=== PATIENT | female | born 2000 | race Caucasian/White ===

== ENCOUNTER 2022-06-11 13:12 | Emergency (ER) | payer MEDICAID, SELFPAY ==
[2022-06-11 13:13] VITALS: BP 138/76; PULSE 102; RESP 18; TEMP 36.8; O2SAT 98; BMI 35.5
--- NOTE | 2022-06-11 16:17 | EX.ED.DYSGE1 ---
HPI History of Present Illness Chief Complaint: Ear Problem Informant: patient Narrative Narrative: Patient presents with left ear pain that is started likely on Friday. It is gotten slowly worse. She feels as though it swollen at the lower part of the ear. Initially she felt like the hearing was a little bit off but it is normal now. No headache. No trauma. No nausea vomiting. She has not had fevers or chills. No history of diabetes. No dental pain. Touching it makes it worse nothing really makes it better. PFSH PFSH Medical History no medical history Home Medications cephalexin 500 mg capsule 500 mg PO Q6 #40 CAPSULES 06/11/22 [Rx Last Taken Unknown] fluconazole 150 mg tablet (Diflucan) 150 mg PO DAILY #2 tabs 06/11/22 [Rx Last Taken Unknown] naproxen 500 mg tablet 500 mg PO BID #14 tabs 06/11/22 [Rx Last Taken Unknown] sulfamethoxazole 800 mg-trimethoprim 160 mg tablet 1 tab PO BID #20 TABLETS 06/11/22 [Rx Last Taken Unknown] Allergy/AdvReac Type Severity Reaction Status Date / Time No Known Allergies Allergy Verified 06/11/22 13:15 Social History Smoking Status: Current every day smoker tobacco type: cigarettes ROS ROS ED Constitutional Constitutional ED: Denies chills Eyes Eyes: Denies blurry vision, change in vision or diplopia ENT ENT ED: Reports ear pain; Denies rhinorrhea or sore throat Respiratory/Chest Respiratory/Chest: Denies cough Gastrointestinal Gastrointestinal: Denies nausea or vomiting Musculoskeletal Musculoskeletal: Denies back pain, myalgias or neck pain Integumentary Denies Abrasions or rash Neurologic Neurologic: Denies headache(s) Hematologic/Lymphatic Hematologic/Lymphatic: Reports lymphadenopathy; Denies easy bleeding or easy bruising Allergic/Immunologic Allergic/Immunologic ED: Denies urticaria EXAM Physical Exam Narrative Exam Narrative: Patient awake alert sitting comfortably in bed. She is nontoxic in appearance. HEENT does show a little bit of fullness toward the lower edge of the tragus on the ear. This does not appear to be parotid gland. Behind the tragus and the lower anterior external part of the canal is red. But there is no abscess or pustule that I could see or drain. The canal is still open but it certainly narrowed. But there is no exudate. I see nothing behind the ear. There is some lymphadenopathy below this area. There is nothing fluctuant. She can open or close her mouth well. There is no dental tenderness. HEENT shows no swelling up by the eyes or lids. No pain with range of motion. Neck shows upper lymphadenopathy mild no pain with motion Cardiorespiratory lungs are clear. Heart is regular. Saturations are normal. Const Vital Signs: 06/11/22 13:13 Temperature 98.2 F Temperature Source Temporal Pulse Rate 102 H Respiratory Rate 18 Blood Pressure 138/76 H Blood Pressure Mean 96 Pulse Ox 98 Oxygen Delivery Method Room Air MDM MDM MDM Narrative Medical decision making narrative: Patient has 2 to 3 days of irritation and some slight swelling of the left lower ear. I think this is a start of infection. This is not a typical otitis externa because there is no exudate or inflammation the majority of the canal. I think this is more an infection toward the base of the tragus and ear. But there is nothing that can be drained. There is nothing that I can feel that would be reachable with needle. I think warm compresses and antibiotics are the initial course. I explained that this may develop into a head that could be drained and then we do need to resee her because we would like to drain this if possible. But using a needle to poke randomly into the area around the ear is not appropriate. Patient also requested Diflucan with antibiotics which is appropriate. Discharge Plan Triage Chief Complaint: Ear Problem ED Provider: Pablito Sommers Dx/Rx/DC Orders Clinical Impression: Otitis externa Instructions: ED External Ear Infection (Adult) Prescriptions: New sulfamethoxazole-trimethoprim [sulfamethoxazole-trimethoprim] 800-160 mg tablet 1 tab PO BID Qty: 20 0RF cephalexin [cephalexin] 500 mg capsule 500 mg PO Q6 Qty: 40 0RF naproxen 500 mg tablet 500 mg PO BID Qty: 14 0RF fluconazole [Diflucan] 150 mg tablet 150 mg PO DAILY Qty: 2 0RF Rx Instructions: 1 7 days into antibiotic treatment and 1 the day after antibiotics done Primary Care Provider: Babs Hartman Referrals: Babs Hartman, [Primary Care Provider] - 3-5 Days Activity Restrictions/Additional Instructions: Warm compresses to ear. Return if there is a swollen white or soft area that develops. Disposition Disposition: Home, Self Care
== END 2022-06-11 16:29 | disposition home or self-care (01) ==
PROVIDERS: Emergency Provider Emergency Medicine; PCP Pediatrics; Visit Provider Emergency Medicine
DX: H60.92 Unspecified otitis externa, left ear (principal); F17.210 Nicotine dependence, cigarettes, uncomplicated
CPT/HCPCS: 99282

== ENCOUNTER 2023-11-24 22:44 | Emergency (ER) | payer MEDICAID, SELFPAY ==
[2023-11-24 22:45] VITALS: BP 144/86; PULSE 96; RESP 16; TEMP 36.6; O2SAT 100; BMI 36.3
[2023-11-25 00:40] LABS: Absolute Lymphocyte Count 4.04 X10^3/uL (0.83-4.51); Absolute Neutrophil Count 7.2 X10^3/uL (2.0-7.7); Basophil# 0.05 X10^3/uL; Basophil% 0.4 % (0-1); Eosinophil# 0.13 X10^3/uL; Eosinophils% 1.1 % (0-5); Hematocrit 39.6 % (37-47); Hemoglobin 12.9 g/dL (12.0-15.0); Lymphocyte # 4.04 X10^3/ul (0.83-4.51); Lymphocyte % 33.6 % (19-41); Mean Corp Hgb Conc 32.6 g/dL (32-36); Mean Corpuscular Hgb 27.2 pg (27.0-32.0); Mean Corpuscular Volume 83.5 fL (81-99); Mean Platelet Vol. 10.2 fl (6.2-12.0); NRBC Flagged by Analyzer 0 % (0-5); Neutrophil # 7.16 X10^3/uL (2.7-7.7); Neutrophil % 59.7 % (47-70); Platelet Count 295 K/mm3 (150-450); RBC Distribution Width CV 13.3 % (11.6-14.6); Red Blood Count 4.74 M/mm3 (4.2-5.4)
[2023-11-25 00:44] VITALS: RESP 16
[2023-11-25 00:49] LABS: Internal QC Validated? YES +Cl - CLEAR BKGD; Pregnancy, Serum, hCG Quali. NEGATIVE Negative
[2023-11-25 01:23] VITALS: RESP 16
--- NOTE | 2023-11-25 01:52 | EDS_ITS ---
HPI HPI - Female History of Present Illness Chief Complaint: Vag Bleeding Informant: patient Narrative Narrative: 23-year-old female presenting to the emergency room with heavy menses. Patient states that she has been bleeding for 16 days. She states her period started on time and seemed normal but has progressively worsened. She notes lower abdominal cramping at times and heavy flow. She has not had any syncope or lightheadedness. She has no history of abnormal menses. No history of ovarian cyst or other significant INSTRUCTIONAL COORDINATOR history. She does not have a computer science instructor. She is not on any control. She does vape. PFSH PFSH Medical History no medical history Home Medications ?Medication ?Instructions ?Recorded ?Last Taken ?Type norethindrone acetate 5 mg tablet See Rx Instructions .Route 11/25/23 Unknown Rx .COMPLEX #30 tabs Allergy/AdvReac Type Severity Reaction Status Date / Time No Known Allergies Allergy Verified 11/24/23 22:44 Family History no significant family his Surgical History no surgical history Social History Smoking Status: Current every day smoker tobacco type: cigarettes ROS ROS ED Constitutional Constitutional ED: Denies chills or weight loss Eyes Eyes: Denies change in vision or diplopia ENT ENT ED: Denies ear pain, rhinorrhea or sore throat Cardiovascular Cardiovascular: Denies chest pain, orthopnea, palpitations or racing heartbeat Respiratory/Chest Respiratory/Chest: Denies cough, dyspnea or orthopnea Gastrointestinal Gastrointestinal: Denies abdominal pain, diarrhea, nausea or vomiting Genitourinary Genitourinary ED: Reports other Details: See history of present illness ; Denies dysuria, hematuria or urinary frequency Musculoskeletal Musculoskeletal: Denies arthralgias or myalgias Integumentary Denies abscess or rash Neurologic Neurologic: Denies headache(s) or weakness Psychiatric Psychiatric: Denies anxiety, depression, suicidal ideation or suicidal thoughts Endocrine Endocrinology: Denies polydipsia, polyphagia or polyuria Allergic/Immunologic Allergic/Immunologic ED: Denies mouth swelling, tongue swelling or urticaria EXAM Physical Exam Narrative Exam Narrative: Well-appearing female sitting comfortably in the bed Const Vital Signs: 11/24/23 22:45 11/25/23 00:44 11/25/23 01:23 Temperature 97.9 F Temperature Source Oral Pulse Rate 96 Respiratory Rate 16 16 16 Blood Pressure 144/86 H Blood Pressure Mean 105 Pulse Ox 100 Oxygen Delivery Method Room Air Positive well nourished and well developed General Appearance ED: well developed and NAD HEENT Reports normocephalic, head/scalp atraumatic and moist mucous membranes Eyes PERRL and EOMs intact bilaterally Neck no lymphadenopathy, supple and no JVD Resp normal respiratory effort and clear to auscultation bilaterally Cardio regular rate, regular rhythm and no murmurs GI normal to inspection, nondistended, normoactive bowel sounds and non-tender Palpation: soft Back/Spine no CVA tenderness and normal ROM Extremity normal to inspection General Extremety ED: Negative for edema General Extremity: Negative for edema Neuro oriented x3 and CN's II-XII intact bilaterally Sensorium / Orientation: alert Motor Exam: strength 5/5 throughout Psych mental status grossly normal Mood & Affect: Negative for depressed or tearful Skin no rashes or lesions noted and no wounds MDM MDM MDM Narrative Medical decision making narrative: Differential diagnosis includes but not limited to menorrhagia dysfunctional uterine bleeding uterine fibroid ovarian cyst hormonal imbalance ectopic bleeding in Patient's white count is 12 hemoglobin 12.9 platelet count of 295 test is negative. I spoke with the patient regarding various treatment options. She does not currently have a computer science instructor but she needs to obtain 1. Talk about waiting versus Aygestin therapy. She would like to try the Aygestin which I think is reasonable. The patient will continue to monitor bleeding Tylenol and/or Motrin for pain. Follow-up with gynecology referral given. Patient will refrain from vaping. History & Record Review Discussion w/independent historian: Patient Lab Data Attestation: I reviewed the patient's lab results. Labs: Laboratory Results - last 24 hr 11/25/23 00:29 WBC 12.0 H RBC 4.74 Hgb 12.9 Hct 39.6 MCV 83.5 MCH 27.2 MCHC 32.6 RDW Std Deviation 41.0 RDW Coeff of Azar 13.3 Plt Count 295 MPV 10.2 Immature Gran % (Auto) 0.200 Neut % (Auto) 59.7 Lymph % (Auto) 33.6 [place] % (Auto) 5.0 Eos % (Auto) 1.1 Baso % (Auto) 0.4 Absolute Neuts (auto) 7.2 Absolute Lymphs (auto) 4.04 Nucleated RBC % 0 Serum , Qual NEGATIVE Discharge Plan Triage Chief Complaint: Vag Bleeding ED Provider: Marty Askew Dx/Rx/DC Orders Clinical Impression: Menorrhagia Instructions: ED Heavy Menstrual Bleeding Prescriptions: New norethindrone acetate 5 mg tablet See Rx Instructions .ROUTE .COMPLEX Qty: 30 0RF Rx Instructions: 5 mg p.o. 3 times daily until bleeding stops, then 1 tab p.o. twice daily x 3 days, then 1 tab p.o. daily x 3 days Primary Care Provider: Care Physician,No Primary Referrals: Aliyah Martino MD [Med Staff - Active Staff] - As soon as possible Care Physician,No Primary [Primary Care Provider] - Print Language: Japanese Disposition Disposition: Home, Self Care Discharge Date/Time: 11/25/23 01:28
== END 2023-11-25 01:28 | disposition home or self-care (01) ==
PROVIDERS: Emergency Provider Emergency Medicine; Visit Provider Emergency Medicine
DX: N92.0 Excessive and frequent menstruation with regular cycle (principal); F17.210 Nicotine dependence, cigarettes, uncomplicated
CPT/HCPCS: 84703; 85025; 99283

== ENCOUNTER 2024-10-16 22:34 | Emergency (ER) | payer MEDICAID, SELFPAY ==
[2024-10-16 22:35] VITALS: BP 137/94; RESP 18; TEMP 36.6; O2SAT 99; BMI 34.5
--- NOTE | 2024-10-16 22:54 | US_ITS ---
PROCEDURE: TRANSVAGINAL W/PREG US 10/17/2024 REASON FOR EXAM: ABD PAIN TECHNIQUE: TRANSVAGINAL W/PREG US COMPARISON: none FINDINGS Uterus measures 8.7 x 5.4 x 4.5 cm. No fibroids noted. Cervix is closed. No free fluid within the cul de sac. Intrauterine with gestational sac of 0.6 cm corresponding to sonographic gestational age of 5 weeks and 2 days. CARLOS of 06/16/25. Right ovary measures 2.6 x 1.7 x 1.6 cm and left ovary measures 3.8 x 2.7 x 2.4 cm. Corpus luteal cyst in the left measuring 2.1 x 1.5 x 1.7 cm. US/Transvaginal w/Preg US IMPRESSION: Intrauterine with gestational sac of 0.6 cm corresponding to sonograp hic gestational age of 5 weeks and 2 days. CARLOS of 06/16/25. Corpus luteal cyst in the left measuring 2.1 x 1.5 x 1.7 cm. Reading Location: [id number]
--- OUTSIDE RECORDS SUMMARY | 2024-10-16 23:12 | XMS RPT_ITS | CCD ---
Author Organization [facility] CliniSyil Care Team Providers Care Accounts Clerk Name Role Phone [facility] Unavailable [facility], [facility] Unavailable Unavailable NO REFERRING Unavailable Unavailable SHAMA PALM, BERNADETTE Bush Attending Unavailalejandro MOORE MD, KENNY Attending Unavailable SHAMA PALM, BERNADETTE Bush Attending Unavailalejandro MARIE, BABS Primary Care Unavailable GWEN GRULLON Attending Unavailable VALBARRON, BABS Primary Care Unavailable Brisa Mcdowell Primary Care Unavaila Anibal Whalen Attending Unavailable Anibal Lemus Referring Unavailable Brisa Mcdowell Unavailable [phone] Unavailable Unavailable Valentic, Babs Primary Care Provider [phone] PHYSICIAN, NONE Primary Care Physician Unavailab le PHYSICIAN, NONE Primary Care Unavailable JANELL AVALOS MD Attending Unavailable BRONWYN UMANZOR Primary Care Unavailable BRONWYN UMANZOR S Attending Unavailable REFERRED, SELF Referring Unavailable REFERRED, SELF Referring Unavailable BRONWYN UMANZOR S Attending Unavailable VALBABS MART N Primary Care Unavailable REFERRED, SELF Referring Unavailable VALNORA MARTFER N Primary Care Unavailable DARIA HUBBARD Attending Unavailable REFERRED, SELF Referring Unavailable VALENTIC BABS N Primary Care Unavailable VALENTICBABS N Attending Unavailable PARTH UMANZORALD S Primary Care Unavailable BRONWYN UMANZOR S Attending Unavailable REFERRED, SELF Referring Unavailable Unavailable Primary Care Provider UnavailMarty Lyle Attending Unavailable Care Physician, No Primary Primary Care Unava illizzy PHYSICIAN, NONE Primary Care Unavailable ALBINA KRUEGER DO Attending Unavailable Unavailable Primary Care Provider UnavailJACKY Fenton Referring Unavailable JACKY WALTON Attending Unavailable IRENE REINOSO Referring Unavailable JACKY WALTON Referring Unavailable ARTURO STEWART Attending Unavailable JUJU ORTA Attending Unavailable JUJU ORTA Attending Unavailable DESIRAE STEWART Attending Unavailable STEW DE LUNA Referring Unavailable IRENE REINOSO Attending Unavailable STEW DE LUNA Referring Unavailable Medications Current Medications Medication Drug Class(es) Dates Sig (Normalized) Sig (Original) acetaminophen 250 mg / aspirin 250 mg / caffeine 65 mg oral tablet (15 sources) Platelet Aggregation Inhibitor, Nonsteroidal Anti-inflammatory Drug, Central Nervous System Stimulant, Methylxanthine Start: 02-15-2022 End: 06-03-2024 take 2 tablets by mouth every six hours as needed Aspirin-Acetamino phen-Caffeine (EXCEDRIN MIGRAINE) 250-250-65 mg per tablet Take 2 tablets by mouth every 6 hours as needed (Headache). Do not exceed 8 tablets per 24 hours 16 tablet 02/15/2022 06/03/2024 Discontinued Comment on above: Take 2 tablets by mo uth every 6 hours as needed (Headache). Do not exceed 8 tablets per 24 hours amoxicillin 875 mg oral tablet (1 source) Penicillin-class Antibacterial Start: 05-24-2022 End: 05-31-2022 take 1 tablet by mouth twice daily amoxicillin (AMOXIL) 875 mg tablet Indications: Acute otitis media, left Take 1 tablet by mouth twice daily for 7 days. 14 tablet 0 05/24/2022 05/31/2022 Active Comment on above: Take 1 tablet by natasha th twice daily for 7 days. amoxicillin 875 mg / clavulanate 125 mg oral tablet (4 sources) Penicillin-class Antibacterial Start: 03-08-2024 End: 03-15-2024 take 1 tablet by mouth twice daily amoxicillin-clavu lanate potassium (AUGMENTIN) 875-125 mg per tablet Take 1 tablet by mouth two times a day for 7 days. 14 tablet 03/08/2024 03/15/2024 Active Start: 06-08-2023 End: 06-15-2023 take 1 tablet by mouth twice daily amoxicillin-clavulanate potassium (AUGMENTIN) 875-125 mg per tablet Take 1 tablet by mouth two times a day for 7 days. 14 tablet 0 06/08/2023 06/15/2023 Active Comment on above: Take 1 tablet by natasha th two times a day for 7 days. fluconazole 150 mg oral tablet (1 source) Azole Antifungal Start : 03-13 End: 03-13 take 1 tablet by mouth once fluconazole (DIFLUCAN) 150 mg tablet Indications: Vaginal evelyn Take 1 tablet by mouth one time only for 1 dose. 1 tablet 03/13/2024 03/13/2024 Active hydrocortisone 10 mg/ml / neomycin 3.5 mg/ml / polymyxin b 74380 unt/ml otic suspension (1 source) Aminoglycoside Antibacterial, Polymyxin-class Antibacterial, Corticosteroid Start : 06-13 End: 06-20 hydrocortisone/neomycin/ polymyxin B 1%-0.35%-10,000 units/mL otic suspension Dose = 2 drop(s), Ear, left, QID, X 7 day(s), # 10 mL, 0 Refill(s) Start Date: 06/13/22 Stop Date: 06/20/22 Status: Ordered medroxyPROGESTERone acetate 400 mg/ml injectable suspension (16 sources) Progestin End: 06-03 medroxyPROGESTERone (DEPO-PROVERA) 400 mg/mL susp Inject 400 mg intramuscularly every 12 weeks. 06/03/2024 Discontinued Depo-Provera HALEIGH P Quantity: 0 Refills: 0 Ordered: 25-Feb-2022 DO Active Comment on above: Inject 400 mg intram uscularly every 12 weeks. 24 hr metFORMIN hydrochloride 500 mg extended release oral tablet (5 sources) Biguanide Start: End: take 37-37.9 tablets by mouth twice daily at mealtime metFORMIN ER (GLUCOPHAGE XR) 500 mg 24 hr tablet Indications: PCOS (polycystic ovarian syndrome) , Class 2 severe obesity with serious comorbidity and body mass index (BMI) of 37.0 to 37.9 in adult, unspecified obesity type (HCC) Take 2 tablets by mouth two times a day with meals. 360 tablet 1 08/20/2024 02/16/2025 Active metroNIDAZOLE 500 mg oral tablet (1 source) Nitroimidazole Antimicrobial Start: End: take 1 tablet by mouth twice daily metroNIDAZOLE (FLAGYL) 500 mg tablet Take 1 tablet by mouth two times a day for 7 days. 14 tablet 05/04/2024 05/11/2024 Active miconazole nitrate 20 mg/ml vaginal cream (1 source) Azole Antifungal Start: End: miconazole (MONISTAT) 2 % vaginal cream Use 1 applicator vaginally once daily for 7 days. 45 g 09/15/2024 09/22/2024 Active Norethindrone (15 sources) Start: End: DEBLITANE 0.35 mg tablet 03/22/2021 06/03/2024 Discontinued Start: 03-22-2021 DEBLITANE 0.35 mg tablet 03/22/2021 Active Start: 03-22-2021 DEBLITANE 0.35 mg tablet omeprazole 40 mg delayed release oral capsule (4 sources) Proton Pump Inhibitor Start: 07-08-2024 End: 09-06-2024 take 1 capsule by mouth once daily in the morning omeprazole (PRILOSEC) 40 mg capsule Indications: Gastroesophageal reflux disease, unspecified whether esophagitis present Take 1 capsule by mouth every morning. 30 capsule 1 07/08/2024 Active Completed/Discontinued Medications Medication Drug Class(es) Dates Sig (Normalized) Sig (Original) benzonatate 200 mg oral capsule (1 source) Non-narcotic Antitussive Start: 02-25-2022 take 1 capsule by mouth three times daily as needed Benzonatate 200 MG Oral Capsule TAKE 1 CAPSULE 3 TIMES DAILY NEEDED. Quantity: 30 Refills: 0 Ordered: 25-Feb-2022 Anibal Lemus MD Start : 25-Feb-2022 Active Ethinyl Estradiol / norgestimate (3 sources) Progestin, Estrogen Start: 06-22-2024 End: 08-20-2024 take 1 tablet by mouth once daily, then take 0.25 tablet by mouth once norgestimate-ethin yl estradiol (SPRINTEC) 0.25-0.035 mg per tablet Indications: PCOS (polycystic ovarian syndrome) Take 1 tablet by mouth once daily. 28 tablet 14 06/22/2024 08/20/2024 Discontinued Start: 06-22-2024 take 1 tablet by natasha th once daily, then take 0.25 tablet by mouth once norgestimate-ethinyl estradiol (SPRINTEC) 0.25-0.035 mg per tablet Indications: PCOS (polycystic ovarian syndrome) Take 1 tablet by mouth once daily. 28 tablet 14 06/22/2024 Active Problems Active Problems Problem Classification Problem Date Documented Date Episodic/Chronic Disorders of lipid metabolism (8 sources) Dyslipidemia; Translations: [Hyperlipidemia, unspecified] Onset: 07-08-2024 07-08-2024 Chronic Esophageal disorders (8 sources) Gastroesophageal reflux disease; Translations: [Gastro-esophageal reflux disease without esophagitis] Onset: 07-08-2024 07-08-2024 Chronic Fracture of upper limb (2 sources) Closed fracture of distal end of right radius; Translations: [Unspecified fracture of the lower end of right radius, initial encounter for closed fracture] 03-01-2024 Episodic Genitourinary congenital anomalies (7 sources) Uterus arcuatus; 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] Onset: 06-18-2024 06-22-2024 Chronic Genitourinary symptoms and ill-defined conditions (2 sources) Increased frequency of urination; Translations: [Frequency of micturition] Onset: 09-14-2024 09-14-2024 Episodic Headache; including migraine (1 source) Headache disorder; Translations: [Headache disorder] Onset: 02-15-2022 Episodic Inflammatory diseases of female pelvic organs (1 source) Bacterial vaginosis; Translations: [Acute vaginitis] 05-04-2024 Episodic Menstrual disorders (20 sources) Irregular periods; Translations: [Irregular menstruation, unspecified] Onset: 06-03-2024 06-03-2024 Chronic Mycoses (1 source) Candidiasis of vagina; Translations: [Vaginal evelyn] 03-13-2024 Episodic Other ear and sense organ disorders (1 source) Acute otitis externa of left ear; Translations: [Unspecified acute noninfective otitis externa, left ear] 06-08-2023 Episodic Other endocrine disorders (3 sources) Polycystic ovary syndrome; Translations: [Polycystic ovarian syndrome] 06-22-2024 Chronic Other endocrine disorders (1 source) Polycystic ovarian syndrome; Translations: [PCOS (polycystic ovarian syndrome)] Onset: 06-22-2024 Chronic Other female genital disorders (1 source) Abnormal uterine and vaginal bleeding, unspecified; Translations: [Abnormal uterine and vaginal bleeding, unspecified] Onset: 12-17-2023 Chronic Other female genital disorders (2 sources) Vaginal discharge; Translations: [Other specified noninflammatory disorders of vagina] 06-03-2024 Episodic Other female genital disorders (6 sources) Cyst of uterine adnexa; Translations: [Other noninflammatory disorders of ovary, fallopian tube and broad ligament] Onset: 06-18-2024 06-18-2024 Episodic Other female genital disorders (1 source) Other specified noninflammatory disorders of vagina; Translations: [Vaginal discharge] Onset: 09-14-2024 Episodic Other lower respiratory disease (1 source) Cough; Translations: [Cough] Episodic Other nervous system disorders (7 sources) Organic sleep-wake cycle disorder; Translations: [Circadian rhythm sleep disorder, unspecified type] Onset: 07-08-2024 07-08-2024 Chronic Other nervous system disorders (2 sources) Circadian rhythm sleep disorder, unspecified type; Translations: [Disorder of sleep wake schedule] Onset: 07-08-2024 Chronic Other non-traumatic joint disorders (4 sources) Pain of right wrist; Translations: [Pain in right wrist] 02-16-2024 Episodic Other nutritional; endocrine; and metabolic disorders (1 source) Obesity; Translations: [Class 2 obesity without serious comorbidity with body mass index (BMI) of 37.0 to 37.9 in adult, unspecified obesity type] 06-22-2024 Chronic Other nutritional; endocrine; and metabolic disorders (7 sources) Severe obesity; Translations: [Class 2 severe obesity with serious comorbidity and body mass index (BMI) of 37.0 to 37.9 in adult, unspecified obesity type (HCC)] Onset: 07-08-2024 07-08-2024 Chronic Other nutritional; endocrine; and metabolic disorders (1 source) Morbid (severe) obesity due to excess calories; Translations: [Class 2 severe obesity with serious comorbidity and body mass index (BMI) of 37.0 to 37.9 in adult, unspecified obesity type (HCC)] Onset: 07-08-2024 Chronic Other nutritional; endocrine; and metabolic disorders (2 sources) Body mass index (BMI) 37.0-37.9, adult; Translations: [Class 2 severe obesity with serious comorbidity and body mass index (BMI) of 37.0 to 37.9 in adult, unspecified obesity type (HCC)] Onset: 07-08-2024 Chronic Other nutritional; endocrine; and metabolic disorders (2 sources) Picky eater; Translations: [Picky eater] 07-08-2024 Episodic Other upper respiratory disease (1 source) Epistaxis; Translations: [Epistaxis] Onset: 02-15-2022 Episodic Other upper respiratory infections (3 sources) Viral upper respiratory tract infection; Translations: [Acute upper respiratory infections of unspecified site] Episodic Otitis media and related conditions (2 sources) Acute left otitis media; Translations: [Otitis media, unspecified, left ear] Episodic Unclassified (1 source) Unknown / UNK(Unknown) Onset: 10-24-2016 Unclassified (1 source) Acute cough; Translations: [Acute cough] Onset: 10-18-2021 Unclassified (1 source) Picky eater; Translations: [Picky eater] Onset: 08-20-2024 Unclassified (1 source) Class 2 severe obesity with serious comorbidity and body mass index (BMI) of 37.0 to 37.9 in adult, unspecified obesity type (HCC); Translations: [Class 2 severe obesity with serious comorbidity and body mass index (BMI) of 37.0 to 37.9 in adult, unspecified obesity type (HCC)] Onset: 07-08-2024 Unclassified (1 source) Class 2 obesity without serious comorbidity with body mass index (BMI) of 37.0 to 37.9 in adult, unspecified obesity type; Translations: [Class 2 obesity without serious comorbidity with body mass index (BMI) of 37.0 to 37.9 in adult, unspecified obesity type] Onset: 07-08-2024 Past or Other Problems Problem Classification Problem Date Documented Date Episodic/Chronic Fever of unknown origin (2 sources) Fever; Translations: [Fever, unspecified] Onset: 10-24-2016 Episodic Malaise and fatigue (2 sources) Other malaise; Translations: [Other fatigue] Onset: 10-18-2021 Episodic Nonspecific chest pain (1 source) Chest pain, unspecified; Translations: [Chest pain of uncertain etiology] Onset: 10-18-2021 Episodic Other lower respiratory disease (1 source) Shortness of breath; Translations: [Shortness of breath] Onset: 10-18-2021 Episodic Other non-traumatic joint disorders (2 sources) Pain in right wrist; Translations: [Pain in right wrist] Onset: 02-16-2024 Episodic Other nutritional; endocrine; and metabolic disorders (9 sources) Unintentional weight gain; Translations: [Abnormal weight gain] Onset: 06-03-2024 06-03-2024 Episodic Other skin disorders (10 sources) Hirsutism; Translations: [Hirsutism] Onset: 06-03-2024 06-03-2024 Episodic Other skin disorders (10 sources) Acne vulgaris; Translations: [Acne vulgaris] Onset: 06-03-2024 06-03-2024 Episodic Other skin disorders (1 source) Hirsutism; Translations: [Hirsutism] Onset: 06-03-2024 Episodic Other skin disorders (1 source) Acne vulgaris; Translations: [Acne vulgaris] Onset: 06-03-2024 Episodic Unclassified (1 source) Fracture of distal end of right radius 04-27-2024 Viral infection (1 source) Viral infection, unspecified; Translations: [Viral syndrome] Onset: 10-18-2021 Episodic Results Test Name Value Interpretation Reference Range Facility BACTERIAL VAGINOSIS NAATon 0 09-14-2024 Lactobacillus crispatus+gasseri +jensenii + Gardnerella vaginalis + Atopobium vaginae rRNA MARV+probe Ql (Vag fld) Detected Abnormal Not detected [facility] Comment on above: Order Comment: Speci men Type: SWABOrdering Facility: [facility] Address: [address] [place] [address] Performed By: #### 3 6902-5, BVAMP ####[facility] LABCLIA [id number] [place] [address] [place] Bacteria Ur Culton 5 Bacteria identified Cx Nom (U) ORGANISM ID: 1 >=100,000 CFU/ml Normal urogenital ludin Normal [facility] Comment on above: Performed By: #### 6 30-4 ####[facility] LABCLIA [id number] [place] [address] [place] C. trachomatis+N. gonorrhoea e DNA MARV+probe Ql (Unsp spec)on 09-14-2024 C. trachomatis rRNA MARV+probe Ql (Unsp spec) Not detected Normal Not detected [facility] Comment on above: Order Comment: Speci men Type: SWABOrdering Facility: [facility] Address: [address] [place] [address] Performed By: #### 3 6902-5, BVAMP ####[facility] LABCLIA [id number] [place] [address] [place] N. gonorrhoeae rRNA MARV+probe Ql (Unsp spec) Not detected Normal Not detected [facility] Comment on above: Order Comment: Speci men Type: SWABOrdering Facility: [facility] Address: [address] [place] [address] Performed By: #### 3 6902-5, BVAMP ####[facility] LABCLIA [id number] [place] [address] [place] EVELYN/TRICHOMONAS NAATon 0 09-14-2024 C. glabrata RNA MARV+probe Ql (Vag fld) Not detected Normal Not detected [facility] Comment on above: Order Comment: Speci men Type: BLOOD SPECIMEN Ordering Facility: [facility] Address: [address] [place] [address] Performed By: #### 5 8410-2 #### [facility] CLIA [id number] [address] [place] [address] [place] Evelyn sp DNA MARV+probe Ql (Vag fld) Detected Abnormal Not detected [facility] Comment on above: Order Comment: Speci men Type: BLOOD SPECIMEN Ordering Facility: [facility] Address: [address] [place] [address] Result Comment: The Evelyn species group target includes C. albicans, C. tropicalis, C. parapsilosis, and C. dubliniensis. Performed By: #### 5 8410-2 #### [facility] CLIA [id number] [address] [place] [address] [place] T. vaginalis DNA MARV+probe Ql (Unsp spec) Not detected Normal Not detected [facility] Comment on above: Order Comment: Speci men Type: BLOOD SPECIMEN Ordering Facility: [facility] Address: [address] [place] [address] Performed By: #### 5 8410-2 #### [facility] MARC [id number] [address] [place] [address] [place] [facility] CN[facility]on 09-[facility] CNOV Office Visit (WOUCA) ELOGÓMEZ Segovia ([id number]) 02 F CHT Date Time Provider Department 09/14/24 5:45 PM DESIRAE STEWART During your visit today, we recorded the following information about you: Temperature Pulse Respiration Blood pressure 98.4 degrees 94/minute 18/minute 122/82 Weight 104.8 kg Desirae Stewart APRN.FURNACE COMBUSTION TESTER 09/14/2024 6:12 PM Signed [facility] Segovia Elo is a 24 year old female. Patient presents with: Urinary Frequency: Frequency, burning and discharge x 3 days HPI Dysuria and Urinary Retention: - Onset 3 days ago. - Describes a burning sensation during urination and a feeling of incomplete bladder emptying. - Initially accompanied by right lower quadrant pain. Vaginal Discharge: - Noticed yellowish discharge with a fishy odor the day after dysuria began. - Denies dyspareunia. - Engages in unprotected sexual intercourse with fiance of 4 years; denies any symptoms in partner. 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 - Has been using vaginal probiotics and boric acid without relief. Review of Systems Gastrointestinal: (+) abdominal tenderness Genitourinary: (+) dysuria, (+) urinary hesitancy, (+) malodorous yellow vaginal discharge, (-) dyspareunia Objective BP 122/82 Pulse 94 Temp 36.9 ?C (98.4 ?F) (Tympanic) Resp 18 Wt 104.8 kg (231 lb 0.7 oz) LMP 06/27/2024 SpO2 98% BMI 35.84 kg/m? Physical Exam General: No acute distress. CV: Heart sounds normal. Resp: Breath sounds normal. Abd: Mild tenderness to palpation. { 1. Urinary frequency (R35.0) - Onset 3 days ago, accompanied by dysuria and sensation of incomplete bladder emptying. - Abdominal exam reveals mild tenderness, no acute pain. - Urinalysis shows presence of WBCs; urine culture ordered to rule out UTI. 2. Vaginal discharge (N89.8) - Yellowish discharge with fishy odor noted; history of recurrent bacterial vaginosis. - No dyspareunia reported. - Educated on vaginal pH imbalance as a potential cause. - Advised to consult [facility] [employer] [facility] for further management options. - Self-administered vaginal swabs for chlamydia, gonorrhea, trichomonas, BV, and yeast infections. - Will initiate appropriate treatment based on test results. and Recording using San[employer] software for draft documentation of the visit was discussed with the patient/authorized senior patient account representative; all questions welcomed and answered. Patient/authorized senior patient account representative agreed to proceed MDM Procedures Allergies As of Date: 09/14/2024 (No Known Allergies) Date Reviewed: 09/14/2024 Reviewed by: Milagros Copeland LPN - Fully Assessed Reason for Visit: Urinary Frequency [1086] Cmt: Frequency, burning and discharge x 3 days Primary Visit Diagnosis:Urinary frequency [R35.0] Other Visit Diagnosis:Vaginal discharge [N89.8] Order(s):UA DIP, URINE (POC) [[id number]] Order #: [id number]. #:[id number] -LAB BACTERIAL CULTURE, URINE [SQURCUL] Order #: [id number]. #:[id number] BACTERIAL VAGINOSIS NAAT [SQBVAMP] Order #: [id number]. #:[id number] EVELYN/TRICHOMONAS NAAT [SQCVTV] Order #: [id number]. #:[id number] GONORRHEA/CHLAMYDIA NAAT [SQGCCT] Order #: [id number] FUTURE GONORRHEA/CHLAMYDIA NAAT [SQGCCT] Order #: [id number]. #:[id number] Prescriptions as of 09/14/2024 - metFORMIN ER (GLUCOPHAGE XR) 500 mg 24 hr tablet Take 2 tablets by mouth two times a day with meals. - omeprazole (PRILOSEC) 40 mg capsule Take 1 capsule by mouth every morning. 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] 07/08/2024 Class 2 severe obesity with serious comorbidity*07/08/2024 Encounter Status:Closed by DESIRAE STEWART on 09/14/24 Normal [facility] UA DIP, URINE (POC)on 2024 BILIRUBIN UA (POCT) Negative Negative [facility] CLARITY UA (POCT) Clear [facility] COLOR UA (POCT) Yellow [facility] GLUCOSE UA (POCT) Negative Negative mg/dL [facility] Hemoglobin Ql (U) Negative Negative [facility] Interpretation and review of laboratory results Abnormal [facility] KETONE UA (POCT) Negative Negative mg/dL [facility] LEUKOCYTES UA (POCT) Small Abnormal Negative [facility] NITRITE UA (POCT) Negative [facility] PH UA (POCT) 5.5 4.5 - 8.0 [facility] Protein Ql (U) Negative Negative mg/dL [facility] SPECIFIC GRAVITY UA (POCT) >=1.030 1.005 - 1.030 [facility] UROBILINOGEN UA (POCT) 0.2 Normal E.U./dL [facility] Location:[facility], [address] [place] [address], [place], [place], [id number] [place] [address] POINT OF CARE [facility] CNOVon 08-20-2024 CNOV Office Visit (OBGYWM ) ELOGÓMEZ Luca ([id number]) 02 F T Date Time Provider Department 08/20/24 2:30 PM JUJU ORTA OBKIRANWSean During your visit today, we recorded the following information about you: Pulse Blood pressure Weight 96/minute 130/84 106.1 kg Juju Orta APRN.FURNACE COMBUSTION TESTER 08/20/2024 3:11 PM Addendum - Increase metformin extended-release to 1,000 mg twice daily with meals; prescription sent to [facility] - For your first meal each day , have 30 g of protein and limit carbs - Aim for at least 30 g of protein and under 30 g of carbs at lunch and dinner; use the provided list of balanced meal and restaurant choices (Chipotle bowl, Subway, Fabi?s) for guidance. - Choose protein-rich snacks--such as cheese sticks, protein shakes, nuts or seeds--instead of high-carb options like grapes or granola bars. [employer] Protein 10 gm protein 9 net carbs. - Focus on whole foods: lean meats, eggs, high-protein yogurts (Oikos Pro or Chobani drinkable), and low-carb vegetables. Use a food scale to measure a 4-ounce portion (about 28 g protein). - Take a short walk after meals to help lower blood sugar and support PCOS management. - Review and follow the detailed nutrition guide and food lists provided, which include portion sizes, ltsvocf-ud-fott ratios, low-sugar fruit recommendations, and meal ideas. - Schedule a follow-up visit in 3 months to review your progress and adjust your care plan as needed. - Whole food balanced protein, controlled carbohydrate nutrition plan - 30 g of protein 3 times a day and up to 30 g of carbs at lunch and dinner only. 1st meal of the day- 30g protein with limit of 2 gm carbohydrates. Premier Protein or generic 30 gm protein 1 gm sugar 2. 2-3 eggs and some unbreaded meat and/or cheese. 3. 2-3 eggs and 1/2 of protein shake or one of the yogurts below: :ratio, KETO Friendly Dairy Snack 1 single svg - 15g protein AND 2g carb Two Good Lowfat Wallisian Yogurt, Lower Sugar - 12g protein AND 2g carb No fruit, vegetables, bread, grain, other brands of yogurt, Smoothies, etc. Lunch and dinner - 30 gm protein is the goal with less than 30 gm carbohydrates All snacks and meals - all protein or more protein than carbs Protein - no carbs Egg 1 large - 6g Egg white 1 large 3.6g 3 oz is approximately the size of a deck of cards and equals 21 g protein so 4 oz is 28 gm protein Beef, Chicken, [place], Pork, Romero 1 oz 7g Fish, Tuna Fish 1 oz 7g (Starkist tuna packet 2.6 oz 17 gm protein) Seafood (Crabmeat, Shrimp, Lobster) 1 oz 6g Protein shakes (read labels) Premier Protein or generic [employer] Equate, Meijer High Performance- 30g protein AND 1g carb - meal replacement Premier Protein powder or generic- 30 g protein, 1g carb Fairlife 30 gram protein - 30g protein AND 3g carb BOOST Glucose Control Max 30g Protein Nutritional Drink - 30g protein AND 1 carb - meal replacement Slimfast High Protein - 20g protein AND 1g carb Ensure Max Protein Nutrition Shake 30g protein AND 2 carb OWYN plant based 100 % vegan no dairy, soy, wheat/gluten 32g protein 0 net carb (not a meal replacement) Premier Protein plant protein powder - 25g protein, 0 sugar/2g carb Vanilla and chocolate (not a meal replacement) Protein AND carbs Beef/[place] Jerky 1 oz dried 10-15g protein - check carb count, can be high if sugar added Slim Ger - 6 gm protein and 4 net carb Great Value original turkey sausage sticks - 7 gm protein and 2 gm carb Tony AND Delgado (at [facility]) Original smoked sausage sticks - 8 gm protein and 0 carb Imitation Crab Meat 1 oz - 2g protein AND 4g carb Milk, skim 2% or 1% 8 oz - 8g protein AND 12g carb Fairlife 2% milk 8 oz -13g protein AND 6g carb Wallisian yogurt Full Fat Wallisian Yogurt 1 cup - 20.4g protein AND 9.1g carb 2% Wallisian Yogurt 1 cup - 22.7g protein AND 9.1g carb 0% (fat-free) Wallisian Yogurt - 1 cup 24g protein AND 9.3g carb Aldi Protein Wallisian yogurt single svg - 13/g15g protein AND 7g carb Chobani Zero Sugar single svg: - 12g protein AND 5g carb Dannon Wallisian Light + Fit 1 single svg - 12g protein AND 9g carb Oikos Pro single svg - 20g protein AND 8g carb Oikos Triple Zero Wallisian Nonfat Yogurt 1 single svg - 15g protein AND 7g carb :ratio, KETO Friendly Dairy Snack 1 single svg - 15g protein AND 2g carb :ratio Protein 1 single svg - 25g protein AND 8g carb Two Good Lowfat Wallisian Yogurt, [place], Lower Sugar - 12g protein AND 2g carb Yoplait Protein 1 single svg 15g protein AND 5g carb Dairy Free - [place] unsweetened Wallisian almond/soy 15g protein AND 3g carb Dairy Free - True Goodness by [facility] coconut-based yogurt alternative 1 g protein 1 g net carb 180 jeff Drinkable yogurts: Chobani drinkable 15g, 20g and 30g protein AND 18 carb (too many carbs for breakfast) Chobani Zero Sugar 10g protein 6g carbs 50 (more content not included)... Normal [facility] CNOVon 07-08-2024 CNOV Office Visit (OBGYWM ) GÓMEZ GASCA ([id number]) 4 F T Date Time Provider Department 07/08/24 8:00 AM JUJU ORTA During your visit today, we recorded the following information about you: Pulse Blood pressure Weight Height 93/minute 128/88 108.4 kg 1.71 m Last Period 06/27/24 Juju Orta APRN.[facility] 07/08/2024 5:25 PM Signed Patient Summary: Gómez Gasca is a 24 year old female with obesity who presents for an initial evaluation of overweight/obesity to treat and prevent co-morbidities and is interested in combination of behavioral and pharmacological. Motivation for seeking treatment for the disease of overweight/obesity : I want to lose weight, this is the heaviest I've ever been. Stuck at this weight, and want to feel better. Goal weight: 170 Lowest recall weight: 155 Highest non- recall weight: 239 Patient identified barriers to weight loss:does not eat most fruits or vegetables, does not cook so orders out or eats out Weight History: She reports a strong family history of obesity and early adulthood weight gain. She states her weight gain is related to the following factors, including exposure to a weight gain promoting medication, depo. 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 Difficulty losing weight? Y - Last Wt 07/08/24 : 108.4 kg (239 lb) 5% weight loss = 227 lbs, 10% weight loss = 215 lbs WEIGHT GRAPH: Diet/Nutrition overview: Awake - 05 or between 1-3 pm Work Day B - 08 sf Monster or coffee caramel Latte K-cup with nothing else added to it S - none L - SKIP S - 2-3 snacks between 12 and 5 pm granola bar or fruit snacks - 2029 sometimes eats dinner after work - Chipotle or leftovers of take-out S - usually 30-60 min before bed sweet - ice cream, chips, PB, candy crackers Off Day B: SKIP S - none L - SKIP S - sometimes granola bar or fruit snacks or PB crackers after waking up D - [id number] - Chipotle bowl extra b rice, extra beans, ckn, steak, ex cheese, s cream, queso, corn salsa, sometimes chips no salsa Taco Madrigal - jose carbone and 2 potato tacos or steak quesadilla Subway - tuna sub on [place]uran bread with cheese, lettuce, cucumbers, banana peppers, oil/vinegar Fabi's - wright cheeseburger, fries, 5 pc nugget/ss sauce lemonade Fluids: sf Monster or coffee caramel Latte K-cup with nothing else added to it, regular Body [place], Propel, water with SF iced tea mix , lemonade, Bedtime - 230 or 02-26 Quality of diet: 24hr recall suggests unhealthy diet. Characterization of diet:unhealthy snacking, excessive cravings, evening snacking, increased consumption of sugar sweetened beverages, and skip meals. 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 MELISSA NO ; CPAP NO Stress Stress:yes , Cause:Work Obesity Related Comorbidities: Prior Weight Loss Surgery:No PAST MEDICAL HISTORY Diagnosis Date Asthma (HCC) exercise induced, mild Coitus painful for female Not sure Pain comes and goes. Not always everytime Menorrhagia with irregular cycle 06/03/2024 PCOS (polycystic ovarian syndrome) PAST SURGICAL HISTORY Procedure Laterality Date TUMOR REMOVAL (SPECIFY LOCATION) HX 2015 back, benign FAMILY HISTORY Problem Relation Age of Onset Obesity Mother other (raynaud's disease) Mother Diabetes Father Obesity Father Asthma Sister Obesity Sister Asthma Brother Obesity Maternal Grandmother Obesity Maternal Grandfather Obesity Paternal Grandmother Obesity Paternal Grandfather Social History Tobacco Use Smoking status: Never Smokeless tobacco: Never Vaping Use Vaping status: current everyday user Substances: Nicotine Devices: Disposable Substance Use Topics Alcohol use: Yes Comment: rarely Drug use: Not Currently AOM Medications: none Weight Promoting Medications: none Diet/weight loss History: Past weight loss attempts? self-directed and exercise program. Caloric restriction, Exercise/increased activity, Keto, Low Carbohydrate diet, and MyFitnessPal Exercise: Regular exercise: no Strength/resistance exercise:no Barriers to regular exercise? no Work-related activity:Active. Gym Membership: yes [employer] Activity Tracker: yes average steps per day [phone] on work days 3-4 days/wk OCCUPATION [employer] 06-1800 Current Contraception: none Obesity ROS/ FHx GEN: Fatigue:yes CV: h/o palpitations/cardiac arrhythmia, Chest pain: no HTN: no PULM: As (more content not included)... Normal [facility] CNOVon 06-22-2024 CNOV Office Visit (OBGYWM ) GÓMEZ GASCA ([id number]) 4 F CHT Date Time Provider Department 06/22/24 1:40 PM ARTURO STEWART OBGYWM During your visit today, we recorded the following information about you: Blood pressure Weight 120/60 108.4 kg Arturo Stewart MD 06/22/2024 2:08 PM Signed Obstetrics and Gynecology [facility] [employer] PROFESSOR Visit Subjective Recording using Sanitors software for draft documentation of the visit was discussed with the patient/authorized senior patient account representative; all questions welcomed and answered. Patient/authorized senior patient account representative agreed to proceed CHIEF COMPLAINT: The patient is a 24-year-old female with a history of irregular menstrual cycles, weight gain, and symptoms suggestive of PCOS, presenting for follow-up on recent blood work and ultrasound results. HPI: Menstrual Irregularities - LMP: May 23 - Reports irregular menstrual cycles, with intervals of 2-4 months without a period, followed by prolonged bleeding lasting almost a month. - Previous use of combined oral contraceptive pills resulted in nausea even after switching to a lower dose of estrogen. - Transitioned to a progestin-only pill, which alleviated nausea but caused irregular periods. - Has not tried NuvaRing. - No history of migraines or blood clots. PCOS - Reports increased acne and hair growth. - Recent blood work evaluating for PCOS was normal. - Recent ultrasound did not show a polycystic appearance of the ovaries but did reveal a small para-ovarian/paratubal cyst, described as benign with no follow-up needed. - Ultrasound also noted an arcuate uterus. Weight Gain - Reports significant weight gain since the end of 2022, coinciding with the start of Depo-Provera use. - Initial weight before Depo-Provera was 155-160 lbs; current weight is 235-249 lbs. - Describes weight as stuck, with no significant changes despite efforts. - Interested in weight management and open to seeing a specialist in obesity medicine. 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 Not always everytime Hirsutism 06/03/2024 Irregular menstrual cycle 06/03/2024 Menorrhagia with irregular cycle 06/03/2024 NEGATIVE MEDICAL HISTORY Unintended weight gain 06/03/2024 PAST SURGICAL HISTORY Procedure Laterality Date NONE FAMILY HISTORY Problem Relation Age of Onset No Known Problems Mother Diabetes Father Social History Tobacco Use Smoking status: Never Smokeless tobacco: Never Vaping Use Vaping status: current everyday user Substances: Nicotine Substance Use Topics Alcohol use: Yes Comment: rarely Drug use: Not Currently Types: Marijuana Current Outpatient Medications Medication Sig norgestimate-ethinyl estradiol (SPRINTEC) 0.25-0.035 mg per tablet Take 1 tablet by mouth once daily. No current facility-administered medications for this visit. ALLERGIES No Known Allergies REVIEW OF SYSTEMS: Constitutional: (+) weight gain Head: (-) migraines Genitourinary: (+) irregular menses Skin: (+) acne, (+) hirsutism Objective SENSITIVE EXAM: Sensitive exam not performed. PHYSICAL EXAM: BP 120/60 Wt 239 lb (108.4kg) LMP 05/23/2024 General: No acute distress. Assessment AND Plan ASSESSMENT AND PLAN: 1. PCOS (polycystic ovarian syndrome) (E28.2) - Diagnosis confirmed based on oligomenorrhea and clinical signs of hyperandrogenism (acne and hirsutism). - Discussed risks of endometrial hyperplasia and endometrial cancer due to irregular menstrual cycles. - Initiated combined oral contraceptive pill to regulate menstrual cycles and manage hyperandrogenic symptoms. - Educated on potential side effects of oral contraceptives, including nausea; advised to take the pill at bedtime to mitigate nausea. - Discussed alternative option of NuvaRing if oral contraceptive pill is not tolerated. - Advised to start the oral contraceptive pill on the first Friday after the next menstrual cycle or this upcoming Friday if confident not . - Follow-up in 3-4 months to monitor blood pressure and assess treatment efficacy. 2. Arcuate uterus (Q51.810) - Ultrasound findings consistent with an arcuate uterus; no clinical significance or need for intervention. - Educated patient that this is a normal anatomical variant and does not pose any health risks. 3. Class 2 obesity without ser (more content not included)... Normal [facility] 25(OH)D3 SerP-ncon 2024 25-hydroxyvitamin D3 [Mass/Vol] 48.7 ng/mL Normal 31.0-80.0 [facility] Comment on above: Order Comment: Speci men Type: BLOOD SPECIMEN Ordering Facility: [facility] Address: [address] [place] [address] Result Comment: Clas sification of 25 [place] Vitamin D status: Deficiency/Insufficiency: < or = 30 ng/ml. Sufficiency/Optimal Levels: 31-80 ng/mL Toxicity: > 100 ng/mL. Test performed by chemiluminescent immunoassay. Performed By: #### 5 8410-2 #### [facility] CLIA [id number] [address] [place] [address] [place] [facility] HCG.beta subunit Qn m[IU]/mL Normal <5.0 [facility] Comment on above: Order Comment: Speci men Type: BLOOD SPECIMEN Ordering Facility: [facility] Address: [address] [place] [address] Result Comment: Felicita wheatley Performed By: #### 5 8410-2 #### [facility] CLIA [id number] [address] [place] [address] [place] CBC panel Auto (Bld)on 06-08 Erythrocyte distribution width (RBC) [Ratio] 13.5 % Normal 11.5-15.0 [facility] Comment on above: Order Comment: Speci men Type: BLOOD SPECIMEN Ordering Facility: [facility] Address: [address] [place] [address] Performed By: #### 5 8410-2 #### [facility] CLIA [id number] [address] [place] [address] [place] Hematocrit (Bld) [Volume fraction] 40.5 % Normal 36.0-46.0 [facility] Comment on above: Order Comment: Speci men Type: BLOOD SPECIMEN Ordering Facility: [facility] Address: [address] [place] [address] Performed By: #### 5 8410-2 #### [id number] [address] [place] [address] [place] Hemoglobin (Bld) [Mass/Vol] 13.6 g/dL Normal 11.5-15.5 [facility] Comment on above: Order Comment: Speci men Type: BLOOD SPECIMEN Ordering Facility: [facility] Address: [address] [place] [address] Performed By: #### 5 8410-2 #### [facility] [id number] [address] [place] [address] [place] MCH (RBC) [Entitic mass] 27.0 pg Normal 26.0-34.0 [facility] Comment on above: Order Comment: Speci men Type: BLOOD SPECIMEN Ordering Facility: [facility] Address: [address] [place] [address] Performed By: #### 5 8410-2 #### [facility] [id number] [address] [place] [address] [place] MCHC (RBC) [Mass/Vol] 33.6 g/dL Normal 30.5-36.0 [facility] Comment on above: Order Comment: Speci men Type: BLOOD SPECIMEN Ordering Facility: [facility] Address: [address] [place] [address] Performed By: #### 5 8410-2 #### [facility] CLIA [id number] [address] [place] [address] [place] MCV (RBC) [Entitic vol] 80.5 fL Normal 80.0-100.0 [facility] Comment on above: Order Comment: Speci men Type: BLOOD SPECIMEN Ordering Facility: [facility] Address: [address] [place] [address] Performed By: #### 5 8410-2 #### [facility] CLIA [id number] [address] [place] [address] [place] Nucleated RBC (Bld) [#/Vol] 10*3/uL Normal <0.01 [facility] Comment on above: Order Comment: Speci men Type: BLOOD SPECIMEN Ordering Facility: [facility] Address: [address] [place] [address] Performed By: #### 5 8410-2 #### [facility] CLIA [id number] [address] [place] [address] [place] Platelet mean volume (Bld) [Entitic vol] 9.9 fL Normal 9.0-12.7 [facility] Comment on above: Order Comment: Speci men Type: BLOOD SPECIMEN Ordering Facility: [facility] Address: [address] [place] [address] Performed By: #### 5 8410-2 #### [facility] CLIA [id number] [address] [place] [address] [place] Platelets (Bld) [#/Vol] 308 10*3/uL Normal 150-400 [facility] Comment on above: Order Comment: Speci men Type: BLOOD SPECIMEN Ordering Facility: [facility] Address: [address] [place] [address] Performed By: #### 5 8410-2 #### [facility] CLIA [id number] [address] [place] [address] [place] RBC (Bld) [#/Vol] 5.03 10*6/uL Normal 3.90-5.20 [facility] Comment on above: Order Comment: Speci men Type: BLOOD SPECIMEN Ordering Facility: [facility] Address: [address] [place] [address] Performed By: #### 5 8410-2 #### [facility] CLIA [id number] [address] [place] [address] [place] WBC (Bld) [#/Vol] 7.81 10*3/uL Normal 3.70-11.00 [facility] Comment on above: Order Comment: Speci men Type: BLOOD SPECIMEN Ordering Facility: [facility] Address: [address] [place] [address] Performed By: #### 5 8410-2 #### [facility] [id number] [address] [place] [address] [place] [facility] Comprehensive metabolic 2000 panelon 06-08-2024 Albumin [Mass/Vol] 4.8 g/dL Normal 3.9-4.9 [facility] Comment on above: Order Comment: Speci men Type: BLOOD SPECIMEN Ordering Facility: [facility] Address: [address] [place] [address] Performed By: #### 5 8410-2 #### [facility] [id number] [address] [place] [address] [place] ALP [Catalytic activity/Vol] 80 U/L Normal 34-123 [facility] Comment on above: Order Comment: Speci men Type: BLOOD SPECIMEN Ordering Facility: [facility] Address: [address] [place] [address] Performed By: #### 5 8410-2 #### [facility] CLIA [id number] [address] [place] [address] [place] ALT [Catalytic activity/Vol] 11 U/L Normal 7-38 [facility] Comment on above: Order Comment: Speci men Type: BLOOD SPECIMEN Ordering Facility: [facility] Address: [address] [place] [address] Performed By: #### 5 8410-2 #### [facility] CLIA [id number] [address] [place] [address] [place] Anion gap [Moles/Vol] 13 mmol/L Normal 8-15 [facility] Comment on above: Order Comment: Speci men Type: BLOOD SPECIMEN Ordering Facility: [facility] Address: [address] [place] [address] Performed By: #### 5 8410-2 #### [facility] CLIA [id number] [address] [place] [address] [place] AST [Catalytic activity/Vol] 12 U/L Low 13-35 [facility] Comment on above: Order Comment: Speci men Type: BLOOD SPECIMEN Ordering Facility: [facility] Address: [address] [place] [address] Performed By: #### 5 8410-2 #### [facility] CLIA [id number] [address] [place] [address] [place] Bilirubin [Mass/Vol] 0.4 mg/dL Normal 0.2-1.3 [facility] Comment on above: Order Comment: Speci men Type: BLOOD SPECIMEN Ordering Facility: [facility] Address: [address] [place] [address] Performed By: #### 5 8410-2 #### [facility] CLIA [id number] [address] [place] [address] [place] Calcium [Mass/Vol] 10.3 mg/dL High 8.5-10.2 [facility] Comment on above: Order Comment: Speci men Type: BLOOD SPECIMEN Ordering Facility: [facility] Address: [address] [place] [address] Performed By: #### 5 8410-2 #### [facility] CLIA [id number] [address] [place] [address] [place] Chloride [Moles/Vol] 102 mmol/L Normal 98-107 [facility] Comment on above: Order Comment: Speci men Type: BLOOD SPECIMEN Ordering Facility: [facility] Address: [address] [place] [address] Performed By: #### 5 8410-2 #### [facility] CLIA [id number] [address] [place] [address] [place] CO2 [Moles/Vol] 23 mmol/L Normal 22-30 [facility] Comment on above: Order Comment: Speci men Type: BLOOD SPECIMEN Ordering Facility: [facility] Address: [address] [place] [address] Performed By: #### 5 8410-2 #### [facility] [id number] [address] [place] [address] [place] Creatinine [Mass/Vol] 0.73 mg/dL Normal 0.58-0.96 [facility] Comment on above: Order Comment: Speci men Type: BLOOD SPECIMEN Ordering Facility: [facility] Address: [address] [place] [address] Performed By: #### 5 8410-2 #### [facility] CLIA [id number] [address] [place] [address] [place] Creatinine and Glomerular filtration rate.predicted panel (S/P/Bld) 119 mL/min/1.73m??? Normal >=60 [facility] Comment on above: Order Comment: Speci men Type: BLOOD SPECIMEN Ordering Facility: [facility] Address: [address] [place] [address] Result Comment: Oksana mated Glomerular Filtration Rate (eGFR) is calculated using the 2020 CKD-EPI creatinine equation. This equation utilizes serum creatinine, sex, and age as parameters. The creatinine assay has traceable calibration to isotope dilution-mass spectrometry. Refer to KDIGO guidelines for clinical interpretation. In patients with unstable renal function, e.g. those with acute kidney injury, the eGFR may not accurately reflect actual GFR. Performed By: #### 5 8410-2 #### [facility] CLIA [id number] [address] [place] [address] [place] Glucose [Mass/Vol] 98 mg/dL Normal 74-99 [facility] Comment on above: Order Comment: Ela bey Type: BLOOD SPECIMEN Ordering Facility: [facility] Address: [address] [place] [address] Result Comment: The [place] Diabetes Association (ADA) provides guidance for cutoff values for fasting glucose and random glucose. The ADA defines fasting as no caloric intake for at least 8 hours. Fasting plasma glucose results between 100 to 125 mg/dL indicate increased risk for diabetes (prediabetes). Fasting plasma glucose results greater than or equal to 126 mg/dL meet the criteria for diagnosis of diabetes. In the absence of unequivocal hyperglycemia, results should be confirmed by repeat testing. In a patient with classic symptoms of hyperglycemia or hyperglycemic crisis, random plasma glucose results greater than or equal to 200 mg/dL meet the criteria for diagnosis of diabetes. Reference: Standards of Medical Care in Diabetes 2016, [place] Diabetes Association. Diabetes Care. 2016.39(Suppl 1). Performed By: #### 5 8410-2 #### [facility] [id number] [address] [place] [address] [place] Potassium [Moles/Vol] 4.0 mmol/L Normal 3.7-5.1 [facility] Comment on above: Order Comment: Ela bey Type: BLOOD SPECIMEN Ordering Facility: [facility] Address: [address] [place] [address] Performed By: #### 5 8410-2 #### [facility] [id number] [address] [place] [address] [place] Protein [Mass/Vol] 7.9 g/dL Normal 6.3-8.0 [facility] Comment on above: Order Comment: Speci men Type: BLOOD SPECIMEN Ordering Facility: [facility] Address: [address] [place] [address] Performed By: #### 5 8410-2 #### [facility] CLIA [id number] [address] [place] [address] [place] Sodium [Moles/Vol] 138 mmol/L Normal 136-144 [facility] Comment on above: Order Comment: Speci men Type: BLOOD SPECIMEN Ordering Facility: [facility] Address: [address] [place] [address] Performed By: #### 5 8410-2 #### [facility] CLIA [id number] [address] [place] [address] [place] Urea nitrogen [Mass/Vol] 13 mg/dL Normal 7-21 [facility] Comment on above: Order Comment: Speci men Type: BLOOD SPECIMEN Ordering Facility: [facility] Address: [address] [place] [address] Performed By: #### 5 8410-2 #### [facility] CLIA [id number] [address] [place] [address] [place] DHEA-S BLDon 06-08-2024 DHEA-S [Mass/Vol] 283.8 ug/dL Normal 148.0-407.0 [facility] Comment on above: Order Comment: Speci men Type: BLOOD SPECIMEN Ordering Facility: [facility] Address: [address] [place] [address] Result Comment: Refe rence ranges are age and gender specific. For additional information, reference range tables can be found in the laboratory test directory. The normal values are based on the following source: Dehydroepiandrosterone sulfate (DHEA S) [package insert V 17.0 Greek]. [facility], [place], [place]: September 2012. Performed By: #### 5 8410-2 #### [facility] CLIA [id number] [address] [place] [address] [place] Estradiol SerPl-mCncon 06-08 E2 [Mass/Vol] 40 pg/mL Normal [facility] Comment on above: Order Comment: Speci men Type: BLOOD SPECIMEN Ordering Facility: [facility] Address: [address] [place] [address] Result Comment: This test is not suitable for patients receiving treatment with the drug Fulvestrant (Faslodex). The drug causes an interference leading to falsely elevated estradiol results. Menstrual cycle Estradiol reference ranges: Follicular : < 234 pg/mL Ovulation : 41 to 398 pg/mL Luteal : < 342 pg/mL Estradiol reference ranges vary by gestational period: First trimester : 154 to 3243 pg/mL Second trimester : 1561 to 45160 pg/mL Third trimester : 8285 to >25955 pg/mL Post-menopausal Estradiol reference range: < 41 pg/mL Reference: 1. Estradiol - E2 (Estradiol III) [package insert V 3.0 Greek]. [facility], [place], [place], July 2015. Performed By: #### 5 8410-2 #### [facility] CLIA [id number] [address] [place] [address] [place] FSH SerPl-aCncon 06-08-2024 Follitropin Qn 10.1 m[IU]/mL Normal See comment [facility] Comment on above: Order Comment: Speci men Type: BLOOD SPECIMEN Ordering Facility: [facility] Address: [address] [place] [address] Result Comment: Refe rence range: Follicular: 3.5-12.5 mIU/mL Ovulation: 4.7-21.5 mIU/mL Luteal: 1.7-7.7 mIU/mL Postmenopausal: 25.8-134.8 mIU/mL Performed By: #### 5 8410-2 #### [facility] CLIA [id number] [address] [place] [address] [place] Glucose p fast SerPl-mCncon 06-08-2024 Glucose post fast [Mass/Vol] 93 mg/dL Normal 74-99 [facility] Comment on above: Order Comment: Ela bey Type: BLOOD SPECIMEN Ordering Facility: [facility] Address: [address] [place] [address] Result Comment: Ank[place] ican Diabetes Association guidelines state that a diabetes mellitus diagnosis is preliminarily made when the fasting plasma glucose meets or exceeds 126 mg/dL. In the absence of unequivocal hyperglycemia, results should be confirmed with repeat testing. Patients are at increased risk for diabetes mellitus (prediabetes) when the fasting glucose is 100 to 125 mg/dL. Performed By: #### 1 558-6 #### [facility] CLIA [id number] [address] [place] [address] OF [facility] HYDROXYPROGESTERONE-17on 17-HYDROXYPROGEST ERONE QUANTITATIVE BY HPLC-MS/MS, SERUM OR PLASMA 31.83 ng/dL Normal <=206.00 [facility] Comment on above: Order Comment: Ela bey Type: BLOOD SPECIMENOrdering Facility: [facility] Address: [address] [place] [address] Result Comment: INTE RPRETIVE INFORMATION for 17-Hydroxyprogesterone in females: Follicular 15 to 70 ng/dL Luteal 35 to 290 ng/dL REFERENCE INTERVAL: 17-Hydroxyprogesterone Qnt, HPLC-MS/MS Access complete set of age- and/or gender-specific reference intervals for this test in the [facility] Test Directory ([employer]). This test was developed and its performance characteristics determined by [facility]. It has not been cleared or approved by the US Food and Drug Administration. This test was performed in a CLIA certified laboratory and is intended for clinical purposes. Performed By: [facility] [address] [place] [address] Agronomy Specialist: Remington Vasquez MD, PhD CLIA Number: [id number] Performed By: #### H PROG ####[facility] [id number] [place] [id number] HbA1c (Bld)on 06-08-2024 Average glucose Estimated from glycated hemoglobin (Bld) [Mass/Vol] 105 mg/dL Normal [facility] Comment on above: Order Comment: Speci men Type: BLOOD SPECIMENOrdering Facility: [facility] Address: [address] [place] [address] Result Comment: eAG: (Estimated average glucose) is a calculated value from HgbA1c and is senior patient account representative of the average blood glucose level in the last 2-3 month period. Performed By: #### 5 5454-3 ####[facility] [id number] [place] [address] [place] HbA1c (Bld) [Mass fraction] 5.3 % Normal 4.3-5.6 [facility] Comment on above: Order Comment: Rosemaryi men Type: BLOOD SPECIMENOrdering Facility: [facility] Address: [address] [place] [address] Result Comment: [place] Diabetes Association guidelines indicate that patients with HgbA1c in the range 5.7-6.4% are at increased risk for development of diabetes, and intervention by lifestyle modification may be beneficial. HgbA1c greater or equal to 6.5% is considered diagnostic of diabetes. Performed By: #### 5 5454-3 ####[facility] [id number] [place] [address] [place] Insulin SerPl-aCncon 025 Insulin Qn 15.9 uU/mL Normal 2.6-24.9 [facility] Comment on above: Order Comment: Speci men Type: BLOOD SPECIMENOrdering Facility: [facility] Address: [address] [place] [address] Performed By: #### 2 0448-7 ####[facility]IA [id number] [place] [address] [place] LH SerPl-aCncon 06-08-2024 Lutropin Qn 13.0 m[IU]/mL Normal See comment [facility] Comment on above: Order Comment: Speci men Type: BLOOD SPECIMENOrdering Facility: [facility] Address: [address] [place] [address] Result Comment: Refe rence range: Follicular: 2.4-12.6 mIU/mL Midcycle: 14.0-95.6 mIU/mL Luteal: 1.0-11.4 mIU/mL Post Reading: 7.7-58.5 mIU/mL Performed By: #### 1 0501-5, 2842-3, 2986-8, 3016-3 ####[facility] [id number] [place] [address] [place] Lipid 1996 panelon 5 Cholesterol [Mass/Vol] 189 mg/dL Normal <200 [facility] Comment on above: Order Comment: Speci men Type: BLOOD SPECIMEN Ordering Facility: [facility] Address: [address] [place] [address] Result Comment: <200 mg/dL, Desirable 200-239 mg/dL, Borderline high >239 mg/dL, High Performed By: #### 5 8410-2 #### [facility] [id number] [address] [place] [address] [place] Cholesterol in HDL [Mass/Vol] 36 mg/dL Low >39 [facility] Comment on above: Order Comment: Speci men Type: BLOOD SPECIMEN Ordering Facility: [facility] Address: [address] [place] [address] Result Comment: 40-5 9 mg/dL, Acceptable >59 mg/dL, High: Negative risk factor for coronary heart disease <40 mg/dL, Low: Positive risk factor for coronary heart disease Performed By: #### 5 8410-2 #### [facility] CLIA [id number] [address] [place] [address] [place] Cholesterol in LDL [Mass/Vol] 128 mg/dL High <100 [facility] Comment on above: Order Comment: Speci men Type: BLOOD SPECIMEN Ordering Facility: [facility] Address: [address] [place] [address] Result Comment: <100 mg/dL, Optimal 100-129 mg/dL, Near optimal/above optimal 130-159 mg/dL, Borderline high 160-189 mg/dL, High >189 mg/dL, Very high Secondary prevention optimal LDL Cholesterol levels are recommended to be < 70 mg/dL Performed By: #### 5 8410-2 #### [facility] CLIA [id number] [address] [place] [address] [place] Cholesterol in LDL/Cholesterol in HDL [Mass ratio] 3.56 {ratio} High <2.54 [facility] Comment on above: Order Comment: Speci men Type: BLOOD SPECIMEN Ordering Facility: [facility] Address: [address] [place] [address] Result Comment: Modesta fajardo: 1. National Cholesterol Education Program ATP III Guideline At-A-Glance Quick Desk Reference: National Heart, Lung, and Blood Morning View. National Institutes of Health. 2001: NIH Publication No. 01-3305. 2. An International Atherosclerosis Society position paper: global recommendations for the management of dyslipidemia: executive summary, Atherosclerosis. 2014: 232(2):410-413. Cut Points from the Lipid Research Clinic's Prevalence Study for ages 20 to 24 years can be located in the following reference: Expert Panel on Integrated Guidelines for Cardiovascular Health and Risk Reduction in Children and Adolescents: National Heart, Lung and Blood Morning View. Pediatrics. 2011:128(Suppl 5):L549-132. Performed By: #### 5 8410-2 #### [facility] [id number] [address] [place] [address] [place] Cholesterol in VLDL [Mass/Vol] 25 mg/dL Normal <30 [facility] Comment on above: Order Comment: Speci men Type: BLOOD SPECIMEN Ordering Facility: [facility] Address: [address] [place] [id number] Performed By: #### 5 8410-2 #### [facility] [id number] [address] [place] [address] [place] Cholesterol non HDL [Mass/Vol] 153 mg/dL High <130 [facility] Comment on above: Order Comment: Speci men Type: BLOOD SPECIMEN Ordering Facility: [facility] Address: [address] [place] [address] Result Comment: <130 mg/dL, Optimal 130-159 mg/dL, Near optimal/above optimal 160-189 mg/dL, Borderline high 190-219 mg/dL, High >219 mg/dL, Very high Secondary prevention optimal non HDL Cholesterol levels are recommended to be <100 mg/dL Performed By: #### 5 8410-2 #### [facility] CLIA [id number] [address] [place] [address] STATES [facility] Cholesterol.total /Cholesterol in HDL [Mass ratio] 5.25 {ratio} High <5.10 [facility] Comment on above: Order Comment: Speci men Type: BLOOD SPECIMEN Ordering Facility: [facility] Address: [address] [place] [address] Performed By: #### 5 8410-2 #### [facility] CLIA [id number] [address] [place] [address] FASTING TIME 12 hrs Normal [facility] Comment on above: Order Comment: Speci men Type: BLOOD SPECIMEN Ordering Facility: [facility] Address: [address] [place] [address] Performed By: #### 5 8410-2 #### [facility] CLIA [id number] [address] [place] [address] STATES OF [facility] Triglyceride [Mass/Vol] 125 mg/dL Normal <150 [facility] Comment on above: Order Comment: Speci men Type: BLOOD SPECIMEN Ordering Facility: [facility] Address: [address] [place] [address] Result Comment: <150 mg/dL, Normal 150-199 mg/dL, Borderline high 200-499 mg/dL, High >499 mg/dL, Very high Performed By: #### 5 8410-2 #### [facility] CLIA [id number] [address] [place] [address] [place] Prolactin SerPl-mCncon 06-08 Prolactin [Mass/Vol] 15.2 ng/mL Normal 4.4-33.8 [facility] Comment on above: Order Comment: Speci men Type: BLOOD SPECIMENOrdering Facility: [facility] Address: [address] [place] [address] Result Comment: Prol actin test is performed using the [facility] Electrochemiluminescence Immunoassay method. Results obtained with different methods or kits cannot be used interchangeably. Performed By: #### 1 0501-5, 2842-3, 2986-8, 3016-3 ####[facility]IA [id number] [place] [address] [place] TSH SerPl-aCncon 06-08-2024 TSH Qn 0.777 m[IU]/L Normal 0.270-4.200 [facility] Comment on above: Order Comment: Speci men Type: BLOOD SPECIMENOrdering Facility: [facility] Address: [address] [place] [address] Result Comment: If t he patient is , TSH reference range varies by gestational period: First Trimester (weeks 9-12): 0.180-2.990 mIU/L Second Trimester: 0.110-3.980 mIU/L Third Trimester: 0.480-4.710 mIU/L Dominik Cantor et al. A Practical Approach for the Verifications and Determination of Site- and Trimester-Specific Reference Intervals for Thyroid Function tests in . Thyroid, 2019:29:3:412-420. Leon Louis, et al. 2017 Guidelines of the [place] Thyroid Association for the Diagnosis and Management of Thyroid Disease during and the . Thyroid, 2017:27:3:315-389. Performed By: #### 1 0501-5, 2842-3, 2986-8, 3016-3 ####[facility]IA [id number] [place] [id number] [place] Testost SerPl-mCncon 06-08- 025 Testosterone [Mass/Vol] 36 ng/dL Normal <40 [facility] Comment on above: Order Comment: Speci men Type: BLOOD SPECIMENOrdering Facility: [facility] Address: [address] [place] [address] [place] [address] Performed By: #### 1 0501-5, 2842-3, 2986-8, 3016-3 ####[facility] [id number] [address] [place] Vit B12 SerPl-mCncon 15-2 025 Cobalamin (Vitamin B12) [Mass/Vol] 962 pg/mL Normal 232-1245 [facility] Comment on above: Order Comment: Speci men Type: BLOOD SPECIMENOrdering Facility: [facility] Address: [address] [place], [place] [address] [address] Performed By: #### 2 132-9 ####[facility]IA [id number] [address] [place] CNOVon 06-03-2024 CNOV Office Visit (OBGYWM ) GÓMEZ GASCA ([id number]) 4 F T Date Time Provider Department 06/03/24 7:45 AM JACKY WALTON During your visit today, we recorded the following information about you: Blood pressure Weight Height Last Period 130/72 106.6 kg 1.695 m 05/23/24 Jacky Walton APRN.FURNACE COMBUSTION TESTER 06/03/2024 8:03 AM Signed Gómez Segovia Elo is a 24 year old female who presents for problem visit of concerns of PCOS. HPI: Periods range from every 2-3 months, lasting 6 days up to 20 days. Periods are heavy - using a tampon every hour. She is sexually active - using withdrawal method for contraception. Reports acne and hirsutism. Reports oily skin. States she is always hot and sweats excessively. Reports sugar cravings. Reports a 90 lb weight gain. 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 Not always everytime NEGATIVE MEDICAL HISTORY PAST SURGICAL HISTORY Procedure Laterality Date NONE FAMILY HISTORY Problem Relation Age of Onset No Known Problems Mother Diabetes Father Social History Tobacco Use Smoking status: Never Smokeless tobacco: Never Vaping Use Vaping status: current everyday user Substances: Nicotine Substance Use Topics Alcohol use: Yes Comment: rarely Drug use: Not Currently Types: Marijuana No current outpatient medications on file. No current facility-administered medications for this visit. Allergies As of Date: 06/03/2024 (No Known Allergies) Fully Assessed 06/03/2024 REVIEW OF SYSTEMS. 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 EXAM: BP 130/72 Ht 5' 6.732 (1.70m) Wt 235 lb (106.6kg) LMP 05/23/2024 BMI 37.10 kg/(m2). GENERAL: pleasant, female in no apparent distress HEENT: Normocephalic, atraumatic, mucus membranes moist, and no lesions DERMATOLOGY: Normal, without lesions, and non-icteric + hirsutism CHEST: Normal inspiratory effort NEURO: alert and oriented x3,exam grossly non-focal EXTREMITIES: normal ASSESSMENT AND PLAN: 1. Irregular menstrual cycle - ICD9: 626.4, ICD10: N92.6 (primary diagnosis) 2. Hirsutism - ICD9: 704.1, ICD10: L68.0 3. Acne vulgaris - ICD9: 706.1, ICD10: L70.0 4. Menorrhagia with irregular cycle - ICD9: 626.2, ICD10: N92.1 5. Unintended weight gain - ICD9: 783.1, ICD10: R63.5 - Symptoms suggest possible PCOS - Obtain labs while fasting - Plan for ultrasound - To follow up to discuss results and management plan - Declines hormonal contraception at this time Jacky Walton APRN.PERCY Medical Decision Making: Problems: Moderate: 1+ chronic illnesses with change Data: Unique test(s) ordered: 3+ Risk: Low: Low risk from testing/treatment Medical Decision Making Level: 4 - Moderate Allergies As of Date: 06/03/2024 (No Known Allergies) Date Reviewed: 06/03/2024 Reviewed by: Jacky Walton APRN.FURNACE COMBUSTION TESTER - Fully Assessed Reason for Visit: Discussion [813] Primary Visit Diagnosis:Irregular menstrual cycle [N92.6] Other Visit Diagnoses:Hirsutism [L68.0] Acne vulgaris [L70.0] Menorrhagia with irregular cycle [N92.1] Unintended weight gain [R63.5] Order(s):THYROID STIMULATING HORMONE [SQTSH] Order #: [id number] FUTURE DHEA-S BLD [SQDHEAS] Order #: [id number] FUTURE TESTOSTERONE, TOTAL BY IMMUNOASSAY (ADULT MALES, OR INDIVIDUALS ON TESTOSTERONE THERAPY) [SQTESTO] Order #: [id number] FUTURE HYDROXYPROGESTERONE-17 [SQHPROG] Order #: [id number] FUTURE LIPID PANEL, FASTING [SQLIPB] Order #: [id number] FUTURE HEMOGLOBIN A1C [EHRHP1L] Order #: [id number] FUTURE INSULIN, TOTAL, SERUM [SQINSULN] Order #: [id number] FUTURE GLUCOSE, FASTING [SQGLF] Order #: [id number] FUTURE COMPREHENSIVE METABOLIC PANEL [SQCMP] Order #: [id number] FUTURE VITAMIN D 25 HYDROXY [SQVITD] Order #: [id number] FUTURE VITAMIN B12 [SQB12] Order #: [id number] FUTURE PELVIC US WHI [4699170] Order #: [id number]: 1 FUTURE COMPLETE BLOOD COUNT [SQCBC] Order #: [id number] FUTURE HCG QUANTITATIVE [SQHCGQT] Order #: [id number] FUTURE LUTEINIZING HORMONE [SQLH] Order #: [id number] FUTURE PROLACTIN [SQPROL] Order #: [id number] FUTURE FOLLICLE STIMULATING HORMONE [SQFSH] Order #: [id number] FUTURE ESTRADIOL-17B BLD [SQE2] Order #: [id number] FUTURE Problem List As Of Date 06/03/2024 Noted Resolved Irregular menstrual cycle [N92.6] 06/03/2024 Dax (more content not included)... Normal [facility] CNPNon 03-09-2024 CNPN Telephone (UCWSTR) GÓMEZ GASCA ([id number]) 02 [facility] Date Time Provider Department 03/09/24 REMINGTON MACKEY [facility] During your visit today, we recorded the following information about you: Remington Mackey APRN.CNP 03/09/2024 7:11 AM Signed Please notify that covid/flu/rsv testing negative. Continue with plan of care as discussed during visit. Rupinder Padgett MA 03/09/2024 8:09 AM Signed Patient given results and verbalized understanding of instructions given. Rupinder Padgett MA Allergies As of Date: 03/09/2024 (No Known Allergies) Date Reviewed: 03/08/2024 Reviewed by: Milagros Copeland LPN - Fully Assessed Reason for Visit: Results [95] Prescriptions as of 03/09/2024 - amoxicillin-clavulanate potassium (AUGMENTIN) 875-125 mg per tablet Take 1 tablet by mouth two times a day for 7 days. - medroxyPROGESTERone (DEPO-PROVERA) 400 mg/mL susp Inject 400 mg intramuscularly every 12 weeks. - Khvybyj-Idpiywvpdpjrg-Dbvir ine (EXCEDRIN MIGRAINE) 250-250-65 mg per tablet Take 2 tablets by mouth every 6 hours as needed (Headache). Do not exceed 8 tablets per 24 hours - DEBLITANE 0.35 mg tablet Problem List As Of Date: 03/09/2024 (None) Encounter Status:Closed by RUPINDER PADGETT on 03/09/24 Normal [facility] CNOVon 03-08-2024 CNOV Office Visit (UCWSTR ) GÓMEZ GASCA ([id number]) 02 F T Date Time Provider Department 03/08/24 7:30 PM LUDIVINA WEI [facility] During your visit today, we recorded the following information about you: Temperature Pulse Respiration Blood pressure 98.1 degrees 84/minute 18/minute 110/78 Weight 107.7 kg Ludivina Wei APRN.FURNACE COMBUSTION TESTER 03/08/2024 7:45 PM Signed This note was created using [employer]. Subjective Gómez Gasca is a 24 year old female. 24 year old female with PMH asthma presents for illness. 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 No speech language pathology assistant was used. Cough This is a new problem. The current episode started more than 2 days ago. The problem occurs constantly. The problem has not changed since onset.Cough characteristics: +productive sputum. There has been no fever. Pertinent negatives include no chest pain, no chills, no sweats, no weight loss, no ear congestion, no ear pain, no headaches, no rhinorrhea, no sore throat, no myalgias, no shortness of breath, no wheezing and no eye redness. She has tried nothing for the symptoms. The treatment provided no relief. Her past medical history does not include bronchitis, pneumonia, bronchiectasis, COPD, emphysema or asthma. PAST MEDICAL HISTORY Diagnosis Date NEGATIVE MEDICAL HISTORY No past surgical history on file. ALLERGIES Patient has no known allergies. MEDICATIONS amoxicillin-clavulanate potassium (AUGMENTIN) 875-125 mg per tablet Take 1 tablet by mouth two times a day for 7 days. medroxyPROGESTERone (DEPO-PROVERA) 400 mg/mL susp Inject 400 mg intramuscularly every 12 weeks. (Patient not taking: Reported on 06/08/2023) Ytnztie-Zyveatdvsdwkf-Rdsxq ine (EXCEDRIN MIGRAINE) 250-250-65 mg per tablet Take 2 tablets by mouth every 6 hours as needed (Headache). Do not exceed 8 tablets per 24 hours (Patient not taking: Reported on 05/24/2022) DEBLITANE 0.35 mg tablet (Patient not taking: Reported on 05/24/2022) FAMILY HISTORY Problem Relation Age of Onset No Known Problems Mother Diabetes Father Social History Tobacco Use Smoking status: Never Smokeless tobacco: Never Vaping Use Vaping status: current everyday user Substances: Nicotine Substance Use Topics Alcohol use: Yes Comment: rarely Drug use: Not Currently Types: Marijuana Review of Systems Constitutional: Positive for fatigue and fever. Negative for chills and weight loss. HENT: Positive for congestion. Negative for ear pain, rhinorrhea and sore throat. Eyes: Negative for pain, discharge, redness and itching. Respiratory: Positive for cough. Negative for apnea, chest tightness, shortness of breath and wheezing. Cardiovascular: Negative for chest pain. Gastrointestinal: Negative for abdominal pain, diarrhea, nausea and vomiting. Musculoskeletal: Negative for myalgias. Skin: Negative for color change, pallor, rash and wound. Allergic/Immunologic: Negative for environmental allergies, food allergies and immunocompromised state. Neurological: Negative for dizziness, facial asymmetry and headaches. Hematological: Negative for adenopathy. Does not bruise/bleed easily. Psychiatric/Behavioral: Negative for agitation and behavioral problems. Objective BP 110/78 Pulse 84 Temp 36.7 ?C (98.1 ?F) (Tympanic) Resp 18 Wt 107.7 kg (237 lb 7 oz) LMP (LMP Unknown) SpO2 97% BMI 37.19 kg/m? Physical Exam Vitals and nursing note reviewed. Constitutional: General: She is not in acute distress. Appearance: Normal appearance. She is normal weight. She is not ill-appearing, toxic-appearing or diaphoretic. HENT: Head: Normocephalic and atraumatic. Right Ear: Ear canal and external ear normal. Left Ear: Ear canal and external ear normal. Ears: Comments: Right TM erythematous and bulging Nose: Congestion present. No rhinorrhea. Mouth/Throat: Mouth: Mucous membranes are moist. Pharynx: Posterior oropharyngeal erythema present. No oropharyngeal exudate. Eyes: General: Right eye: No discharge. Left eye: No discharge. Extraocular Movements: Extraocular movements intact. Conjunctiva/sclera: Conjunctivae normal. Pupils: Pupils are equal, round, and reactive to light. Cardiovascular: Rate and Rhythm: Normal rate and regular rhythm. Pulses: Normal pulses. Heart sounds: Normal heart sounds. No murmur heard. No friction rub. Pulmonary: Effort: Pulmonary effort is normal. No respiratory distress. Breath sounds: Normal breath sounds. No stridor. No wheezing, rhonchi or rales. Chest: Chest wall: No tenderness. Abdominal: General: Abdomen is flat. There is no distension. Palpations: Abdomen is soft. There is no (more content not included)... Normal [facility] COVID AND INFLUENZA A/B AND RSV PCR, ROUTINEon 03-08-2024 SARS-CoV-2 (COVID-19) RNA MARV+probe Ql (Unsp spec) SARS-COV-2 (AGENT OF COVID-19) RNA: Not detected INFLUENZA A RNA: Not detected INFLUENZA B RNA: Not detected RESPIRATORY SYNCYTIAL VIRUS (RSV) RNA: Not detected Normal [facility] Comment on above: Performed By: #### C VFLRS ####[facility] LABCLIA [id number] [address] [place] CNOVon 03-01-2024 CNOV Office Visit (SAMMY ) GÓMEZ GASCA ([id number]) 02 F CHT Date Time Provider Department 03/01/24 8:00 AM IRENE REINOSO During your visit today, we recorded the following information about you: Missy Sun MA 03/03/2024 7:27 AM Signed Patient presents with: Right Wrist - New, Injury Referred by Deon eD Luna AMB ROOMING INTAKE FLOWSHEET DATA Pain Pain Level: 6 Pain Location: Wrist-Right Description: Aching, Sore, Throbbing Duration Units: Weeks Frequency: Continuous Intervention/Comfort measure: Cold, Heat, Pillow support, Splinting Patient states on 02/04/24 she was ice skating and fell. She is not sure if she tried to catch herself with that hand. Had x-ray done. She was to have a repeat x-ray done a week later and did not due to at the time no health insurance. She continued to have pain and went to Urgent care on 02/15 and new x-rays done. She was put in a splint but removed it this morning and has been wearing wrist brace given to her by the ER. Patient is left hand dominant, but does everything with her right. 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 Taking Tylenol and Ibuprofen for the pain and helps some. New x-ray done today. Irene Reinoso PA-C 03/03/2024 7:27 AM Signed Irene Reinoso PA-C Department of Orthopaedics Orthopaedics [address] [facility] [address] Dept: [phone] Dept March 01, 2024 CHIEF COMPLAINT: New and Injury of the Right Wrist and Referred by Deon De Luna MsRoberto Gasca is a 24 year old female who presents with an injury to her right wrist which occurred on February 03, she was ice-skating when she fell, she reached out with her right hand to brace herself. She was seen in the urgent care and had an x-ray, x-ray was negative at that time and she was placed into a removable brace. She continued to have discomfort in the wrist and so she returned to the urgent care on 02/15 and had repeat x-rays, at that time she was told that she had a buckle fracture. She was placed into a splint when she is wearing at today's visit. 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 She has been taking Tylenol and ibuprofen for the pain which is helping somewhat. Pain today is a 6 out of 10 aching. She is right-hand dominant and denies any previous right wrist injuries. ASSESSMENT: S52.501A Closed fracture of distal end of right radius, unspecified fracture morphology, initial encounter (primary encounter diagnosis) PLAN: She certainly has a distal radius fracture, there is some evidence of new healing. Since her injury is already close to a month old we will get her into a removable brace that she can wear for the next 2 weeks. Encouraged her to remove the brace to start working on some gentle range of motion exercises. We discussed continuing with the [id number]-[id number] Tylenol and ibuprofen to help with pain and discomfort. She can discontinue the brace and 2 weeks. I did offer some occupational therapy if she continues to have pain and stiffness for the long and her recovery. Ms. Gómez Gasca was advised as to contrast therapies and/or to take analgesics/anti-inflammator ies as needed and all contraindications were reviewed. OBJECTIVE: Ms. Gómez Gasca is a pleasant 24 year old in no apparent distress. Gen:There were no vitals taken for this visit. nl development, obese, no deformities ENT: Normocephalic, normal hearing, moist mucosa CV: Pulses:Radial= 2+ and symmetric, capillary refill < 2 secs, no peripheral edema/varicosities Skin: no rash, bruising or lesions. Good turgor. Psych: cooperative and appropriate, alert and oriented x 3, good mood and affect. Musculoskeletal: Right wrist is without edema or ecchymosis. Patient is tender to palpation over the distal radius. Patient is able to fully pronate the wrist and fully supinate the wrist with subjective discomfort on supination. Wrist extension to about 80 degrees with subjective discomfort. Sensation is intact to the radial 3 digits on the right. Imaging: * * *Final Report* * * DATE OF EXAM: Mar 01 2024 8:29AM [id number] - XR WRIST 3V PA/LAT/OBL RT / PROCEDURE REASON: Pain in right wrist * * * * Physician Interpretation * * * * TITLE: XR WRIST 3V PA/LAT/OBL RT CLINICAL INDICATION: Wrist pain TECHNIQUE: 3 view radiographic study of the right breast COMPARISON: Radiograph dated 02/16/2020 FINDINGS: Healing transverse nondisplaced fracture of the distal radial metaphysis with healing manifest by bandlike sclerosis. No additional osseous injury identified. Joint spaces preserved. IMPRESSION IMPRESSION: Healing subacute nondisplaced transverse fracture of the distal radial metaphysis. Account Engineer: PSCB Transcribe Date/Time: Mar 02 2024 4:17P Dictated by : NATTY CAPONE, (more content not included)... Normal [facility] XR WRIST 3V PA/LAT/OBL RTon 03-01-2024 XR WRIST 3V PA/LAT/OBL RT * * *Final Report* * * DATE OF EXAM: Mar 01 2024 8:29AM [id number] - XR WRIST 3V PA/LAT/OBL RT / PROCEDURE REASON: Pain in right wrist * * * * Physician Interpretation * * * * TITLE: XR WRIST 3V PA/LAT/OBL RT CLINICAL INDICATION: Wrist pain TECHNIQUE: 3 view radiographic study of the right breast COMPARISON: Radiograph dated 02/16/2020 FINDINGS: Healing transverse nondisplaced fracture of the distal radial metaphysis with healing manifest by bandlike sclerosis. No additional osseous injury identified. Joint spaces preserved. IMPRESSION: Healing subacute nondisplaced transverse fracture of the distal radial metaphysis. Account Engineer: PSCB Transcribe Date/Time: Mar 02 2024 4:17P Dictated by : NATTY CAPONE MD This examination was interpreted and the report reviewed and electronically signed by: NATTY CAPONE MD on Mar 02 2024 4:18PM EST [id number] [facility] PERCYN Telephone (ERROL) GÓMEZ GASCA ([id number]) 02 F CHT Date Time Provider Department 02/24/24 ROSENDO BARBOZA During your visit today, we recorded the following information about you: Tika Ordonez, RN 02/24/2024 8:08 AM Signed Called pt to clarify if she wants to follow up with Dr Barboza for her right wrist or if she chooses to stay with Dr Pickard, which she has an appt scheduled 03/11. Asked her to My chart message me her wishes. Allergies As of Date: 02/24/2024 (No Known Allergies) Date Reviewed: 02/16/2024 Reviewed by: Stew De Luna APRN.[facility] - Fully Assessed Reason for Visit: Appointment [186] Prescriptions as of 02/24/2024 - medroxyPROGESTERone (DEPO-PROVERA) 400 mg/mL susp Inject 400 mg intramuscularly every 12 weeks. - Igjfhor-Hxnmqthslksjq-Vksni ine (EXCEDRIN MIGRAINE) 250-250-65 mg per tablet Take 2 tablets by mouth every 6 hours as needed (Headache). Do not exceed 8 tablets per 24 hours - DEBLITANE 0.35 mg tablet Problem List As Of Date: 02/24/2024 (None) Encounter Status:Closed by TIKA ORDONEZ on 02/24/24 [facility] Wilmer 02-19-2024 JEREMY Telephone (ORQ) GÓMEZ GASCA ([id number]) 02 F T Date Time Provider Department 02/19/24 ROSENDO BARBOZA ORValarie During your visit today, we recorded the following information about you: Olive Ball 02/19/2024 3:41 PM Signed Please see Express care visit and fracture to rt wrist , sent to [facility] to schedule for a hard cast, please advise the patient. Rosendo Barboza MD 02/20/2024 10:06 AM Signed Splint or Velcro brace for now is fine. Office when available in a week or two. Magui Lawrence LPN 02/23/2024 3:21 PM Signed Patient calling to check on status of appt. Still scheduled for 03/11. She can be reached at [phone] JEFFRY Garrett Colleen, TERRANCE 02/24/2024 8:04 AM Signed Looks like pt is following up with Dr Pickard in [place]. Juju Acosta MA 02/24/2024 9:43 AM Signed I called and spoke with the patient. Unfortunately, Dr. Pickard will not be in [place] on 03/11/2024. Patient has scheduled a sooner appointment with Irene Reinoso PA-C on 03/01/2024. Allergies As of Date: 02/19/2024 (No Known Allergies) Date Reviewed: 02/16/2024 Reviewed by: Stew De Luna APRN.[employer] - Fully Assessed Reason for Visit: Appointment [186] Prescriptions as of 02/24/2024 - medroxyPROGESTERone (DEPO-PROVERA) 400 mg/mL susp Inject 400 mg intramuscularly every 12 weeks. - Pwvzdvn-Vimfdcfvkauub-Uzbvy ine (EXCEDRIN MIGRAINE) 250-250-65 mg per tablet Take 2 tablets by mouth every 6 hours as needed (Headache). Do not exceed 8 tablets per 24 hours - DEBLITANE 0.35 mg tablet Problem List As Of Date: 02/19/2024 (None) Encounter Status:Closed by JUJU ACOSTA on 02/24/24 [facility] CNOVon 02-16-2024 CNOV Office Visit (UCWSTR ) GÓMEZ GASCA ([id number]) 02 F T Date Time Provider Department 02/16/24 5:15 PM STEW DE [facility] During your visit today, we recorded the following information about you: Temperature Pulse Respiration Blood pressure 97.6 degrees 88/minute 16/minute 124/78 Weight 108.5 kg Stew De Luna APRN.[facility] 02/16/2024 7:33 PM Signed Subjective HPI Nontoxic-appearing female presents urgent care chief complaint right wrist pain. Duration of symptoms 2 weeks. Close ice-skating when she fell on ice. Landed on outstretched wrist. Vgel-eznk-bqjdfsmq. Presented to the ED in [facility]. X-ray was negative. Follows up today with persistent pain. Has been wearing a wrist splint. This is helped some. Pain is improving slightly but is still present. No weakness. No numbness or tingling. Denies any other concerns. Past medical history prescription medications allergies reviewed. .Patient presents with: Wrist Pain: right x 2 weeks after fall No past medical history on file. No past surgical history on file. ALLERGIES Patient has no known allergies. MEDICATIONS medroxyPROGESTERone (DEPO-PROVERA) 400 mg/mL susp Inject 400 mg intramuscularly every 12 weeks. (Patient not taking: Reported on 06/08/2023) Ahdfyvb-Ujovpqtylsfuo-Peiig ine (EXCEDRIN MIGRAINE) 250-250-65 mg per tablet Take 2 tablets by mouth every 6 hours as needed (Headache). Do not exceed 8 tablets per 24 hours (Patient not taking: Reported on 05/24/2022) DEBLITANE 0.35 mg tablet (Patient not taking: Reported on 05/24/2022) No family history on file. Social History Tobacco Use Smoking status: Never Smokeless tobacco: Never Vaping Use Vaping status: current everyday user Substances: Nicotine Substance Use Topics Alcohol use: Never Drug use: Yes Types: Marijuana BP 124/78 Pulse 88 Temp 36.4 ?C (97.6 ?F) Resp 16 Wt 108.5 kg (239 lb 3.2 oz) LMP (LMP Unknown) SpO2 98% BMI 37.46 kg/m? Review of Systems Constitutional: Negative for chills, fever and malaise/fatigue. Musculoskeletal: Positive for falls and joint pain. Negative for back pain, myalgias and neck pain. Neurological: Negative for dizziness, loss of consciousness, weakness and headaches. Objective Physical Exam Constitutional: General: She is not in acute distress. Appearance: She is not toxic-appearing. HENT: Head: Normocephalic. Nose: Nose normal. Eyes: Pupils: Pupils are equal, round, and reactive to light. Cardiovascular: Rate and Rhythm: Normal rate. Pulmonary: Effort: Pulmonary effort is normal. No respiratory distress. Musculoskeletal: Right forearm: Normal. Right wrist: Tenderness, bony tenderness and snuff box tenderness present. No swelling or deformity. Normal range of motion. Normal pulse. Right hand: No swelling, tenderness or bony tenderness. Normal range of motion. Normal strength. There is no disruption of two-point discrimination. Normal capillary refill. Normal pulse. Cervical back: Normal range of motion. Comments: Neurovascular tact. No abnormal findings noted on neuroexam. Full strength. No decreased range of motion of Skin: General: Skin is warm and dry. Neurological: General: No focal deficit present. Mental Status: She is alert. ASSESSMENT/PLAN: 1. Right wrist pain - ICD9: 719.43, ICD10: M25.531 - XR WRIST INJURY 4V PA/LAT/OBL/SCAPH RIGHT - CONSULT TO ORTHOPAEDICS IMPRESSION: Possible buckle fracture along the dorsal cortex of the RIGHT distal radius. Possible fracture noted on x-ray. Patient placed in volar splint. Splint comprised of 4 inch Ortho-Glass. Neurovascular status checked pre and post splint location abnormal findings. Patient was educated on supportive therapies. Patient will follow up with primary care provider as needed. Patient was instructed to immediately proceed to emergency room for any new, worsening, or symptoms lasting longer than anticipated. The patient's clinical presentation is otherwise unremarkable at this time. Based on exam and clinical finding, the patient is stable for discharge. Plan of care was discussed with patient. Patient verbalizes understanding and agrees to plan of care. This note was generated using [employer] software. It may contain errors in wording, punctuation, or spelling. Stew De Luna APRN.[employer] Allergies As of Date: 02/16/2024 (No Known Allergies) Date Reviewed: 02/16/2024 Reviewed by: Stew De Luna APRN.[employer] - Fully Assessed Reason for Visit: Wrist Pain [1580] Cmt: right x 2 weeks after fall Primary Visit Diagnosis:Right wrist pain [M25.531] Order(s):XR WRIST INJURY 4V PA/LAT/OBL/SCAPH RIGHT [5195529] Order #: [id number] FUTURE CONSULT TO ORTHOPAEDICS [9026] Order #: [id number]: 1 FUTURE Prescriptions as of 02/16/2024 - medroxyPROGESTERone (DEPO-PROVERA) 400 mg/mL susp Injec (more content not included)... Normal [facility] XR WRIST 4V PA/LAT/OBL/SCAPH RTon 12-23-2024 XR WRIST 4V PA/LAT/OBL/SCAPH RT * * *Final Report* * * DATE OF EXAM: Feb 16 2024 6:17PM WOX [id number] - XR WRIST 4V PA/LAT/OBL/SCAPH RT / PROCEDURE REASON: Right wrist pain * * * * Physician Interpretation * * * * EXAMINATION: XR WRIST 4V PA/LAT/OBL/SCAPH RT PATIENT/TECHNOLOGIST PROVIDED HISTORY: fell 2 weeks ago, was seen at [place] and is not any better pain mostly radial side and some on ulnar side CLINICAL INFORMATION: 24 years old Female with Right wrist pain TECHNIQUE: XR WRIST 4V PA/LAT/OBL/SCAPH RT Laterality: RIGHT Number of different views (projections): 4 COMPARISON: None RESULT: Possible buckle fracture along the dorsal cortex of the distal radius. Joint spaces are maintained. IMPRESSION: Possible buckle fracture along the dorsal cortex of the RIGHT distal radius. Account Engineer: KATHRINE Transcribe Date/Time: Feb 16 2024 6:19P Dictated by : ROBERT LEON DO This examination was interpreted and the report reviewed and electronically signed by: ROBERT LEON DO on Feb 16 2024 6:25PM EST [id number] Normal [facility] XR Wrist - right 4 Viewson 1 04-18-2023 IMPRESSION: Possible buckle fracture along the dorsal cortex of the RIGHT distal radius. Account Engineer: KATHRINE Transcribe Date/Time: Feb 16 2024 6:19P Dictated by : ROBERT LEON DO This examination was interpreted and the report reviewed and electronically signed by: ROBERT LEON DO on Feb 16 2024 6:25PM EST DIVISION OF RADIOLOGY * * *Final Report* * * DATE OF EXAM: Feb 16 2024 6:17PM WOX [id number] - XR WRIST 4V PA/LAT/OBL/SCAPH RT / PROCEDURE REASON: Right wrist pain * * * * Physician Interpretation * * * * EXAMINATION: XR WRIST 4V PA/LAT/OBL/SCAPH RT PATIENT/TECHNOLOGIST PROVIDED HISTORY: fell 2 weeks ago, was seen at [place] and is not any better pain mostly radial side and some on ulnar side CLINICAL INFORMATION: 24 years old Female with Right wrist pain TECHNIQUE: XR WRIST 4V PA/LAT/OBL/SCAPH RT Laterality: RIGHT Number of different views (projections): 4 COMPARISON: None RESULT: Possible buckle fracture along the dorsal cortex of the distal radius. Joint spaces are maintained. DIVISION OF RADIOLOGY Provider, Trinh Colmenares [facility] - 02/16/2024 * * *Final Report* * * DATE OF EXAM: Feb 16 2024 6:17PM WOX 5273 - XR WRIST 4V PA/LAT/OBL/SCAPH RT / PROCEDURE REASON: Right wrist pain * * * * Physician Interpretation * * * * EXAMINATION: XR WRIST 4V PA/LAT/OBL/SCAPH RT PATIENT/TECHNOLOGIST PROVIDED HISTORY: fell 2 weeks ago, was seen at [place] and is not any better pain mostly radial side and some on ulnar side CLINICAL INFORMATION: 24 years old Female with Right wrist pain TECHNIQUE: XR WRIST 4V PA/LAT/OBL/SCAPH RT Laterality: RIGHT Number of different views (projections): 4 COMPARISON: None RESULT: Possible buckle fracture along the dorsal cortex of the distal radius. Joint spaces are maintained. IMPRESSION IMPRESSION: Possible buckle fracture along the dorsal cortex of the RIGHT distal radius. Account Engineer: PSCB Transcribe Date/Time: Feb 16 2024 6:19P Dictated by : ROBERT LEON DO This examination was interpreted and the report reviewed and electronically signed by: ROBERT LEON DO on Feb 16 2024 6:25PM EST [facility] Radiology Study observation (narrative) [facility] XR Wrist - right 4 ViewsOrde red By: [facility] Provider on 02-16-2024 [facility] XR HAND AND WRIST 6 VIEWS [facility] 02-04-2024 XR HAND AND WRIST 6 VIEWS RIGHT ORIGINAL EXAMINATION: 3XRAY VIEWS OF THE RIGHT hand and wrist each. 02/04/2024 7:47 pm COMPARISON: None. 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 No radiopaque foreign body. IMPRESSION: No fracture or dislocation. Interpreted by: Eran Reinoso Preliminary Report By: Eran Reinoso Electronically signed By Eran Reinoso Dictated Date: 02/04/2024 8:05:01 PM Prelim Date: 02/04/2024 8:07:31 PM Sign Date: 02/04/2024 8:07:31 PM Ordering Provider: ALBINA Perez [facility] CBC W/Diff, Automatedon 10-0 Absolute Lymph 4.04 X10 3/uL Normal 0.83-4.51 [facility] Comment on above: Performed By: #### L 100.0100, L700.6800 #### [facility] [address] [place], [address] Absolute Neut 7.2 X10 3/uL Normal 2.0-7.7 [facility] Comment on above: Performed By: #### L 100.0100, L700.6800 #### [facility] [address] [place], [address] Basophils/100 WBC (Bld) 0.4 % Normal 0-1 [facility] Comment on above: Performed By: #### L 100.0100, L700.6800 #### [facility] [address] [place], [address] Eosinophils/100 WBC (Bld) 1.1 % Normal 0-5 [facility] Comment on above: Performed By: #### L 100.0100, L700.6800 #### [facility] [address] [place], [address] Erythrocyte distribution width (RBC) [Ratio] 13.3 % Normal 11.6-14.6 [facility] Comment on above: Performed By: #### L 100.0100, L700.6800 #### [facility] [address] [place], [address] Hematocrit (Bld) [Volume fraction] 39.6 % Normal 37-47 [facility] Comment on above: Performed By: #### L 100.0100, L700.6800 #### [facility] [address] [place], [address] Hemoglobin (Bld) [Mass/Vol] 12.9 g/dL Normal 12.0-15.0 [facility] Comment on above: Performed By: #### L 100.0100, L700.6800 #### [facility] [address] [place], [address] IG% 0.200 Normal 0.0-0.9 [facility] Comment on above: Result Comment: IG% - Immature Granulocytes (promyelocytes, myelocytes and metamyelocytes) > 1% indicates that a LEFT SHIFT is Present. Performed By: #### L 100.0100, L700.6800 #### [facility] [address] [place], [address] Lymphocytes/100 WBC (Bld) 33.6 % Normal 19-41 [facility] Comment on above: Performed By: #### L 100.0100, L700.6800 #### [facility] [address] [place], [address] MCH (RBC) [Entitic mass] 27.2 pg Normal 27.0-32.0 [facility] Comment on above: Performed By: #### L 100.0100, L700.6800 #### [facility] [address] [place], [address] MCHC (RBC) [Mass/Vol] 32.6 g/dL Normal 32-36 [facility] Comment on above: Performed By: #### L 100.0100, L700.6800 #### [facility] [address] [place], [address] MCV (RBC) [Entitic vol] 83.5 fL Normal 81-99 [facility] Comment on above: Performed By: #### L 100.0100, L700.6800 #### [facility] [address] [place], [address] Monocytes/100 WBC (Bld) 5.0 % Normal 0-10 [facility] Comment on above: Performed By: #### L 100.0100, L700.6800 #### [facility] [address] [place], [address] Neutrophils/100 WBC (Bld) 59.7 % Normal 47-70 [facility] Comment on above: Performed By: #### L 100.0100, L700.6800 #### [facility] [address] [place], [address] Nucleated RBC (Bld) [#/Vol] 0 10*3/uL Normal 0-5 [facility] Comment on above: Performed By: #### L 100.0100, L700.6800 #### [facility] [address] [place], [address] Platelet mean volume (Bld) [Entitic vol] 10.2 fL Normal 6.2-12.0 [facility] Comment on above: Performed By: #### L 100.0100, L700.6800 #### [facility] [address] [place], [address] Platelets (Bld) [#/Vol] 295 10*3/uL Normal 150-450 [facility] Comment on above: Performed By: #### L 100.0100, L700.6800 #### [facility] [address] [place], [address] RBC (Bld) [#/Vol] 4.74 10*6/uL Normal 4.2-5.4 [facility] Comment on above: Performed By: #### L 100.0100, L700.6800 #### [facility] [address] [place], [address] RDW SD 41.0 fl Normal 35.1-43.9 [place] [facility] Comment on above: Performed By: #### L 100.0100, L700.6800 #### [facility] [address] [place], [address] WBC (Bld) [#/Vol] 12.0 10*3/uL High 4.4-11.0 [facility] Comment on above: Performed By: #### L 100.0100, L700.6800 #### [facility] [address] [place], [address] Emergency Department Summary on 11-25-2023 Emergency Department Summary [facility] Medical Records Department [address] [place] [address] Emergency Department Summary 11/25/23 MR#: [id number] Acct: [id number] Name: GÓMEZ GASCA Rep #: [id number] : 2000 23 From: Marty Askew DO PCP: Care Physician,No Primary Status:DEP ER Location: ED HPI HPI - Female History of Present Illness Chief Complaint: Vag Bleeding Informant: patient Narrative Narrative: 23-year-old female presenting to the emergency room with heavy menses. Patient states that she has been bleeding for 16 days. She states her period started on time and seemed normal but has progressively worsened. She notes lower abdominal cramping at times and heavy flow. She has not had any syncope or lightheadedness. She has no history of abnormal menses. No history of ovarian cyst or other significant [employer] history. She does not have a courier driver. She is not on any control. She does vape. PFSH PFSH Medical History no medical history Home Medications ???Medication ???Instructions ???Recorded ???Last Taken ???Type norethindrone acetate 5 mg tablet See Rx Instructions .Route 11/25/23 Unknown Rx .COMPLEX #30 tabs Allergy/AdvReac Type Severity Reaction Status Date / Time No Known Allergies Allergy Verified 11/24/23 22:44 Family History no significant family his Surgical History no surgical history Social History Smoking Status: Current every day smoker tobacco type: cigarettes ROS ROS ED Constitutional Constitutional ED: Denies chills or weight loss Eyes Eyes: Denies change in vision or diplopia ENT ENT ED: Denies ear pain, rhinorrhea or sore throat Cardiovascular Cardiovascular: Denies chest pain, orthopnea, palpitations or racing heartbeat Respiratory/Chest Respiratory/Chest: Denies cough, dyspnea or orthopnea Gastrointestinal Gastrointestinal: Denies abdominal pain, diarrhea, nausea or vomiting Genitourinary Genitourinary ED: Reports other Details: See history of present illness ; Denies dysuria, hematuria or urinary frequency Musculoskeletal Musculoskeletal: Denies arthralgias or myalgias Integumentary Denies abscess or rash Neurologic Neurologic: Denies headache(s) or weakness Psychiatric Psychiatric: Denies anxiety, depression, suicidal ideation or suicidal thoughts Endocrine Endocrinology: Denies polydipsia, polyphagia or polyuria Allergic/Immunologic Allergic/Immunologic ED: Denies mouth swelling, tongue swelling or urticaria EXAM Physical Exam Narrative Exam Narrative: Well-appearing female sitting comfortably in the bed Const Vital Signs: 11/24/23 22:45 11/25/23 00:44 11/25/23 01:23 Temperature 97.9 F Temperature Source Oral Pulse Rate 96 Respiratory Rate 16 16 16 Blood Pressure 144/86 H Blood Pressure Mean 105 Pulse Ox 100 Oxygen Delivery Method Room Air Positive well nourished and well developed General Appearance ED: well developed and NAD HEENT Reports normocephalic, head/scalp atraumatic and moist mucous membranes Eyes PERRL and EOMs intact bilaterally Neck no lymphadenopathy, supple and no JVD Resp normal respiratory effort and clear to auscultation bilaterally Cardio regular rate, regular rhythm and no murmurs GI normal to inspection, nondistended, normoactive bowel sounds and non-tender Palpation: soft Back/Spine no CVA tenderness and normal ROM Extremity normal to inspection General Extremety ED: Negative for edema General Extremity: Negative for edema Neuro oriented x3 and CN's II-XII intact bilaterally Sensorium / Orientation: alert Motor Exam: strength 5/5 throughout Psych mental status grossly normal Mood Affect: Negative for depressed or tearful Skin no rashes or lesions noted and no wounds MDM MDM MDM Narrative Medical decision making narrative: Differential diagnosis includes but not limited to menorrhagia dysfunctional uterine bleeding uterine fibroid ovarian cyst hormonal imbalance ectopic bleeding in Patient's white count is 12 hemoglobin 12.9 platelet count of 295 test is negative. I spoke with the patient regarding various treatment options. She does not currently have a courier driver but she needs to obtain 1. Talk about waiting versus Aygestin therapy. She would like to try the Aygestin which I think is reasonable. The patient will continue to monitor bleeding Tylenol and/or Motrin for pain. Follow-up with gynecology referral given. Patient will refrain from vaping. History Record Review Discussion w/independent historian: Patient Lab Data Attestation: I reviewed the patient's lab results. Labs: Laboratory Results - last 24 hr 11/25/23 00:29 WBC 12.0 H RBC 4.74 Hgb 12.9 (more content not included)... Normal [facility] ,Serum,hCG Quali.on 11-25-2023 HCG, SERUM QUAL Negative Normal [facility] Comment on above: Performed By: #### L 100.0100, L700.6800 #### [facility] [address] [place], [address] Progress Noteon 10-02-2022 [employer] Authentication Interface Message Text Patient ID: Gómez Gasca is a 22 y.o. female. Her chief complaint(s) include: 22 YEAR WELL CHILD Assessment 1. Routine general medical examination at a health care facility 2. Need for vaccination 3. Folliculitis Plan Gómez was seen today for 22 year well child. Diagnoses and associated orders for this visit: Routine general medical examination at a health care facility - PHQ9 Assessment With Score - Health Risk Assessment - CRAFFT Need for vaccination - Cancel: HPV (Gardasil 9) Folliculitis - clindamycin (CLEOCIN) 300 MG capsule; Take 1 Capsule (300 mg) by mouth 3 times daily for 7 days Return in about 1 year (around 10/03/2023) for well check. Subjective She is unaccompanied. 22 YEAR WELL CHILD Home: Gómez eats meals with family, has an adult to turn to for help and is permitted and able to make independent decisions. Gómez has no home risk identified. 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 Eating: Gómez eats regular meals including fruits and vegetables, eats breakfast, limits fast food, drinks non-sweetened liquids and has a calcium source. Gómez does not have concerns about body appearance. Activities & Sports: Gómez has friends, has a job, participates in community activities and has drivers license. Drugs: Gómez uses tobacco and does vape. Gómez does not use drugs and does not use alcohol. Safety: Gómez has a violence free home. Sex: The patient has a sexual partner. Suicidality: Gómez has ways to cope with stress. Menstruation Menstruation: irregular periods (sees OBGYN) Sleep Sleeping Difficulty: difficulty falling asleep and problems with frequent waking Teen Anticipatory Guidance The following anticipatory guidance was reviewed during the visit: Nutrition: limit junk food/fast food and soft drinks. Safety: home safety, use safety helmet/gear with activities and don't carry or use weapons. Social: avoid or limit screen time, explore heritage and cultural diversity, parental limits and consequences for unacceptable behavior and bullying. Health: age appropriate dental care, age appropriate sleep habits, elevated noise and hearing, talk with trusted adult if feeling sad or nervous, learn to manage time and activities, be responsible for attendance/ homework/ course selection, learn about self and strengths, recognize and deal with stress, driving risks, limit sun exposure/use sunscreen and self breast exam. Screenings Previous Vaccine Reactions: No. Life events information was reviewed-no referral needed Tuberculosis Concerns: Negative Tuberculosis Screen Concerns: no TB Risk Factors Hearing Vision Concerns: The caregiver has no concerns about the patient's hearing. The caregiver has no concerns about the patient's vision. Hyperlipidemia Concerns: Negative Hyperlipidemia Screen Concerns: no Hyperlipidemia Risk Factors Primary Care Review of Systems Objective Vital Signs 10/02/22 1601 10/02/22 1616 BP: 135/79 122/68 Pulse: 100 Temp: 36.8 C (98.2 F) TempSrc: Temporal Weight: (!) 104.8 kg Height: 169.7 cm Body mass index is 36.39 kg/m . Physical Exam Nursing note reviewed. Constitutional: She appears well. She is active. No distress. HENT: Head: Atraumatic. Ears: Right Ear: Tympanic membrane and external ear normal. Left Ear: Tympanic membrane and external ear normal. Nose: Nose normal. Mouth/Throat: Mucous membranes are moist. Dentition is normal. Oropharynx is clear. Eyes: EOM are normal. Pupils are equal, round, and reactive to light. Neck: Neck supple. Thyroid normal. Cardiovascular: Normal rate, regular rhythm, S1 normal and S2 normal. Pulses are palpable. Heart murmur not heard. Pulmonary/Chest: Breath sounds normal. No respiratory distress. Exhibits no deformity. Abdominal: Soft. Bowel sounds are normal. She exhibits no distension and no mass. There is no hepatosplenomegaly. There is no abdominal tenderness. Musculoskeletal: Cervical back: Normal range of motion and neck supple. Lumbar back: No scoliosis. General: Normal range of motion. Neurological: She is alert. She has normal strength. She exhibits normal muscle tone. Gait normal. Skin: Skin is warm. Skin is not pale. Findings: Rash (folliculitis) present. Vitals reviewed: Blood pressure 122/68, pulse 100, temperature 36.8 C (98.2 F), temperature source Temporal, height 169.7 cm, weight (!) 104.8 kg. Normal [facility] STREP A MOLECULAR (POC)on Procedural Control Valid [facility] Strep A (POCT) Negative Negative [facility] IO BD Veritor Triplex Ag Dianne ton 02-25-2022 IO BD Veritor Triplex Ag Test Presumptive negative for Triplex FLU B (no antigen detected) -Urgent [facility] Work Phone: IO BD Veritor Triplex Ag Test Presumptive negative for Triplex FLU A (no antigen detected) [facility] Work Phone: IO BD Veritor Triplex Ag Test Presumptive negative for Triplex SARS-CoV-2 (no antigen detected) [facility] Work Phone: Office Visit (Urgent Care)on 02-25-2022 Follow-up visit Diagnoses/Problems Assessed Viral URI with cough (465.9) (J06.9) Orders Cough IO BD Veritor Triplex Ag Test; Status:Resulted - Requires Verification,Retrospective Authorization; Done: 25Feb2022 07:57PM Performed:In Office; Due:26May2022; Last Updated By:Kitty Ugalde; 02/25/2022 7:57:56 PM;Ordered; For:Cough; Ordered By:Anibal Lemus; SocHx: Current every day smoker Tobacco Use Screening; Status:Complete; Done: 25Feb2022 Perform:Not Applicable;Ordered; For:SocHx: Current every day smoker; Ordered By:Kitty Ugalde; Viral URI with cough Start: Benzonatate 200 MG Oral Capsule; TAKE 1 CAPSULE 3 TIMES DAILY NEEDED Rx By: Anibal eLmus; Dispense: 10 Days ; #:30 Capsule; Refill: 0;For: Viral URI with cough; BRANDEE = N; Sent To: [facility], Patient Discussion/Summary Increase fluids and rest as instructed Motrin or Tylenol as needed for fever and pain Gargle with lightly salted water several times a day OTC cold medications as needed Follow-up if symptoms worsen Chief Complaint Chief Complaints Cold Symptoms History of Present Illness 22 year old female presents with days of ear pain. Mild nasal congestion with postnasal drip. No fevers or chills. No eye redness, discharge or itching. No blood or discharge noted from ear. No ear tenderness. No nausea vomiting or diarrhea. No chest pain, shortness of breath or wheezing noted. No rashes or skin lesions noted. No known exposures to [place], strep, pneumonia or influenza. Dqhb-gdp-wcbiqdf medications taken for symptoms. Nonsmoker. Active Problems Problems Cough (786.2) (R05.9) Social History Problems Current every day smoker (305.1) (F17.200) Allergies Medication No Known Drug Allergies Recorded By: Kitty Ugalde; 02/25/2022 7:43:05 PM Current Meds Medication NameInstruction Depo-Provera SUSP (medroxyPROGESTERone Acetate) Vitals Vital Signs Recorded: 25Feb2022 07:42PM Qdhhfjosqac40.4 F Heart Rate92 Zdzexbyxxyo95 Vhyqrgkb407 Smuunohwo38 Height5 ft 7 in Wcpzzq738 lb BMI Nndyolmevv38.54 kg/m2 BSA Calculated2 Tobacco Usea) Yes PHQ-2 #1. Over the last 2 weeks have you felt down, depressed or hopeless? (If yes, answer PHQ-9 below)No PHQ-2 #2. Over the last 2 weeks have you felt little interest or pleasure in doing things? (If yes, answer PHQ-9 below)No Falls Screening (Age 18+)a) No falls within the last year O2 Rxvlodofyz92 Pain Scale7 Physical Exam Gen- AANDO. NAD at rest. Ears- canals and TM's appear OP-no erythema or exudates. Some mucous in posterior OP Neck- mild anterior lymphadenopathy Lungs- clear to auscultation without wheezes or rhonchi Skin-no rashes, hives or lesions Results/Data IO BD Veritor Triplex Ag [id number] 07:57PMMariahAnibal Test NameResultFlagReference Triplex SARSCoV-2 Ag Presumptive negative for Triplex SARS-CoV-2 (no antigen detected) Triplex Flu A-Ag Presumptive negative for Triplex FLU A (no antigen detected) Triplex Flu B-Ag Presumptive negative for Triplex FLU B (no antigen detected) Triplex SARSCoV-2 Ag Presumptive negative for Triplex SARS-CoV-2 (no antigen detected) Triplex Flu A-Ag Presumptive negative for Triplex FLU A (no antigen detected) Triplex Flu B-Ag Presumptive negative for Triplex FLU B (no antigen detected) Rapid COVID-negative Rapid influenza A negative Rapid influenza B negative Return to School/Work Patient Name: GÓMEZ GASCA : 2000 Today's date: 02/25/2022 Urgent Care Visit Location: [facility] [phone] Description of circumstances for missed work. Nature of Illness or Injury: Upper respiratory infection Off Work beginnin02/25/2022, may return on 02/27/2022 Patient was seen at the office today The plan was discussed with the patient. Signatures Electronically signed by : Anibal Lemus MD; Feb 25 2022 8:06PM EST (Author) Normal [employer] Tobacco Screening.on 023 Adult depression screening assessment No -[facility] Work Phone: Fall risk assessment a) No falls within the last year -[facility] Work Phone: Tobacco use status CPHS a) Yes -Urgent [facility] Work Phone: BETA HCG, QUANTITATIVE FOR E Don 02-15-2022 HCG.beta subunit Qn m[IU]/mL Normal <5.0 [facility] Comment on above: Order Comment: Speci men Type: BLOOD SPECIMEN Ordering Facility: [facility] Address: [address] [place] [id number] Result Comment: Nega tive Performed By: #### 2 4323-8 #### [facility] CLIA [id number] [address] [place] [address] [place] CBC W Auto Differential pane l (Bld)on 02-15-2022 Basophils (Bld) [#/Vol] 0.05 10*3/uL Normal <0.11 [facility] Comment on above: Order Comment: Speci men Type: BLOOD SPECIMEN Ordering Facility: [facility] Address: [address] [place] [address] Performed By: #### 2 4323-8 #### [facility] CLIA [id number] [address] [place] Basophils/100 WBC (Bld) 0.6 % Normal [facility] Comment on above: Order Comment: Speci men Type: BLOOD SPECIMEN Ordering Facility: [facility] Address: [address] [place] [address] Performed By: #### 2 4323-8 #### [facility] CLIA [id number] [address] [place] Differential cell count method Nom (Bld) Auto Normal [facility] Comment on above: Order Comment: Speci men Type: BLOOD SPECIMEN Ordering Facility: [facility] Address: [address] [place] [address] Performed By: #### 2 4323-8 #### [facility] CLIA [id number] [address] [place] Eosinophils (Bld) [#/Vol] 0.08 10*3/uL Normal <0.46 [facility] Comment on above: Order Comment: Speci men Type: BLOOD SPECIMEN Ordering Facility: [facility] Address: [address] [place] [place] [address] Performed By: #### 2 4323-8 #### [facility] CLIA [id number] [address] Eosinophils/100 WBC (Bld) 0.9 % Normal [facility] Comment on above: Order Comment: Speci men Type: BLOOD SPECIMEN Ordering Facility: [facility] Address: [address] [place], [place] [id number] Performed By: #### 2 4323-8 #### [facility] CLIA [id number] [address] [place] Erythrocyte distribution width (RBC) [Ratio] 12.9 % Normal 11.5-15.0 [facility] Comment on above: Order Comment: Speci men Type: BLOOD SPECIMEN Ordering Facility: [facility] Address: [address] [place] [address] Performed By: #### 2 4323-8 #### [facility] CLIA [id number] [address] [place] Hematocrit (Bld) [Volume fraction] 39.6 % Normal 36.0-46.0 [facility] Comment on above: Order Comment: Speci men Type: BLOOD SPECIMEN Ordering Facility: [facility] Address: [address] [place] [address] Performed By: #### 2 4323-8 #### [facility] CLIA [id number] [address] [place] Hemoglobin (Bld) [Mass/Vol] 13.2 g/dL Normal 11.5-15.5 [facility] Comment on above: Order Comment: Speci men Type: BLOOD SPECIMEN Ordering Facility: [facility] Address: [address] [place] [address] Performed By: #### 2 4323-8 #### [facility] CLIA [id number] [address] [place] Immature granulocytes (Bld) [#/Vol] 0.03 10*3/uL Normal <0.10 [facility] Comment on above: Order Comment: Speci men Type: BLOOD SPECIMEN Ordering Facility: [facility] Address: [address] [place] [address] Performed By: #### 2 4323-8 #### [facility] CLIA [id number] [address] [place] Immature granulocytes/100 WBC (Bld) 0.3 % Normal [facility] Comment on above: Order Comment: Speci men Type: BLOOD SPECIMEN Ordering Facility: [facility] Address: [address] [place] [address] Performed By: #### 2 4323-8 #### [facility] CLIA [id number] [address] Lymphocytes (Bld) [#/Vol] 3.22 10*3/uL Normal 1.00-4.00 [facility] Comment on above: Order Comment: Speci men Type: BLOOD SPECIMEN Ordering Facility: [facility] Address: [address] [place] [address] Performed By: #### 2 4323-8 #### [facility] CLIA [id number] [address] Lymphocytes/100 WBC (Bld) 35.4 % Normal [facility] Comment on above: Order Comment: Speci men Type: BLOOD SPECIMEN Ordering Facility: [facility] Address: [address] [place] [address] Performed By: #### 2 4323-8 #### [facility] CLIA [id number] [address] MCH (RBC) [Entitic mass] 28.6 pg Normal 26.0-34.0 [facility] Comment on above: Order Comment: Speci men Type: BLOOD SPECIMEN Ordering Facility: [facility] Address: [address] [place] [address] Performed By: #### 2 4323-8 #### [facility] CLIA [id number] [address] MCHC (RBC) [Mass/Vol] 33.3 g/dL Normal 30.5-36.0 [facility] Comment on above: Order Comment: Speci men Type: BLOOD SPECIMEN Ordering Facility: [facility] Address: [address] [place] [address] Performed By: #### 2 4323-8 #### [facility] CLIA [id number] [address] MCV (RBC) [Entitic vol] 85.7 fL Normal 80.0-100.0 [facility] Comment on above: Order Comment: Speci men Type: BLOOD SPECIMEN Ordering Facility: [facility] Address: [address] [place] [address] Performed By: #### 2 4323-8 #### [facility] CLIA [id number] [address] [place] [address] [place] Monocytes (Bld) [#/Vol] 0.64 10*3/uL Normal <0.87 [facility] Comment on above: Order Comment: Speci men Type: BLOOD SPECIMEN Ordering Facility: [facility] Address: [address] [place] [address] Performed By: #### 2 4323-8 #### [facility] CLIA [id number] [address] [place] Monocytes/100 WBC (Bld) 7.0 % Normal [facility] Comment on above: Order Comment: Speci men Type: BLOOD SPECIMEN Ordering Facility: [facility] Address: [address] [place] [address] Performed By: #### 2 4323-8 #### [facility] CLIA [id number] [address] [place] [address] [place] Neutrophils (Bld) [#/Vol] 5.07 10*3/uL Normal 1.45-7.50 [facility] Comment on above: Order Comment: Speci men Type: BLOOD SPECIMEN Ordering Facility: [facility] Address: [address] [place] [address] Performed By: #### 2 4323-8 #### [facility] CLIA [id number] [address] [place] Neutrophils/100 WBC (Bld) 55.8 % Normal [facility] Comment on above: Order Comment: Speci men Type: BLOOD SPECIMEN Ordering Facility: [facility] Address: [address] [place] [address] Performed By: #### 2 4323-8 #### [facility] CLIA [id number] [address] [place] [address] [place] Nucleated RBC (Bld) [#/Vol] 10*3/uL Normal <0.01 [facility] Comment on above: Order Comment: Speci men Type: BLOOD SPECIMEN Ordering Facility: [facility] Address: [address] [place] [address] Performed By: #### 2 4323-8 #### [facility] CLIA [id number] [address] [place] Nucleated RBC/100 WBC (Bld) [Ratio] 0.0 /100 WBC Normal [facility] Comment on above: Order Comment: Speci men Type: BLOOD SPECIMEN Ordering Facility: [facility] Address: [address] [place] [address] Performed By: #### 2 4323-8 #### [facility] CLIA [id number] [address] [place] [address] [place] Platelet mean volume (Bld) [Entitic vol] 10.0 fL Normal 9.0-12.7 [facility] Comment on above: Order Comment: Speci men Type: BLOOD SPECIMEN Ordering Facility: [facility] Address: [address] [address] Performed By: #### 2 4323-8 #### [facility] CLIA [id number] [address] [place] Platelets (Bld) [#/Vol] 278 10*3/uL Normal 150-400 [facility] Comment on above: Order Comment: Speci men Type: BLOOD SPECIMEN Ordering Facility: [facility] Address: [address] [address] Performed By: #### 2 4323-8 #### [facility] CLIA [id number] [address] [place] [address] [place] RBC (Bld) [#/Vol] 4.62 10*6/uL Normal 3.90-5.20 [facility] Comment on above: Order Comment: Speci men Type: BLOOD SPECIMEN Ordering Facility: [facility] Address: [address] [address] Performed By: #### 2 4323-8 #### [facility] CLIA [id number] [address] [place] [address] [place] WBC (Bld) [#/Vol] 9.09 10*3/uL Normal 3.70-11.00 [facility] Comment on above: Order Comment: Speci men Type: BLOOD SPECIMEN Ordering Facility: [facility] Address: [address] [place] [address] Performed By: #### 2 4323-8 #### [facility] CLIA [id number] [address] [place] [address] [facility] [place] CT BRAIN WO IVCONon 02-16-[address] BRAIN WO IVCON * * *Final Report* * * DATE OF EXAM: Feb 15 2022 4:08PM [facility] [place]RAIN [place] / PROCEDURE REASON: Subarachnoid hemorrhage (SAH) suspected * * * * Physician Interpretation * * * * EXAMINATION: CT BRAIN WO IVCON CLINICAL HISTORY: Headache TECHNIQUE: Serial axial images without IV contrast were obtained from the vertex to the foramen magnum. MQ: CTBWO_3 CT Radiation dose: Integrated Dose-Length Product (DLP) for this visit = 778 mGy*cm CT Dose Reduction Employed: Iterative recon and mAs-kVp adjusted using patient size-age COMPARISON: None. RESULT: Post-operative change: None. Acute change: No evidence of an acute infarct or other acute parenchymal process. Hemorrhage: No evidence of acute intracranial hemorrhage. ECASS hemorrhagic transformation score: Not Applicable Mass Lesion / Mass Effect: There is no evidence of an intracranial mass or extraaxial fluid collection. No significant mass effect. Chronic change: None apparent. Parenchyma: There is no significant volume loss. The brain parenchyma is otherwise within normal limits for age. Ventricles: The ventricles are within normal limits of size and configuration for age. Paranasal sinuses and skull base: The visualized paranasal sinuses are grossly clear. The skull base and imaged soft tissues are unremarkable. Traffic Engineering Director (topogram) images: IMPRESSION: No acute intracranial abnormality is identified. Account Engineer: PSCB Transcribe Date/Time: Feb 15 2022 4:30P Dictated by : SAI RUIZ MD This examination was interpreted and the report reviewed and electronically signed by: SAI RUIZ MD on Feb 15 2022 4:31PM EST [id number] Normal [facility] Comprehensive metabolic 2000 panelon 02-15-2022 Albumin [Mass/Vol] 4.6 g/dL Normal 3.9-4.9 [facility] Comment on above: Order Comment: Speci men Type: BLOOD SPECIMEN Ordering Facility: [facility] Address: [address] [place] [address] Performed By: #### 2 4323-8 #### [facility] CLIA [id number] [address] STATES OF [facility] ALP [Catalytic activity/Vol] 85 U/L Normal 34-123 [facility] Comment on above: Order Comment: Speci men Type: BLOOD SPECIMEN Ordering Facility: [facility] Address: [address] [place] [address] Performed By: #### 2 4323-8 #### [facility] CLIA [id number] [address] ALT [Catalytic activity/Vol] 13 U/L Normal 7-38 [facility] Comment on above: Order Comment: Speci men Type: BLOOD SPECIMEN Ordering Facility: [facility] Address: [address] [place] [address] Performed By: #### 2 4323-8 #### [facility] CLIA [id number] [address] Anion gap [Moles/Vol] 10 mmol/L Normal 9-18 [facility] Comment on above: Order Comment: Speci men Type: BLOOD SPECIMEN Ordering Facility: [facility] Address: [address] [place] [address] Performed By: #### 2 4323-8 #### [facility] CLIA [id number] [address] AST [Catalytic activity/Vol] 16 U/L Normal 13-35 [facility] Comment on above: Order Comment: Speci men Type: BLOOD SPECIMEN Ordering Facility: [facility] Address: [address] [place] [address] Performed By: #### 2 4323-8 #### [facility] CLIA [id number] [address] [place] Bilirubin [Mass/Vol] 0.5 mg/dL Normal 0.2-1.3 [facility] Comment on above: Order Comment: Speci men Type: BLOOD SPECIMEN Ordering Facility: [facility] Address: [address] [place] [address] Performed By: #### 2 4323-8 #### [facility] CLIA [id number] [address] [place] [address] [place] Calcium [Mass/Vol] 9.9 mg/dL Normal 8.5-10.2 [facility] Comment on above: Order Comment: Speci men Type: BLOOD SPECIMEN Ordering Facility: [facility] Address: [address] [place] [address] Performed By: #### 2 4323-8 #### [facility] CLIA [id number] [address] [place] [address] [place] Chloride [Moles/Vol] 102 mmol/L Normal 97-105 [facility] Comment on above: Order Comment: Speci men Type: BLOOD SPECIMEN Ordering Facility: [facility] Address: [address] [place] [address] Performed By: #### 2 4323-8 #### [facility] CLIA [id number] [address] [place] [address] [place] CO2 [Moles/Vol] 26 mmol/L Normal 22-30 [facility] Comment on above: Order Comment: Speci men Type: BLOOD SPECIMEN Ordering Facility: [facility] Address: [address] [place] [address] Performed By: #### 2 4323-8 #### [facility] CLIA [id number] [address] [place] [address] [place] Creatinine [Mass/Vol] 0.83 mg/dL Normal 0.58-0.96 [facility] Comment on above: Order Comment: Speci men Type: BLOOD SPECIMEN Ordering Facility: [facility] Address: [address] [place] [address] Performed By: #### 2 4323-8 #### [facility] CLIA [id number] [address] [place] [address] [place] ESTIMATED GLOMERULAR FILTRATION RATE 104 mL/min/1.73m??? Normal >=60 [facility] Comment on above: Order Comment: Ela bey Type: BLOOD SPECIMEN Ordering Facility: [facility] Address: [address] [place] [address] Result Comment: Oksana mated Glomerular Filtration Rate (eGFR) is calculated using the 2020 CKD-EPI creatinine equation. This equation utilizes serum creatinine, sex, and age as parameters. The creatinine assay has traceable calibration to isotope dilution-mass spectrometry. Refer to KDIGO guidelines for clinical interpretation. In patients with unstable renal function, e.g. those with acute kidney injury, the eGFR may not accurately reflect actual GFR. Performed By: #### 2 4323-8 #### [facility] CLIA [id number] [address] [place] [address] [place] Glucose [Mass/Vol] 86 mg/dL Normal 74-99 [facility] Comment on above: Order Comment: Ela bey Type: BLOOD SPECIMEN Ordering Facility: [facility] Address: [address] [place] [address] Result Comment: The [place] [employer] (ADA) provides guidance for cutoff values for fasting glucose and random glucose. The ADA defines fasting as no caloric intake for at least 8 hours. Fasting plasma glucose results between 100 to 125 mg/dL indicate increased risk for diabetes (prediabetes). Fasting plasma glucose results greater than or equal to 126 mg/dL meet the criteria for diagnosis of diabetes. In the absence of unequivocal hyperglycemia, results should be confirmed by repeat testing. In a patient with classic symptoms of hyperglycemia or hyperglycemic crisis, random plasma glucose results greater than or equal to 200 mg/dL meet the criteria for diagnosis of diabetes. Reference: Standards of Medical Care in Diabetes 2016, [place] [employer]. Diabetes Care. 2016.39(Suppl 1). Performed By: #### 2 4323-8 #### [facility] CLIA [id number] [address] [place] [address] [place] Potassium [Moles/Vol] 4.2 mmol/L Normal 3.7-5.1 [facility] Comment on above: Order Comment: Ela bey Type: BLOOD SPECIMEN Ordering Facility: [facility] Address: [address] Performed By: #### 2 4323-8 #### [facility] CLIA [id number] [address] Protein [Mass/Vol] 7.6 g/dL Normal 6.3-8.0 [facility] Comment on above: Order Comment: Speci men Type: BLOOD SPECIMEN Ordering Facility: [facility] Address: [address] [place] [address] Performed By: #### 2 4323-8 #### [facility] CLIA [id number] [address] Sodium [Moles/Vol] 138 mmol/L Normal 136-144 [facility] Comment on above: Order Comment: Speci men Type: BLOOD SPECIMEN Ordering Facility: [facility] Address: [address] [place] [address] Performed By: #### 2 4323-8 #### [facility] CLIA [id number] [address] Urea nitrogen [Mass/Vol] 13 mg/dL Normal 7-21 [facility] Comment on above: Order Comment: Speci men Type: BLOOD SPECIMEN Ordering Facility: [facility] Address: [address] [place] [address] Performed By: #### 2 4323-8 #### [facility] CLIA [id number] [address] ED NOTEon 02-15-2022 ED NOTE HNO ID: [id number] Author: Fe Saenz RN Service: Nursing Author Type: Registered Nurse Type: ED Notes Filed: 02/15/2022 5:24 PM Note Text: Pt discharged from the facility at this time in satisfactory condition. Pt peripheral IV removed prior to discharge. Pt educated on how to schedule follow up appt with PCP. This nurse reviewed entire discharge packet with Pt including: medications, side effects, s/s to report to MD. Pt verbalized understanding. Pt has a ride home. Pt left with all personal belongings exiting the facility. [facility] ED NOTE HNO ID: [id number] Author: Rubi Whitman RN Service: ? Author Type: Registered Nurse Type: ED Notes Filed: 02/15/2022 3:18 PM Note Text: Pt to ED with c/o headache x 1 week and recurrent nose bleeds. Pt reports large clots with nose bleeds. Pt denies blurred/double vision with headache. Does report some lightheadedness with headache. [facility] ED PROV NOTEon 02-15-2022 ED PROV NOTE HNO ID: [id number] Author: Jose Meyer PA-C Service: ? Author Type: Physician Chief Operator Reformer Type: ED Provider Notes Filed: 02/15/2022 5:18 PM Note Text: ED Provider Note Patient Name: Gómez Gasca : 2000 SERVICE DATE: 02/15/22 History Patient presents with: Headache Epistaxis 22-year-old female presents to the ED today for headaches on and off for about a week along with nosebleeds on and off for about a week. Patient states that she has been having nosebleeds every day however today this was the worst that lasted for about 10 minutes. Patient denies any chest pain or abdominal pain. Denies any fevers. she patient does complain of slight headache. She denies any known history of bleeding disorders. Denies any other complaints History reviewed. No pertinent past medical history. History reviewed. No pertinent surgical history. No family history on file. Social History Tobacco Use Smoking status: Never Smokeless tobacco: Never Vaping Use Vaping Use: current everyday user Substances: Nicotine Substance and Sexual Activity Alcohol use: Never Drug use: Yes Types: Marijuana Sexual activity: Never ALLERGIES No Known Allergies Review of Systems Constitutional: Negative for chills and fever. HENT: Positive for nosebleeds. Negative for drooling, ear discharge, hearing loss, mouth sores, postnasal drip, sneezing and voice change. Eyes: Negative for photophobia and visual disturbance. Respiratory: Negative for chest tightness, shortness of breath and wheezing. Cardiovascular: Negative for chest pain and palpitations. Gastrointestinal: Negative for abdominal distention, abdominal pain, anal bleeding, blood in stool, constipation, diarrhea, nausea, rectal pain and vomiting. Genitourinary: Negative for dysuria, flank pain, hematuria, pelvic pain, vaginal bleeding and vaginal discharge. Musculoskeletal: Negative for arthralgias, neck pain and neck stiffness. Skin: Negative for color change. Neurological: Positive for headaches. Negative for dizziness and numbness. Psychiatric/Behavioral: Negative for agitation and confusion. The patient is not hyperactive. Physical Exam Vitals [02/15/22 1516] BP Pulse Temp Temp src Resp SpO2 Weight Height 133/74 87 36.7 ?C (98 ?F) Oral 18 100 % 68 kg (150 lb) -- Physical Exam Constitutional: Appearance: She is well-developed. HENT: Head: Normocephalic and atraumatic. Nose: Nose normal. Eyes: Conjunctiva/sclera: Conjunctivae normal. Cardiovascular: Rate and Rhythm: Normal rate and regular rhythm. Pulmonary: Effort: Pulmonary effort is normal. No respiratory distress. Breath sounds: Normal breath sounds. No wheezing. Abdominal: General: Bowel sounds are normal. Palpations: Abdomen is soft. Musculoskeletal: General: Normal range of motion. Cervical back: Normal range of motion and neck supple. Skin: General: Skin is warm and dry. Neurological: General: No focal deficit present. Mental Status: She is alert and oriented to person, place, and time. GCS: GCS eye subscore is 4. GCS verbal subscore is 5. GCS motor subscore is 6. Cranial Nerves: Cranial nerves 2-12 are intact. Sensory: Sensation is intact. Motor: Motor function is intact. Coordination: Coordination is intact. Comments: Patient is alert and oriented x 3. There is no focal neuro deficit noted on exam, affect is normal, speech is normal to rate and articulation, short-term and long-term memory are intact, PERRLA intact, no nystagmus, no ataxia or aphasia, sensation intact with upper and lower extremities, there is no weakness with upper and lower extremities bilaterally, 5/5 strength in both upper and lower extremities, ekfkud-mr-tyuw intact, ealh-yz-ckew intact, rapid alternative movements intact. Psychiatric: Behavior: Behavior normal. Diagnostic Testing ED Labs Ordered and Reviewed - No data to display CT BRAIN WO IVCON Final Result IMPRESSION: No acute intracranial abnormality is identified. Account Engineer: KATHRINE Transcribe Date/Time: Feb 15 2022 4:30P Dictated by : SAI RUIZ MD This examination was interpreted and the report reviewed and electronically signed by: SAI RUIZ MD on Feb 15 2022 4:31PM EST Results for orders placed or performed during the hospital encounter of 02/15/22 COMP METABOLIC PANEL Result Value Ref Range Protein, Total 7.6 6.3 - 8.0 g/dL Albumin 4.6 3.9 - 4.9 g/dL Calcium, Total 9.9 8.5 - 10.2 mg/dL Bilirubin, Total 0.5 0.2 - 1.3 mg/dL Alkaline Phosphatase 85 34 - 123 U/L AST 16 13 - 35 U/L ALT 13 7 - 38 U/L Glucose 86 74 - 99 mg/dL BUN 13 7 - 21 mg/dL Creatinine 0.83 0.58 - 0.96 mg/dL Sodium 138 136 - 144 mmol/L Potassium 4.2 3.7 - 5.1 mmol/L Chloride 102 97 - 105 mmol/L CO2 26 22 - 30 mmol/L Anion Gap 10 9 - 18 mmol/L Estimated Glomerular Filtration Rate 104 >=60 mL/min/1.73m? CBC + DIFF Result Value Ref Range (more content not included)... 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 female. Her chief complaint(s) include: Cold Symptoms (Body aches on and off, headaches on and off, feeling hot and cold, ear pain on and off, sore throat on and off x 4 weeks -- Took 4 at home Covid tests all negative. Took tylenol last night. ) Assessment 1. Sore throat 2. Otalgia of both ears 3. Cough, unspecified type 4. Acute bacterial sinusitis Plan Gómez was seen today for cold symptoms. Diagnoses and associated orders for this visit: Sore throat Otalgia of both ears Cough, unspecified type Acute bacterial sinusitis - Amoxicillin-Pot Clavulanate; Take 1 Tablet (875 mg) by mouth 2 times daily for 10 days Suspect back to back viral illnesses. Will watch/wait since symptoms seem to be improving today. Will fill abx if sinus inf sx's develop- reviewed indications to fill Supportive care discussed, return precautions reviewed, including reasons to contact our office and/or seek ER care. Parent(s)/Patient's questions answered, concerns addressed. Declines flu, covid, and hpv immunizations today Return if symptoms worsen or fail to improve. Subjective HPI Comments: 4 weeks ago, chills + body aches. Headaches then and persisted for a few weeks. Developed sore throat, ear pain, coughing. Feeling warm + chills but no temps/fever measured. [place] well for 3 days but then felt worse again- 2 weeks ago. Yesterday- ear pain + sore throat. Today- these symptoms are improved. Denies face pressure, fullness, or tooth pain Meds: tylenol Got new kitten 4-5 weeks ago. Had fleas and worms. Some scratches. No lymphadenopathy Cold Symptoms Primary Care Review of Systems Objective Vital Signs 12/12/21 1347 Temp: 36.3 C (97.4 F) TempSrc: Temporal Weight: 84.9 kg There is no height or weight on file to calculate BMI. Physical Exam Constitutional: She appears well. She is active. No distress. HENT: Head: Atraumatic. Ears: Right Ear: Tympanic membrane normal. Tympanic membrane is not erythematous and not bulging. No purulent effusion is present. Left Ear: Tympanic membrane normal. Tympanic membrane is not erythematous and not bulging. No purulent effusion. Mouth/Throat: Mucous membranes are moist. No tonsillar exudate. Eyes: Conjunctivae are normal. Right eyelid exhibits no discharge. Left eyelid exhibits no discharge. Neck: Neck supple. Cardiovascular: Normal rate and regular rhythm. Heart murmur not heard. Pulmonary/Chest: Effort normal and breath sounds normal. There is normal air entry. Musculoskeletal: Cervical back: Normal range of motion and neck supple. Neurological: She is alert. Skin: Skin is warm and dry. Findings: No rash. Normal [facility] ALLIED HEALTHon 10-18-2021 ALLIED HEALTH HNO ID: [id number] Author: RT Katherine(R) Service: Radiology Author Type: Technologist Type: Allied Health Filed: 10/18/2021 8:30 PM Note Text: Radiology Service Progress Note PATIENT NAME: Gómez Gasca DATE OF SERVICE: October 18, 2021 TIME: 8:30 PM PATIENT IDENTITY VERIFICATION COMPLETED USING TWO (2) IDENTIFIERS: Name and Date of confirmed by patient verbally. FALL SCREENING: Has the patient had 2 falls in the last year or 1 fall with injury or currently using an Ambulatory Assistive Device (Walker, Cane, Wheelchair, Crutches, etc.)? Emergency Room Patient: Screened in ED PATIENT GENDER DATA: Female. status: : No status: NO. PATIENT RELEVANT IMPLANT DATA REVIEWED: Not Applicable RADIOLOGY DEPARTMENT: General X-ray: Exam(s) Completed: Chest X-Ray PERIPHERAL IV DATA: Not applicable SIGNED BY: Payton Gonsalez RT(R) October 18, 2021 8:30 PM [facility] CBC W Auto Differential pane l (Bld)on 10-18-2021 Basophils (Bld) [#/Vol] 0.03 10*3/uL Normal <0.11 [facility] Comment on above: Order Comment: Speci men Type: BLOOD SPECIMEN Ordering Facility: [facility] Address: [address] [place] [address] Performed By: #### 2 4323-8 #### [facility] CLIA [id number] [address] Basophils/100 WBC (Bld) 0.3 % Normal [facility] Comment on above: Order Comment: Speci men Type: BLOOD SPECIMEN Ordering Facility: [facility] Address: [address] [place] [address] Performed By: #### 2 4323-8 #### [facility] CLIA [id number] [address] Differential cell count method Nom (Bld) Auto Normal [facility] Comment on above: Order Comment: Speci men Type: BLOOD SPECIMEN Ordering Facility: [facility] Address: [address] [address] Performed By: #### 2 4323-8 #### [facility] CLIA [id number] [address] [place] [address] [facility] [place] Eosinophils (Bld) [#/Vol] 0.12 10*3/uL Normal <0.46 [facility] Comment on above: Order Comment: Speci men Type: BLOOD SPECIMEN Ordering Facility: [facility] Address: [address] [address] Performed By: #### 2 4323-8 #### [facility] CLIA [id number] [address] [place] Eosinophils/100 WBC (Bld) 1.4 % Normal [facility] Comment on above: Order Comment: Speci men Type: BLOOD SPECIMEN Ordering Facility: [facility] Address: [address] [place] [address] Performed By: #### 2 4323-8 #### [facility] CLIA [id number] [address] [place] Erythrocyte distribution width (RBC) [Ratio] 13.1 % Normal 11.5-15.0 [facility] Comment on above: Order Comment: Speci men Type: BLOOD SPECIMEN Ordering Facility: [facility] Address: [address] [place] [address] Performed By: #### 2 4323-8 #### [facility] CLIA [id number] [address] Hematocrit (Bld) [Volume fraction] 41.3 % Normal 36.0-46.0 [facility] Comment on above: Order Comment: Speci men Type: BLOOD SPECIMEN Ordering Facility: [facility] Address: [address] [place] [address] Performed By: #### 2 4323-8 #### [facility] CLIA [id number] [address] Hemoglobin (Bld) [Mass/Vol] 13.6 g/dL Normal 11.5-15.5 [facility] Comment on above: Order Comment: Speci men Type: BLOOD SPECIMEN Ordering Facility: [facility] Address: [address] [place] [address] Performed By: #### 2 4323-8 #### [facility] CLIA [id number] [address] IMMATURE GRAN % 0.2 % Normal [facility] Comment on above: Order Comment: Speci men Type: BLOOD SPECIMEN Ordering Facility: [facility] Address: [address] [place] [address] Performed By: #### 2 4323-8 #### [facility] CLIA [id number] [address] [place] [address] [place] IMMATURE GRAN ABS <0.03 Normal <0.10 [facility] Comment on above: Order Comment: Speci men Type: BLOOD SPECIMEN Ordering Facility: [facility] Address: [address] [place] [address] Performed By: #### 2 4323-8 #### [facility] CLIA [id number] [address] [place] Lymphocytes (Bld) [#/Vol] 3.21 10*3/uL Normal 1.00-4.00 [facility] Comment on above: Order Comment: Speci men Type: BLOOD SPECIMEN Ordering Facility: [facility] Address: [address] [place] [address] Performed By: #### 2 4323-8 #### [facility] CLIA [id number] [address] Lymphocytes/100 WBC (Bld) 36.7 % Normal [facility] Comment on above: Order Comment: Speci men Type: BLOOD SPECIMEN Ordering Facility: [facility] Address: [address] [place] [address] Performed By: #### 2 4323-8 #### [facility] CLIA [id number] [address] MCH (RBC) [Entitic mass] 27.9 pg Normal 26.0-34.0 [facility] Comment on above: Order Comment: Speci men Type: BLOOD SPECIMEN Ordering Facility: [facility] Address: [address] [place] [address] Performed By: #### 2 4323-8 #### [facility] CLIA [id number] [address] [facility] (RBC) [Mass/Vol] 32.9 g/dL Normal 30.5-36.0 [facility] Comment on above: Order Comment: Speci men Type: BLOOD SPECIMEN Ordering Facility: [facility] Address: [address] [place] [address] Performed By: #### 2 4323-8 #### [facility] CLIA [id number] [address] MCV (RBC) [Entitic vol] 84.6 fL Normal 80.0-100.0 [facility] Comment on above: Order Comment: Speci men Type: BLOOD SPECIMEN Ordering Facility: [facility] Address: [address] [address] Performed By: #### 2 4323-8 #### [facility] CLIA [id number] [address] [place] Monocytes (Bld) [#/Vol] 0.49 10*3/uL Normal <0.87 [facility] Comment on above: Order Comment: Speci men Type: BLOOD SPECIMEN Ordering Facility: [facility] Address: [address] [place] [address] Performed By: #### 2 432-8 #### [facility] CLIA [id number] [address] Monocytes/100 WBC (Bld) 5.6 % Normal [facility] Comment on above: Order Comment: Speci men Type: BLOOD SPECIMEN Ordering Facility: [facility] Address: [address] [place] [address] Performed By: #### 2 4323-8 #### [facility] CLIA [id number] [address] [place] Neutrophils (Bld) [#/Vol] 4.87 10*3/uL Normal 1.45-7.50 [facility] Comment on above: Order Comment: Speci men Type: BLOOD SPECIMEN Ordering Facility: [facility] Address: [address] [address] Performed By: #### 2 4323-8 #### [facility] CLIA [id number] [address] [place] Neutrophils/100 WBC (Bld) 55.8 % Normal [facility] Comment on above: Order Comment: Speci men Type: BLOOD SPECIMEN Ordering Facility: [facility] Address: [address] [address] Performed By: #### 2 4323-8 #### [facility] CLIA [id number] [address] [place] Nucleated RBC (Bld) [#/Vol] 10*3/uL Normal <0.01 [facility] Comment on above: Order Comment: Speci men Type: BLOOD SPECIMEN Ordering Facility: [facility] Address: [address] [place] [address] Performed By: #### 2 4323-8 #### [facility] CLIA [id number] [address] [place] Nucleated RBC/100 WBC (Bld) [Ratio] 0.0 /100 WBC Normal [facility] Comment on above: Order Comment: Speci men Type: BLOOD SPECIMEN Ordering Facility: [facility] Address: [address] [place] [address] Performed By: #### 2 4323-8 #### [facility] CLIA [id number] [address] [place] Platelet mean volume (Bld) [Entitic vol] 10.2 fL Normal 9.0-12.7 [facility] Comment on above: Order Comment: Speci men Type: BLOOD SPECIMEN Ordering Facility: [facility] Address: [address] [place] [address] Performed By: #### 2 4323-8 #### [facility] CLIA [id number] [address] [place] Platelets (Bld) [#/Vol] 245 10*3/uL Normal 150-400 [facility] Comment on above: Order Comment: Speci men Type: BLOOD SPECIMEN Ordering Facility: [facility] Address: [address] [address] Performed By: #### 2 4323-8 #### [facility] CLIA [id number] [address] [place] RBC (Bld) [#/Vol] 4.88 10*6/uL Normal 3.90-5.20 [facility] Comment on above: Order Comment: Speci men Type: BLOOD SPECIMEN Ordering Facility: [facility] Address: [address] [place] [address] Performed By: #### 2 4323-8 #### [facility] CLIA [id number] [address] [place] WBC (Bld) [#/Vol] 8.74 10*3/uL Normal 3.70-11.00 [facility] Comment on above: Order Comment: Speci men Type: BLOOD SPECIMEN Ordering Facility: [facility] Address: [address] [place] [address] Performed By: #### 2 4323-8 #### [facility] CLIA [id number] [address] Comprehensive metabolic 2000 panelon 10-18-2021 Albumin [Mass/Vol] 4.5 g/dL Normal 3.9-4.9 [facility] Comment on above: Order Comment: Speci men Type: BLOOD SPECIMEN Ordering Facility: [facility] Address: [address] [place] [address] Performed By: #### 2 4323-8 #### [facility] CLIA [id number] [address] ALP [Catalytic activity/Vol] 70 U/L Normal 34-123 [facility] Comment on above: Order Comment: Speci men Type: BLOOD SPECIMEN Ordering Facility: [facility] Address: [address] [place] [address] Performed By: #### 2 4323-8 #### [facility] CLIA [id number] [address] ALT [Catalytic activity/Vol] 9 U/L Normal 7-38 [facility] Comment on above: Order Comment: Speci men Type: BLOOD SPECIMEN Ordering Facility: [facility] Address: [address] [place] [address] Performed By: #### 2 4323-8 #### [facility] CLIA [id number] [address] Anion gap [Moles/Vol] 9 mmol/L Normal 9-18 [facility] Comment on above: Order Comment: Speci men Type: BLOOD SPECIMEN Ordering Facility: [facility] Address: [address] [place], [place] [address] Performed By: #### 2 4323-8 #### [facility] CLIA [id number] [address] AST [Catalytic activity/Vol] 14 U/L Normal 13-35 [facility] Comment on above: Order Comment: Speci men Type: BLOOD SPECIMEN Ordering Facility: [facility] Address: [address] [address] Performed By: #### 2 4323-8 #### [facility] CLIA [id number] [address] [place] [address] [place] Bilirubin [Mass/Vol] 0.4 mg/dL Normal 0.2-1.3 [facility] Comment on above: Order Comment: Speci men Type: BLOOD SPECIMEN Ordering Facility: [facility] Address: [address] [address] Performed By: #### 2 4323-8 #### [facility] CLIA [id number] [address] STATES OF [facility] Calcium [Mass/Vol] 9.6 mg/dL Normal 8.5-10.2 [facility] Comment on above: Order Comment: Speci men Type: BLOOD SPECIMEN Ordering Facility: [facility] Address: [address] [place] [address] Performed By: #### 2 4323-8 #### [facility] CLIA [id number] [address] [place] Chloride [Moles/Vol] 105 mmol/L Normal 97-105 [facility] Comment on above: Order Comment: Speci men Type: BLOOD SPECIMEN Ordering Facility: [facility] Address: [address] [address] Performed By: #### 2 4323-8 #### [facility] CLIA [id number] [address] [place] CO2 [Moles/Vol] 25 mmol/L Normal 22-30 [facility] Comment on above: Order Comment: Speci men Type: BLOOD SPECIMEN Ordering Facility: [facility] Address: [address] [address] Performed By: #### 2 4323-8 #### [facility] CLIA [id number] [address] Creatinine [Mass/Vol] 0.84 mg/dL Normal 0.58-0.96 [facility] Comment on above: Order Comment: Ela bey Type: BLOOD SPECIMEN Ordering Facility: [facility] Address: [address] [place] [address] Performed By: #### 2 4323-8 #### [facility] CLIA [id number] [address] OF [facility] ESTIMATED GLOMERULAR FILTRATION RATE 103 mL/min/1.73m??? Normal >=60 [facility] Comment on above: Order Comment: Ela bey Type: BLOOD SPECIMEN Ordering Facility: [facility] Address: [address] [place] [address] Result Comment: Oksana mated Glomerular Filtration Rate (eGFR) is calculated using the 2020 CKD-EPI creatinine equation. This equation utilizes serum creatinine, sex, and age as parameters. The creatinine assay has traceable calibration to isotope dilution-mass spectrometry. Refer to KDIGO guidelines for clinical interpretation. In patients with unstable renal function, e.g. those with acute kidney injury, the eGFR may not accurately reflect actual GFR. Performed By: #### 2 4323-8 #### [facility] CLIA [id number] [address] Glucose [Mass/Vol] 94 mg/dL Normal 74-99 [facility] Comment on above: Order Comment: Ela bey Type: BLOOD SPECIMEN Ordering Facility: [facility] Address: [address] [address] Result Comment: The [place] [employer] (ADA) provides guidance for cutoff values for fasting glucose and random glucose. The ADA defines fasting as no caloric intake for at least 8 hours. Fasting plasma glucose results between 100 to 125 mg/dL indicate increased risk for diabetes (prediabetes). Fasting plasma glucose results greater than or equal to 126 mg/dL meet the criteria for diagnosis of diabetes. In the absence of unequivocal hyperglycemia, results should be confirmed by repeat testing. In a patient with classic symptoms of hyperglycemia or hyperglycemic crisis, random plasma glucose results greater than or equal to 200 mg/dL meet the criteria for diagnosis of diabetes. Reference: Standards of Medical Care in Diabetes 2016, [place] [employer]. Diabetes Care. 2016.39(Suppl 1). Performed By: #### 2 4323-8 #### [facility] CLIA [id number] [address] [place] [address] [place] Potassium [Moles/Vol] 4.0 mmol/L Normal 3.7-5.1 [facility] Comment on above: Order Comment: Ela bey Type: BLOOD SPECIMEN Ordering Facility: [facility] Address: [address] [place] [address] Performed By: #### 2 4323-8 #### [facility] CLIA [id number] [address] [place] [address] [place] Protein [Mass/Vol] 7.5 g/dL Normal 6.3-8.0 [facility] Comment on above: Order Comment: Ela bey Type: BLOOD SPECIMEN Ordering Facility: [facility] Address: [address] [place] [address] Performed By: #### 2 4323-8 #### [facility] CLIA [id number] [address] [place] [address] [place] Sodium [Moles/Vol] 139 mmol/L Normal 136-144 [facility] Comment on above: Order Comment: Ela bey Type: BLOOD SPECIMEN Ordering Facility: [facility] Address: [address] [place] [address] Performed By: #### 2 4323-8 #### [facility] CLIA [id number] [address] [place] Urea nitrogen [Mass/Vol] 12 mg/dL Normal 7-21 [facility] Comment on above: Order Comment: Ela bey Type: BLOOD SPECIMEN Ordering Facility: [facility] Address: [address] [place] [address] Performed By: #### 2 4323-8 #### [facility] CLIA [id number] [address] [place] [address] [place] D dimer FEU PPP-mCncon 10-18 Fibrin D-dimer FEU (PPP) [Mass/Vol] 430 ng/mL FEU Normal <500 [facility] Comment on above: Order Comment: Speci men Type: BLOOD SPECIMEN Ordering Facility: [facility] Address: [facility] [place] [address] Performed By: #### 4 8065-7 #### [facility] CLIA [id number] [address] [place] [address] [facility] COMPLETEon 10-18-2021 ECG COMPLETE Ventricular Rate : 6 7 BPM Atrial Rate : 67 BPM P-R Interval : 152 ms QRS Duration : 84 ms Q-T Interval : 402 ms QTC Calculation(Bazett) : 424 ms Calculated P Brisbin : 16 degrees Calculated R Brisbin : 48 degrees Calculated T Brisbin : 34 degrees NORMAL SINUS RHYTHM NORMAL ECG 1938 no STEMI Confirmed by GWEN GRULLON MD ([id number]), editor department SOFÍA CADET ([id number]) on 10/19/2021 6:48:59 AM NAME : GÓMEZ GASCA PID : [id number] : 2000 Gender : Female Race : ORD : [id number] Procedure Date : Oct 18 2021 19:35:46 Edit Date : Oct 19 2021 06:49:00 Diagnosis: NORMAL SINUS RHYTHM NORMAL ECG 1938 no STEMI Confirmed by GWEN GRULLON MD ([id number]), editor department SOFÍA CADET ([id number]) on 10/19/2021 6:48:59 AM Test Reason : Chest Pain Location : 1 : ER RW Overread By : GWEN GRULLON MD Edited By : SOFÍA CADET Referred By : , Acquired by : ANTONINO [facility] ED NOTEon 10-18-2021 ED NOTE HNO ID: [id number] Author: Kiko Kumar RN Service: ? Author Type: Registered Nurse Type: ED Notes Filed: 10/18/2021 9:24 PM Note Text: Pt was medicated and discharged home po fluids were encouraged and follow up with medical dr as per needed po fluids have been taken and she was ambulatory with her discharge Male was bedside with her she stated she feels better [facility] ED NOTE HNO ID: [id number] Author: Nasir Ambrocio RN Service: ? Author Type: Registered Nurse Type: ED Notes Filed: 10/18/2021 5:54 PM Note Text: Pt presents to ed with cc of chest pain starting a week ago with fatigue and sob, pain is worse with deep breath. Pt also wants a preg test. [facility] ED PROV NOTEon 10-18-2021 ED PROV NOTE HNO ID: [id number] Author: Gwen Grullon MD Service: ? Author Type: Physician Type: ED Provider Notes Filed: 10/18/2021 9:32 PM Note Text: ED Provider Note Patient Name: Gómez Gasca : 2000 SERVICE DATE: 10/18/21 History Patient presents with: Chest Pain: Worse with deep breath no pain at this time. Start a week ago. Shortness of Breath Covid19 Concern Patient presents for 1 week of COVID-like symptoms, now with chest pain and shortness of breath. Patient states 1 week ago she began having a cough, fever and fatigue, and took a COVID test 2 days in a row with both negative. She started having chest pain, worse with deep breath and feeling short of breath 4 days ago. She continues to have malaise and fatigue, myalgias, cough, and episodic sharp chest pain. Patient went off of oral contraception 2 and half weeks ago and started the Depo-Provera injection. She has not had any spotting and is concerned she may also be . No past medical history on file. No past surgical history on file. No family history on file. Social History Tobacco Use Smoking status: Never Smokeless tobacco: Never Substance and Sexual Activity Alcohol use: Never Drug use: Never Sexual activity: Never ALLERGIES No Known Allergies Review of Systems Constitutional: Positive for activity change, appetite change, fatigue and fever. All other systems negative except as documented in the HPI. HENT: Negative for congestion, rhinorrhea and sore throat. Eyes: Negative for pain and discharge. Respiratory: Positive for cough and shortness of breath. Cardiovascular: Positive for chest pain. Negative for palpitations. Gastrointestinal: Negative for abdominal pain, constipation, diarrhea, nausea and vomiting. Genitourinary: Negative for dysuria, frequency and urgency. Musculoskeletal: Positive for myalgias. Skin: Negative for pallor and rash. Neurological: Positive for headaches. Negative for dizziness and weakness. All other systems reviewed and are negative. Physical Exam Vitals [10/18/21 1752] BP Pulse Temp Temp src Resp SpO2 Weight Height 150/96 88 36.8 ?C (98.3 ?F) Tympanic 18 99 % 68 kg (150 lb) -- Physical Exam Vitals and nursing note reviewed. Constitutional: General: She is in acute distress (Looks like she does not feel well). Appearance: She is well-developed. She is not ill-appearing. HENT: Head: Normocephalic and atraumatic. Mouth/Throat: Mouth: Mucous membranes are moist. Eyes: Extraocular Movements: Extraocular movements intact. Conjunctiva/sclera: Conjunctivae normal. Pupils: Pupils are equal, round, and reactive to light. Cardiovascular: Rate and Rhythm: Normal rate and regular rhythm. Pulses: Normal pulses. Posterior tibial pulses are 2+ on the right side and 2+ on the left side. Heart sounds: Normal heart sounds. No murmur heard. Pulmonary: Effort: Pulmonary effort is normal. No respiratory distress. Breath sounds: No decreased breath sounds, wheezing, rhonchi or rales. Abdominal: General: Bowel sounds are normal. Palpations: Abdomen is soft. Tenderness: There is no abdominal tenderness. Musculoskeletal: General: No tenderness. Normal range of motion. Cervical back: Normal range of motion and neck supple. No muscular tenderness. Right lower leg: No tenderness. No edema. Left lower leg: No tenderness. No edema. Skin: General: Skin is warm and dry. Findings: No rash. Neurological: General: No focal deficit present. Mental Status: She is alert and oriented to person, place, and time. Psychiatric: Mood and Affect: Mood normal. Behavior: Behavior normal. DECISION SUPPORT - ED (all recorded) Pulmonary Embolism Row Name 10/18/21 1809 PERC Is pretest probability for PE > than 15% -- Age > 50 0 HR >= 100 0 spO2 on room air < 95% 0 History of prior PE or DVT 0 Recent Trauma or Surgery 0 Hemoptysis? 0 Exogenous Estrogen? 1 Unilateral leg swelling 0 PERC Score = -- If PERC Score > 0 - The PERC rule is not satisfied and cannot be used to rule out Pulmonary Embolism for this patient Proceed to [facility]' Clinical signs and symptoms of DVT 0 PE is #1 Diagnosis, or equally likely 0 Heart Rate is > 100 0 Immobilization at least 3 days or surgery in the previous 4 weeks 0 Previous objectively diagnosed PE or DVT 0 Hemoptysis 0 Malignancy with treatment within 6 months or palliative 0 Wells' Score = 0 Diagnostic Testing ED Labs Ordered and Reviewed COMP METABOLIC PANEL - Normal HCG QUAL BLD - Normal D-DIMER - Normal Narrative: 500 ng/mL FEU is the D Dimer cutoff to exclude DVT (deep vein thrombosis) and PE (pulmonary embolism) in patients with a low pre test probability. Supplemental Comment: In patients over 50 years with a low pre test probability for DVT and/or PE, an age adjusted D dimer cutoff can be calculated as [age x 10] ng/mL FEU. For example, a (more content not included)... Normal [facility] FLUABV+SARS-CoV-2+RSV Pnl Re sp MARV+probeon 10-18-2021 FLUAV RNA MARV+probe Ql (Unsp spec) Negative Normal Negative for Influenza A by RT-PCR [facility] Comment on above: Order Comment: Ela bey Type: BLOOD SPECIMEN Ordering Facility: [facility] Address: [address] [place] [address] Performed By: #### 2 4323-8 #### [facility] CLIA [id number] [address] FLUBV RNA MARV+probe Ql (Unsp spec) Negative Normal Negative for Influenza B by RT-PCR [facility] Comment on above: Order Comment: Ela bey Type: BLOOD SPECIMEN Ordering Facility: [facility] Address: [address] [place] [address] Performed By: #### 2 4323-8 #### [facility] CLIA [id number] [address] RSV A RNA MARV+probe Ql (Unsp spec) Negative Normal Negative for Respiratory Syncytial Virus (RSV) by PCR [facility] Comment on above: Order Comment: Ela bey Type: BLOOD SPECIMEN Ordering Facility: [facility] Address: [address] [place] [address] Performed By: #### 2 4323-8 #### [facility] CLIA [id number] [address] SARS-CoV-2 (COVID-19) RNA MARV+probe Ql (Resp) SARS-CoV-2 (Agent of COVID-19) Not Detected by RT-PCR or equivalent method. Normal Not Detected [facility] Comment on above: Order Comment: Speci maida Type: BLOOD SPECIMEN Ordering Facility: [facility] Address: [address] [place] [address] Result Comment: This test has been authorized by FDA under an Emergency Use Authorization (EUA). Performed By: #### 2 4323-8 #### [facility] CLIA [id number] [address] HCG QUAL BLDon 10-18-2021 HCG, QUALITATIVE Negative Normal Negative [facility] Comment on above: Order Comment: Speci men Type: BLOOD SPECIMEN Ordering Facility: [facility] Address: [address] [place] [address] Performed By: #### 2 4323-8 #### [facility] CLIA [id number] [address] XR CHEST 2V FRONTAL/LATon XR CHEST 2V FRONTAL/LAT * * *Final Report* * * DATE OF EXAM: Oct 18 2021 8:28PM MDX 5291 - XR CHEST 2V FRONTAL/LAT / PROCEDURE REASON: Chest pain, nonspecific * * * * Physician Interpretation * * * * EXAMINATION: CHEST RADIOGRAPH (2 VIEW FRONTAL and LATERAL) CLINICAL HISTORY: Chest pain, nonspecific MQ: XC2_6 EXAM DATE/TIME: 10/18/2021 8:28 PM COMPARISON: No relevant prior studies available. RESULT: Lines, tubes, and devices: None. Lungs and pleura: No consolidation. No lung mass. No pleural effusion. No pneumothorax. Cardiomediastinal silhouette: Normal cardiomediastinal silhouette. Bones and soft tissues: Unremarkable. IMPRESSION: No acute radiographic abnormality. Account Engineer: PSCB Transcribe Date/Time: Oct 18 2021 8:29P Dictated by : PETR CHENEY MD This examination was interpreted and the report reviewed and electronically signed by: PETR CHENEY MD on Oct 18 2021 8:31PM EST [id number] Normal [facility] Amb Office-Progress Notes-Pr ovideron 08-16-2021 Amb Office-Progress Notes-Provider Assessment/Plan This Visit Diagnosis Irregular menses N92.6 Options described of retry Chief Complaint New pt here to discuss control. pt states current POP OCP x1yr. 2 periods a month. Prev on 2-3 estrogen pills had vomitting, weight loss. increase in facial hair, oily skin, acne, skin tags. LOPM 08/03/2021 History of Present Illness New pt here for BCM consult No pap due to age per guidelines Prev combination OCP w adverse effects, placed on POP Uses condoms occ Concerned w PCO so discussed due to facial hair, acne, irreg menses OCP and POP for suppression of ovulation useful for prevention of ovarian cysts and contraception and suppression of endometrial growth for cycle control. May also help w hormonal abnl such as PMS, acne, menstrual migraines. Risk of noncompliance, BTB, failed contraception, adverse effects of nausea, breasttenderness, CV dx, HTN Nondaily BCM that are hormonal have same effects but improved compliance. Examples are Nexplanon, OEvra, depoProvera, Nuvaring IUDs w hormonal vs non hormonal keep sperm from the ovulated egg. Risk of insertion, infection, expulsion, perforation, uterine pain/cramps, AUB Recent STD check Review of Systems Review of Systems Gynecologic: irreg menses Physical Exam Vitals & Measurements BP: 128/88 HT: 169 cm WT: 75 kg BMI: 26.26 LMP: 08/03/2021 00:00 EDT Depression Screening Scores Initial Depression Screen Score: 0 (08/16/21 14:50:00) Fall Risk Assessment Is the patient ambulatory (mobile): Yes (08/16/21 14:50:00) Have you had a fall within the past: No (08/16/21 14:50:00) Have you had 2 or more falls in the past: No (08/16/21 14:50:00) [employer] Additional Details-Patient Stated Menstrual History Last Menstrual [id number]/03/2021 OB History History (0,0,0,0) No previous pregnancies history have been recorded Problem List/Past Medical History Ongoing No qualifying data Historical No qualifying data Medications Deblitane 0.35 mg oral tablet Allergies No Known Medication Allergies Social History Tobacco Electronic Cigarette Family History Family history is negative Normal [facility] Ambulatory Clinical Summaryo n 08-16-2021 Ambulatory Clinical Summary GÓMEZ GASCA :2000 Visit Date:08/16/2021 Ambulatory Visit Instructions Your Diagnosis Irregular menses Your Care Team Attending Physician - BERNADETTE SESAY MD Discharge Vitals Blood Pressure 128/88 Height 169 cm Weight 75 kg BMI 26.26 Systolic Blood Pressure: 128 mmHg (08/16/21 14:50:00) Diastolic Blood Pressure: 88 mmHg (08/16/21 14:50:00) Mean Arterial Pressure: 101 mmHg (08/16/21 14:50:00) Height/Length Measured: 169 cm (08/16/21 14:50:00) Weight Measured: 75 kg (08/16/21 14:50:00) Body Mass Index Measured: 26.26 kg/m2 (08/16/21 14:50:00) Weight Measured - lbs2: 166 lb (08/16/21 14:50:00) Height/Length Measured - in2: 66.5 in (08/16/21 14:50:00) Body Mass Index Measured English2: 26.39 kg/m2 (08/16/21 14:50:00) BSA: 1.88 m2 (08/16/21 14:50:00) Ht/Wt Measurement Refused by Patient?2: No (08/16/21 14:50:00) Last Menstrual Period: 08/03/21 (08/16/21 14:50:00) What to do next Scheduled Follow-Up Appointments Appointment Type Reason for visit Day With Date Time Where [facility] Established Patient BLOOD PRESSURE CHECK Friday Bernadette Sesay MD November 19, 2021 01:30 pm EDT [facility] [address] [facility] [address] Medications What How Much When Instructions New ethinyl estradiol-norethindrone (Lo Loestrin Fe oral tablet) 1 Tabs Oral DAILY Refills: 2 Pickup at [facility] Unchanged norethindrone (Deblitane 0.35 mg oral tablet) Contact prescribing physician if questions or concerns Pharmacy Information [facility]: [address] [place], [place] [id number] [phone] Allergies No Known Medication Allergies Education Materials Abnormal Uterine Bleeding: Care Instructions Your Care Instructions Abnormal uterine bleeding is irregular bleeding from the uterus that is longer or heavier than usual or does not occur at your regular time. Sometimes it is caused by changes in hormone levels. It can also be caused by growths in the uterus, such as fibroids or polyps. Sometimes a cause cannot be found. You may have heavy bleeding when you are not expecting your period. Your doctor may suggest a test, if you think you are . Follow-up care is a sharp part of your treatment and safety. Be sure to make and go to all appointments, and call your doctor if you are having problems. It's also a good idea to know your test results and keep a list of the medicines you take. How can you care for yourself at home? ? Be safe with medicines. Take pain medicines exactly as directed. ? If the doctor gave you a prescription medicine for pain, take it as prescribed. ? If you are not taking a prescription pain medicine, ask your doctor if you can take an rwjf-sgd-lmqepbl medicine. ? You may be low in iron because of blood loss. Eat a balanced diet that is high in iron and vitamin C. Foods rich in iron include red meat, shellfish, eggs, beans, and leafy green vegetables. Talk to your doctor about whether you need to take iron pills or a multivitamin. When should you call for help? Call 911 anytime you think you may need emergency care. For example, call if: ? You passed out (lost consciousness). Call your doctor now or seek immediate medical care if: ? You have new or worse belly or pelvic pain. ? You have severe vaginal bleeding. ? You feel dizzy or lightheaded, or you feel like you may faint. Watch closely for changes in your health, and be sure to contact your doctor if: ? You think you may be . ? Your bleeding gets worse. ? You do not get better as expected. Where can you learn more? Go to [email or web address]/ patientEd Enter I327 in the search box to learn more about Abnormal Uterine Bleeding: Care Instructions. Current as of: September 10, 2019 Content Version: 12.7 ? [id number] [employer]. Care instructions adapted under license by your healthcare professional. If you have questions about a medical condition or this instruction, always ask your healthcare professional. [employer] disclaims any warranty or liability for your use of this information. Common Emergency Awareness Tips IS IT A STROKE? Act FAST and Check for these signs: FACE Does the face look uneven? ARM Does one arm drift down? SPEECH Does their speech sound strange? TIME Call at any sign of stroke Heart Attack Signs Chest discomfort: Most heart attacks involve discomfort in the center of the chest and lasts more than a few minutes, or goes away and comes back. It can feel like uncomfortable pressure, squeezing, fullness or pain. Discomfort in upper body: Symptoms can include pain or discomfort in one or both arms, back, neck, jaw or stomach. Shortness of breath: With or without discomfort. Other signs: Breaking out in a cold sweat, nausea, or lightheaded. Remember, (more content not included)... Normal [facility] Discharge Educationon [address] Abnormal Uterine Bleeding: Care Instructions Your Care Instructions Abnormal uterine bleeding is irregular bleeding from the uterus that is longer or heavier than usual or does not occur at your regular time. Sometimes it is caused by changes in hormone levels. It can also be caused by growths in the uterus, such as fibroids or polyps. Sometimes a cause cannot be found. You may have heavy bleeding when you are not expecting your period. Your doctor may suggest a test, if you think you are . Follow-up care is a sharp part of your treatment and safety. Be sure to make and go to all appointments, and call your doctor if you are having problems. It's also a good idea to know your test results and keep a list of the medicines you take. How can you care for yourself at home? ? Be safe with medicines. Take pain medicines exactly as directed. ? If the doctor gave you a prescription medicine for pain, take it as prescribed. ? If you are not taking a prescription pain medicine, ask your doctor if you can take an ipsy-bgk-ndjmuad medicine. ? You may be low in iron because of blood loss. Eat a balanced diet that is high in iron and vitamin C. Foods rich in iron include red meat, shellfish, eggs, beans, and leafy green vegetables. Talk to your doctor about whether you need to take iron pills or a multivitamin. When should you call for help? Call 911 anytime you think you may need emergency care. For example, call if: ? You passed out (lost consciousness). Call your doctor now or seek immediate medical care if: ? You have new or worse belly or pelvic pain. ? You have severe vaginal bleeding. ? You feel dizzy or lightheaded, or you feel like you may faint. Watch closely for changes in your health, and be sure to contact your doctor if: ? You think you may be . ? Your bleeding gets worse. ? You do not get better as expected. Where can you learn more? Go to [email or web address]/ patientEd Enter I327 in the search box to learn more about Abnormal Uterine Bleeding: Care Instructions. Current as of: September 10, 2019 Content Version: 12.7 ? [employer]. Care instructions adapted under license by your healthcare professional. If you have questions about a medical condition or this instruction, always ask your healthcare professional. [employer] disclaims any warranty or liability for your use of this information. Normal [facility] Basic metabolic 2000 panelon 04-05-2021 Anion gap [Moles/Vol] 8 mmol/L Normal 8-16 [facility] Comment on above: Order Comment: Speci men Type: BLOOD SPECIMEN Ordering Facility: [facility] Address: [address] [place], [place] [id number] Performed By: #### 2 4321-2 #### [facility] CLIA [id number] [address] [place] [address] [place] Calcium [Mass/Vol] 9.7 mg/dL Normal 8.5-10.1 [facility] Comment on above: Order Comment: Speci men Type: BLOOD SPECIMEN Ordering Facility: [facility] Address: [address] [place], [place] [id number] Performed By: #### 2 4321-2 #### [facility] CLIA [id number] [address] [id number] [place] Chloride [Moles/Vol] 102 mmol/L Normal 98-107 [facility] Comment on above: Order Comment: Speci men Type: BLOOD SPECIMEN Ordering Facility: [facility] Address: [address] [place] [address] Performed By: #### 2 4321-2 #### [facility] CLIA [id number] [address] [place] [address] [place] CO2 [Moles/Vol] 28 mmol/L Normal 21-32 [facility] Comment on above: Order Comment: Speci men Type: BLOOD SPECIMEN Ordering Facility: [facility] Address: [address] [place] [address] Performed By: #### 2 4321-2 #### [facility] CLIA [id number] [address] [place] [address] [place] Creatinine [Mass/Vol] 0.73 mg/dL Normal 0.51-0.95 [facility] Comment on above: Order Comment: Speci men Type: BLOOD SPECIMEN Ordering Facility: [facility] Address: [address] [place] [address] Performed By: #### 2 4321-2 #### [facility] CLIA [id number] [address] [place] [address] [place] GFR/1.73 sq M.predicted among blacks MDRD (S/P/Bld) [Vol rate/Area] mL/min/{1.73_m2} Normal [facility] Comment on above: Order Comment: Speci men Type: BLOOD SPECIMEN Ordering Facility: [facility] Address: [address] [place] [address] Performed By: #### 2 4321-2 #### [facility] CLIA [id number] [address] [place] [address] [place] GFR/1.73 sq M.predicted among non-blacks MDRD (S/P/Bld) [Vol rate/Area] mL/min/{1.73_m2} Normal [facility] Comment on above: Order Comment: Speci men Type: BLOOD SPECIMEN Ordering Facility: [facility] Address: [address] [place] [address] [place] [address] Result Comment: eGFR (Estimated GFR) Units of measure: mL/min/1.73 meters squared eGFR is derived from the reexpressed MDRD Study equation using the following parameters: serum creatinine, age, gender and race. The creatinine assay has been calibrated to be traceable to IDMS. An eGFR <60 mL/min/1.73m2 for >3 months is consistent with chronic kidney disease. Refer to KDOQI guidelines for clinical interpretation. In patients with unstable renal function, e.g. those with acute kidney injury, the eGFR may not accurately reflect actual GFR. Performed By: #### 2 4321-2 #### [facility] CLIA [id number] [address] [place] [address] [place] Glucose [Mass/Vol] 85 mg/dL Normal 70-99 [facility] Comment on above: Order Comment: Ela bey Type: BLOOD SPECIMEN Ordering Facility: [facility] Address: [address] Result Comment: The [place] Diabetes [employer] (ADA) provides guidance for cutoff values for fasting glucose and random glucose. The ADA defines fasting as no caloric intake for at least 8 hours. Fasting plasma glucose results between 100 to 125 mg/dL indicate increased risk for diabetes (prediabetes). Fasting plasma glucose results greater than or equal to 126 mg/dL meet the criteria for diagnosis of diabetes. In the absence of unequivocal hyperglycemia, results should be confirmed by repeat testing. In a patient with classic symptoms of hyperglycemia or hyperglycemic crisis, random plasma glucose results greater than or equal to 200 mg/dL meet the criteria for diagnosis of diabetes. Reference: Standards of Medical Care in Diabetes 2016, [place] [employer]. Diabetes Care. 2016.39(Suppl 1). Performed By: #### 2 4321-2 #### [facility] CLIA [id number] [address] [place] [address] [place] Potassium [Moles/Vol] 3.8 mmol/L Normal 3.5-5.1 [facility] Comment on above: Order Comment: Ela bey Type: BLOOD SPECIMEN Ordering Facility: [facility] Address: [address] [id number] Performed By: #### 2 4321-2 #### [facility] CLIA [id number] [address] [place] [address] [place] Sodium [Moles/Vol] 138 mmol/L Normal 136-145 [facility] Comment on above: Order Comment: Speci men Type: BLOOD SPECIMEN Ordering Facility: [facility] Address: [address] [place] [address] Performed By: #### 2 4321-2 #### [facility] CLIA [id number] [address] [place] [address] [place] Urea nitrogen [Mass/Vol] 13 mg/dL Normal 7-18 [facility] Comment on above: Order Comment: Speci men Type: BLOOD SPECIMEN Ordering Facility: [facility] Address: [address] [place] [address] Performed By: #### 2 4321-2 #### [facility] CLIA [id number] [address] [place] [address] [place] CBC W Auto Differential pane l (Bld)on 04-05-2021 Basophils (Bld) [#/Vol] 0.04 10*3/uL Normal <0.11 [facility] Comment on above: Order Comment: Speci men Type: BLOOD SPECIMEN Ordering Facility: [facility] Address: [address] [place] [address] Performed By: #### 5 7021-8 #### [facility] CLIA [id number] [address] [place] [address] [place] Basophils/100 WBC (Bld) 0.5 % Normal [facility] Comment on above: Order Comment: Speci men Type: BLOOD SPECIMEN Ordering Facility: [facility] Address: [address] [place] [address] Performed By: #### 5 7021-8 #### [facility] CLIA [id number] [address] [place] Differential cell count method Nom (Bld) Auto Normal [facility] Comment on above: Order Comment: Speci men Type: BLOOD SPECIMEN Ordering Facility: [facility] Address: [address] [place] [address] Performed By: #### 5 7021-8 #### [facility] CLIA [id number] [address] [place] [address] [place] Eosinophils (Bld) [#/Vol] 0.21 10*3/uL Normal <0.46 [facility] Comment on above: Order Comment: Speci men Type: BLOOD SPECIMEN Ordering Facility: [facility] Address: [address] [place] [address] Performed By: #### 5 7021-8 #### [facility] CLIA [id number] [address] [place] Eosinophils/100 WBC (Bld) 2.7 % Normal [facility] Comment on above: Order Comment: Speci men Type: BLOOD SPECIMEN Ordering Facility: [facility] Address: [address] [place] [address] Performed By: #### 5 7021-8 #### [facility] CLIA [id number] [address] [place] [address] [place] Erythrocyte distribution width (RBC) [Ratio] 13.4 % Normal 11.5-15.0 [facility] Comment on above: Order Comment: Speci men Type: BLOOD SPECIMEN Ordering Facility: [facility] Address: [address] [place] [address] Performed By: #### 5 7021-8 #### [facility] CLIA [id number] [address] [place] [address] [place] Hematocrit (Bld) [Volume fraction] 39.8 % Normal 36.0-46.0 [facility] Comment on above: Order Comment: Speci men Type: BLOOD SPECIMEN Ordering Facility: [facility] Address: [address] [place] [address] Performed By: #### 5 7021-8 #### [facility] CLIA [id number] [address] [place] [address] [place] Hemoglobin (Bld) [Mass/Vol] 13.3 g/dL Normal 11.5-15.5 [facility] Comment on above: Order Comment: Speci men Type: BLOOD SPECIMEN Ordering Facility: [facility] Address: [address] [place] [address] Performed By: #### 5 7021-8 #### [facility] CLIA [id number] [address] [place] [address] [place] Lymphocytes (Bld) [#/Vol] 3.62 10*3/uL Normal 1.00-4.00 [facility] Comment on above: Order Comment: Speci men Type: BLOOD SPECIMEN Ordering Facility: [facility] Address: [address] [place] [address] Performed By: #### 5 7021-8 #### [facility] CLIA [id number] [address] [place] Lymphocytes/100 WBC (Bld) 45.8 % Normal [facility] Comment on above: Order Comment: Speci men Type: BLOOD SPECIMEN Ordering Facility: [facility] Address: [address] [place] [address] Performed By: #### 5 7021-8 #### [facility] CLIA [id number] [address] [place] [address] [place] MCH (RBC) [Entitic mass] 27.9 pg Normal 26.0-34.0 [facility] Comment on above: Order Comment: Speci men Type: BLOOD SPECIMEN Ordering Facility: [facility] Address: [address] [place] [address] Performed By: #### 5 7021-8 #### [facility] CLIA [id number] [address] [place] MCHC (RBC) [Mass/Vol] 33.4 g/dL Normal 30.5-36.0 [facility] Comment on above: Order Comment: Speci men Type: BLOOD SPECIMEN Ordering Facility: [facility] Address: [address] [place], [place] [id number] Performed By: #### 5 7021-8 #### [facility] CLIA [id number] [address] [place] [address] [place] MCV (RBC) [Entitic vol] 83.6 fL Normal 80.0-100.0 [facility] Comment on above: Order Comment: Speci men Type: BLOOD SPECIMEN Ordering Facility: [facility] Address: [address] [place] [address] Performed By: #### 5 7021-8 #### [facility] CLIA [id number] [address] [place] [address] [place] Monocytes (Bld) [#/Vol] 0.62 10*3/uL Normal <0.87 [facility] Comment on above: Order Comment: Speci men Type: BLOOD SPECIMEN Ordering Facility: [facility] Address: [address] [place] [address] Performed By: #### 5 7021-8 #### [facility] CLIA [id number] [address] [place] Monocytes/100 WBC (Bld) 7.8 % Normal [facility] Comment on above: Order Comment: Speci men Type: BLOOD SPECIMEN Ordering Facility: [facility] Address: [address] [place] [address] Performed By: #### 5 7021-8 #### [facility] CLIA [id number] [address] [place] [address] [place] Neutrophils (Bld) [#/Vol] 3.41 10*3/uL Normal 1.45-7.50 [facility] Comment on above: Order Comment: Speci men Type: BLOOD SPECIMEN Ordering Facility: [facility] Address: [address] [place] [address] Performed By: #### 5 7021-8 #### [facility] CLIA [id number] [address] [place] [address] [place] Neutrophils/100 WBC (Bld) 43.2 % Normal [facility] Comment on above: Order Comment: Speci men Type: BLOOD SPECIMEN Ordering Facility: [facility] Address: [address] [place], [place] [id number] Performed By: #### 5 7021-8 #### [facility] CLIA [id number] [address] [place] [address] [place] Platelet mean volume (Bld) [Entitic vol] 10.8 fL Normal 9.0-12.7 [facility] Comment on above: Order Comment: Speci men Type: BLOOD SPECIMEN Ordering Facility: [facility] Address: [address] [place] [address] Performed By: #### 5 7021-8 #### [facility] CLIA [id number] [address] [place] [address] [place] Platelets (Bld) [#/Vol] 248 10*3/uL Normal 150-400 [facility] Comment on above: Order Comment: Speci men Type: BLOOD SPECIMEN Ordering Facility: [facility] Address: [address] [place] [address] Performed By: #### 5 7021-8 #### [facility] CLIA [id number] [address] [place] [address] [place] RBC (Bld) [#/Vol] 4.76 10*6/uL Normal 3.90-5.20 [facility] Comment on above: Order Comment: Speci men Type: BLOOD SPECIMEN Ordering Facility: [facility] Address: [address] [place], [place] [id number] Performed By: #### 5 7021-8 #### [facility] CLIA [id number] [address] [place] [address] [place] WBC (Bld) [#/Vol] 7.90 10*3/uL Normal 3.70-11.00 [facility] Comment on above: Order Comment: Speci men Type: BLOOD SPECIMEN Ordering Facility: [facility] Address: [address] [place], [place] [id number] Performed By: #### 5 7021-8 #### [facility] CLIA [id number] [address] [place] [address] [facility] [place] ED NOTEon 04-05-2021 ED NOTE HNO ID: [id number] Author: Dorinda Mcgregor RN Service: Emergency Medicine Author Type: Registered Nurse Type: ED Notes Filed: 04/05/2021 6:11 PM Note Text: Pt has had a painful bruise to left upper thigh for the last 3-4 days. Pt saw PCP who prescribed prednisone for contact dermatitis, however pt did not tolerate the medication and only took two pills. Denies injury and fevers/chills. Normal [facility] ED PROV NOTEon 04-05-2021 ED PROV NOTE HNO ID: [id number] Author: Isabel Tai PA-C Service: Emergency Medicine Author Type: Physician Chief Operator Reformer Type: ED Provider Notes Filed: 04/05/2021 7:40 PM Note Text: ED Provider Note Patient Name: Gómez Gasca SERVICE DATE: 04/05/21 History Patient presents with: Leg Pain Gómez Gasca is a 21 year old FEMALE presenting to the ED c/o bruise to the leg x 3 days. Patient states she noticed a painful bruise to the left upper leg 3-4 days ago and is unsure how it occurred. She states she does not recall any injury/trauma to the area. She states it has been stable without worsening or improvement the last few days. She denies any other sources of bleeding, such as hematuria, blood in her stools, bleeding gums. States she does have heavy periods twice monthly, this is typical for her. She does take OCPs, although they are progesterone only. Denies leg swelling, calf pain, recent travel, immobilization, recent surgery or trauma, hemoptysis, malignancy, personal history of DVT or PE, or family history of bleeding/clotting disorders. History provided by: Patient, medical records and parent History reviewed. No pertinent past medical history. History reviewed. No pertinent surgical history. No family history on file. Social History Tobacco Use - Smoking status: Never Smoker - Smokeless tobacco: Never Used Substance and Sexual Activity - Alcohol use: Never - Drug use: Never - Sexual activity: Never ALLERGIES No Known Allergies Review of Systems Constitutional: Negative for chills and fever. HENT: Negative for nosebleeds. Respiratory: Negative. Cardiovascular: Negative. Gastrointestinal: Negative for blood in stool. Genitourinary: Negative for hematuria. Musculoskeletal: Negative. Skin: Positive for bruise. Allergic/Immunologic: Negative for immunocompromised state. Neurological: Negative for dizziness, weakness, light-headedness and headaches. Hematological: Does not bruise/bleed easily. Psychiatric/Behavioral: Negative for agitation, behavioral problems and confusion. Physical Exam Vitals [04/05/21 1806] BP Pulse Temp Temp src Resp SpO2 Weight Height 133/79 (!) 107 36.6 ?C (97.9 ?F) -- 16 100 % 68 kg (150 lb) 1.702 m (5' 7) Physical Exam Vitals and nursing note reviewed. Constitutional: General: She is awake. She is not in acute distress. Appearance: Normal appearance. She is well-developed and well-groomed. She is not ill-appearing, toxic-appearing or diaphoretic. HENT: Head: Normocephalic and atraumatic. Eyes: General: Right eye: No discharge. Left eye: No discharge. Conjunctiva/sclera: Conjunctivae normal. Cardiovascular: Rate and Rhythm: Normal rate and regular rhythm. Pulses: Dorsalis pedis pulses are 2+ on the left side. Posterior tibial pulses are 2+ on the left side. Pulmonary: Effort: Pulmonary effort is normal. No respiratory distress. Musculoskeletal: Cervical back: Neck supple. Right lower leg: No edema. Left lower leg: No edema. Comments: No posterior calf TTP, erythema, edema, or palpable cords. JOSEPH equally x 4. Patient ambulating in emegency department without difficulty. Skin: General: Skin is warm and dry. Findings: Ecchymosis present. No abscess, erythema, lesion, petechiae or rash. Comments: Area of primary concern is on her anterior left thigh, which has a moderate area of ecchymosis and is tender to palpation. No obvious wound. No deformity. Multiple other small ecchymosis on the patient's legs and arms bilaterally, although none at significant or tender. Neurological: Mental Status: She is alert and oriented to person, place, and time. Psychiatric: Behavior: Behavior normal. Behavior is cooperative. Thought Content: Thought content normal. Judgment: Judgment normal. Diagnostic Testing ED Labs Ordered and Reviewed HCG QUAL UR - Normal BASIC METABOLIC PNL CBC + DIFF Procedures ED Course / Clinical Impression Clinical Impressions as of 04/05/211939 Bruise MDM / Disposition / Plan Vital signs were reviewed. Triage records were reviewed. Medical records were reviewed. Nursing notes were reviewed and incorporated. 21 year old y/o FEMALE c/o bruise x 3-4 days. Pt is afebrile and hemodynamically stable. Labs/Imaging results at this time: - CBC unremarkable, normal H/H and platelets - BMP unremarkable - Urine hCG negative Patient has several bruises, but she is unaware of their cause. The largest is on her anterior left thigh, which is what prompted her evaluation today. No other known sources of abnormal bleeding. Given multiple bruises in emergency room. Reviewed check lab work which did not show any anemia or thrombocytopenia. Encourage patient to follow-up closely with primary care provider, and return with any new or worsening symptoms. At this time, the most likely Dx is hematoma. Other Dxs considered but unlikely (more content not included)... Normal [facility] HCG Preg Ur Qlon 04-05-2021 HCG ( test) Ql (U) Negative Normal Negative [facility] Comment on above: Order Comment: Speci men Type: URINE SPECIMEN Ordering Facility: [facility] Address: [address] [place] [id number] Result Comment: This test is intended to aid in the early detection of . Very dilute urine samples, as indicated by a low specific gravity, may not contain senior patient account representative levels of hCG. This test detects intact hCG only. This test does not reliably detect hCG degradation products, including free-beta subunit and beta-core fragment. Therefore, this test may show reduced reactivity in urine after 8 weeks gestation. A number of conditions other than , including trophoblastic disease and certain non-trophoblastic neoplasms cause elevated levels of hCG. As with any assay employing mouse antibodies, the possibility exists for interference by human anti-mouse antibodies (HAMA) in the specimen. The test provides a presumptive diagnosis for . Performed By: #### 2 106-3 #### [facility] CLIA [id number] [address] [place], [place] [id number] [place] Vital Signs Date Time Vital Sign Value Performing Clinician Facility 09-14-2024 17:47-0400 Body mass index (BMI) [Ratio] 35.84 kg/m2 Desirae Stewart APRN.FURNACE COMBUSTION TESTER Work Phone: [facility] 09-14-2024 17:47-0400 Body temperature 98.4 [degF] Desirae Stewart APRN.FURNACE COMBUSTION TESTER Work Phone: [facility] 09-14-2024 17:47-0400 Body weight 104.8 kg Desirae Stewart APRN.FURNACE COMBUSTION TESTER Work Phone: [facility] 09-14-2024 17:47-0400 Diastolic blood pressure 82 mm[Hg] Desirae Stewart APRN.FURNACE COMBUSTION TESTER Work Phone: [facility] 09-14-2024 17:47-0400 Heart rate 94 /min Desirae Stewart APRN.FURNACE COMBUSTION TESTER Work Phone: [facility] 09-14-2024 17:47-0400 Respiratory rate 18 /min Desirae Stewart APRN.FURNACE COMBUSTION TESTER Work Phone: [facility] 09-14-2024 17:47-0400 SaO2% (BldA) [Mass fraction] 98 % Desirae Stewart APRN.FURNACE COMBUSTION TESTER Work Phone: [facility] 09-14-2024 17:47-0400 Systolic blood pressure 122 mm[Hg] Desirae Stewart APRN.FURNACE COMBUSTION TESTER Work Phone: [facility] 08-20-2024 14:37-0400 Body mass index (BMI) [Ratio] 36.3 kg/m2 Juju Orta APRN.FURNACE COMBUSTION TESTER Work Phone: [facility] 08-20-2024 14:37-0400 Body weight 106.14 kg Juju Orta APRN.FURNACE COMBUSTION TESTER Work Phone: [facility] 08-20-2024 14:37-0400 Diastolic blood pressure 84 mm[Hg] Juju Orta APRN.FURNACE COMBUSTION TESTER Work Phone: [facility] 08-20-2024 14:37-0400 Heart rate 96 /min Juju Orta APRN.FURNACE COMBUSTION TESTER Work Phone: [facility] 08-20-2024 14:37-0400 SaO2% (BldA) [Mass fraction] 100 % Juju Orta APRN.FURNACE COMBUSTION TESTER Work Phone: [facility] 08-20-2024 14:37-0400 Systolic blood pressure 130 mm[Hg] Juju Orta APRN.FURNACE COMBUSTION TESTER Work Phone: [facility] 07-08-2024 07:51-0400 Body height 171 cm Juju Orta APRN.FURNACE COMBUSTION TESTER Work Phone: [facility] 07-08-2024 07:51-0400 Body mass index (BMI) [Ratio] 37.07 kg/m2 Juju Orta APRN.FURNACE COMBUSTION TESTER Work Phone: [facility] 07-08-2024 07:51-0400 Body weight 108.41 kg Juju Orta APRN.FURNACE COMBUSTION TESTER Work Phone: [facility] 07-08-2024 07:51-0400 Diastolic blood pressure 88 mm[Hg] Juju Orta APRN.FURNACE COMBUSTION TESTER Work Phone: [facility] 07-08-2024 07:51-0400 Heart rate 93 /min Juju Orta APRN.FURNACE COMBUSTION TESTER Work Phone: [facility] 07-08-2024 07:51-0400 SaO2% (BldA) [Mass fraction] 96 % Juju Orta APRN.FURNACE COMBUSTION TESTER Work Phone: [facility] 07-08-2024 07:51-0400 Systolic blood pressure 128 mm[Hg] Juju Orta APRN.FURNACE COMBUSTION TESTER Work Phone: [facility] 06-22-2024 13:31-0400 Body mass index (BMI) [Ratio] 37.73 kg/m2 Arturo Stewart MD Work Phone: [facility] 06-22-2024 13:31-0400 Body weight 108.41 kg Arturo Stewart MD Work Phone: [facility] 06-22-2024 13:31-0400 Diastolic blood pressure 60 mm[Hg] Arturo Stewart MD Work Phone: [facility] 06-22-2024 13:31-0400 Systolic blood pressure 120 mm[Hg] Arturo Stewart MD Work Phone: [facility] 06-03-2024 07:37-0400 Body height 169.5 cm Jacky Haury PROCESS EXPERT.FURNACE COMBUSTION TESTER Work Phone: [facility] 06-03-2024 07:37-0400 Body mass index (BMI) [Ratio] 37.1 kg/m2 Jacky Haury PROCESS EXPERT.FURNACE COMBUSTION TESTER Work Phone: [facility] 06-03-2024 07:37-0400 Body weight 106.59 kg Jacky Haury PROCESS EXPERT.FURNACE COMBUSTION TESTER Work Phone: [facility] 06-03-2024 07:37-0400 Diastolic blood pressure 72 mm[Hg] Jacky Haury PROCESS EXPERT.FURNACE COMBUSTION TESTER Work Phone: [facility] 06-03-2024 07:37-0400 Systolic blood pressure 130 mm[Hg] Jacky Haury PROCESS EXPERT.FURNACE COMBUSTION TESTER Work Phone: [facility] 03-08-2024 19:27-0500 Body mass index (BMI) [Ratio] 37.19 kg/m2 Ludivina Wei PROCESS EXPERT.FURNACE COMBUSTION TESTER Work Phone: [facility] 03-08-2024 19:27-0500 Body temperature 98.1 [degF] Ludivina Wei PROCESS EXPERT.FURNACE COMBUSTION TESTER Work Phone: [facility] 03-08-2024 19:27-0500 Body weight 107.7 kg Ludivina Wei PROCESS EXPERT.FURNACE COMBUSTION TESTER Work Phone: [facility] 03-08-2024 19:27-0500 Diastolic blood pressure 78 mm[Hg] Ludivina Wei PROCESS EXPERT.FURNACE COMBUSTION TESTER Work Phone: [facility] 03-08-2024 19:27-0500 Heart rate 84 /min Ludivina Wei PROCESS EXPERT.FURNACE COMBUSTION TESTER Work Phone: [facility] 03-08-2024 19:27-0500 Respiratory rate 18 /min Ludivina Wei PROCESS EXPERT.FURNACE COMBUSTION TESTER Work Phone: [facility] 03-08-2024 19:27-0500 SaO2% (BldA) [Mass fraction] 97 % Ludivina Wei PROCESS EXPERT.FURNACE COMBUSTION TESTER Work Phone: [facility] 03-08-2024 19:27-0500 Systolic blood pressure 110 mm[Hg] Ludivina Wei PROCESS EXPERT.FURNACE COMBUSTION TESTER Work Phone: [facility] 02-16-2024 17:24-0500 Body mass index (BMI) [Ratio] 37.46 kg/m2 Stew Pendmiguel PROCESS EXPERT.FURNACE COMBUSTION TESTER Work Phone: [facility] 02-16-2024 17:24-0500 Body temperature 97.59 [degF] Stew Pendbury PROCESS EXPERT.FURNACE COMBUSTION TESTER Work Phone: [facility] 02-16-2024 17:24-0500 Body weight 108.5 kg Stew uHgogatito PROCESS EXPERT.FURNACE COMBUSTION TESTER Work Phone: [facility] 02-16-2024 17:24-0500 Diastolic blood pressure 78 mm[Hg] Stew Pendlebury PROCESS EXPERT.FURNACE COMBUSTION TESTER Work Phone: [facility] 02-16-2024 17:24-0500 Heart rate 88 /min Stew Pendlebury PROCESS EXPERT.FURNACE COMBUSTION TESTER Work Phone: [facility] 02-16-2024 17:24-0500 Respiratory rate 16 /min [facility] PROCESS EXPERT.FURNACE COMBUSTION TESTER Work Phone: [facility] 02-16-2024 17:24-0500 SaO2% (BldA) [Mass fraction] 98 % Stew Pendlebury PROCESS EXPERT.FURNACE COMBUSTION TESTER Work Phone: [facility] 02-16-2024 17:24-0500 Systolic blood pressure 124 mm[Hg] Stew Pendlebury PROCESS EXPERT.FURNACE COMBUSTION TESTER Work Phone: [facility] 06-08-2023 14:41-0400 Body temperature 98.2 [degF] Jag Nash PA Work Phone: [facility] 06-08-2023 14:41-0400 Body weight 107.9 kg aJg Nash PA Work Phone: [facility] 06-08-2023 14:41-0400 Diastolic blood pressure 68 mm[Hg] Krislyn Aberegg PA Work Phone: [facility] 06-08-2023 14:41-0400 Heart rate 85 /min Krislyn Aberegg PA Work Phone: [facility] 06-08-2023 14:41-0400 Respiratory rate 20 /min Krislyn Aberegg PA Work Phone: [facility] 06-08-2023 14:41-0400 SaO2% (BldA) [Mass fraction] 99 % Krislyn Aberegg PA Work Phone: [facility] 06-08-2023 14:41-0400 Systolic blood pressure 124 mm[Hg] Krislyn Aberegg PA Work Phone: [facility] 06-13-2022 18:44-0400 Body temperature 97.52 [degF] JANELL AVALOS MD [facility] 06-13-2022 18:44-0400 Body weight 102.3 kg JANELL AVALOS MD [facility] 06-13-2022 18:44-0400 Diastolic Blood Pressure Non-Invasive 83 1 JANELL AVALOS MD [facility] 06-13-2022 18:44-0400 Heart rate 94 /min JANELL AVALOS MD [facility] 06-13-2022 18:44-0400 Respiratory rate 18 /min JANELL AVALOS MD [facility] 06-13-2022 18:44-0400 Systolic Blood Pressure Non-Invasive 130 1 JANELL AVALOS MD [facility] 05-24-2022 18:43-0400 Body temperature 98.6 [degF] Desirae Stewart APRN.FURNACE COMBUSTION TESTER Work Phone: [facility] 05-24-2022 18:43-0400 Body weight 101.15 kg Desirae Stewart APRN.FURNACE COMBUSTION TESTER Work Phone: [facility] 05-24-2022 18:43-0400 Diastolic blood pressure 86 mm[Hg] Desirae Stewart APRN.FURNACE COMBUSTION TESTER Work Phone: [facility] 05-24-2022 18:43-0400 Heart rate 88 /min Desirae Stewart APRN.FURNACE COMBUSTION TESTER Work Phone: [facility] 05-24-2022 18:43-0400 Respiratory rate 20 /min Desirae Stewart APRN.FURNACE COMBUSTION TESTER Work Phone: [facility] 05-24-2022 18:43-0400 SaO2% (BldA) [Mass fraction] 98 % Desirae Stewart APRN.FURNACE COMBUSTION TESTER Work Phone: [facility] 05-24-2022 18:43-0400 Systolic blood pressure 122 mm[Hg] Desirae Stewart APRN.FURNACE COMBUSTION TESTER Work Phone: [facility] 02-25-2022 19:42-0500 Body height 170.18 cm Brisa Jonesh Work Phone: [facility] Work Phone: 02-25-2022 19:42-0500 Body mass index (BMI) [Ratio] 30.54 kg/m2 Brisa Mejia Jeremias Work Phone: [facility] Work Phone: 02-25-2022 19:42-0500 Body surface area Derived from formula 2 m2 Brisa Mejia [employer] Work Phone: [facility] Work Phone: 02-25-2022 19:42-0500 Body temperature 98.4 [degF] Brisa Mejia [employer] Work Phone: [facility] Work Phone: 02-25-2022 19:42-0500 Body weight 88.45 kg Brisa O Jeremias Work Phone: [facility] Work Phone: 02-25-2022 19:42-0500 Diastolic blood pressure 81 mm[Hg] Brisa O Jeremias Work Phone: [facility] Work Phone: 02-25-2022 19:42-0500 Heart rate 92 /min Brisa O Jeremias Work Phone: [facility] Work Phone: 02-25-2022 19:42-0500 Respiratory rate 16 /min Brisa O Jeremias Work Phone: [facility] Work Phone: 02-25-2022 19:42-0500 SaO2% (BldA) [Mass fraction] 98 % Brisa O Jermeias Work Phone: [facility] Work Phone: 02-25-2022 19:42-0500 Systolic blood pressure 118 mm[Hg] Brisa O Jeremias Work Phone: [facility] Work Phone: 02-25-2022 19:42-0500 7 1 Brisa O Jeremias Work Phone: [facility] Work Phone: Comment on above: [employer] Encounters Encounter Date Encounter Type Care Provider Facility Start: 09-15-2024 End: 09-15-2024 Follow-up encounter Kyle Reyes MD Work Phone: [facility] Start: 09-14-2024 End: 09-14-2024 Patient encounter procedure Desirae Stewart APRN.CNP Work Phone: [facility] Comment on above: Urinary frequency (P rimary Dx); Vaginal discharge Start: 09-14-2024 End: 09-14-2024 ambulatory DESIRAE STEWART Facility:[facility] Start: 08-20-2024 End: 08-20-2024 Patient encounter procedure Juju Orta APRN.CNP Work Phone: OB/Gynecology Comment on above: Dyslipidemia (Primar y Dx); Gastroesophageal reflux disease, unspecified whether esophagitis present; PCOS (polycystic ovarian syndrome); Disorder of sleep wake schedule; Picky eater; Class 2 severe obesity with serious comorbidity and body mass index (BMI) of 37.0 to 37.9 in adult, unspecified obesity type (HCC) Start: 08-20-2024 End: 08-20-2024 ambulatory JUJU ORTA Facility:[facility] Start: 07-08-2024 End: 07-08-2024 Patient encounter procedure Juju Orta APRN.FURNACE COMBUSTION TESTER Work Phone: OB/Gynecology Comment on above: Dyslipidemia (Primar y Dx); Gastroesophageal reflux disease, unspecified whether esophagitis present; PCOS (polycystic ovarian syndrome); Disorder of sleep wake schedule; Picky eater; Class 2 severe obesity with serious comorbidity and body mass index (BMI) of 37.0 to 37.9 in adult, unspecified obesity type (HCC) Start: 07-08-2024 End: 07-08-2024 ambulatory JUJU ORTA Facility:[facility] Start: 06-22-2024 End: 06-22-2024 Patient encounter procedure Arturo Stewart MD Work Phone: OB/Gynecology Comment on above: PCOS (polycystic ova nima syndrome) (Primary Dx); Arcuate uterus; Class 2 obesity without serious comorbidity with body mass index (BMI) of 37.0 to 37.9 in adult, unspecified obesity type Start: 06-22-2024 End: 06-22-2024 ambulatory ARTURO STEWART Facility:[facility] Start: 06-17-2024 End: 06-17-2024 ambulatory JACKY WALTON Facility:[facility] Start: 06-14-2024 End: 08-14-2024 Follow-up encounter Jacky Walton APRN.FURNACE COMBUSTION TESTER Work Phone: OB/Gynecology Start: 06-08-2024 End: 06-08-2024 [facility] Start: 06-03-2024 End: 06-03-2024 Telemedicine consultation with patient Tika Salazar PROCESS EXPERT.FURNACE COMBUSTION TESTER Work Phone: Telemedicine Comment on above: Vaginal discharge (P rimary Dx) Start: 06-03-2024 End: 06-03-2024 [facility] Start: 06-03-2024 End: 06-03-2024 Patient encounter procedure Jacky Walton PROCESS EXPERT.FURNACE COMBUSTION TESTER Work Phone: OB/Gynecology Comment on above: Irregular menstrual cycle (Primary Dx); Hirsutism; Acne vulgaris; Menorrhagia with irregular cycle; Unintended weight gain Start: 05-04-2024 End: 05-04-2024 [facility] Start: 05-04-2024 End: 05-04-2024 Telemedicine consultation with patient Blaine Sinclair PROCESS EXPERT.FURNACE COMBUSTION TESTER Work Phone: Telemedicine Comment on above: Bacterial vaginal in fection (Primary Dx) Start: 04-27-2024 End: 04-27-2024 Orders Only Irene Reinoso PA-C Work Phone: Pulmonary Medicine Comment on above: Closed fracture of d istal end of right radius with routine healing, unspecified fracture morphology, subsequent encounter (Primary Dx) Start: 03-13-2024 End: 03-13-2024 [facility] Facility:[facility] Start: 03-13-2024 End: 03-13-2024 Telemedicine consultation with patient Roderick Rodriguez JATINDER.FURNACE COMBUSTION TESTER Work Phone: Telemedicine Comment on above: Vaginal evelyn (Ro kiko Dx) Start: 03-09-2024 End: 03-09-2024 Telephone encounter Remington Mackey PROCESS EXPERT.FURNACE COMBUSTION TESTER Work Phone: [facility] Comment on above: Results Start: 03-08-2024 End: 03-08-2024 [facility] Start: 03-08-2024 End: 03-08-2024 Patient encounter procedure Ludivina Wei PROCESS EXPERT.FURNACE COMBUSTION TESTER Work Phone: [facility] Comment on above: Acute otitis media, right (Primary Dx); URI, acute Start: 03-01-2024 End: 03-01-2024 Subsequent hospital visit by physician Leonie [facility] Gael Bolton Work Phone: Radiology Comment on above: Pain in right wrist [M25.531] Start: 03-01-2024 End: 03-01-2024 ambulatory IRENE VETOVITZ Facility:[facility] Start: 03-01-2024 End: 03-01-2024 Patient encounter procedure Irene Vetovitz PA-C Work Phone: Orthopaedics Comment on above: Closed fracture of d istal end of right radius, unspecified fracture morphology, initial encounter (Primary Dx) Start: 02-27-2024 End: 02-27-2024 Orders Only Irene Vetovitz PA-C Work Phone: Orthopaedics Comment on above: Pain in right wrist (Primary Dx) Start: 02-24-2024 End: 02-24-2024 Telephone encounter Rosendo Barboza MD Work Phone: Orthopaedics Comment on above: Appointment Start: 02-19-2024 End: 02-24-2024 Telephone encounter Rosendo Barboza MD Work Phone: [facility] Comment on above: Appointment Start: 02-16-2024 End: 02-16-2024 Subsequent hospital visit by physician Leonie [facility] Gael Work Phone: Radiology Comment on above: Right wrist pain [M2 5.531] Start: 02-16-2024 End: 02-16-2024 ambulatory STEW DE LUNA Facility:[facility] Start: 02-16-2024 End: 02-16-2024 Office outpatient visit 15 minutes Stew De Luna PROCESS EXPERT.FURNACE COMBUSTION TESTER Work Phone: [facility] Comment on above: Right wrist pain (Pr imary Dx) Start: 02-04-2024 End: 02-04-2024 Emergency department patient visit NONE PHYSICIAN Facility:[facility] Start: 11-24-2023 End: 11-25-2023 Emergency department patient visit Marty Askew Facility:[facility] Start: 06-08-2023 End: 06-08-2023 Patient encounter procedure Jag FOREMAN Work Phone: [facility] Comment on above: Acute otitis externa of left ear, unspecified type (Primary Dx) Start: 10-18-2022 End: 10-18-2022 ambulatory [facility] Start: 10-16-2022 End: 10-16-2022 ambulatory [facility] Start: 10-04-2022 End: 10-04-2022 ambulatory SELF REFERRED [facility] Start: 10-02-2022 End: 10-02-2022 ambulatory SELF REFERRED [facility] Start: 06-13-2022 End: 06-13-2022 Emergency department patient visit GUSTAVO BONDS Facility: Start: 06-13-2022 End: 06-13-2022 Emergency department patient visit JANELL AVALOS MD [facility] Start: 05-24-2022 End: 05-24-2022 Patient encounter procedure Desirae Stewart APRN.[facility] Work Phone: [facility] Comment on above: Sore throat (Primary Dx); Acute otitis media, left Start: 02-25-2022 ambulatory Brisa Mcdowell Facility:[id number] Start: 02-25-2022 Office outpatient ne w 30 minutes Brisa Mcdowell Work Phone: [facility] Work Phone: Start: 02-15-2022 End: 02-15-2022 Emergency department patient visit BABS MARIE Facility:[facility] Start: 12-20-2021 End: 12-20-2021 ambulatory BERNADETTE SESAY MD Facility:[facility] Start: 12-12-2021 End: 12-12-2021 ambulatory SELF REFERRED [facility] Start: 10-21-2021 End: 10-21-2021 ambulatory KENNY MOORE MD Facility:[facility] Start: 10-18-2021 End: 10-18-2021 Emergency department patient visit GWEN GRULLON Facility:[facility] Start: 08-16-2021 End: 08-17-2021 ambulatory BERNADETTE SESAY MD Facility:[facility] Start: 10-24-2016 End: 10-25-2016 Ambulatory [facility] Start: 10-24-2016 End: 10-25-2016 Emergency department patient visit [facility] Facility:[facility] Procedures Date Procedure Procedure Detail Performing Clinician Start: 09-14-2024 Urnls dip stick/tabl et rgnt auto w/o microscopy Desirae Stewart PROCESS EXPERT.FURNACE COMBUSTION TESTER Work Phone: Start: 02-16-2024 Radex wrist complete minimum 3 views Stew De Luna PROCESS EXPERT.FURNACE COMBUSTION TESTER Work Phone: Start: 05-24-2022 STREP A MOLECULAR (POC) Desirae Stewart PROCESS EXPERT.FURNACE COMBUSTION TESTER Work Phone: Plan of Treatment Date Care Activity Detail Author Start: 10-02-2029 Urine microalbumin profile [facility] Start: 09-14-2025 GC (Gonorrhea) Screening (18-24) GC (Gonorrhea) Screening (18-24) [facility] Start: 09-14-2025 Screening for Chlamy kathrine trachomatis Chlamydia Screening () [facility] Start: 11-23-2024 End: 11-23-2024 Patient encounter procedure 11/23/2024 1:30 PM EDT Office Visit OB/Gynecology [address] [place] [id number] Juju Orta PROCESS EXPERT.FURNACE COMBUSTION TESTER [address] [place] [address] [facility] OB/Gynecology Comment on above: WT MGT Start: 10-25-2024 Influenza vaccination [facility] Start: 10-05-2024 End: 10-05-2024 Patient encounter procedure 10/05/2024 3:20 PM EDT Office Visit OB/Gynecology [address] [place] [id number] Arturo Stewart MD [address] [place] [address] 3m f/up OB/Gynecology Comment on above: 3m f/up Start: 09-14-2024 End: 12-14-2024 Chlamydia trachomatis+Neisseria gonorrhoeae DNA [Presence] in Unspecified specimen by MARV with probe detection GONORRHEA/CHLAMYDIA NAAT Lab Routine Vaginal discharge Expected: 09/14/2024, Expires: 12/14/2024 [facility] Comment on above: Expected: 09/14/2024 , Expires: 12/14/2024 Start: 08-20-2024 End: 08-20-2024 Patient encounter procedure 08/20/2024 2:30 PM EDT Office Visit OB/Gynecology [address] [place] [address] Juju Orta APRN.FURNACE COMBUSTION TESTER [address] [place] [address] weight mgmt okay per Juju OB/Gynecology Comment on above: weight mgmt okay per Juju Start: 06-15-2024 End: 06-15-2024 ambulatory 06/15/2024 10:00 AM EDT Procedure OB/Gynecology [address] [place] [address] [facility] [employer] [facility] [address] [place] [address] Hirsutism [L68.0]; Irregular menstrual cycle [N92.6]; Acne vulgaris [L70.0] OB/Gynecology Comment on above: Hirsutism [L68.0]; I rregular menstrual cycle [N92.6]; Acne vulgaris [L70.0] Start: 06-03-2024 End: 09-02-2024 17-Hydroxyprogesterone [Mass/volume] in Serum or Plasma HYDROXYPROGESTERONE-17 Lab Routine Hirsutism Irregular menstrual cycle Acne vulgaris Expected: 06/03/2024, Expires: 09/02/2024 [facility] Comment on above: Expected: 06/03/2024 , Expires: 09/02/2024 Start: 06-03-2024 End: 09-02-2024 25-hydroxyvitamin D3 [Mass/volume] in Serum or Plasma VITAMIN D 25 HYDROXY Lab Routine Hirsutism Irregular menstrual cycle Acne vulgaris Expected: 06/03/2024, Expires: 09/02/2024 [facility] Comment on above: Expected: 06/03/2024 , Expires: 09/02/2024 Start: 06-03-2024 End: 09-02-2024 CBC panel - Blood by Automated count COMPLETE BLOOD COUNT Lab Routine Irregular menstrual cycle Expected: 06/03/2024, Expires: 09/02/2024 [facility] Comment on above: Expected: 06/03/2024 , Expires: 09/02/2024 Start: 06-03-2024 End: 09-02-2024 Choriogonadotropin.beta subunit [Units/volume] in Serum or Plasma HCG QUANTITATIVE Lab Routine Irregular menstrual cycle Expected: 06/03/2024, Expires: 09/02/2024 [facility] Comment on above: Expected: 06/03/2024 , Expires: 09/02/2024 Start: 06-03-2024 End: 09-02-2024 Cobalamin (Vitamin B12) [Mass/volume] in Serum or Plasma VITAMIN B12 Lab Routine Hirsutism Irregular menstrual cycle Acne vulgaris Expected: 06/03/2024, Expires: 09/02/2024 [facility] Comment on above: Expected: 06/03/2024 , Expires: 09/02/2024 Start: 06-03-2024 End: 09-02-2024 Comprehensive metabolic 2000 panel - Serum or Plasma COMPREHENSIVE METABOLIC PANEL Lab Routine Hirsutism Irregular menstrual cycle Acne vulgaris Expected: 06/03/2024, Expires: 09/02/2024 [facility] Comment on above: Expected: 06/03/2024 , Expires: 09/02/2024 Start: 06-03-2024 End: 09-02-2024 DHEA-S BLD DHEA-S BLD Lab Routine Hirsutism Irregular menstrual cycle Acne vulgaris Expected: 06/03/2024, Expires: 09/02/2024 [facility] Comment on above: Expected: 06/03/2024 , Expires: 09/02/2024 Start: 06-03-2024 End: 09-02-2024 Estradiol (E2) [Mass/volume] in Serum or Plasma ESTRADIOL-17B BLD Lab Routine Hirsutism Irregular menstrual cycle Acne vulgaris Expected: 06/03/2024, Expires: 09/02/2024 [facility] Comment on above: Expected: 06/03/2024 , Expires: 09/02/2024 Start: 06-03-2024 End: 09-02-2024 Fasting glucose [Mass/volume] in Serum or Plasma GLUCOSE, FASTING Lab Routine Hirsutism Irregular menstrual cycle Acne vulgaris Expected: 06/03/2024, Expires: 09/02/2024 [facility] Comment on above: Expected: 06/03/2024 , Expires: 09/02/2024 Start: 06-03-2024 End: 09-02-2024 Follitropin [Units/volume] in Serum or Plasma FOLLICLE STIMULATING HORMONE Lab Routine Hirsutism Irregular menstrual cycle Acne vulgaris Expected: 06/03/2024, Expires: 09/02/2024 [facility] Comment on above: Expected: 06/03/2024 , Expires: 09/02/2024 Start: 06-03-2024 End: 09-02-2024 Hemoglobin A1c in Blood HEMOGLOBIN A1C Lab Routine Hirsutism Irregular menstrual cycle Acne vulgaris Expected: 06/03/2024, Expires: 09/02/2024 [facility] Comment on above: Expected: 06/03/2024 , Expires: 09/02/2024 Start: 06-03-2024 End: 09-02-2024 Insulin [Units/volume] in Serum or Plasma INSULIN, TOTAL, SERUM Lab Routine Hirsutism Irregular menstrual cycle Acne vulgaris Expected: 06/03/2024, Expires: 09/02/2024 [facility] Comment on above: Expected: 06/03/2024 , Expires: 09/02/2024 Start: 06-03-2024 End: 09-02-2024 Lipid 1996 panel - Serum or Plasma LIPID PANEL, FASTING Lab Routine Hirsutism Irregular menstrual cycle Acne vulgaris Expected: 06/03/2024, Expires: 09/02/2024 [facility] Comment on above: Expected: 06/03/2024 , Expires: 09/02/2024 Start: 06-03-2024 End: 09-02-2024 Lutropin [Units/volume] in Serum or Plasma LUTEINIZING HORMONE Lab Routine Irregular menstrual cycle Expected: 06/03/2024, Expires: 09/02/2024 [facility] Comment on above: Expected: 06/03/2024 , Expires: 09/02/2024 Start: 06-03-2024 End: 09-02-2024 Prolactin [Mass/volume] in Serum or Plasma PROLACTIN Lab Routine Hirsutism Irregular menstrual cycle Acne vulgaris Expected: 06/03/2024, Expires: 09/02/2024 [facility] Comment on above: Expected: 06/03/2024 , Expires: 09/02/2024 Start: 06-03-2024 End: 09-02-2024 Testosterone [Mass/volume] in Serum or Plasma TESTOSTERONE, TOTAL BY IMMUNOASSAY (ADULT MALES, OR INDIVIDUALS ON TESTOSTERONE THERAPY) Lab Routine Hirsutism Irregular menstrual cycle Acne vulgaris Expected: 06/03/2024, Expires: 09/02/2024 [facility] Comment on above: Expected: 06/03/2024 , Expires: 09/02/2024 Start: 06-03-2024 End: 09-02-2024 Thyrotropin [Units/volume] in Serum or Plasma THYROID STIMULATING HORMONE Lab Routine Hirsutism Irregular menstrual cycle Acne vulgaris Expected: 06/03/2024, Expires: 09/02/2024 [facility] Work Phone: Comment on above: Expected: 06/03/2024 , Expires: 09/02/2024 Start: 06-03-2024 End: 06-03-2025 US Pelvis PELVIC US [facility] Anc Imaging Routine Hirsutism Irregular menstrual cycle Acne vulgaris Expected: 06/03/2024, Expires: 06/03/2025 [facility] Comment on above: Expected: 06/03/2024 , Expires: 06/03/2025 Start: 06-03-2024 End: 06-03-2024 Patient encounter procedure 06/03/2024 7:45 AM EDT Office Visit OB/Gynecology [address] [place] [address] Jacky Walton APRN.[employer] [address] [place] [address] Looking to get checked out for PCOS due to my symptoms. OB/Gynecology Comment on above: Looking to get check ed out for PCOS due to my symptoms. Start: 04-30-2024 End: 04-30-2024 Patient encounter procedure 04/30/2024 3:00 PM EST Office Visit Orthopaedics [address] [place] [address] Irene Reinoso PA-C [address], [place] [id number] wrist pain Orthopaedics Comment on above: wrist pain Start: 03-11-2024 End: 03-11-2024 Patient encounter procedure 03/11/2024 10:15 AM EST Office Visit Orthopaedics [address] [place] [address] Natalie Pickard DO [address] [place] [address] Right Wrist injury Orthopaedics Comment on above: Right Wrist injury Start: 03-01-2024 End: 03-01-2024 Patient encounter procedure 03/01/2024 8:00 AM EST Office Visit Orthopaedics [address] [place] [address] Irene Reinoso PA-C [address] [place] [address] Right Wrist injury Orthopaedics Comment on above: Right Wrist injury Start: 10-26-2023 Covid-19 Vaccine () Covid-19 Vaccine () [facility] Start: 10-26-2023 Influenza vaccination [facility] Start: 02-24-2023 Behavioral Health Screening Behavioral Health Screening [facility] Start: 2023 Screening for malign ant neoplasm of cervix [facility] Start: 10-25-2022 Covid-19 Vaccine ( season) Covid-19 Vaccine ( season) [facility] Start: 02-24-2022 DEPRESSION ASSESSMENT DEPRESSION ASS ESSMENT [facility] Start: 10-25-2021 Influenza vaccination INFLUENZA (#1) [facility] Start: 09-10-2021 HPV Vaccine (2 - 3-d ose series) HPV Vaccine (2 - 3-dose series) [facility] Start: 08-25-2020 COVID-19 VACCINE (3 - Booster for Pfizer series) COVID-19 VACCINE (3 - Booster for Pfizer series) [facility] Start: 01-13-2020 Anxiety Screening Anxiety Screening [facility] Start: 01-13-2020 CHLAMYDIA SCREENING () CHLAMYDIA SCREENING () [facility] Start: 01-13-2020 Depression Screening Depression Scre ening [facility] Start: 01-13-2020 GC (GONORRHEA) SCREENING () GC (GONORRHEA) SCREENING () [facility] Start: 01-13-2020 HEPATITIS C SCREENING HEPATITIS C [facility] Start: 01-13-2020 Hepatitis C screening Hepatitis C [facility] Start: 01-13-2020 HIV SCREENING HIV SCREENING [facility] Start: 01-13-2020 HIV screening HIV Screening [facility] Start: 01-13-2020 Screening for Chlamy kathrine trachomatis Chlamydia Screening () [facility] Start: 01-13-2016 PEDS TO ADULT TRANSITION ANNUAL ASSESSMENT PEDS TO ADULT TRANSITION ANNUAL ASSESSMENT [facility] Start: 2014 PEDS TO ADULT TRANSITION INITIAL DISCUSSION PEDS TO ADULT TRANSITION INITIAL DISCUSSION [facility] Start: 2013 HPV VACCINE (1 - 2-d ose series) HPV VACCINE (1 - 2-dose series) [facility] Start: 01-13-2012 MENINGOCOCCAL B: Consider based on risk (1 of 2 - Risk Bexsero 2-dose series) MENINGOCOCCAL B: Consider based on risk (1 of 2 - Risk Bexsero 2-dose series) [facility] Start: 2002 HEPATITIS B (1 of 3 - 3-dose series) HEPATITIS B (1 of 3 - 3-dose series) [facility] Bacteria identified in Urine by Culture BACTERIAL CULTURE, URINE Microbiology Routine Urinary frequency Ordered: 09/14/2024 [facility] Work Phone: Comment on above: Ordered: 09/14/2024 BACTERIAL VAGINOSIS NAAT BACTERIAL VAGINOSIS NAAT Lab Routine Vaginal discharge Ordered: 09/14/2024 [facility] Comment on above: Ordered: 09/14/2024 EVELYN/TRICHOMONAS NAAT EVELYN/TRICHOMONAS NAAT Lab Routine Vaginal discharge Ordered: 09/14/2024 [facility] Comment on above: Ordered: 09/14/2024 COVID & INFLUENZA A/ B & RSV PCR, ROUTINE COVID & INFLUENZA A/B & RSV PCR, ROUTINE Microbiology Routine URI, acute 03/08/2024 7:50 PM [facility] Work Phone: End: 03-28-2025 XR Wrist - right PA and Lateral and Oblique XR WRIST GENERAL 3V PA/LAT/OBL RIGHT Radiology Routine Pain in right wrist 1 Occurrences starting 02/27/2024 until 03/28/2025 [facility] Work Phone: Comment on above: 1 Occurrences starti ng 02/27/2024 until 03/28/2025 XR Wrist - right PA and Lateral and Oblique XR WRIST GENERAL 3V PA/LAT/OBL RIGHT Radiology Routine Pain in right wrist 03/01/2024 8:29 AM [facility] Work Phone: End: 05-27-2025 XR Wrist - right PA and Lateral and Oblique XR WRIST GENERAL 3V PA/LAT/OBL RIGHT Radiology Routine Closed fracture of distal end of right radius with routine healing, unspecified fracture morphology, subsequent encounter 1 Occurrences starting 04/27/2024 until 05/27/2025 [facility] Work Phone: Comment on above: 1 Occurrences starti ng 04/27/2024 until 05/27/2025 Immunizations Immunization Date Immunization Notes Care Provider Shelby mcfarlane 10-03-2019 tetanus toxoid, redu tereso diphtheria toxoid, and acellular pertussis vaccine, adsorbed Desirae Stewart APRN.CNP Work Phone: [facility] 01-24-2005 influenza virus vacc ine, unspecified formulation Jag Nash PA Work Phone: [facility] Payers Date Payer Category Payer Self-pay 2022 Private Health Insurance [id number] 2022 Medicaid [id number] 2022 Private Health Insurance [id number] 2021 Medicaid [id number] 2008 Private Health Insurance 2002 Unknown [id number] 159 2002 Unknown [id number] 159 2002 Unknown [id number] 159 2002 Unknown [id number] 356 2002 Unknown [id number] 627 2002 Unknown [id number] 479 2002 Unknown [id number] 479 2002 Unknown [id number] 479 2002 Unknown [id number] [id number] 479 2002 Unknown [id number] 479 2002 Unknown [id number] 627 Unknown [id number] Unknown [facility] Unknown [id number] 462 Social History Date Type Detail Facility Start: 10-03-2019 End: 04-30-2024 Current every day smoker Current every day smoker [facility] Start: 02-15-2022 Tobacco smoking status NHIS Never smoked tobacco [facility] Start: 02-15-2022 Tobacco use and exposure Smokeless tobacco non-user [facility] Start: 05-24-2022 End: 02-16-2024 Alcohol intake Lifetime non-drinker (finding) [facility] Start: 10-04-2019 History SDOH Alcohol Frequency 1 [facility] Start: 2002 Sex Assigned At Not on file [facility] Tobacco smoking status No Smokin g Status Entered [facility] Start: 2002 Sex Assigned At Female [facility] Start: 10-03-2019 End: 04-30-2024 Alcohol Use Disorder Identification Test - Consumption [AUDIT-C] [facility] How often to you hav e a drink containing alcohol? Never [facility] Average Number of Drinks Not on file [facility] Start: 03-01-2024 End: 09-14-2024 Alcoholic beverage intake Current drinker of alcohol (finding) [facility] Start: 03-01-2024 Alcohol Comment rarely [facility] Start: 05-04-2024 Gender identity Identifies as female gender (finding) [facility] Functional Status Date Assessment Result Facility 06-13-2022 Functional Status Ambulating in oliveira, Ambulating in room, Awake [facility] Mental Status Date Assessment Result Facility 06-13-2022 Mental Status Oriented x 4 [facility] Clinical Notes 05-24-2022 to 09-15-2024 Telephone Encounter - Milagros Copeland LPN - 09/15/2024 8:59 AM EDTTelephone Encounter - Milagros Copeland LPN - 09/15/2024 8:59 AM Desirae Abbasi APRN.[facility] - 09/14/2024 5:51 PM EDT Note Date & Type Note Facility 09-15-2024 Telephone encounter Note Patient notified.Milagros Copeland LPN [facility] 09-15-2024 Telephone encounter Note ----- Message from Kyle Reyes MD sent at 09/15/2024 8:11 AM EDT ----- Positive for yeast. Rx for monistat sent (in case there is a possibility of ). [facility] 09-15-2024 Miscellaneous Notes Patient notified.Milagros Copeland LPN ----- Message from Kyle Reyes MD sent at 09/15/2024 8:11 AM EDT ----- Positive for yeast. Rx for monistat sent (in case there is a possibility of ). documented in this encounter [facility] 09-14-2024 Note HNO ID: [id number] Author: DESIRAE STEWART APRN.[facility] Service: ? Author Type: Nurse Practitioner Type: Progress Notes Filed: 09/14/2024 18:12 Note Text: [facility]ARE GAEL Gasca is a 24 year old female. Patient presents with: Urinary Frequency: Frequency, burning and discharge x 3 days HPI Dysuria and Urinary Retention: - Onset 3 days ago. - Describes a burning sensation during urination and a feeling of incomplete bladder emptying. - Initially accompanied by right lower quadrant pain. Vaginal Discharge: - Noticed yellowish discharge with a fishy odor the day after dysuria began. - Denies dyspareunia. - Engages in unprotected sexual intercourse with fiance of 4 years; denies any symptoms in partner. 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 - Has been using vaginal probiotics and boric acid without relief. Review of Systems Gastrointestinal: (+) abdominal tenderness Genitourinary: (+) dysuria, (+) urinary hesitancy, (+) malodorous yellow vaginal discharge, (-) dyspareunia Objective BP 122/82 Pulse 94 Temp 36.9 ?C (98.4 ?F) (Tympanic) Resp 18 Wt 104.8 kg (231 lb 0.7 oz) LMP 06/27/2024 SpO2 98% BMI 35.84 kg/m? Physical Exam General: No acute distress. CV: Heart sounds normal. Resp: Breath sounds normal. Abd: Mild tenderness to palpation. { 1. Urinary frequency (R35.0) - Onset 3 days ago, accompanied by dysuria and sensation of incomplete bladder emptying. - Abdominal exam reveals mild tenderness, no acute pain. - Urinalysis shows presence of WBCs; urine culture ordered to rule out UTI. 2. Vaginal discharge (N89.8) - Yellowish discharge with fishy odor noted; history of recurrent bacterial vaginosis. - No dyspareunia reported. - Educated on vaginal pH imbalance as a potential cause. - Advised to consult [employer]ISTRIES PROFESSOR for further management options. - Self-administered vaginal swabs for chlamydia, gonorrhea, trichomonas, BV, and yeast infections. - Will initiate appropriate treatment based on test results. and Recording using Sanitors software for draft documentation of the visit was discussed with the patient/authorized senior patient account representative; all questions welcomed and answered. Patient/authorized senior patient account representative agreed to proceed MDM Procedures [facility] 09-14-2024 History of Presen t illness Narrative [facility] Ndiaye Gómez Gasca is a 24 year old female. Patient presents with: Urinary Frequency: Frequency, burning and discharge x 3 days HPI Dysuria and Urinary Retention: - Onset 3 days ago. - Describes a burning sensation during urination and a feeling of incomplete bladder emptying. - Initially accompanied by right lower quadrant pain. Vaginal Discharge: - Noticed yellowish discharge with a fishy odor the day after dysuria began. - Denies dyspareunia. - Engages in unprotected sexual intercourse with fianc of 4 years; denies any symptoms in partner. 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 - Has been using vaginal probiotics and boric acid without relief. Review of Systems Gastrointestinal: (+) abdominal tenderness Genitourinary: (+) dysuria, (+) urinary hesitancy, (+) malodorous yellow vaginal discharge, (-) dyspareunia Objective BP 122/82 Pulse 94 Temp 36.9 C (98.4 F) (Tympanic) Resp 18 Wt 104.8 kg (231 lb 0.7 oz) LMP 06/27/2024 SpO2 98% BMI 35.84 kg/m Physical Exam General: No acute distress. CV: Heart sounds normal. Resp: Breath sounds normal. Abd: Mild tenderness to palpation. { 1. Urinary frequency (R35.0) - Onset 3 days ago, accompanied by dysuria and sensation of incomplete bladder emptying. - Abdominal exam reveals mild tenderness, no acute pain. - Urinalysis shows presence of WBCs; urine culture ordered to rule out UTI. 2. Vaginal discharge (N89.8) - Yellowish discharge with fishy odor noted; history of recurrent bacterial vaginosis. - No dyspareunia reported. - Educated on vaginal pH imbalance as a potential cause. - Advised to consult [employer] MINISTRIES PROFESSOR for further management options. - Self-administered vaginal swabs for chlamydia, gonorrhea, trichomonas, BV, and yeast infections. - Will initiate appropriate treatment based on test results. and Recording using Sanitors software for draft documentation of the visit was discussed with the patient/authorized senior patient account representative; all questions welcomed and answered. Patient/authorized senior patient account representative agreed to proceed MDM Procedures documented in this encounter [facility] 08-20-2024 History of Presen t illness Narrative Images from the original note were not included. Some documentation from previous visit of 07/08/2024 was copied and pasted, documentation has been reviewed and edited as necessary for today's visit. Patient Summary: Gómez is a 24 year old Female who presents for follow-up evaluation of obesity/weight management to treat and prevent related co-morbidities. In our previous visits we have discussed lifestyle intervention including a nutrition recommendations and physical activity optimization. Her last office visit was 6 weeks ago. Assessment/plan from last visit: Metformin ER 500 mg 0530 and evening initially experienced nausea, but symptoms have subsided. Interval History PT specifies the following items as new or significant updates since the last appointment: - Reports feeling better over the last 6 weeks and adhering to dietary recommendations, though occasionally indulging in cheat meals. Weight loss since last vist: 5 lbs Date Weight BMI AOM 08/20/2024 234 lb 36.30 07/08/2024 239 lb 37.07 Metformin ER 5% weight loss = 227 lbs, 10% weight loss = 215 lbs WC: 43.25 NC: 15.5 Anti-obesity medications: Metformin ER. Benefit:increased fullness Adverse effects: none Weight promoting medications: none Previous Diet (initial appointment): Diet/Nutrition overview: Awake - 05 or between 1-3 pm Work Day B - sf Monster or coffee caramel Latte K-cup with nothing else added to it S - none L - SKIP S - 2-3 snacks between 12 and 5 pm granola bar or fruit snacks 2029 sometimes eats dinner after work - Chipotle or leftovers of take-out S - usually 30-60 min before bed sweet - ice cream, chips, PB, candy crackers Off Day B: SKIP S - none L - SKIP S - sometimes granola bar or fruit snacks or PB crackers after waking up D [id number] - Chipotle bowl extra b rice, extra beans, ckn, steak, ex cheese, s cream, queso, corn salsa, sometimes chips no salsa Taco Madrigal - jose carbone and 2 potato tacos or steak quesadilla Subway - tuna sub on Honduran bread with cheese, lettuce, cucumbers, banana peppers, oil/vinegar Fabi's - wright cheeseburger, fries, 5 pc nugget/ss sauce lemonade Fluids: sf Monster or coffee caramel Latte K-cup with nothing else added to it, regular Body [place], Propel, water with SF iced tea mix , lemonade, Bedtime - 2300 or 02-26 Quality of diet: 24hr recall suggests unhealthy diet. Characterization of diet:unhealthy snacking, excessive cravings, evening snacking, increased consumption of sugar sweetened beverages, and skip meals. 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:excessive hunger, lack of satiety, mindlessness , boredom, emotion, and stress Eating Disorder no restricted eating for 3 months due to nausea from OCP age 18-19 Cravings: sweets Eats: Fruit - pineapple, watermelon, sometimes cotton candy grapes Veg - cucumbers, carrots, iceburg and aurelia lettuce, steamed green beans Dietary changes: Initial Diet: - Breakfast: - Sugar-free Monster or K-Cup with sugar-free creamer - Nonfat Wallisian yogurt (Oikos Triple Zero) - Protein granola bar ([employer] brand) - Premier protein shake - Morning Snack: - Carrots and ranch - Cotton candy grapes - White cheese stick - Lunch: - Sometimes skips lunch - Caesar salad without meat or croutons - Chipotle bowl with brown rice, hubbard beans, chicken or steak, cheese, sour cream, and occasionally queso and corn salsa; no chips. - Afternoon Snack: None - Dinner: Often skips dinner due to feeling full after lunch. - Evening Snack: - Frozen yogurt - Peanut butter crackers - Drinks: - Zero sugar Gatorade - Water with sugar-free peach iced tea flavor packet - Denies drinking soda. Current Barriers: stress eating occasionally, particularly after work, but denies it being a consistent habit. and inadequate sleep duration Exercise: stable No intentional exercise but reports getting 10,000-15,000 steps per day at work. Stress: stable Work Sleep: - Sleep varies between 6-9 hours per night; sometimes has difficulty falling asleep despite feeling tired after a 12-hour shift. MELISSA NO ; CPAP NO Estimated Creatinine Clearance: 154 mL/min (based on SCr of 0.73 mg/dL). PAST MEDICAL HISTORY Diagnosis Date Asthma (HCC) exercise induced, mild Coitus painful for female Not sure Pain comes and goes. Not always everytime Menorrhagia with irregular cycle 06/03/2024 PCOS (polycystic ovarian syndrome) Current Outpatient Medications Medication Sig Dispense Refill omeprazole (PRILOSEC) 40 mg capsule Take 1 capsule by mouth every morning. 30 capsule 1 metFORMIN ER (GLUCOPHAGE XR) 500 mg 24 hr tablet Take 1 tablet by mouth two times a day with meals. 180 tablet 0 norgestimate-ethinyl estradiol (SPRINTEC) 0.25-0.035 mg per tablet Take 1 tablet by mouth once daily. 28 tablet 14 No current facility-administered medications for this visit. ROS/Fam Hx pertaining to AOMs: PULM: Asthma:yes exercise induced GI: GERD:Yes, daily PCOS: yes ROS Constitutional: (+) insomnia Gastrointestinal: (+) early satiety, (-) nausea Psychiatric: (+) stress eating Occupation:[employer] 06-[employer] Contraception:none BP 130/84 Pulse 96 Wt 106.1 kg (234 lb) LMP 06/27/2024 SpO2 100% BMI 36.30 kg/m PE GENERAL: Pleasant; in no apparent distress PULMONARY: normal inspiratory effort NEURO: alert and oriented x3 Results: recent labs reviewed with the patient. Latest Ref Rng & Units 06/08/2024 CMP Sodium 136 - 144 mmol/L 138 Potassium 3.7 - 5.1 mmol/L 4.0 Chloride 98 - 107 mmol/L 102 CO2 22 - 30 mmol/L 23 Glucose 74 - 99 mg/dL 98 BUN 7 - 21 mg/dL 13 Creatinine 0.58 - 0.96 mg/dL 0.73 EGFR >=60 mL/min/1.73m 119 Protein, Total 6.3 - 8.0 g/dL 7.9 Albumin 3.9 - 4.9 g/dL 4.8 Calcium 8.5 - 10.2 mg/dL 10.3 Bilirubin, Total 0.2 - 1.3 mg/dL 0.4 AST 13 - 35 U/L 12 ALT 7 - 38 U/L 11 Alkaline Phosphatase 34 - 123 U/L 80 Cholesterol, Total (mg/dL) Date Value 06/08/2024 189 HDL Cholesterol (mg/dL) Date Value 06/08/2024 36 LDL Cholesterol, Calculated (mg/dL) Date Value 06/08/2024 128 Triglyceride (mg/dL) Date Value 06/08/2024 125 Latest Ref Rng & Units 06/08/2024 CBC WBC 3.70 - 11.00 k/uL 7.81 RBC 3.90 - 5.20 m/uL 5.03 Hemoglobin 11.5 - 15.5 g/dL 13.6 Hematocrit 36.0 - 46.0 % 40.5 MCV 80.0 - 100.0 fL 80.5 MCH 26.0 - 34.0 pg 27.0 MCHC 30.5 - 36.0 g/dL 33.6 RDW-CV 11.5 - 15.0 % 13.5 Platelet Count 150 - 400 k/uL 308 MPV 9.0 - 12.7 fL 9.9 Vitamin D 25 Hydroxy Date Value Ref Range Status 06/08/2024 48.7 31.0 - 80.0 ng/mL Final Comment: Classification of 25 [place] Vitamin D status: Deficiency/Insufficiency: < or = 30 ng/ml. Sufficiency/Optimal Levels: 31-80 ng/mL Toxicity: > 100 ng/mL. Test performed by chemiluminescent immunoassay. TSH (mIU/L) Date Value 06/08/2024 0.777 Hemoglobin A1C (%) Date Value 06/08/2024 5.3 Assessment/Plan: Gómez Gasca is a 24 year old yo with Class II obesity who presented today for follow up for supervised weight loss to treat and prevent related co-morbidities. 1. Dyslipidemia (E78.5) - Continue current management. - Whole food balanced protein low-carb nutrition 2. Gastroesophageal reflux disease, unspecified whether esophagitis present (K21.9) - Continue omeprazole as prescribed. 3. PCOS (polycystic ovarian syndrome) (E28.2) - See #6 4. 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 - Advised on sleep hygiene practices to improve sleep quality. 5. Picky eater (R63.39) - Provided nutritional guidance to ensure adequate protein intake and balanced meals. - Discussed strategies to incorporate a variety of nutrient-dense foods into the diet. Does eat the following: Fruit - pineapple, watermelon, sometimes cotton candy grapes Veg - cucumbers, carrots, iceburg and aurelia lettuce, steamed green beans - Discussed highlighting foods that she likes on the food list so that she does not become overwhelmed 6. Class 2 severe obesity with serious comorbidity and body mass index (BMI) of 37.0 to 37.9 in adult, unspecified obesity type (HCC) (E66.812) - Weight decreased by 5 lbs over the past 6 weeks. - Intolerant to oral contraceptives due to severe nausea; patient prefers to avoid hormonal control. - Current metformin regimen: 500 mg PO BID, taken at 0530 and [id number]. - Increased metformin to 1000 mg PO BID with meals; prescription sent to [facility]. - METFORMIN ER 500 MG TABLET,EXTENDED RELEASE 24 HR - Discussed potential addition of bupropion to decrease food cravings; will reassess at next visit. - Provided detailed dietary education focusing on increasing protein intake to at least 30 grams per meal and controlling carbohydrate intake to less than 30 grams per meal. - Emphasized importance of whole foods and balanced nutrition to manage PCOS symptoms and support weight loss. -- Encouraged the patient to improve her physical activity. Although cardiovascular exercise is most beneficial for weight loss initially, we discussed healthy muscle from a combination of resistance training and cardiovascular exercise is the best nursing home plan. An overall goal of 150-200 minutes per week of exercise has been effective in weight loss and maintenance. Prescription instructions reviewed with patient as applicable. Potential red flag symptoms discussed with the patient. Reviewed appropriate action plan to take if red flag symptoms occur. Patient agreeable to treatment plan. Patient to follow-up in 3 months to evaluate progress and consider further pharmacological interventions if necessary. Juju Orta CNP Advanced Education from the [employer]esity [employer] Medical Decision Making: Problems: Moderate: 1+ chronic illnesses with change and 2+ stable chronic illnesses Risk: Moderate: Drug management and Moderate risk from testing/treatment Medical Decision Making Level: 4 - Moderate documented in this encounter [facility] 08-20-2024 Note HNO ID: [id number] Author: JUJU ORTA APRN.CNP Service: ? Author Type: Nurse Practitioner Type: Progress Notes Filed: 08/20/2024 18:50 Note Text: Some documentation from previous visit of 07/08/2024 was copied and pasted, documentation has been reviewed and edited as necessary for today's visit. Patient Summary: Gómez is a 24 year old Female who presents for follow-up evaluation of obesity/weight management to treat and prevent related co-morbidities. In our previous visits we have discussed lifestyle intervention including a nutrition recommendations and physical activity optimization. Her last office visit was 6 weeks ago. Assessment/plan from last visit: Metformin ER 500 mg 0530 and evening initially experienced nausea, but symptoms have subsided. Interval History PT specifies the following items as new or significant updates since the last appointment: - Reports feeling better over the last 6 weeks and adhering to dietary recommendations, though occasionally indulging in cheat meals. Weight loss since last vist: 5 lbs Date Weight BMI AOM 08/20/2024 234 lb 36.30 07/08/2024 239 lb 37.07 Metformin ER 5% weight loss = 227 lbs, 10% weight loss = 215 lbs WC: 43.25 NC: 15.5 Anti-obesity medications: Metformin ER. Benefit:increased fullness Adverse effects: none Weight promoting medications: none Previous Diet (initial appointment): Diet/Nutrition overview: Awake - 05 or between 1-3 pm Work Day B - 08 sf Monster or coffee caramel Latte K-cup with nothing else added to it S - none L - SKIP S - 2-3 snacks between 12 and 5 pm granola bar or fruit snacks 2029 sometimes eats dinner after work - Chipotle or leftovers of take-out S - usually 30-60 min before bed sweet - ice cream, chips, PB, candy crackers Off Day B: SKIP S - none L - SKIP S - sometimes granola bar or fruit snacks or PB crackers after waking up D [id number] - Chipotle bowl extra b rice, extra beans, ckn, steak, ex cheese, s cream, queso, corn salsa, sometimes chips no salsa Taco Madrigal - jose carbone and 2 potato tacos or steak quesadilla Subway - tuna sub on [place] bread with cheese, lettuce, cucumbers, banana peppers, oil/vinegar Fabi's - wright cheeseburger, fries, 5 pc nugget/ss sauce lemonade Fluids: sf Monster or coffee caramel Latte K-cup with nothing else added to it, regular Body [place], Propel, water with SF iced tea mix , lemonade, Bedtime - 2300 or 02-26 Quality of diet: 24hr recall suggests unhealthy diet. Characterization of diet:unhealthy snacking, excessive cravings, evening snacking, increased consumption of sugar sweetened beverages, and skip meals. 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:excessive hunger, lack of satiety, mindlessness , boredom, emotion, and stress Eating Disorder no restricted eating for 3 months due to nausea from OCP age 18-19 Cravings: sweets Eats: Fruit - pineapple, watermelon, sometimes cotton candy grapes Veg - cucumbers, carrots, iceburg and aurelia lettuce, steamed green beans Dietary changes: Initial Diet: - Breakfast: - Sugar-free Monster or K-Cup with sugar-free creamer - Nonfat Wallisian yogurt (Oikos Triple Zero) - Protein granola bar ([employer] brand) - Premier protein shake - Morning Snack: - Carrots and ranch - Cotton candy grapes - White cheese stick - Lunch: - Sometimes skips lunch - Caesar salad without meat or croutons - Chipotle bowl with brown rice, hubbard beans, chicken or steak, cheese, sour cream, and occasionally queso and corn salsa; no chips. - Afternoon Snack: None - Dinner: Often skips dinner due to feeling full after lunch. - Evening Snack: - Frozen yogurt - Peanut butter crackers - Drinks: - Zero sugar Gatorade - Water with sugar-free peach iced tea flavor packet - Denies drinking soda. Current Barriers: stress eating occasionally, particularly after work, but denies it being a consistent habit. and inadequate sleep duration Exercise: stable No intentional exercise but reports getting 10,000-15,000 steps per day at work. Stress: stable Work Sleep: - Sleep varies between 6-9 hours per night; sometimes has difficulty falling asleep despite feeling tired after a 12-hour shift. MELISSA NO ; CPAP NO Estimated Creatinine Clearance: 154 mL/min (based on SCr of 0.73 mg/dL). PAST MEDICAL HISTORY Diagnosis Date Asthma (HCC) exercise induced, mild Coitus painful for female Not sure Pain comes and goes. Not always everytime Menorrhagia with irregular cycle 06/03/2024 PCOS (polycystic ovarian syndrome) Current Outpatient Medications Medication Sig Dispense Refill omeprazole (PRILOSEC) 40 mg capsule Take 1 capsule by mouth every morning. 30 capsule 1 metFORMIN ER (GLUCOPHAGE XR) 500 mg 24 hr tablet Take 1 tablet by mouth two times a day with meals. 180 tablet 0 norgestimate-ethinyl estradiol (SPRINTEC) 0.25-0.035 mg per tablet Take 1 tablet by mouth once daily. 28 tablet 14 (more content not included)... [facility] 08-19-2024 Instructions Juju Orta APRN.FURNACE COMBUSTION TESTER - 08/19/2024 9:06 PM EDT - Increase metformin extended-release to 1,000 mg twice daily with meals; prescription sent to [facility] - For your first meal each day , have 30 g of protein and limit carbs - Aim for at least 30 g of protein and under 30 g of carbs at lunch and dinner; use the provided list of balanced meal and restaurant choices (Chipotle bowl, Subway, Fabi s) for guidance. - Choose protein-rich snacks--such as cheese sticks, protein shakes, nuts or seeds--instead of high-carb options like grapes or granola bars. [place] Protein 10 gm protein 9 net carbs. - Focus on whole foods: lean meats, eggs, high-protein yogurts (Oikos Pro or Chobani drinkable), and low-carb vegetables. Use a food scale to measure a 4-ounce portion (about 28 g protein). - Take a short walk after meals to help lower blood sugar and support PCOS management. - Review and follow the detailed nutrition guide and food lists provided, which include portion sizes, oxrmvsn-cz-pcya ratios, low-sugar fruit recommendations, and meal ideas. - Schedule a follow-up visit in 3 months to review your progress and adjust your care plan as needed. - Whole food balanced protein, controlled carbohydrate nutrition plan - 30 g of protein 3 times a day and up to 30 g of carbs at lunch and dinner only. 1st meal of the day- 30g protein with limit of 2 gm carbohydrates. Premier Protein or generic 30 gm protein 1 gm sugar 2. 2-3 eggs and some unbreaded meat and/or cheese. 3. 2-3 eggs and 1/2 of protein shake or one of the yogurts below: :ratio, KETO Friendly Dairy Snack 1 single svg - 15g protein & 2g carb Two Good Lowfat Wallisian Yogurt, Lower Sugar - 12g protein & 2g carb No fruit, vegetables, bread, grain, other brands of yogurt, Smoothies, etc. Lunch and dinner - 30 gm protein is the goal with less than 30 gm carbohydrates All snacks and meals - all protein or more protein than carbs Protein - no carbs Egg 1 large - 6g Egg white 1 large 3.6g 3 oz is approximately the size of a deck of cards and equals 21 g protein so 4 oz is 28 gm protein Beef, Chicken, [place], Pork, Romero 1 oz 7g Fish, Tuna Fish 1 oz 7g (Starkist tuna packet 2.6 oz 17 gm protein) Seafood (Crabmeat, Shrimp, Lobster) 1 oz 6g Protein shakes (read labels) Premier Protein or generic [employer] Equate, [employer] High Performance- 30g protein & 1g carb - meal replacement Premier Protein powder or generic- 30 g protein, 1g carb Fairlife 30 gram protein - 30g protein & 3g carb BOOST Glucose Control Max 30g Protein Nutritional Drink - 30g protein & 1 carb - meal replacement Slimfast High Protein - 20g protein & 1g carb Ensure Max Protein Nutrition Shake 30g protein & 2 carb OWYN plant based 100 % vegan no dairy, soy, wheat/gluten 32g protein 0 net carb (not a meal replacement) Premier Protein plant protein powder - 25g protein, 0 sugar/2g carb Vanilla and chocolate (not a meal replacement) Protein AND carbs Beef/[place] Jerky 1 oz dried 10-15g protein - check carb count, can be high if sugar added Slim Ger - 6 gm protein and 4 net carb Great Value original turkey sausage sticks - 7 gm protein and 2 gm carb Tony & Danny (at [employer]) Original smoked sausage sticks - 8 gm protein and 0 carb Imitation Crab Meat 1 oz - 2g protein & 4g carb Milk, skim 2% or 1% 8 oz - 8g protein & 12g carb Fairlife 2% milk 8 oz -13g protein & 6g carb Wallisian yogurt Full Fat Wallisian Yogurt 1 cup - 20.4g protein & 9.1g carb 2% Wallisian Yogurt 1 cup - 22.7g protein & 9.1g carb 0% (fat-free) Wallisian Yogurt - 1 cup 24g protein & 9.3g carb Aldi Protein Wallisian yogurt single svg - 13/g15g protein & 7g carb Chobani Zero Sugar single svg: - 12g protein & 5g carb Dannon Wallisian Light + Fit 1 single svg - 12g protein & 9g carb Oikos Pro single svg - 20g protein & 8g carb Oikos Triple Zero Wallisian Nonfat Yogurt 1 single svg - 15g protein & 7g carb :ratio, KETO Friendly Dairy Snack 1 single svg - 15g protein & 2g carb :ratio Protein 1 single svg - 25g protein & 8g carb Two Good Lowfat Wallisian Yogurt, [place], Lower Sugar - 12g protein & 2g carb Yoplait Protein 1 single svg 15g protein & 5g carb Dairy Free - [place] unsweetened Wallisian almond/soy 15g protein & 3g carb Dairy Free - True Goodness by Meisánchezr coconut-based yogurt alternative 1 g protein 1 g net carb 180 jeff Drinkable yogurts: Chobani drinkable 15g, 20g and 30g protein & 18 carb (too many carbs for breakfast) Chobani Zero Sugar 10g protein 6g carbs 50 calories Oikos Pro drinkable yogurt 1 single svg - 23g protein & 8g carb :ratio Protein 26g protein 9g carb Cheese each oz Brie 5.9g protein & 0.1g carb Cheddar 7g protein & 0.4g carb Logan 6.7g protein & 0.7g carb Cream Cheese 1.7g protein & 1.2g carb PurpleTeal whipped Wallisian cream cheese (WM) 2 T 3g protein 2g carb Feta 4g protein & 1.2g carb Mozzarella 6.3g protein & 0.6g carb Parmesan 10g protein & 0.9g carb [place] 7.6g protein & 1.5g carb Cottage Cheese 1/2 c Breakstone 2% 13g protein 7g carb Yeimy 2% 13g protein 5 g carb Good Culture 2% 14g protein 3g carb Lactaid 13g protein 5g carb Alvarado s Low Fat 12g protein & 4g carb Legumes Lentils cup 9g protein & 20g carb [place] beans cup 7g protein & 20g carb Kidney, Black, [place], Cannellini beans cup 8g protein & 20g carb Chickpeas 1/2 c 6g protein & 15g carb Soybeans 1/2 c 14g complete protein & 8.5g carb [place] milk, unsweetened 8 oz 1g protein & 2g carb Soy milk 8 oz 3.5g protein & 1.6g carb Tofu 1/2 cup 10g protein & 2.3g carb Peanut butter, natural 2 Tbsp 7-8g protein & 4g net carbs, 190 calories PB2 powder 2 Tbsp 6g protein & 5g carb Nuts and Seeds per oz Almonds - 5.9g protein & 6.1g carb [place] Nuts - 4.0g protein & 3.4g carb Cashews - 5.1g protein & 9.2g carb Hazelnuts - 4.2g protein & 4.7g carb Hemp seeds/hearts 3 T/30 gms - 9.5 gm complete protein and 2.5 gm carb Peanuts - 7g protein & 4.6g carb Pecans - 2.6g protein & 3.9g carb Pistachios - 5.8g protein & 7.8g carb Pumpkin Seeds - 6.9g protein & 5g carb [place] Seeds - 5.8g protein & 5.6g carb Walnuts - 4.3g protein & 3.8g carb Edamame Beans (soybean) snack 1 pack 11 gm complete protein 2 carb 5 (FIVE) gram carb vegetable options 1 cup raw OR cup cooked: Asparagus Neves sprouts Beets Broccoli Brussel sprouts Cabbage Carrots Cauliflower Celery [place] Eggplant Green beans Lettuce Peppers Snap peas Spaghetti squash Spinach Tomato Turnips Zucchini 15 gram carb vegetable options cup cooked corn or hominy corn on the cob, large (5 oz) cup cooked green peas 4.3 gm complete protein cup cooked huntley beans 1 small potato or sweet potato cup cooked potato, plain cup cooked sweet potato, plain 1 cup winter squash (pumpkin, acorn, butternut) 1 cup marinara or pasta sauce - check label cup tomato juice cup tomato puree Beans, Seeds, Nuts cup cooked beans (kidney, hubbard, red, green, etc.) cup cooked lentils cup baked beans 4 tablespoons nut butter <15 gram carb fruit options Berries have the lowest sugar content 1/2 medium apple - 12.5 carbs 1/2 medium avocado - 6.5 gm carbs 1/2 medium banana - 15 carbs 1/2 cup blueberries - 11 carbs - may actually help you lose weight 1/2 cup fresh cherries -11 carbs 1 medium Shaln[place] -9 carbs 1/2 cup fresh cranberries - 6.5 carbs 1/2 c grapes - 15 carbs 1/2 medium grapefruit - 10.5 carbs 1/2 cup diced honeydew melon - 8 carbs 1 medium kiwi without skin - 11 carbs 1/2 cup sliced mk -14 carbs 1 medium nectarine - 15 carbs 1 medium orange -15.5 carbs 1 medium peach -14.5 carbs 1/2 cup fresh pineapple -11 carbs 1 medium plum -7.5 carbs 1 prune - 6 carbs 1/4 c raisins - 31.25 carbs 1/2 cup raspberries -7.5 carbs 1/2 c strawberries - 12.7 carbs 1 medium tangerine -12 carbs 1/2 cup diced watermelon - 6 carbs Grains Brown rice 1/2 c 5.5g protein 24 carb White long-grain rice 1/2 c 2g protein 22.5 carb Quinoa 1/2 c 4 gm complete protein 25 carb Oatmeal, old fashioned 1/2 c 5g protein 27g carb High Protein Snack Ideas 1. Jerky 2. [place]hen[place] mix without dried fruit 3. [place] roll-ups 4. Wallisian yogurt 5. Veggies and yogurt dip 6. Tuna 7. Hard-boiled eggs 8. Peanut butter with celery 9. Cheese slices/ Cheese Stick 10. Handful of almonds, peanuts or walnuts 11. Cottage Cheese 12. Beef sticks 13. Protein bars 14. Canned Sheldon 15. Pumpkin seeds 16. Nut butter 17. Protein shake or protein bar 18. Avocado and chicken salad 19. Egg muffins 20. Leftover protein or lunch meat 21. 1/2 c blended cottage cheese or Wallisian yogurt with dry ranch/Mrs. Dash/herb seasoning mix to make protein dip- add raw veg 22. 1/2 c blended cottage cheese with 1 Tbsp sugar-free dry cheesecake pudding mix 12g protein 10 carb 23. Pudding - 1 30 gm protein shake with 1/2 pkg sugar-free pudding 4 svgs - 7.8 gm protein, 5 carb each svg 24. SF Sunkist or Root Beer with 1-2 Tablespoons heavy whipping cream 25. Mini frozen dessert bites - layer protein yogurt, skinny syrup and crushed nuts and freeze 26. Edamame Beans (soybean) snack 1 pack (O Beans) 11 gm complete protein 2 carb Chipotle bowl reg b rice, reg beans, ckn, steak, ex cheese, s cream, queso, corn salsa, no chips Subway - tuna sub on [place] bread with cheese, lettuce, cucumbers, banana peppers, oil/vinegar - Have them scoop out the bread on both side. Fabi's - wright cheeseburger - put meat in LC wrap or lettuce Why Is Protein So Important for Weight loss? consuming more protein not only reduces body weight but enhances body composition by decreasing fat mass while preserving fat-free mass During weight loss phase protein consumption (with normal kidney function) should be 1-1.6g protein per Kilogram of body weight (1kg=2.2lbs) On average Women need to Aim for a minimum 90g protein per day Consuming higher protein can also prevent weight regain after weight loss Protein consumption increases hormones responsible for satiety (feeling full)- these include Gut hormones like Glucagon-like peptide-1 (GLP-1), Cholecystokinin (CCK), Peptide Tyrosine-Tyrosine (PYY) and decreasing the Gut hormone responsible for causing hunger Ghrelin Protein has an increased thermogenesis effect of food- which means it take more calories to break down protein when consumed compared to carbohydrates or fats Protein also prevents a losing lean mass during weight loss (lose more fat and preserve fat free mass) which helps to increase resting energy expenditure (resting metabolic rate) Every pound of muscle erazo ~ 6 kcal per pound/day vs fat erazo ~ 2kcal per pound/day Carbohydrates - Why do You Crave Them? Eating too many refined carbohyrdates (sugar beverages, pastries, bread, pizza) which raises your blood glucose levels and therefore releasing insulin which in turn causes increase in hunger Carbohydrates suppress Ghrelin quickly but does not maintain the suppression for very long therefore hunger returns more quickly Consuming carbohydrates leads to a release of Dopamine feel good hormone in our brain So how do you Curb these cravings? Eating Whole Foods with more fiber - High fiber carbs are absorbed and digested slowly so it does not impact blood sugar levels as much and will help in making you feel michel for longer; fiber also is healthy for your gut bacteria and can help with constipation. Remember- carbohydrates are not the enemy but know what a proper serving size is, choose nutritious carbohydrates and space them out between meals. Always- eat your protein first followed by your non starchy vegetables followed by your carbohydrates- it will help your body with your glucose and insulin regulation Processed Foods vs Whole Foods- Impact on Weight: People who eat Ultra Processed food tend to consume about 500 calories more per day Ultra Processed foods are considered Calorie Dense so when a person feels full they have typically already over eaten and consumed more calories Whole Foods (unprocessed foods) tend to be more more filling and more Nutrient Dense Unprocessed foods can be more expensive and not realistic for everyone however when you have the choice to consume unprocessed vs Ultra processed foods always pick unprocessed. Why can't people stop eating Ultra Processed foods? They are economical and optimized for taste by [employer] - they are designed to make you want to keep eating them- they feed common cravings and bypass the mechanisms that tell your brain you are full Benefits of eating Whole Foods and cutting out Ultra Processed Foods Increased concentration and focus (decreased brain fog), improved mood, better sleep, Decrease in fatigue, improvement in gut health, decreased inflammation, Likely WEIGHT LOSS A Short Walk After Meals Is All It Takes to Lower Blood Sugar Researchers studying older adults with pre-diabetes found that 15 minutes of [id number] exercise after every meal curbed risky blood sugar spikes all day. Seniors are more prone to developing diabetes, but a little exercise could make a big difference. A study published today in Diabetes Care found that three short walks each day after meals were as effective at reducing blood sugar over 24 hours as a single 45-minute walk at the same moderate pace. Even better, taking an evening constitutional was found to be much more effective at lowering blood sugar following supper. The evening meal, often the largest of the day, can significantly raise 24-hour glucose levels. The innovative exercise science study was conducted at the Clinical Exercise Physiology Laboratory at the [facility] ([facility]) using whole room calorimeters. Amanda Ashley, Ph.D., chair of the [facility] Department of Exercise Science, led the study. These findings are good news for people in their 70s and 80s who may feel more capable of engaging in intermittent physical activity on a daily basis, Gabi said in a press release. Putting Humans in a Box to Measure Their Energy Use The whole room calorimeter (WRM), which looks like a very small hotel room, is a controlled-air environment for human study that allows scientists to calculate a person s energy expenditure by testing samples of air. The balance of oxygen consumed and carbon dioxide produced varies according to the activity level of the person in the room. The WRM also measures the body s use of different food fuels, such as carbohydrates, proteins, and fats. The 10 study participants spent three 48-hour periods in the small calorimeter rooms. Each room was equipped with a bed, toilet, sink, treadmill, television, and computer, leaving little room to move around. Participants ate standardized meals, and their blood sugar levels were monitored continuously using blood tests. The first day in the WRM served as a control period, with no exercise. On the second day, participants either walked at a moderate pace on the treadmill for 15 minutes after each meal, or for 45 minutes in either the late morning or before supper. The researchers observed that the evening post-meal walk was the most effective in lowering blood sugar levels for a full 24 hours. The typical exaggerated rise in blood sugar after supper--which often lasts well into the night and spike machine heater--was curbed significantly as soon as the participants started to walk on the treadmill, the study authors said. How Age Affects Insulin Resistance An estimated 79 million Americans have pre-diabetes, according to the National Diabetes Education Program run by the National Institutes of Health. But many people have no idea they are at risk. According to Gabi, older people may be particularly susceptible to poor blood sugar control after meals because inactive muscles contribute to insulin resistance. The problem is compounded by slow or low insulin secretion by the pancreas, which often occurs as the body ages. Post-meal high blood sugar is a sharp risk factor in the progression from impaired glucose tolerance (pre-diabetes) to type 2 diabetes and cardiovascular disease, Gabi explained. Other studies have suggested that weight loss and exercise can prevent type 2 diabetes. The authors say theirs is the first study to examine short bouts of physical activity timed around the risky period following meals--a time when blood sugar can rise rapidly and potentially cause damage to internal organs and blood vessels. The muscle contractions connected with short walks were immediately effective in blunting the potentially damaging elevations in post-meal blood sugar commonly observed in older people, Gabi said. If the findings of this small study hold up to further testing, it could lead to an inexpensive prevention strategy for pre-diabetes, which can develop over time into type 2 diabetes. Back in the day, it was de rigueur to take a morning, noon, and evening walk. The time has come to get up from the table, tie on those walking shoes, and take a little stroll around the block. [email or web address] documented in this encounter [facility] 07-06-2024 Note HNO ID: [id number] Author: JUJU ORTA APRN.PERCY Service: ? Author Type: Nurse Practitioner Type: Progress Notes Filed: 07/08/2024 17:25 Note Text: Patient Summary: Gómez Gasca is a 24 year old female with obesity who presents for an initial evaluation of overweight/obesity to treat and prevent co-morbidities and is interested in combination of behavioral and pharmacological. Motivation for seeking treatment for the disease of overweight/obesity : I want to lose weight, this is the heaviest I've ever been. Stuck at this weight, and want to feel better. Goal weight: 170 Lowest recall weight: 155 Highest non- recall weight: 239 Patient identified barriers to weight loss:does not eat most fruits or vegetables, does not cook so orders out or eats out Weight History: She reports a strong family history of obesity and early adulthood weight gain. She states her weight gain is related to the following factors, including exposure to a weight gain promoting medication, depo. 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 Difficulty losing weight? Y - Last Wt 07/08/24 : 108.4 kg (239 lb) 5% weight loss = 227 lbs, 10% weight loss = 215 lbs WEIGHT GRAPH: Diet/Nutrition overview: Awake - 05 or between 1-3 pm Work Day B - 08 sf Monster or coffee caramel Latte K-cup with nothing else added to it S - none L - SKIP S - 2-3 snacks between 12 and 5 pm granola bar or fruit snacks 2029 sometimes eats dinner after work - Chipotle or leftovers of take-out S - usually 30-60 min before bed sweet - ice cream, chips, PB, candy crackers Off Day B: SKIP S - none L - SKIP S - sometimes granola bar or fruit snacks or PB crackers after waking up D [id number] - Chipotle bowl extra b rice, extra beans, ckn, steak, ex cheese, s cream, queso, corn salsa, sometimes chips no salsa Taco Madrigal - jose carbone and 2 potato tacos or steak quesadilla Subway - tuna sub on [place] bread with cheese, lettuce, cucumbers, banana peppers, oil/vinegar Fabi's - wright cheeseburger, fries, 5 pc nugget/ss sauce lemonade Fluids: sf Monster or coffee caramel Latte K-cup with nothing else added to it, regular Body [place], Propel, water with SF iced tea mix , lemonade, Bedtime - 2300 or 02-26 Quality of diet: 24hr recall suggests unhealthy diet. Characterization of diet:unhealthy snacking, excessive cravings, evening snacking, increased consumption of sugar sweetened beverages, and skip meals. 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 MELISSA NO ; CPAP NO Stress Stress:yes , Cause:Work Obesity Related Comorbidities: Prior Weight Loss Surgery:No PAST MEDICAL HISTORY Diagnosis Date Asthma (HCC) exercise induced, mild Coitus painful for female Not sure Pain comes and goes. Not always everytime Menorrhagia with irregular cycle 06/03/2024 PCOS (polycystic ovarian syndrome) PAST SURGICAL HISTORY Procedure Laterality Date TUMOR REMOVAL (SPECIFY LOCATION) HX 2015 back, benign FAMILY HISTORY Problem Relation Age of Onset Obesity Mother other (raynaud's disease) Mother Diabetes Father Obesity Father Asthma Sister Obesity Sister Asthma Brother Obesity Maternal Grandmother Obesity Maternal Grandfather Obesity Paternal Grandmother Obesity Paternal Grandfather Social History Tobacco Use Smoking status: Never Smokeless tobacco: Never Vaping Use Vaping status: current everyday user Substances: Nicotine Devices: Disposable Substance Use Topics Alcohol use: Yes Comment: rarely Drug use: Not Currently AOM Medications: none Weight Promoting Medications: none Diet/weight loss History: Past weight loss attempts? self-directed and exercise program. Caloric restriction, Exercise/increased activity, Keto, Low Carbohydrate diet, and MyFitnessPal Exercise: Regular exercise: no Strength/resistance exercise:no Barriers to regular exercise? no Work-related activity:Active. Gym Membership: yes [employer] Activity Tracker: yes average steps per day [phone] on work days 3-4 days/wk OCCUPATION [employer] 06-[employer] Current Contraception: none Obesity ROS/ FHx GEN: Fatigue:yes CV: h/o palpitations/cardiac arrhythmia, Chest pain: no HTN: no PULM: Asthma:yes exercise induced GI: GERD:Yes, daily- OTC medications; Gallstones:no ; Fatty liver disease:no Pancreatitis: no MSK: Joint Pain:no : Nephrolithiasis: no PCOS: yes NEURO: Migraines/RYAN: no; H/o seizures: no Glaucoma:no; Cataracts no Symptoms of or History o (more content not included)... [facility] 07-06-2024 History of Presen t illness Narrative Images from the original note were not included. Patient Summary: Gómez Gasca is a 24 year old female with obesity who presents for an initial evaluation of overweight/obesity to treat and prevent co-morbidities and is interested in combination of behavioral and pharmacological. Motivation for seeking treatment for the disease of overweight/obesity : I want to lose weight, this is the heaviest I've ever been. Stuck at this weight, and want to feel better. Goal weight: 170 Lowest recall weight: 155 Highest non- recall weight: 239 Patient identified barriers to weight loss:does not eat most fruits or vegetables, does not cook so orders out or eats out Weight History: She reports a strong family history of obesity and early adulthood weight gain. She states her weight gain is related to the following factors, including exposure to a weight gain promoting medication, depo. 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 Difficulty losing weight? Y - Last Wt 07/08/24 : 108.4 kg (239 lb) 5% weight loss = 227 lbs, 10% weight loss = 215 lbs WEIGHT GRAPH: Diet/Nutrition overview: Awake - 05 or between 1-3 pm Work Day B - 08 sf Monster or coffee caramel Latte K-cup with nothing else added to it S - none L - SKIP S - 2-3 snacks between 12 and 5 pm granola bar or fruit snacks D - 2029 sometimes eats dinner after work - Chipotle or leftovers of take-out S - usually 30-60 min before bed sweet - ice cream, chips, PB, candy crackers Off Day B: SKIP S - none L - SKIP S - sometimes granola bar or fruit snacks or PB crackers after waking up D - [phone] - Chipotle bowl extra b rice, extra beans, ckn, steak, ex cheese, s cream, queso, corn salsa, sometimes chips no salsa Taco [employer]rigal - jose carbone and 2 potato tacos or steak quesadilla Subway - tuna sub on [place] bread with cheese, lettuce, cucumbers, banana peppers, oil/vinegar Fabi's - wright cheeseburger, fries, 5 pc nugget/ss sauce lemonade Fluids: sf Monster or coffee caramel Latte K-cup with nothing else added to it, regular Body [place], Propel, water with SF iced tea mix , lemonade, Bedtime - 2300 or 02-26 Quality of diet: 24hr recall suggests unhealthy diet. Characterization of diet:unhealthy snacking, excessive cravings, evening snacking, increased consumption of sugar sweetened beverages, and skip meals. 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 MELISSA NO ; CPAP NO Stress Stress:yes , Cause:Work Obesity Related Comorbidities: Prior Weight Loss Surgery:No PAST MEDICAL HISTORY Diagnosis Date Asthma (HCC) exercise induced, mild Coitus painful for female Not sure Pain comes and goes. Not always everytime Menorrhagia with irregular cycle 06/03/2024 PCOS (polycystic ovarian syndrome) PAST SURGICAL HISTORY Procedure Laterality Date TUMOR REMOVAL (SPECIFY LOCATION) HX 2015 back, benign FAMILY HISTORY Problem Relation Age of Onset Obesity Mother other (raynaud's disease) Mother Diabetes Father Obesity Father Asthma Sister Obesity Sister Asthma Brother Obesity Maternal Grandmother Obesity Maternal Grandfather Obesity Paternal Grandmother Obesity Paternal Grandfather Social History Tobacco Use Smoking status: Never Smokeless tobacco: Never Vaping Use Vaping status: current everyday user Substances: Nicotine Devices: Disposable Substance Use Topics Alcohol use: Yes Comment: rarely Drug use: Not Currently AOM Medications: none Weight Promoting Medications: none Diet/weight loss History: Past weight loss attempts? self-directed and exercise program. Caloric restriction, Exercise/increased activity, Keto, Low Carbohydrate diet, and MyFitnessPal Exercise: Regular exercise: no Strength/resistance exercise:no Barriers to regular exercise? no Work-related activity:Active. Gym Membership: yes [employer] Activity Tracker: yes average steps per day [phone] on work days 3-4 days/wk OCCUPATION [employer]ori [employer] 06-1800 Current Contraception: none Obesity ROS/ FHx GEN: Fatigue:yes CV: h/o palpitations/cardiac arrhythmia, Chest pain: no HTN: no PULM: Asthma:yes exercise induced GI: GERD:Yes, daily- OTC medications; Gallstones:no ; Fatty liver disease:no Pancreatitis: no MSK: Joint Pain:no : Nephrolithiasis: no PCOS: yes NEURO: Migraines/RYAN: no; H/o seizures: no Glaucoma:no; Cataracts no Symptoms of or History of pseudotumor cerebri:no Family or personal History of MEN2 or Medullary thyroid cancer: no PE BP 128/88 Pulse 93 Ht 171 cm (5' 7.32) Wt 108.4 kg (239 lb) LMP 06/27/2024 SpO2 96% BMI 37.07 kg/m Waist Circumference: 43.25 Neck Circumference: 15.5 GENERAL: Female in NAD. Central adiposity. SKIN: acanthosis nigricans yes , Skin tags: yes Hirsutism: yes HEENT: PERRL, No supraclavicular adiposity. No dorsal adiposity. RESPIRATORY: CBTA CARDIAC: RRR ABDOMEN: Protuberant ; EXTREMITIES: peripheral edema: no Results: reviewed with the patient Appointment on 06/08/2024 Component Date Value Ref Range Status TSH 06/08/2024 0.777 0.270 - 4.200 mIU/L Final DHEA-S 06/08/2024 283.8 148.0 - 407.0 ug/dL Final Testosterone 06/08/2024 36 <40 ng/dL Final HYDROXYPROGESTERONE 06/08/2024 31.83 <=206.00 ng/dL Final Cholesterol, Total 06/08/2024 189 <200 mg/dL Final Triglyceride 06/08/2024 125 <150 mg/dL Final HDL Cholesterol 06/08/2024 36 (L) >39 mg/dL Final Non HDL Cholesterol 06/08/2024 153 (H) <130 mg/dL Final Fasting Time 06/08/2024 12 hrs Final VLDL Cholesterol 06/08/2024 25 <30 mg/dL Final TC:HDL Ratio 06/08/2024 5.25 (H) <5.10 Final LDL Cholesterol, Calculated 06/08/2024 128 (H) <100 mg/dL Final LDL:HDL Ratio 06/08/2024 3.56 (H) <2.54 Final Hemoglobin A1C 06/08/2024 5.3 4.3 - 5.6 % Final Estimated Average Glucose 06/08/2024 105 mg/dL Final Insulin, Total 06/08/2024 15.9 2.6 - 24.9 uU/mL Final Glucose, Fasting 06/08/2024 93 74 - 99 mg/dL Final Protein, Total 06/08/2024 7.9 6.3 - 8.0 g/dL Final Albumin 06/08/2024 4.8 3.9 - 4.9 g/dL Final Calcium, Total 06/08/2024 10.3 (H) 8.5 - 10.2 mg/dL Final Bilirubin, Total 06/08/2024 0.4 0.2 - 1.3 mg/dL Final Alkaline Phosphatase 06/08/2024 80 34 - 123 U/L Final AST 06/08/2024 12 (L) 13 - 35 U/L Final ALT 06/08/2024 11 7 - 38 U/L Final Glucose 06/08/2024 98 74 - 99 mg/dL Final BUN 06/08/2024 13 7 - 21 mg/dL Final Creatinine 06/08/2024 0.73 0.58 - 0.96 mg/dL Final Sodium 06/08/2024 138 136 - 144 mmol/L Final Potassium 06/08/2024 4.0 3.7 - 5.1 mmol/L Final Chloride 06/08/2024 102 98 - 107 mmol/L Final CO2 06/08/2024 23 22 - 30 mmol/L Final Anion Gap 06/08/2024 13 8 - 15 mmol/L Final Estimated Glomerular Filtration Ra* 06/08/2024 119 >=60 mL/min/1.73m Final Vitamin D 25 Hydroxy 06/08/2024 48.7 31.0 - 80.0 ng/mL Final Vitamin B12 06/08/2024 962 232 - 1,245 pg/mL Final WBC 06/08/2024 7.81 3.70 - 11.00 k/uL Final RBC 06/08/2024 5.03 3.90 - 5.20 m/uL Final Hemoglobin 06/08/2024 13.6 11.5 - 15.5 g/dL Final Hematocrit 06/08/2024 40.5 36.0 - 46.0 % Final MCV 06/08/2024 80.5 80.0 - 100.0 fL Final MCH 06/08/2024 27.0 26.0 - 34.0 pg Final MCHC 06/08/2024 33.6 30.5 - 36.0 g/dL Final RDW-CV 06/08/2024 13.5 11.5 - 15.0 % Final Platelet Count 06/08/2024 308 150 - 400 k/uL Final MPV 06/08/2024 9.9 9.0 - 12.7 fL Final Absolute nRBC 06/08/2024 <0.01 <0.01 k/uL Final hCG Quantitative, Blood 06/08/2024 <0.6 <5.0 mIU/mL Final LH 06/08/2024 13.0 See comment mIU/mL Final Prolactin 06/08/2024 15.2 4.4 - 33.8 ng/mL Final FSH 06/08/2024 10.1 See comment mIU/mL Final Estradiol 17B 06/08/2024 40 pg/mL Final Impression: Gómez Gasca is a 24 year old Female with Class II obesity (Body mass index is 37.07 kg/m .) who has early adulthood obesity with gradual weight gain despite several weight loss attempts. The causes of her obesity are multifactorial, biological, psychological and social and environmental. Specific factors include a genetic component related to a strong family of obesity, exposure to weight gain promoting medication(s) , increased consumption of high calorie/process foods, irregular eating patterns , suboptimal physical activity, inadequate sleep duration, and circadian disruption. She has no significant weight-related medical comorbidities which increase her cardiovascular mortality risk. There are additional metabolic obesity complications including dyslipidemia and PCOS. Other medical conditions as above. Regarding her lifestyle, as above, she has several behavioral contributors; her physical activity is suboptimal. Overall, it is clear that her quality of life is mildly compromised by her weight. It is likely a combination of weight loss therapies will be needed. She appears motivated today. ASSESSMENT/PLAN: 1. Dyslipidemia - ICD9: 272.4, ICD10: E78.5 (primary diagnosis) - benefits of weight loss discussed - Whole food balanced protein low-carb nutrition 2. Gastroesophageal reflux disease, unspecified whether esophagitis present - ICD9: 530.81, ICD10: K21.9 - Discussed lifestyle modifications including losing weight, no meals three hours before sleep, and head of bed elevation - benefits of weight loss discussed - Whole food balanced protein low-carb nutrition - OMEPRAZOLE 40 MG CAPSULE,DELAYED RELEASE 3. PCOS (polycystic ovarian syndrome) - ICD9: 256.4, ICD10: E28.2 - METFORMIN ER 500 MG TABLET,EXTENDED RELEASE 24 HR 4. 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 5. Picky eater - ICD9: 783.3, ICD10: R63.39 Describes herself as a picky eater and needs very limited fruits and vegetables. Does eat the following: Fruit - pineapple, watermelon, sometimes cotton candy grapes Veg - cucumbers, carrots, iceburg and aurelia lettuce, steamed green beans 6. Class 2 obesity without serious comorbidity with body mass index (BMI) of 37.0 to 37.9 in adult, unspecified obesity type - ICD9: 278.00, V85.37, ICD10: E66.812, Z68.37 Plan: -- Based on the severity and resistance of the obesity/overweight with co-morbidities, I believe a combination of behavioral and pharmacological intervention is the best and most appropriate nursing home therapeutic option. We did discuss the benefits of metabolic surgery especially due to her strong family history of obesity and drivers for eating. - METFORMIN ER 500 MG TABLET,EXTENDED RELEASE 24 HR Agreeable to begin Metformin 500 mg with dinner daily x 1 week. If tolerating will increase to 2 tablets with dinner daily. We discussed common side effects of this medication including nausea, changes in bowel habits, abdominal discomfort, and flatulence. Discussed taking it with food and complication of lactic acidosis and signs/symptoms and medication handout given. Further instructed that if she experiences malaise, muscle aches, difficulty breathing, or severe abdominal pain to seek immediate medical attention. -- We discussed several strategies to track food intake and increase mindfulness around eating while will decrease calorie intake. She was counseled on the following: Eating primarily whole foods. Limit carbs, especially processed carbs. Do not drink your calories 30 grams of protein for breakfast decreases your hunger during the day by up to 40 % Premier Protein or generic 30 gm protein 1 gm sugar Walk for 15 minutes immediately a meal. Given information on the health benefits. Specific suggestions for take-out meals modifying what she already eats: Chipotle bowl reg b rice, reg beans, ckn, steak, ex cheese, s cream, queso, corn salsa, no chips Subway - tuna sub on [place] bread with cheese, lettuce, cucumbers, banana peppers, oil/vinegar - Have them scoop out the bread on both side. Fabi's - wright cheeseburger - put meat in LC wrap or lettuce Even though she admits to being a picky eater when it comes to fruits and vegetables, encouraged her to eat the fruits and vegetables that she does like on a daily basis. -- Encouraged the patient to improve her physical activity. Although cardiovascular exercise is most beneficial for weight loss initially, we discussed healthy muscle from a combination of resistance training and cardiovascular exercise is the best nursing home plan. An overall goal of 150-200 minutes per week of exercise has been effective in weight loss and maintenance. -- Reviewed that monitoring weight daily and food intake can have a positive impact on overall weight loss and maintenance of weight loss. Activity tracking can be used to stay on target for exercise however should not be used to reward oneself She understands that there can be limitations of pharmacotherapy due to contraindications, side effects and cost. Patient was told to contact her insurance company to see what AOMs and supervised behavioral medical appointments are currently covered. Patient understands she will have more success when following a healthy lifestyle. We reviewed continued use of online tracking of daily weights, food journal and if desired physical activity. We reviewed that during management she is to report any concerning side effects of any pharmacotherapy she is placed on. She understands that she will need routine follow up in the office. Prior to any virtual visits in the future she will need to check her Blood pressure, weight, and pulse. Prescription instructions reviewed with patient as applicable. Potential red flag symptoms discussed with the patient. Reviewed appropriate action plan to take if red flag symptoms occur. Patient agreeable to treatment plan. -- follow-up visit in 6 weeks for management of above interventions Juju Orta CNP Advanced Education from the [employer] I spent a total of 88 minutes on the date of the service which included preparing to see the patient, [id number] patient care, completing clinical documentation, obtaining and/or reviewing separately obtained history, performing a medically appropriate examination, counseling and educating the patient/family/caregiver, and ordering medications, tests, or procedures. documented in this encounter [facility] 07-06-2024 Instructions Juju Orta APRN.CNP - 07/06/2024 2:25 PM EDT Weight Management: You have taken the initiative to become a healthier version of yourself and to decrease the risks that come with the diagnosis of obesity or being overweight. We are happy to help you along this journey but know this is a lifetime commitment to yourself. Losing just 3-10 % of your body weight can decrease your risks of many other serious diseases like diabetes, heart disease, osteoarthritis, hypertension, cancer and so many others. During this time you will have triumphs, setbacks and plateaus- your body will fight against you but we are here to give you the tools and the resources to continue to reach your goals. We recommend during this time that you track your weight daily or at least five times per week as well as tracking your nutrition. You may track your activity but do not use hitting your fitness goals as a reward system as this can derail your success. We recommend weekly physical activity of 150-200 min/week-although physical exercise, this will be especially important for weight maintenance. Exercise can have many other benefits including improving insulin resistance, improving balance, bone health, improving mental health and cardiovascular health. Do not feel overwhelmed - we will discuss this more at your visits. Our time will be limited with each visit but we will try to touch on factors that are important to you and to your overall goals. We will try to set a goal at the end of each visit and then decide on what we want to accomplish with your upcoming visits. On your After Visit Summary (AVS), we will provide you with information that may be useful during this journey so please remember to read the information given. Check your AVS a few days after your appointment because we may have added more information specifically for you. Remember that if you are placed on medications, they are tools that can help you succeed but you must put in the work. Your nutrition will be the main factor. There are medications that work well for some and not for others- so it may take time to find the right combination for your body's needs. Please remember that factors such as other health co-morbidities one might have, as well as insurance coverage, will play a factor in determining which medications you can take. Most of the newer medications that are all the craze ,injectables, may not be covered or will only be covered if you fail months of oral medications or have Type 2 diabetes so please be patient with the process. It would be beneficial for you to determine what your insurance covers as far as Anti-Obesity Medications (AOMs), Nutritional Counseling, behavioral intervention and weight loss surgery. Please call your health insurance prior to your first appointment and write down coverage for each of those therapies. Most importantly, remember that ultimately our goal is to help you get to a healthier weight which will decrease your overall health risks. We will work together as a team and try to reach your personalized goals as well. Follow-up appointments Please arrive to follow-up visits a minimum of 15 minutes prior to your appointment. Follow-up weight management visits can be virtual. You will need to report a current blood pressure, heart rate (pulse) and weight at the beginning of each virtual appointment so you will need to have a reliable BP cuff, either wrist or upper arm. If you need to reschedule your appointment time or switch from an in-office visit to a virtual visit or vice versa, you need to call our office as we have designated appointment slots. This should not be done [facility] as you will not be scheduled appropriately and will need to be rescheduled. We appreciate that you have entrusted us with your health and know that we are committed to this process with you. Sincerely, Stephanie Josue MD, EVA JEFFREY & Juju Orta CNP Advanced Education from the Obesity [employer] Association Obesity Obesity is a disease that affects nearly one-third of the adult [place] population (approximately 60 million). The number of overweight and obese Americans has continued to increase since 1960, a trend that is not slowing down. Today, 64.5 percent of adult Americans (about 127 million) are categorized as being overweight or obese. Each year, obesity causes at least 300,000 excess deaths in the [place] and healthcare costs of [place] adults with obesity amount to approximately $100 billion. (AOA) Obesity is a complex, multi-factorial chronic disease involving: Environmental (social and cultural) The tendency toward obesity is a result of our environment: lack of physical activity along with high-calorie, low-cost foods. Home, work, school, and even the community can inhibit a healthy lifestyle. Genetic (Hereditary plays a large role in determining how susceptible people are to overweight and obesity). Genes also influence how the body erazo calories for energy and stores fat. Physiologic, metabolic, behavioral (eating too many calories while not getting enough exercise) and psychological components. It is the second leading cause of preventable in the [place] Behavioral changes brought on by economic development, modernization and urbanization have been linked to the rise in global obesity. Calculating BMI Body Mass Index (BMI) is a measurement tool used to determine excess body weight. Overweight is defined as a BMI of 25 or more, obesity is 30 or more, and severe obesity is 40 or more. You can visit www.nhlbi.nih.gov to estimate your BMI. Obesity Related Health Conditions The morbidity and mortality risk from being overweight is proportional to its degree. Individuals with morbid obesity, therefore, have the highest risk for developing numerous illnesses that often reduce mobility and quality of life due to their excess weight. In particular, type 2 diabetes, gallbladder disease and osteoarthritis have been found to increase concurrently with higher BMI. Premature , a 20-year shorter life span, has also been found in individuals with morbid obesity. All of the systems that make the body function are affected by morbid obesity. Type 2 diabetes Gallbladder disease and gallstones Liver disease Osteoarthritis, a disease in which the joints deteriorate. This is possibly the result of excess weight on the joints. Gout, another disease affecting the joints Pulmonary (breathing) problems, including sleep apnea in which a person can stop breathing for a short time during sleep Reproductive problems in women, including menstrual irregularities and infertility Gastroesophageal reflux/heartburn Hypertension Heart Disease Depression Psychological disorders/social impairments Urinary Stress Incontinence Obesity is also linked to higher rates of certain types of cancer. Obese men are more likely than non-obese men to from cancer of the colon, rectum, or prostate. Obese women are more likely than non-obese women to from cancer of the gallbladder, breast, uterus, cervix, or ovaries https://my.[facility].org/ [facility]/diseases/41344-vqtfkr-ffvb qyooty-rddfryf-ukncerjcj - Eat primarily whole foods. Limit carbs, especially processed carbs. Eat - Meat, vegetables and fruits with skin on if possible, eggs, cheese. - Do not drink your calories - 30 grams of protein for your first meal of the day decreases your hunger during the day by up to 40 %. Options include: Premier Protein or generic 30 gm protein 1 gm sugar or 5 eggs or 2-3 eggs and some unbreaded meat and/or cheese. No fruit, vegetables, bread, grain, yogurt, Smoothies, etc. - Walk for 15 minutes immediately after meal. [employer] Chipotle bowl reg b rice, reg beans, ckn, steak, ex cheese, s cream, queso, corn salsa, no chips Subway - tuna sub on [place]uran bread with cheese, lettuce, cucumbers, banana peppers, oil/vinegar - Have them scoop out the bread on both side. [employer] - wright cheeseburger - put meat in LC wrap or lettuce A Short Walk After Meals Is All It Takes to Lower Blood Sugar Researchers studying older adults with pre-diabetes found that 15 minutes of ubhm-xc-ltbygoih exercise after every meal curbed risky blood sugar spikes all day. Seniors are more prone to developing diabetes, but a little exercise could make a big difference. A study published today in Diabetes Care found that three short walks each day after meals were as effective at reducing blood sugar over 24 hours as a single 45-minute walk at the same moderate pace. Even better, taking an evening constitutional was found to be much more effective at lowering blood sugar following supper. The evening meal, often the largest of the day, can significantly raise 24-hour glucose levels. The innovative exercise science study was conducted at the Clinical Exercise Physiology Laboratory at the [facility] ([facility]) using whole room calorimeters. Amanda Ashley, Ph.D., chair of the [facility] Department of Exercise Science, led the study. These findings are good news for people in their 70s and 80s who may feel more capable of engaging in intermittent physical activity on a daily basis, Gabi said in a press release. Putting Humans in a Box to Measure Their Energy Use The whole room calorimeter (WRM), which looks like a very small hotel room, is a controlled-air environment for human study that allows scientists to calculate a person s energy expenditure by testing samples of air. The balance of oxygen consumed and carbon dioxide produced varies according to the activity level of the person in the room. The [facility] also measures the body s use of different food fuels, such as carbohydrates, proteins, and fats. The 10 study participants spent three 48-hour periods in the small calorimeter rooms. Each room was equipped with a bed, toilet, sink, treadmill, television, and computer, leaving little room to move around. Participants ate standardized meals, and their blood sugar levels were monitored continuously using blood tests. The first day in the [facility] served as a control period, with no exercise. On the second day, participants either walked at a moderate pace on the treadmill for 15 minutes after each meal, or for 45 minutes in either the late morning or before supper. The researchers observed that the evening post-meal walk was the most effective in lowering blood sugar levels for a full 24 hours. The typical exaggerated rise in blood sugar after supper--which often lasts well into the night and spike machine heater--was curbed significantly as soon as the participants started to walk on the treadmill, the study authors said. How Age Affects Insulin Resistance An estimated 79 million Americans have pre-diabetes, according to the National Diabetes Education Program run by the National Institutes of Health. But many people have no idea they are at risk. According to Gabi, older people may be particularly susceptible to poor blood sugar control after meals because inactive muscles contribute to insulin resistance. The problem is compounded by slow or low insulin secretion by the pancreas, which often occurs as the body ages. Post-meal high blood sugar is a sharp risk factor in the progression from impaired glucose tolerance (pre-diabetes) to type 2 diabetes and cardiovascular disease, Gabi explained. Other studies have suggested that weight loss and exercise can prevent type 2 diabetes. The authors say theirs is the first study to examine short bouts of physical activity timed around the risky period following meals--a time when blood sugar can rise rapidly and potentially cause damage to internal organs and blood vessels. The muscle contractions connected with short walks were immediately effective in blunting the potentially damaging elevations in post-meal blood sugar commonly observed in older people, Gabi said. If the findings of this small study hold up to further testing, it could lead to an inexpensive prevention strategy for pre-diabetes, which can develop over time into type 2 diabetes. Back in the day, it was de rigueur to take a morning, noon, and evening walk. The time has come to get up from the table, tie on those walking shoes, and take a little stroll around the block. https://www.[employer]t h-news/isrvc-gzpghpc-vierx-meals -qo-pocrqro-czkwi-aaphg-cahwbm-0 45710 METFORMIN ER Dosing -- Begin Metformin 500 ER mg with dinner daily x 1 week.then increase to 1 twice a day or 2 with dinner. Taking the medication with food will help. -- if you experience any GI upset (Nausea, diarrhea, bloating, gas) you can go back to 1 tablet or hold the medication until it resolves. Once you are tolerating the medication you can try increasing it again. -- we can discuss increasing the dose further at your follow up visit. -- Metformin can interfere with the absorption of B12 in your food, please add a B12 1,000-2,400 mcg supplement and I suggest having it checked every 1-2 years Using Metformin for weight loss: Metformin helps to lower blood glucose levels by reducing the amount of glucose produced and released by the liver, and by increasing insulin sensitivity. It has now been proven to prevent or delay diabetes. Metformin and Type 2 Diabetes Prevention Diabetes Spectrum (diabetesjournals.org) Large cohort studies have shown weight loss benefits associated with metformin therapy. Emerging evidence suggests that metformin-associated weight loss is due to modulation of hypothalamic appetite-regulatory centers, alteration in the gut microbiome, and reversal of consequences of aging. Metformin is also being explored in the management of obesity s sequelae such as hepatic steatosis, obstructive sleep apnea and osteoarthritis. Effectiveness of metformin on weight loss in non-diabetic individuals with obesity - PubMed (nih.gov) Is metformin a wonder drug? - [facility] Common side effects of this medication include nausea, changes in bowel habits, abdominal discomfort, and flatulence. Taking the medication with food will help. Side effects also typically get better with time. Rarely, a severe side effect called lactic acidosis can occur. If you experience malaise, muscle aches, difficulty breathing, or severe abdominal pain, please seek immediate medical attention. When to Take Extended-Release Metformin Metformin HCL is metabolized slowly, over 24 hours, which helps reduce GI side effects. Metformin extended-release is often a good option for people who experience adverse GI symptoms with standard metformin. Metformin HCL should be taken at night, with food. Lurdes Finney MD, clinical director of adult diabetes at [facility], explains why timing metformin HCL with the evening meal is so important. In normal physiology, a person's liver often makes glucose overnight, she says. So, it's not uncommon for a person to go to bed with a good blood glucose level and wake up with a higher one because their liver has been releasing sugar [all night]. Metformin turns off or slows down this process, so it can be more effective at night in treating fasting high blood sugar. https://www.[employer]/artic le/588319-yaee-rn-e-prks-ovpeann pf-boz-wf-gjsz-poxuqcy-sr-night/ Metformin: Patient drug information Warning Rarely, metformin may cause too much lactic acid in the blood (lactic acidosis). The risk is higher in people who have kidney problems, liver problems, heart failure, use alcohol, or take other drugs like topiramate. The risk is also higher in people who are 65 or older and in people who are having surgery, an exam or test with contrast, or other procedures. If lactic acidosis happens, it can lead to other health problems and can be deadly. Kidney tests may be done while taking this drug. Do not take this drug if you have a very bad infection, low oxygen, or a lot of fluid loss (dehydration). Call your doctor right away if you have signs of too much lactic acid in the blood (lactic acidosis) like fast breathing, fast or slow heartbeat, a heartbeat that does not feel normal, very bad upset stomach or throwing up, feeling very sleepy, shortness of breath, feeling very tired or weak, very bad dizziness, feeling cold, or muscle pain or cramps. What is this drug used for? It is used to lower blood sugar in patients with high blood sugar (diabetes), treatment for PCOS, What do I need to tell my doctor BEFORE I take this drug? If you are allergic to this drug; any part of this drug; or any other drugs, foods, or substances. Tell your doctor about the allergy and what signs you had. If you have any of these health problems: Acidic blood problem, kidney disease, or liver disease. If you have had a recent heart attack or stroke. If you are not able to eat or drink like normal, including before certain procedures or surgery. If you are having an exam or test with contrast or have had one within the past 48 hours, talk with your doctor. This is not a list of all drugs or health problems that interact with this drug. Tell your doctor and pharmacist about all of your drugs (prescription or OTC, natural products, vitamins) and health problems. You must check to make sure that it is safe for you to take this drug with all of your drugs and health problems. Do not start, stop, or change the dose of any drug without checking with your doctor. What are some things I need to know or do while I take this drug? All products: Tell all of your health care providers that you take this drug. This includes your doctors, nurses, pharmacists, and dentists. Talk with your doctor before you drink alcohol. Do not drive if your blood sugar has been low. There is a greater chance of you having a crash. Check your blood sugar as you have been told by your doctor. Have blood work checked as you have been told by the doctor. Talk with the doctor. It may be harder to control blood sugar during times of stress such as fever, infection, injury, or surgery. A change in physical activity, exercise, or diet may also affect blood sugar. Follow the diet and workout plan that your doctor told you about. If diarrhea happens or you are throwing up, call your doctor. You will need to drink more fluids to keep from losing too much fluid. Be careful in hot weather or while being active. Drink lots of fluids to stop fluid loss. Long-term treatment with metformin may lead to low vitamin B-12 levels. If you have ever had low vitamin B-12 levels, talk with your doctor. If you are 65 or older, use this drug with care. You could have more side effects. There is a chance of in people of childbearing age who have not been ovulating. If you want to avoid , use control while taking this drug. Tell your doctor if you are , plan on getting , or are breast-feeding. You will need to talk about the benefits and risks to you and the baby. Extended-release tablets: You may see something that looks like the tablet in your stool. This is normal and not a cause for concern. If you have questions, talk with your doctor. What are some side effects that I need to call my doctor about right away? WARNING/CAUTION: Even though it may be rare, some people may have very bad and sometimes deadly side effects when taking a drug. Tell your doctor or get medical help right away if you have any of the following signs or symptoms that may be related to a very bad side effect: Signs of an allergic reaction, like rash; hives; itching; red, swollen, blistered, or peeling skin with or without fever; wheezing; tightness in the chest or throat; trouble breathing, swallowing, or talking; unusual hoarseness; or swelling of the mouth, face, lips, tongue, or throat. It is common to have stomach problems like upset stomach, throwing up, or diarrhea when you start taking this drug. If you have stomach problems later during treatment, call your doctor right away. This may be a sign of an acid health problem in the blood (lactic acidosis). Low blood sugar can happen. The chance may be raised when this drug is used with other drugs for diabetes. Signs may be dizziness, headache, feeling sleepy or weak, shaking, fast heartbeat, confusion, hunger, or sweating. Call your doctor right away if you have any of these signs. Follow what you have been told to do for low blood sugar. This may include taking glucose tablets, liquid glucose, or some fruit juices. What are some other side effects of this drug? All drugs may cause side effects. However, many people have no side effects or only have minor side effects. Call your doctor or get medical help if any of these side effects or any other side effects bother you or do not go away: Stomach pain or heartburn. Gas. Diarrhea, upset stomach, or throwing up. Feeling tired or weak. Headache. These are not all of the side effects that may occur. If you have questions about side effects, call your doctor. Call your doctor for medical advice about side effects. You may report side effects to your national health agency. How is this drug best taken? Use this drug as ordered by your doctor. Read all information given to you. Follow all instructions closely. All products: Take with meals. Keep taking this drug as you have been told by your doctor or other health care provider, even if you feel well. Extended-release tablets: Take with the evening meal if taking once daily. Swallow whole. Do not chew, break, or crush. If you have trouble swallowing, talk with your doctor. documented in this encounter [facility] 06-22-2024 Instructions Arturo Stewart MD - 06/22/2024 2:08 PM EDT Begin taking your new combined oral contraceptive pill as directed to help regulate your menstrual cycles and manage PCOS symptoms. If you are confident you are not , you may start the pill this upcoming Friday; otherwise, wait until the first Friday after your next period. If you experience nausea, try taking your pill at bedtime. Follow a low-carbohydrate diet that emphasizes fresh fruits, vegetables, lean proteins, and complex carbohydrates while avoiding white flour, simple sugars, and processed foods. Aim for at least 150 minutes of cardiovascular exercise per week to support weight management. You have been placed on the wait list to see an obesity medicine provider (Dr. Josue or Juju Orta) to further assist with weight management. Also, please consider establishing care with a primary care doctor since your lab work showed slightly low HDL and high non-HDL cholesterol. No follow-up is needed for the benign para-ovarian cyst or the arcuate uterus. Schedule a follow-up appointment in 3-4 months to check your blood pressure and overall progress. documented in this encounter [facility] 06-22-2024 Note HNO ID: [id number] Author: ARTURO STEWART MD Service: ? Author Type: Physician Type: Progress Notes Filed: 06/22/2024 14:08 Note Text: Obstetrics and Gynecology [facility] [employer] Visit Subjective Recording using Sanitors software for draft documentation of the visit was discussed with the patient/authorized senior patient account representative; all questions welcomed and answered. Patient/authorized senior patient account representative agreed to proceed CHIEF COMPLAINT: The patient is a 24-year-old female with a history of irregular menstrual cycles, weight gain, and symptoms suggestive of PCOS, presenting for follow-up on recent blood work and ultrasound results. HPI: Menstrual Irregularities - LMP: May 23 - Reports irregular menstrual cycles, with intervals of 2-4 months without a period, followed by prolonged bleeding lasting almost a month. - Previous use of combined oral contraceptive pills resulted in nausea even after switching to a lower dose of estrogen. - Transitioned to a progestin-only pill, which alleviated nausea but caused irregular periods. - Has not tried NuvaRing. - No history of migraines or blood clots. PCOS - Reports increased acne and hair growth. - Recent blood work evaluating for PCOS was normal. - Recent ultrasound did not show a polycystic appearance of the ovaries but did reveal a small para-ovarian/paratubal cyst, described as benign with no follow-up needed. - Ultrasound also noted an arcuate uterus. Weight Gain - Reports significant weight gain since the end of 2022, coinciding with the start of Depo-Provera use. - Initial weight before Depo-Provera was 155-160 lbs; current weight is 235-249 lbs. - Describes weight as stuck, with no significant changes despite efforts. - Interested in weight management and open to seeing a specialist in obesity medicine. 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 Not always everytime Hirsutism 06/03/2024 Irregular menstrual cycle 06/03/2024 Menorrhagia with irregular cycle 06/03/2024 NEGATIVE MEDICAL HISTORY Unintended weight gain 06/03/2024 PAST SURGICAL HISTORY Procedure Laterality Date NONE FAMILY HISTORY Problem Relation Age of Onset No Known Problems Mother Diabetes Father Social History Tobacco Use Smoking status: Never Smokeless tobacco: Never Vaping Use Vaping status: current everyday user Substances: Nicotine Substance Use Topics Alcohol use: Yes Comment: rarely Drug use: Not Currently Types: Marijuana Current Outpatient Medications Medication Sig norgestimate-ethinyl estradiol (SPRINTEC) 0.25-0.035 mg per tablet Take 1 tablet by mouth once daily. No current facility-administered medications for this visit. ALLERGIES No Known Allergies REVIEW OF SYSTEMS: Constitutional: (+) weight gain Head: (-) migraines Genitourinary: (+) irregular menses Skin: (+) acne, (+) hirsutism Objective SENSITIVE EXAM: Sensitive exam not performed. PHYSICAL EXAM: BP 120/60 Wt 239 lb (108.4kg) LMP 05/23/2024 General: No acute distress. Assessment AND Plan ASSESSMENT AND PLAN: 1. PCOS (polycystic ovarian syndrome) (E28.2) - Diagnosis confirmed based on oligomenorrhea and clinical signs of hyperandrogenism (acne and hirsutism). - Discussed risks of endometrial hyperplasia and endometrial cancer due to irregular menstrual cycles. - Initiated combined oral contraceptive pill to regulate menstrual cycles and manage hyperandrogenic symptoms. - Educated on potential side effects of oral contraceptives, including nausea; advised to take the pill at bedtime to mitigate nausea. - Discussed alternative option of NuvaRing if oral contraceptive pill is not tolerated. - Advised to start the oral contraceptive pill on the first Friday after the next menstrual cycle or this upcoming Friday if confident not . - Follow-up in 3-4 months to monitor blood pressure and assess treatment efficacy. 2. Arcuate uterus (Q51.810) - Ultrasound findings consistent with an arcuate uterus; no clinical significance or need for intervention. - Educated patient that this is a normal anatomical variant and does not pose any health risks. 3. Class 2 obesity without serious comorbidity with body mass index (BMI) of 37.0 to 37.9 in adult, unspecified obesity type (E66.812) - Current weight reported between 235-249 lbs; BMI consistent with Class 2 obesity. - Discussed correlation between PCOS an (more content not included)... [facility] 06-22-2024 History of Presen t illness Narrative Images from the original note were not included. Obstetrics and Gynecology [facility] [employer] Visit Subjective Recording using [employer] software for draft documentation of the visit was discussed with the patient/authorized senior patient account representative; all questions welcomed and answered. Patient/authorized senior patient account representative agreed to proceed CHIEF COMPLAINT: The patient is a 24-year-old female with a history of irregular menstrual cycles, weight gain, and symptoms suggestive of PCOS, presenting for follow-up on recent blood work and ultrasound results. HPI: Menstrual Irregularities - LMP: May 23 - Reports irregular menstrual cycles, with intervals of 2-4 months without a period, followed by prolonged bleeding lasting almost a month. - Previous use of combined oral contraceptive pills resulted in nausea even after switching to a lower dose of estrogen. - Transitioned to a progestin-only pill, which alleviated nausea but caused irregular periods. - Has not tried NuvaRing. - No history of migraines or blood clots. PCOS - Reports increased acne and hair growth. - Recent blood work evaluating for PCOS was normal. - Recent ultrasound did not show a polycystic appearance of the ovaries but did reveal a small para-ovarian/paratubal cyst, described as benign with no follow-up needed. - Ultrasound also noted an arcuate uterus. Weight Gain - Reports significant weight gain since the end of 2022, coinciding with the start of Depo-Provera use. - Initial weight before Depo-Provera was 155-160 lbs; current weight is 235-249 lbs. - Describes weight as stuck, with no significant changes despite efforts. - Interested in weight management and open to seeing a specialist in obesity medicine. 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 Not always everytime Hirsutism 06/03/2024 Irregular menstrual cycle 06/03/2024 Menorrhagia with irregular cycle 06/03/2024 NEGATIVE MEDICAL HISTORY Unintended weight gain 06/03/2024 PAST SURGICAL HISTORY Procedure Laterality Date NONE FAMILY HISTORY Problem Relation Age of Onset No Known Problems Mother Diabetes Father Social History Tobacco Use Smoking status: Never Smokeless tobacco: Never Vaping Use Vaping status: current everyday user Substances: Nicotine Substance Use Topics Alcohol use: Yes Comment: rarely Drug use: Not Currently Types: Marijuana Current Outpatient Medications Medication Sig norgestimate-ethinyl estradiol (SPRINTEC) 0.25-0.035 mg per tablet Take 1 tablet by mouth once daily. No current facility-administered medications for this visit. ALLERGIES No Known Allergies REVIEW OF SYSTEMS: Constitutional: (+) weight gain Head: (-) migraines Genitourinary: (+) irregular menses Skin: (+) acne, (+) hirsutism Objective SENSITIVE EXAM: Sensitive exam not performed. PHYSICAL EXAM: BP 120/60 Wt 239 lb (108.4kg) LMP 05/23/2024 General: No acute distress. Assessment & Plan ASSESSMENT AND PLAN: 1. PCOS (polycystic ovarian syndrome) (E28.2) - Diagnosis confirmed based on oligomenorrhea and clinical signs of hyperandrogenism (acne and hirsutism). - Discussed risks of endometrial hyperplasia and endometrial cancer due to irregular menstrual cycles. - Initiated combined oral contraceptive pill to regulate menstrual cycles and manage hyperandrogenic symptoms. - Educated on potential side effects of oral contraceptives, including nausea; advised to take the pill at bedtime to mitigate nausea. - Discussed alternative option of NuvaRing if oral contraceptive pill is not tolerated. - Advised to start the oral contraceptive pill on the first Friday after the next menstrual cycle or this upcoming Friday if confident not . - Follow-up in 3-4 months to monitor blood pressure and assess treatment efficacy. 2. Arcuate uterus (Q51.810) - Ultrasound findings consistent with an arcuate uterus; no clinical significance or need for intervention. - Educated patient that this is a normal anatomical variant and does not pose any health risks. 3. Class 2 obesity without serious comorbidity with body mass index (BMI) of 37.0 to 37.9 in adult, unspecified obesity type (E66.812) - Current weight reported between 235-249 lbs; BMI consistent with Class 2 obesity. - Discussed correlation between PCOS and weight gain; emphasized importance of weight management. - Referred to Dr. Josue or Juju Orta for specialized obesity management; patient placed on waitlist. - Advised on dietary modifications, including a low-carbohydrate diet, increased protein intake, and avoidance of simple sugars and processed foods. - Recommended at least 150 minutes of cardiovascular exercise per week. - Scheduled follow-up in 3-4 months to monitor progress and adjust treatment as necessary. Medical Decision Making: Problems: Moderate: 2+ stable chronic illnesses Data: Unique test result(s) reviewed: 3+ Risk: Moderate: Drug management Medical Decision Making Level: 4 - Moderate Arturo Stewart MD documented in this encounter [facility] 06-18-2024 Note HNO ID: [id number] Author: RUDY MONTANA MD Service: ? Author Type: Physician Type: Progress Notes Filed: 06/18/2024 23:51 Note Text: The patient presents for requested ultrasound. Full report available in the Imaging tab in Epic. Rudy Montana MD [facility] 06-03-2024 Instructions Tika Salazar APRN.CNP - 06/03/2024 9:05 AM EDT - Visit an [facility] or Urgent Care today for vaginal swab testing and a possible UTI evaluation. - Inform the clinic that you were seen online and that an in-person visit was recommended. - If you are seen in person today, the cost of this visit will be waived. documented in this encounter [facility] 06-03-2024 Note HNO ID: [id number] Author: TIKA SALAZAR APRN.CNP Service: ? Author Type: Nurse Practitioner Type: Progress Notes Filed: 06/04/2024 08:02 Note Text: Patient seen on [employer] Video Visit platform. Location of patient: [place] I have communicated my name and active licensure. The patient's identity and physical location were verified at the time of this visit. Either the patient or their legal senior patient account representative has been informed of the risks and benefits of -- and alternatives to -- treatment through a remote evaluation and consents to proceed with the evaluation remotely. Telemedicine Visit - Distance Health Virtual Visit Note The patient consented to the use of ambient [employer] software for draft documentation of the visit consistent with [facility]?s Notice of Privacy Practices. TELEMEDICINE Subjective Gómez Gasca is a 24 year old female. Patient presents with: Vaginal Discharge HPI Vaginal Discharge: - Onset: Approximately one week ago. - Initially thought to be a yeast infection; progressed to a fishy odor. - Similar episode in April, treated with Flagyl for suspected BV, which resolved symptoms. - Increased frequency of baths and use of feminine wipes noted; concerns about pH imbalance. - No new sexual partners; consistent partner for four years. - LMP ended about 1.5 weeks ago; denies concerns. Dysuria: - Mild burning sensation during urination. - Denies hematuria. - Mild abdominal pain, primarily above the umbilicus; denies significant lower abdominal pain. Review of Systems Gastrointestinal: (+) abdominal pain above the umbilicus Genitourinary: (+) fishy vaginal discharge, (+) dysuria, (-) hematuria PAST MEDICAL HISTORY Diagnosis Date Acne vulgaris 06/03/2024 Coitus painful for female Not sure Pain comes and goes. Not always everytime Hirsutism 06/03/2024 Irregular menstrual cycle 06/03/2024 Menorrhagia with irregular cycle 06/03/2024 NEGATIVE MEDICAL HISTORY Unintended weight gain 06/03/2024 PAST SURGICAL HISTORY Procedure Laterality Date NONE No current outpatient medications on file prior to visit. No current facility-administered medications on file prior to visit. Objective LMP 05/23/2024 Patient's last menstrual period was 05/23/2024. Physical Exam General: No acute distress. Abdomen: mild tenderness with self palpation above the umbilicus Respiratory: respirations are easy and unlabored Neuro: AANDO x 3 {1. Vaginal discharge (N89.8) - Recurrent malodorous discharge with mild dysuria; similar episode in April treated successfully with Metronidazole. - No new sexual partners; low suspicion for STIs. - Advised against use of baths and feminine wipes to prevent pH disruption. - Recommended urgent care or express care visit for vaginal swab testing to accurately identify etiology and guide appropriate antibiotic therapy. - Advised to inform the clinic that an in-person visit was recommended to waive the cost of this virtual visit. History and Record Review External record(s) reviewed: prior outpatient record. Differential Diagnoses - Bacterial vaginosis is more likely for the following reason(s): suggested by HANDP - Vaginal yeast infection is less likely for the following reason(s): HANDP not suggestive Disposition The patient was discharged. Tika Salazar APRN.FURNACE COMBUSTION TESTER [facility] 06-03-2024 History of Presen t illness Narrative Patient seen on [employer] Video Visit platform. Location of patient: [place] I have communicated my name and active licensure. The patient's identity and physical location were verified at the time of this visit. Either the patient or their legal senior patient account representative has been informed of the risks and benefits of -- and alternatives to -- treatment through a remote evaluation and consents to proceed with the evaluation remotely. Telemedicine Visit - Distance Health Virtual Visit Note The patient consented to the use of ambient [employer] software for draft documentation of the visit consistent with [facility] s Notice of Privacy Practices. TELEMEDICINE Subjective Gómez Gasca is a 24 year old female. Patient presents with: Vaginal Discharge HPI Vaginal Discharge: - Onset: Approximately one week ago. - Initially thought to be a yeast infection; progressed to a fishy odor. - Similar episode in April, treated with Flagyl for suspected BV, which resolved symptoms. - Increased frequency of baths and use of feminine wipes noted; concerns about pH imbalance. - No new sexual partners; consistent partner for four years. - LMP ended about 1.5 weeks ago; denies concerns. Dysuria: - Mild burning sensation during urination. - Denies hematuria. - Mild abdominal pain, primarily above the umbilicus; denies significant lower abdominal pain. Review of Systems Gastrointestinal: (+) abdominal pain above the umbilicus Genitourinary: (+) fishy vaginal discharge, (+) dysuria, (-) hematuria PAST MEDICAL HISTORY Diagnosis Date Acne vulgaris 06/03/2024 Coitus painful for female Not sure Pain comes and goes. Not always everytime Hirsutism 06/03/2024 Irregular menstrual cycle 06/03/2024 Menorrhagia with irregular cycle 06/03/2024 NEGATIVE MEDICAL HISTORY Unintended weight gain 06/03/2024 PAST SURGICAL HISTORY Procedure Laterality Date NONE No current outpatient medications on file prior to visit. No current facility-administered medications on file prior to visit. Objective LMP 05/23/2024 Patient's last menstrual period was 05/23/2024. Physical Exam General: No acute distress. Abdomen: mild tenderness with self palpation above the umbilicus Respiratory: respirations are easy and unlabored Neuro: A&O x 3 {1. Vaginal discharge (N89.8) - Recurrent malodorous discharge with mild dysuria; similar episode in April treated successfully with Metronidazole. - No new sexual partners; low suspicion for STIs. - Advised against use of baths and feminine wipes to prevent pH disruption. - Recommended urgent care or express care visit for vaginal swab testing to accurately identify etiology and guide appropriate antibiotic therapy. - Advised to inform the clinic that an in-person visit was recommended to waive the cost of this virtual visit. History and Record Review External record(s) reviewed: prior outpatient record. Differential Diagnoses - Bacterial vaginosis is more likely for the following reason(s): suggested by H&P - Vaginal yeast infection is less likely for the following reason(s): H&P not suggestive Disposition The patient was discharged. Tika Salazar APRN.FURNACE COMBUSTION TESTER documented in this encounter [facility] 06-03-2024 Note HNO ID: [id number] Author: JACKY WALTON APRN.PERCY Service: ? Author Type: Nurse Practitioner Type: Progress Notes Filed: 06/03/2024 08:03 Note Text: Gómez Gasca is a 24 year old female who presents for problem visit of concerns of PCOS. HPI: Periods range from every 2-3 months, lasting 6 days up to 20 days. Periods are heavy - using a tampon every hour. She is sexually active - using withdrawal method for contraception. Reports acne and hirsutism. Reports oily skin. States she is always hot and sweats excessively. Reports sugar cravings. Reports a 90 lb weight gain. 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 Not always everytime NEGATIVE MEDICAL HISTORY PAST SURGICAL HISTORY Procedure Laterality Date NONE FAMILY HISTORY Problem Relation Age of Onset No Known Problems Mother Diabetes Father Social History Tobacco Use Smoking status: Never Smokeless tobacco: Never Vaping Use Vaping status: current everyday user Substances: Nicotine Substance Use Topics Alcohol use: Yes Comment: rarely Drug use: Not Currently Types: Marijuana No current outpatient medications on file. No current facility-administered medications for this visit. Allergies As of Date: 06/03/2024 (No Known Allergies) Fully Assessed 06/03/2024 REVIEW OF SYSTEMS. 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 EXAM: BP 130/72 Ht 5' 6.732 (1.70m) Wt 235 lb (106.6kg) LMP 05/23/2024 BMI 37.10 kg/(m2). GENERAL: pleasant, female in no apparent distress HEENT: Normocephalic, atraumatic, mucus membranes moist, and no lesions DERMATOLOGY: Normal, without lesions, and non-icteric + hirsutism CHEST: Normal inspiratory effort NEURO: alert and oriented x3,exam grossly non-focal EXTREMITIES: normal ASSESSMENT AND PLAN: 1. Irregular menstrual cycle - ICD9: 626.4, ICD10: N92.6 (primary diagnosis) 2. Hirsutism - ICD9: 704.1, ICD10: L68.0 3. Acne vulgaris - ICD9: 706.1, ICD10: L70.0 4. Menorrhagia with irregular cycle - ICD9: 626.2, ICD10: N92.1 5. Unintended weight gain - ICD9: 783.1, ICD10: R63.5 - Symptoms suggest possible PCOS - Obtain labs while fasting - Plan for ultrasound - To follow up to discuss results and management plan - Declines hormonal contraception at this time Jacky Walton APRN.FURNACE COMBUSTION TESTER Medical Decision Making: Problems: Moderate: 1+ chronic illnesses with change Data: Unique test(s) ordered: 3+ Risk: Low: Low risk from testing/treatment Medical Decision Making Level: 4 - Moderate [facility] 06-03-2024 History of Presen t illness Narrative Gómez Gasca is a 24 year old female who presents for problem visit of concerns of PCOS. HPI: Periods range from every 2-3 months, lasting 6 days up to 20 days. Periods are heavy - using a tampon every hour. She is sexually active - using withdrawal method for contraception. Reports acne and hirsutism. Reports oily skin. States she is always hot and sweats excessively. Reports sugar cravings. Reports a 90 lb weight gain. 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 Not always everytime NEGATIVE MEDICAL HISTORY PAST SURGICAL HISTORY Procedure Laterality Date NONE FAMILY HISTORY Problem Relation Age of Onset No Known Problems Mother Diabetes Father Social History Tobacco Use Smoking status: Never Smokeless tobacco: Never Vaping Use Vaping status: current everyday user Substances: Nicotine Substance Use Topics Alcohol use: Yes Comment: rarely Drug use: Not Currently Types: Marijuana No current outpatient medications on file. No current facility-administered medications for this visit. Allergies As of Date: 06/03/2024 (No Known Allergies) Fully Assessed 06/03/2024 REVIEW OF SYSTEMS. 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 EXAM: BP 130/72 Ht 5' 6.732 (1.70m) Wt 235 lb (106.6kg) LMP 05/23/2024 BMI 37.10 kg/(m^2). GENERAL: pleasant, female in no apparent distress HEENT: Normocephalic, atraumatic, mucus membranes moist, and no lesions DERMATOLOGY: Normal, without lesions, and non-icteric + hirsutism CHEST: Normal inspiratory effort NEURO: alert and oriented x3,exam grossly non-focal EXTREMITIES: normal ASSESSMENT AND PLAN: 1. Irregular menstrual cycle - ICD9: 626.4, ICD10: N92.6 (primary diagnosis) 2. Hirsutism - ICD9: 704.1, ICD10: L68.0 3. Acne vulgaris - ICD9: 706.1, ICD10: L70.0 4. Menorrhagia with irregular cycle - ICD9: 626.2, ICD10: N92.1 5. Unintended weight gain - ICD9: 783.1, ICD10: R63.5 - Symptoms suggest possible PCOS - Obtain labs while fasting - Plan for ultrasound - To follow up to discuss results and management plan - Declines hormonal contraception at this time Jacky Walton APRN.CNP Medical Decision Making: Problems: Moderate: 1+ chronic illnesses with change Data: Unique test(s) ordered: 3+ Risk: Low: Low risk from testing/treatment Medical Decision Making Level: 4 - Moderate documented in this encounter [facility] 05-04-2024 Note HNO ID: [id number] Author: BLAINE SINCLAIR APRN.CNP Service: ? Author Type: Nurse Practitioner Type: Progress Notes Filed: 05/04/2024 18:01 Note Text: Telemedicine Visit - Distance Health Virtual Visit Note Patient seen on [employer] Video Visit platform. Location of patient: [place] I have communicated my name and active licensure. The patient's identity and physical location were verified at the time of this visit. Either the patient or their legal senior patient account representative has been informed of the risks and benefits of -- and alternatives to -- treatment through a remote evaluation and consents to proceed with the evaluation remotely. History of Present Illness Gómez Gasca is a 24 year old female who presents for complaint of vaginal discharge that is increasing, with fishy order, and mild itching. Symptoms have been present for 2 day(s) with symptoms that are gradually worsening. Reports was present prior to the onset of her menstrual cycle and appeared resolve while on her menstrual cycle that ended a week ago only to return. Vaginitis ROS: Symptoms include: Positive for: discharge described as malodorous, fishy odor, local irritation, and odor and Negative for: none, pain, lesions, bumps, warts, blisters, and tears Predisposing factors: None Hx of previous vaginitis: rare Sexually active: Yes: STI concerns: No /Lactating: : No: Lactating: No PAST MEDICAL HISTORY Diagnosis Date NEGATIVE MEDICAL HISTORY No past surgical history on file. FAMILY HISTORY Problem Relation Age of Onset No Known Problems Mother Diabetes Father Social History Tobacco Use Smoking status: Never Smokeless tobacco: Never Vaping Use Vaping status: current everyday user Substances: Nicotine Substance Use Topics Alcohol use: Yes Comment: rarely Drug use: Not Currently Types: Marijuana Current Outpatient Medications Medication Sig metroNIDAZOLE (FLAGYL) 500 mg tablet Take 1 tablet by mouth two times a day for 7 days. medroxyPROGESTERone (DEPO-PROVERA) 400 mg/mL susp Inject 400 mg intramuscularly every 12 weeks. (Patient not taking: Reported on 06/08/2023) Mrszuhz-Uamyncodqmfcw-Mdqoudok (EXCEDRIN MIGRAINE) 250-250-65 mg per tablet Take 2 tablets by mouth every 6 hours as needed (Headache). Do not exceed 8 tablets per 24 hours (Patient not taking: Reported on 05/24/2022) DEBLITANE 0.35 mg tablet (Patient not taking: Reported on 05/24/2022) No current facility-administered medications for this visit. ALLERGIES No Known Allergies Video Exam (Examination performed via Video enabled technology) General appearance: Alert, oriented, pleasant, in NAD :Yes Ill appearing :No Lethargic appearing :No Respiratory distress :No Abdomen: non-tender by self palpation CVA Tenderness: non-tender bilaterally by self palpation ASSESSMENT/PLAN: Bacterial vaginal infection (primary encounter diagnosis) - Reviewed Rx for metronidazole and precautions Plan of care/General advice: o Keep vaginal area clean and dry o Shower daily and avoid taking baths o Avoid scented lotions and douching o Encouraged daily probiotics or eating yogurt with live cultures o Avoid sexual activity until your symptoms have completely resolved o Avoid wearing tight or restrictive clothing; cotton underwear is recommended o If you have recurrent vaginal yeast infections, it is important [facility]/or your [employer]. Vaginal yeast infections can be caused by antibiotic use, uncontrolled diabetes mellitus, and other conditions. o If symptoms do not improve recommend having an in-person evaluation. Blaine Sinclair APRN.FURNACE COMBUSTION TESTER History and Record Review External record(s) reviewed: prior outpatient record and prior labs/imaging. Differential Diagnoses - BV is more likely for the following reason(s): suggested by HANDP - Vaginal yeast infection is less likely for the following reason(s): HANDP not suggestive Disposition The patient was discharged. [facility] 05-04-2024 History of Presen t illness Narrative Telemedicine Visit - Distance Health Virtual Visit Note Patient seen on [employer] Video Visit platform. Location of patient: [place] I have communicated my name and active licensure. The patient's identity and physical location were verified at the time of this visit. Either the patient or their legal senior patient account representative has been informed of the risks and benefits of -- and alternatives to -- treatment through a remote evaluation and consents to proceed with the evaluation remotely. History of Present Illness Gómez Gasca is a 24 year old female who presents for complaint of vaginal discharge that is increasing, with fishy order, and mild itching. Symptoms have been present for 2 day(s) with symptoms that are gradually worsening. Reports was present prior to the onset of her menstrual cycle and appeared resolve while on her menstrual cycle that ended a week ago only to return. Vaginitis ROS: Symptoms include: Positive for: discharge described as malodorous, fishy odor, local irritation, and odor and Negative for: none, pain, lesions, bumps, warts, blisters, and tears Predisposing factors: None Hx of previous vaginitis: rare Sexually active: Yes: STI concerns: No /Lactating: : No: Lactating: No PAST MEDICAL HISTORY Diagnosis Date NEGATIVE MEDICAL HISTORY No past surgical history on file. FAMILY HISTORY Problem Relation Age of Onset No Known Problems Mother Diabetes Father Social History Tobacco Use Smoking status: Never Smokeless tobacco: Never Vaping Use Vaping status: current everyday user Substances: Nicotine Substance Use Topics Alcohol use: Yes Comment: rarely Drug use: Not Currently Types: Marijuana Current Outpatient Medications Medication Sig metroNIDAZOLE (FLAGYL) 500 mg tablet Take 1 tablet by mouth two times a day for 7 days. medroxyPROGESTERone (DEPO-PROVERA) 400 mg/mL susp Inject 400 mg intramuscularly every 12 weeks. (Patient not taking: Reported on 06/08/2023) Ujwkeyn-Yrxrjguqnrpvh-Ktiqxnhw (EXCEDRIN MIGRAINE) 250-250-65 mg per tablet Take 2 tablets by mouth every 6 hours as needed (Headache). Do not exceed 8 tablets per 24 hours (Patient not taking: Reported on 05/24/2022) DEBLITANE 0.35 mg tablet (Patient not taking: Reported on 05/24/2022) No current facility-administered medications for this visit. ALLERGIES No Known Allergies Video Exam (Examination performed via Video enabled technology) General appearance: Alert, oriented, pleasant, in NAD :Yes Ill appearing :No Lethargic appearing :No Respiratory distress :No Abdomen: non-tender by self palpation CVA Tenderness: non-tender bilaterally by self palpation ASSESSMENT/PLAN: Bacterial vaginal infection (primary encounter diagnosis) - Reviewed Rx for metronidazole and precautions Plan of care/General advice: o Keep vaginal area clean and dry o Shower daily and avoid taking baths o Avoid scented lotions and douching o Encouraged daily probiotics or eating yogurt with live cultures o Avoid sexual activity until your symptoms have completely resolved o Avoid wearing tight or restrictive clothing; cotton underwear is recommended o If you have recurrent vaginal yeast infections, it is important [facility]/or your [facility]. Vaginal yeast infections can be caused by antibiotic use, uncontrolled diabetes mellitus, and other conditions. o If symptoms do not improve recommend having an in-person evaluation. Blaine Sinclair APRN.CNP History and Record Review External record(s) reviewed: prior outpatient record and prior labs/imaging. Differential Diagnoses - BV is more likely for the following reason(s): suggested by H&P - Vaginal yeast infection is less likely for the following reason(s): H&P not suggestive Disposition The patient was discharged. documented in this encounter [facility] 03-13-2024 Instructions Roderick Rodriguez APRN.CNP - 03/13/2024 2:45 PM EST VAGINAL YEAST INFECTION INTRODUCTION Vaginal yeast infections are a common problem in women. Vaginal yeast infections are also called yeast vaginitis or vaginal candidiasis. The most common symptoms of a yeast infection are itching and irritation of the vulva and around the opening of the vagina. Yeast infections occur mainly in women who are menstruating (having monthly periods). They are less common in postmenopausal women who do not take estrogen and in girls who have not yet started menstruating. VAGINAL YEAST INFECTION SYMPTOMS The most common symptoms of a yeast infection include: Itching or irritation of the vulva and around the vaginal opening. Pain with urination, vulvar soreness or irritation, Pain with intercourse Reddened and swollen vulvar and vaginal tissues. Some women have no abnormal vaginal discharge. Others have white clumpy (curd-like) or watery vaginal discharge. Symptoms of a yeast infection are similar to a number of other conditions, including bacterial vaginosis (a bacterial infection of the vagina), trichomoniasis (a sexually transmitted infection), and dermatitis (irritated skin). It is often not possible to know if itching is caused by yeast or other causes. VAGINAL YEAST INFECTION CAUSE The fungus that causes yeast infections (named Evelyn) normally lives in the gastrointestinal tract and sometimes the vagina. Normally, Evelyn causes no symptoms. However, when there are changes in the normal ludin of the gastrointestinal tract and vagina (caused by medicines, injury, or stress to the immune system), Evelyn can overgrow and cause the symptoms described above. VAGINAL YEAST INFECTION RISK FACTORS In most women, there is no underlying health problem that leads to a yeast infection. There are several risk factors that may increase the chances of developing an infection, including: Antibiotics -- Most antibiotics kill a wide variety of bacteria, including those that normally live in the vagina. These bacteria protect the vagina from the overgrowth of yeast. Some women are prone to yeast infections while taking antibiotics. Hormonal contraceptives (eg, control pills, patch, and vaginal ring) -- The risk of yeast infections may be higher in women who use control methods containing estrogen. Contraceptive devices -- Vaginal sponges, diaphragms, and intrauterine devices (IUDs) may increase the risk of yeast infections. Spermicides do not usually cause yeast infections, although they can cause you to have vaginal or vulvar irritation. Weakened immune system -- Yeast infections are more common in people who have a weakened immune system due to HIV or use of certain medications (steroids, chemotherapy, post-organ transplant medications). -- Vaginal discharge becomes more noticeable during , although yeast infection is not always the cause. Diabetes -- Women with diabetes are at higher risk for yeast infections, especially if blood sugar levels are often higher than normal. Sexual activity -- Vaginal yeast infections are not a sexually transmitted infection. They can occur in women who have never been sexually active, but are more common in women who are sexually active. VAGINAL YEAST INFECTION DIAGNOSIS Yeast infections can be diagnosed with an exam. During the exam, your doctor or nurse will examine your vulva and vagina and swab the vagina to get a sample of discharge. Do not begin treatment at home before being examined. Self-diagnosis?--?Women with vulvar itching or vaginal discharge often assume that their symptoms are caused by a yeast infection and then use a non-prescription treatment. However, in one study, only 11 percent of women accurately diagnosed their infection; women with a previous yeast infection were only slightly more accurate (35 percent correct). Diagnosing and treating yourself: Wastes money (on non-prescription treatment) Wastes time; you will not feel better until you use the right treatment Can make you more itchy and irritated VAGINAL YEAST INFECTION TREATMENT Treatment of a vaginal yeast infection may include a pill that you take by mouth or a vaginal treatment. Vaginal treatment?--?Treatment for a vaginal yeast infection often includes a vaginal cream or tablet. You apply the cream or tablet inside the vagina at bedtime with an applicator. There are prescription and non-prescription treatments, so ask your doctor or nurse which to use. One, three, and seven-day treatments are equally effective. Oral treatment?--?A prescription pill called fluconazole?(Diflucan ) is another option for treating yeast infections. Most women only need one dose, although women with more complicated infections (such as those with underlying medical problems, recurrent yeast infections, or severe signs and symptoms) may require a second dose 72 hours (3 days) after the first dose. Side effects of fluconazole?are mild and infrequent, but may include stomach upset, headache, and rash. Fluconazole interacts with a number of medications; ask your doctor, nurse, or pharmacist if you have concerns. Fluconazole is not usually recommended during the first trimester of due to the potential risk of harm to the fetus. When will I feel better??--?Most yeast infections go away within a few days after starting treatment. However, you may continue to feel itchy and irritated, even after the infection is gone. If you do not get better within a few days after finishing treatment, call your doctor or nurse for advice. RECURRENT VAGINAL YEAST INFECTIONS Between 5 and 8 percent of women have recurrent yeast infections, defined as more than four infections per year. There is no evidence that eating yogurt or other products containing live Lactobacillus acidophilus, or applying these products to the vagina is of any benefit in women with recurrent vaginal yeast infections. Diagnosis?--?As with initial yeast infections, it is important to correctly diagnose recurrent yeast infections. A woman who has frequent signs and symptoms of vulvar or vaginal irritation or itching should be seen by a healthcare provider to ensure that her symptoms are caused by yeast rather than other common problems (eg, other vaginal infections, allergic reaction or sensitivity, eczema). As with initial infections, self-diagnosis is not accurate enough to recommend treatment. Treatment?--?Women with recurrent infections are usually given a longer course of treatment for infections, between 7 and 14 days for a topical (cream or suppository) medication or fluconazole?150 mg by mouth with a second and third dose 3 and 6 days later. Preventive treatment may be recommended after the infection has resolved; this may include fluconazole?(150 mg orally once per week) or clotrimazole?(500 mg vaginal suppositories administered once per week). Treatment of a sexual partner?--?Vaginal yeast infections are not a sexually transmitted infection, although the infection may rarely be passed from one partner to another. Most experts do not recommend treatment of a sexual partner. SUMMARY Vaginal yeast infections are a common problem in women. Itching is the most common symptom of a vaginal yeast infection. Women may also note pain with urination, soreness or irritation, pain with intercourse, or reddened and swollen vulvar and vaginal tissues. There is often little or no vaginal discharge; if present, discharge is typically white and clumpy (curd-like) or thin and watery. Symptoms of a yeast infection are similar to a number of other conditions. A physical examination is needed to determine the cause of symptoms. There are several risk factors that may increase the chances of developing a yeast infection, including use of antibiotics, control, diabetes, , and a weakened immune system (due to chemotherapy, HIV, or certain medications). To diagnose a vaginal yeast infection, a healthcare provider will do an examination. It is important to be seen when symptoms are bothersome and before any treatment is used. Do not begin treatment for a yeast infection before being examined. Treatment of vaginal yeast infection may include a vaginal cream or tablet or a pill taken by mouth. documented in this encounter [facility] 03-13-2024 Note HNO ID: [id number] Author: RODERICK RODRIGUEZ APRN.CNP Service: ? Author Type: Nurse Practitioner Type: Progress Notes Filed: 03/13/2024 14:46 Note Text: Telemedicine Visit - Distance Health Virtual Visit Note Patient seen on [employer] Video Visit platform. Location of patient: [place] I have communicated my name and active licensure. The patient's identity and physical location were verified at the time of this visit. Either the patient or their legal senior patient account representative has been informed of the risks and benefits of -- and alternatives to -- treatment through a remote evaluation and consents to proceed with the evaluation remotely. History of Present Illness Gómez Gasca is a 24 year old female who presents for complaint of vaginal problem. Symptoms have been present for 3 hour(s) with symptoms that are waxing and waning. Vaginitis ROS: Symptoms include: Positive for: discharge described as white, clumpy, local irritation, vulvar itching, and burning and Negative for: odor, pain, lesions, bumps, warts, blisters, and tears Predisposing factors: Antibiotics for ear infection (Augmentin) Hx of previous vaginitis: rare Sexually active: Yes: STI concerns: No /Lactating: : No: Lactating: No LMP: irregular PAST MEDICAL HISTORY Diagnosis Date NEGATIVE MEDICAL HISTORY History reviewed. No pertinent surgical history. FAMILY HISTORY Problem Relation Age of Onset No Known Problems Mother Diabetes Father Social History Tobacco Use Smoking status: Never Smokeless tobacco: Never Vaping Use Vaping status: current everyday user Substances: Nicotine Substance Use Topics Alcohol use: Yes Comment: rarely Drug use: Not Currently Types: Marijuana Current Outpatient Medications Medication Sig amoxicillin-clavulanate potassium (AUGMENTIN) 875-125 mg per tablet Take 1 tablet by mouth two times a day for 7 days. medroxyPROGESTERone (DEPO-PROVERA) 400 mg/mL susp Inject 400 mg intramuscularly every 12 weeks. (Patient not taking: Reported on 06/08/2023) Nnwxzoa-Ikbkepgyrwlye-Qxfwbdhu (EXCEDRIN MIGRAINE) 250-250-65 mg per tablet Take 2 tablets by mouth every 6 hours as needed (Headache). Do not exceed 8 tablets per 24 hours (Patient not taking: Reported on 05/24/2022) DEBLITANE 0.35 mg tablet (Patient not taking: Reported on 05/24/2022) No current facility-administered medications for this visit. ALLERGIES No Known Allergies Video Exam (Examination performed via Video enabled technology) General appearance: Well in appearance Alert, oriented, pleasant, in NAD :Yes Ill appearing :No Lethargic appearing :No Respiratory distress :No Abdomen: non-tender by self palpation CVA Tenderness: non-tender bilaterally by self palpation ASSESSMENT/PLAN: 1. Vaginal evelyn - ICD9: 112.1, ICD10: B37.31 - Fungal etiology suspected based on symptoms will treat; supportive measures discussed and need for in-person exam if failing to improve, resolve or worsen in 72 hours. - FLUCONAZOLE 150 MG TABLET Plan of care/General advice: o Keep vaginal area clean and dry o Shower daily and avoid taking baths o Avoid scented lotions and douching o Encouraged daily probiotics or eating yogurt with live cultures o Avoid sexual activity until your symptoms have completely resolved o Avoid wearing tight or restrictive clothing; cotton underwear is recommended o If you have recurrent vaginal yeast infections, it is important you follow up with your primary care health provider and/or your [employer]. Vaginal yeast infections can be caused by antibiotic use, uncontrolled diabetes mellitus, and other conditions. o If symptoms do not improve recommend having an in-person evaluation. Roderick Rodriguez APRN.[facility] 03-13-2024 History of Presen t illness Narrative Telemedicine Visit - Distance Health Virtual Visit Note Patient seen on [employer] Video Visit platform. Location of patient: [place] I have communicated my name and active licensure. The patient's identity and physical location were verified at the time of this visit. Either the patient or their legal senior patient account representative has been informed of the risks and benefits of -- and alternatives to -- treatment through a remote evaluation and consents to proceed with the evaluation remotely. History of Present Illness Gómez Gasca is a 24 year old female who presents for complaint of vaginal problem. Symptoms have been present for 3 hour(s) with symptoms that are waxing and waning. Vaginitis ROS: Symptoms include: Positive for: discharge described as white, clumpy, local irritation, vulvar itching, and burning and Negative for: odor, pain, lesions, bumps, warts, blisters, and tears Predisposing factors: Antibiotics for ear infection (Augmentin) Hx of previous vaginitis: rare Sexually active: Yes: STI concerns: No /Lactating: : No: Lactating: No LMP: irregular PAST MEDICAL HISTORY Diagnosis Date NEGATIVE MEDICAL HISTORY History reviewed. No pertinent surgical history. FAMILY HISTORY Problem Relation Age of Onset No Known Problems Mother Diabetes Father Social History Tobacco Use Smoking status: Never Smokeless tobacco: Never Vaping Use Vaping status: current everyday user Substances: Nicotine Substance Use Topics Alcohol use: Yes Comment: rarely Drug use: Not Currently Types: Marijuana Current Outpatient Medications Medication Sig amoxicillin-clavulanate potassium (AUGMENTIN) 875-125 mg per tablet Take 1 tablet by mouth two times a day for 7 days. medroxyPROGESTERone (DEPO-PROVERA) 400 mg/mL susp Inject 400 mg intramuscularly every 12 weeks. (Patient not taking: Reported on 06/08/2023) Utrygie-Vaqvaygdhnegr-Bajoxfes (EXCEDRIN MIGRAINE) 250-250-65 mg per tablet Take 2 tablets by mouth every 6 hours as needed (Headache). Do not exceed 8 tablets per 24 hours (Patient not taking: Reported on 05/24/2022) DEBLITANE 0.35 mg tablet (Patient not taking: Reported on 05/24/2022) No current facility-administered medications for this visit. ALLERGIES No Known Allergies Video Exam (Examination performed via Video enabled technology) General appearance: Well in appearance Alert, oriented, pleasant, in NAD :Yes Ill appearing :No Lethargic appearing :No Respiratory distress :No Abdomen: non-tender by self palpation CVA Tenderness: non-tender bilaterally by self palpation ASSESSMENT/PLAN: 1. Vaginal evelyn - ICD9: 112.1, ICD10: B37.31 - Fungal etiology suspected based on symptoms will treat; supportive measures discussed and need for in-person exam if failing to improve, resolve or worsen in 72 hours. - FLUCONAZOLE 150 MG TABLET Plan of care/General advice: o Keep vaginal area clean and dry o Shower daily and avoid taking baths o Avoid scented lotions and douching o Encouraged daily probiotics or eating yogurt with live cultures o Avoid sexual activity until your symptoms have completely resolved o Avoid wearing tight or restrictive clothing; cotton underwear is recommended o If you have recurrent vaginal yeast infections, it is important you follow up with your primary care health provider and/or your [employer]. Vaginal yeast infections can be caused by antibiotic use, uncontrolled diabetes mellitus, and other conditions. o If symptoms do not improve recommend having an in-person evaluation. Roderick Rodriguez APRN.CNP documented in this encounter [facility] 03-09-2024 Telephone encounter Note Patient given results and verbalized understanding of instructions given. Rupinder Padgett MA [facility] 03-09-2024 Miscellaneous Notes Patient given results and verbalized understanding of instructions given. Rupinder Padgett MA Please notify that covid/flu/rsv testing negative. Continue with plan of care as discussed during visit. documented in this encounter [facility] 03-09-2024 Telephone encounter Note Please notify that covid/flu/rsv testing negative. Continue with plan of care as discussed during visit. [facility] Work Phone: 03-08-2024 Note Addended by: LUDIVINA WEI on: 03/08/2024 07:48 PM Modules accepted: Orders [facility] 03-08-2024 Miscellaneous Notes Addended by: LUDIVINA WEI on: 03/08/2024 07:48 PM Modules accepted: Orders documented in this encounter [facility] 03-08-2024 Note HNO ID: [id number] Author: LUDIVINA WEI APRN.PERCY Service: ? Author Type: Nurse Practitioner Type: Progress Notes Filed: 03/08/2024 19:45 Note Text: This note was created using [employer]. Subjective Gómez Gasca is a 24 year old female. 24 year old female with PMH asthma presents for illness. 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 No speech language pathology assistant was used. Cough This is a new problem. The current episode started more than 2 days ago. The problem occurs constantly. The problem has not changed since onset.Cough characteristics: +productive sputum. There has been no fever. Pertinent negatives include no chest pain, no chills, no sweats, no weight loss, no ear congestion, no ear pain, no headaches, no rhinorrhea, no sore throat, no myalgias, no shortness of breath, no wheezing and no eye redness. She has tried nothing for the symptoms. The treatment provided no relief. Her past medical history does not include bronchitis, pneumonia, bronchiectasis, COPD, emphysema or asthma. PAST MEDICAL HISTORY Diagnosis Date NEGATIVE MEDICAL HISTORY No past surgical history on file. ALLERGIES Patient has no known allergies. MEDICATIONS amoxicillin-clavulanate potassium (AUGMENTIN) 875-125 mg per tablet Take 1 tablet by mouth two times a day for 7 days. medroxyPROGESTERone (DEPO-PROVERA) 400 mg/mL susp Inject 400 mg intramuscularly every 12 weeks. (Patient not taking: Reported on 06/08/2023) Jmyzesl-Csjpiqtsxetqq-Jztjuojq (EXCEDRIN MIGRAINE) 250-250-65 mg per tablet Take 2 tablets by mouth every 6 hours as needed (Headache). Do not exceed 8 tablets per 24 hours (Patient not taking: Reported on 05/24/2022) DEBLITANE 0.35 mg tablet (Patient not taking: Reported on 05/24/2022) FAMILY HISTORY Problem Relation Age of Onset No Known Problems Mother Diabetes Father Social History Tobacco Use Smoking status: Never Smokeless tobacco: Never Vaping Use Vaping status: current everyday user Substances: Nicotine Substance Use Topics Alcohol use: Yes Comment: rarely Drug use: Not Currently Types: Marijuana Review of Systems Constitutional: Positive for fatigue and fever. Negative for chills and weight loss. HENT: Positive for congestion. Negative for ear pain, rhinorrhea and sore throat. Eyes: Negative for pain, discharge, redness and itching. Respiratory: Positive for cough. Negative for apnea, chest tightness, shortness of breath and wheezing. Cardiovascular: Negative for chest pain. Gastrointestinal: Negative for abdominal pain, diarrhea, nausea and vomiting. Musculoskeletal: Negative for myalgias. Skin: Negative for color change, pallor, rash and wound. Allergic/Immunologic: Negative for environmental allergies, food allergies and immunocompromised state. Neurological: Negative for dizziness, facial asymmetry and headaches. Hematological: Negative for adenopathy. Does not bruise/bleed easily. Psychiatric/Behavioral: Negative for agitation and behavioral problems. Objective BP 110/78 Pulse 84 Temp 36.7 ?C (98.1 ?F) (Tympanic) Resp 18 Wt 107.7 kg (237 lb 7 oz) LMP (LMP Unknown) SpO2 97% BMI 37.19 kg/m? Physical Exam Vitals and nursing note reviewed. Constitutional: General: She is not in acute distress. Appearance: Normal appearance. She is normal weight. She is not ill-appearing, toxic-appearing or diaphoretic. HENT: Head: Normocephalic and atraumatic. Right Ear: Ear canal and external ear normal. Left Ear: Ear canal and external ear normal. Ears: Comments: Right TM erythematous and bulging Nose: Congestion present. No rhinorrhea. Mouth/Throat: Mouth: Mucous membranes are moist. Pharynx: Posterior oropharyngeal erythema present. No oropharyngeal exudate. Eyes: General: Right eye: No discharge. Left eye: No discharge. Extraocular Movements: Extraocular movements intact. Conjunctiva/sclera: Conjunctivae normal. Pupils: Pupils are equal, round, and reactive to light. Cardiovascular: Rate and Rhythm: Normal rate and regular rhythm. Pulses: Normal pulses. Heart sounds: Normal heart sounds. No murmur heard. No friction rub. Pulmonary: Effort: Pulmonary effort is normal. No respiratory distress. Breath sounds: Normal breath sounds. No stridor. No wheezing, rhonchi or rales. Chest: Chest wall: No tenderness. Abdominal: General: Abdomen is flat. There is no distension. Palpations: Abdomen is soft. There is no mass. Tenderness: There is no abdominal tenderness. There is no right CVA tenderness, left CVA tenderness, guarding or rebound. Hernia: No hernia is present. Musculoskeletal: General: No swelling, tenderness, deformity or signs of injury. Normal range of motion. Cervical back: No (more content not included)... [facility] 03-08-2024 History of Presen t illness Narrative This note was created using [employer]. Subjective Gómez Gasca is a 24 year old female. 24 year old female with PMH asthma presents for illness. 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 No speech language pathology assistant was used. Cough This is a new problem. The current episode started more than 2 days ago. The problem occurs constantly. The problem has not changed since onset.Cough characteristics: +productive sputum. There has been no fever. Pertinent negatives include no chest pain, no chills, no sweats, no weight loss, no ear congestion, no ear pain, no headaches, no rhinorrhea, no sore throat, no myalgias, no shortness of breath, no wheezing and no eye redness. She has tried nothing for the symptoms. The treatment provided no relief. Her past medical history does not include bronchitis, pneumonia, bronchiectasis, COPD, emphysema or asthma. PAST MEDICAL HISTORY Diagnosis Date NEGATIVE MEDICAL HISTORY No past surgical history on file. ALLERGIES Patient has no known allergies. MEDICATIONS amoxicillin-clavulanate potassium (AUGMENTIN) 875-125 mg per tablet Take 1 tablet by mouth two times a day for 7 days. medroxyPROGESTERone (DEPO-PROVERA) 400 mg/mL susp Inject 400 mg intramuscularly every 12 weeks. (Patient not taking: Reported on 06/08/2023) Ewqhvdj-Toyjvuvozliup-Ivoktois (EXCEDRIN MIGRAINE) 250-250-65 mg per tablet Take 2 tablets by mouth every 6 hours as needed (Headache). Do not exceed 8 tablets per 24 hours (Patient not taking: Reported on 05/24/2022) DEBLITANE 0.35 mg tablet (Patient not taking: Reported on 05/24/2022) FAMILY HISTORY Problem Relation Age of Onset No Known Problems Mother Diabetes Father Social History Tobacco Use Smoking status: Never Smokeless tobacco: Never Vaping Use Vaping status: current everyday user Substances: Nicotine Substance Use Topics Alcohol use: Yes Comment: rarely Drug use: Not Currently Types: Marijuana Review of Systems Constitutional: Positive for fatigue and fever. Negative for chills and weight loss. HENT: Positive for congestion. Negative for ear pain, rhinorrhea and sore throat. Eyes: Negative for pain, discharge, redness and itching. Respiratory: Positive for cough. Negative for apnea, chest tightness, shortness of breath and wheezing. Cardiovascular: Negative for chest pain. Gastrointestinal: Negative for abdominal pain, diarrhea, nausea and vomiting. Musculoskeletal: Negative for myalgias. Skin: Negative for color change, pallor, rash and wound. Allergic/Immunologic: Negative for environmental allergies, food allergies and immunocompromised state. Neurological: Negative for dizziness, facial asymmetry and headaches. Hematological: Negative for adenopathy. Does not bruise/bleed easily. Psychiatric/Behavioral: Negative for agitation and behavioral problems. Objective BP 110/78 Pulse 84 Temp 36.7 C (98.1 F) (Tympanic) Resp 18 Wt 107.7 kg (237 lb 7 oz) LMP (LMP Unknown) SpO2 97% BMI 37.19 kg/m Physical Exam Vitals and nursing note reviewed. Constitutional: General: She is not in acute distress. Appearance: Normal appearance. She is normal weight. She is not ill-appearing, toxic-appearing or diaphoretic. HENT: Head: Normocephalic and atraumatic. Right Ear: Ear canal and external ear normal. Left Ear: Ear canal and external ear normal. Ears: Comments: Right TM erythematous and bulging Nose: Congestion present. No rhinorrhea. Mouth/Throat: Mouth: Mucous membranes are moist. Pharynx: Posterior oropharyngeal erythema present. No oropharyngeal exudate. Eyes: General: Right eye: No discharge. Left eye: No discharge. Extraocular Movements: Extraocular movements intact. Conjunctiva/sclera: Conjunctivae normal. Pupils: Pupils are equal, round, and reactive to light. Cardiovascular: Rate and Rhythm: Normal rate and regular rhythm. Pulses: Normal pulses. Heart sounds: Normal heart sounds. No murmur heard. No friction rub. Pulmonary: Effort: Pulmonary effort is normal. No respiratory distress. Breath sounds: Normal breath sounds. No stridor. No wheezing, rhonchi or rales. Chest: Chest wall: No tenderness. Abdominal: General: Abdomen is flat. There is no distension. Palpations: Abdomen is soft. There is no mass. Tenderness: There is no abdominal tenderness. There is no right CVA tenderness, left CVA tenderness, guarding or rebound. Hernia: No hernia is present. Musculoskeletal: General: No swelling, tenderness, deformity or signs of injury. Normal range of motion. Cervical back: Normal range of motion and neck supple. No rigidity. Right lower leg: No edema. Left lower leg: No edema. Lymphadenopathy: Cervical: No cervical adenopathy. Skin: General: Skin is warm and dry. Capillary Refill: Capillary refill takes less than 2 seconds. Coloration: Skin is not jaundiced or pale. Findings: No bruising, erythema, lesion or rash. Neurological: General: No focal deficit present. Mental Status: She is alert and oriented to person, place, and time. Cranial Nerves: No cranial nerve deficit. Sensory: No sensory deficit. Motor: No weakness. Coordination: Coordination normal. Gait: Gait normal. Psychiatric: Mood and Affect: Mood normal. Behavior: Behavior normal. Thought Content: Thought content normal. Judgment: Judgment normal. Assessment and Plan ASSESSMENT/PLAN: 1. Acute otitis media, right - ICD9: 382.9, ICD10: H66.91 (primary diagnosis) - Will begin treatment with as per antibiotic as written, see orders - The patient should also be given OTC cough and cold meds as needed, warm salt water gargles, throat lozenges and/or OTC throat spray as needed, and nasal saline gtts and suction prn for the first 5-7 days of treatment. - Supportive care with plenty of fluids, rest, and analgesia prn. - Follow up in 3-5 days if symptoms persist or worsen. 2. URI, acute - ICD9: 465.9, ICD10: J06.9 - Symptomatic treatment with prn analgesia - Supportive care with fluids and rest - The patient may also use OTC cough and cold meds as needed and warm salt water gargles, throat lozenges and/or OTC throat spray as needed. - Follow up in 3-5 days if symptoms persist or sooner if worsening of symptoms Ludivina Wei APRN.PERCY documented in this encounter [facility] 03-01-2024 Note HNO ID: [id number] Author: IRENE REINOSO PA-C Service: ? Author Type: Physician Chief Operator Reformer Type: Progress Notes Filed: 03/03/2024 07:27 Note Text: Irene Reinoso PA-C Department of Orthopaedics Orthopaedics [address] [facility] [address] Dept: [phone] Dept March 01, 2024 CHIEF COMPLAINT: New and Injury of the Right Wrist and Referred by Deon De Luna Ms. Gómez Gasca is a 24 year old female who presents with an injury to her right wrist which occurred on February 03, she was ice-skating when she fell, she reached out with her right hand to brace herself. She was seen in the urgent care and had an x-ray, x-ray was negative at that time and she was placed into a removable brace. She continued to have discomfort in the wrist and so she returned to the urgent care on 02/15 and had repeat x-rays, at that time she was told that she had a buckle fracture. She was placed into a splint when she is wearing at today's visit. 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 She has been taking Tylenol and ibuprofen for the pain which is helping somewhat. Pain today is a 6 out of 10 aching. She is right-hand dominant and denies any previous right wrist injuries. ASSESSMENT: S52.501A Closed fracture of distal end of right radius, unspecified fracture morphology, initial encounter (primary encounter diagnosis) PLAN: She certainly has a distal radius fracture, there is some evidence of new healing. Since her injury is already close to a month old we will get her into a removable brace that she can wear for the next 2 weeks. Encouraged her to remove the brace to start working on some gentle range of motion exercises. We discussed continuing with the [id number] Tylenol and ibuprofen to help with pain and discomfort. She can discontinue the brace and 2 weeks. I did offer some occupational therapy if she continues to have pain and stiffness for the long and her recovery. Ms. Gómez Gasca was advised as to contrast therapies and/or to take analgesics/anti-inflammatories as needed and all contraindications were reviewed. OBJECTIVE: Ms. Gómez Gasca is a pleasant 24 year old in no apparent distress. Gen:There were no vitals taken for this visit. nl development, obese, no deformities ENT: Normocephalic, normal hearing, moist mucosa CV: Pulses:Radial= 2+ and symmetric, capillary refill < 2 secs, no peripheral edema/varicosities Skin: no rash, bruising or lesions. Good turgor. Psych: cooperative and appropriate, alert and oriented x 3, good mood and affect. Musculoskeletal: Right wrist is without edema or ecchymosis. Patient is tender to palpation over the distal radius. Patient is able to fully pronate the wrist and fully supinate the wrist with subjective discomfort on supination. Wrist extension to about 80 degrees with subjective discomfort. Sensation is intact to the radial 3 digits on the right. Imaging: * * *Final Report* * * DATE OF EXAM: Mar 01 2024 8:29AM [id number] - XR WRIST 3V PA/LAT/OBL RT / PROCEDURE REASON: Pain in right wrist * * * * Physician Interpretation * * * * TITLE: XR WRIST 3V PA/LAT/OBL RT CLINICAL INDICATION: Wrist pain TECHNIQUE: 3 view radiographic study of the right breast COMPARISON: Radiograph dated 02/16/2020 FINDINGS: Healing transverse nondisplaced fracture of the distal radial metaphysis with healing manifest by bandlike sclerosis. No additional osseous injury identified. Joint spaces preserved. IMPRESSION IMPRESSION: Healing subacute nondisplaced transverse fracture of the distal radial metaphysis. Account Engineer: PSCB Transcribe Date/Time: Mar 02 2024 4:17P Dictated by : NATTY CAPONE MD This examination was interpreted and the report reviewed and electronically signed by: NATTY CAPONE MD on Mar 02 2024 4:18PM EST Supporting Subjective Information Below: Past Surgical History: History reviewed. No pertinent surgical history. Medications: Current Outpatient Medications Medication Sig medroxyPROGESTERone (DEPO-PROVERA) 400 mg/mL susp Inject 400 mg intramuscularly every 12 weeks. (Patient not taking: Reported on 06/08/2023) Bgefgys-Bkzqulnsdpzcy-Zmvunsuj (EXCEDRIN MIGRAINE) 250-250-65 mg per tablet Take 2 tablets by mouth every 6 hours as needed (Headache). Do not exceed 8 tablets per 24 hours (Patient not taking: Reported on 05/24/2022) DEBLITANE 0.35 mg tablet (Patient not taking: Reported on 05/24/2022) No current facility-administered medications for this visit. Allergies: Patient has no known allergies. ROS: General (negative for fatigue, malaise, weight loss/gain) HEENT (negative for headache, earache, recent vision changes, sinus pain, sore throat) Respiratory (no recent shortness of breath, hemoptysis) CV (negative for chest tightness, palpitations) Musculoskeletal (see HPI) Psych (no depression, anxiety) (more content not included)... [facility] 03-01-2024 History of Presen t illness Narrative Irene Reinoso PA-C Department of Orthopaedics Orthopaedics [address] [facility] [address] Dept: [phone] Dept March 01, 2024 CHIEF COMPLAINT: New and Injury of the Right Wrist and Referred by Deon De Luna Ms. Gómez Gasca is a 24 year old female who presents with an injury to her right wrist which occurred on February 03, she was ice-skating when she fell, she reached out with her right hand to brace herself. She was seen in the urgent care and had an x-ray, x-ray was negative at that time and she was placed into a removable brace. She continued to have discomfort in the wrist and so she returned to the urgent care on 02/15 and had repeat x-rays, at that time she was told that she had a buckle fracture. She was placed into a splint when she is wearing at today's visit. 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 She has been taking Tylenol and ibuprofen for the pain which is helping somewhat. Pain today is a 6 out of 10 aching. She is right-hand dominant and denies any previous right wrist injuries. ASSESSMENT: S52.501A Closed fracture of distal end of right radius, unspecified fracture morphology, initial encounter (primary encounter diagnosis) PLAN: She certainly has a distal radius fracture, there is some evidence of new healing. Since her injury is already close to a month old we will get her into a removable brace that she can wear for the next 2 weeks. Encouraged her to remove the brace to start working on some gentle range of motion exercises. We discussed continuing with the [id number]-vef-[id number] Tylenol and ibuprofen to help with pain and discomfort. She can discontinue the brace and 2 weeks. I did offer some occupational therapy if she continues to have pain and stiffness for the long and her recovery. Ms. Gómez Gasca was advised as to contrast therapies and/or to take analgesics/anti-inflammatories as needed and all contraindications were reviewed. OBJECTIVE: Ms. Gómez Gasca is a pleasant 24 year old in no apparent distress. Gen:There were no vitals taken for this visit. nl development, obese, no deformities ENT: Normocephalic, normal hearing, moist mucosa CV: Pulses:Radial= 2+ and symmetric, capillary refill < 2 secs, no peripheral edema/varicosities Skin: no rash, bruising or lesions. Good turgor. Psych: cooperative and appropriate, alert and oriented x 3, good mood and affect. Musculoskeletal: Right wrist is without edema or ecchymosis. Patient is tender to palpation over the distal radius. Patient is able to fully pronate the wrist and fully supinate the wrist with subjective discomfort on supination. Wrist extension to about 80 degrees with subjective discomfort. Sensation is intact to the radial 3 digits on the right. Imaging: * * *Final Report* * * DATE OF EXAM: Mar 01 2024 8:29AM [id number] - XR WRIST 3V PA/LAT/OBL RT / PROCEDURE REASON: Pain in right wrist * * * * Physician Interpretation * * * * TITLE: XR WRIST 3V PA/LAT/OBL RT CLINICAL INDICATION: Wrist pain TECHNIQUE: 3 view radiographic study of the right breast COMPARISON: Radiograph dated 02/16/2020 FINDINGS: Healing transverse nondisplaced fracture of the distal radial metaphysis with healing manifest by bandlike sclerosis. No additional osseous injury identified. Joint spaces preserved. IMPRESSION IMPRESSION: Healing subacute nondisplaced transverse fracture of the distal radial metaphysis. Account Engineer: KATHRINE Transcribe Date/Time: Mar 02 2024 4:17P Dictated by : NATTY CAPONE MD This examination was interpreted and the report reviewed and electronically signed by: NATTY CAPONE MD on Mar 02 2024 4:18PM EST Supporting Subjective Information Below: Past Surgical History: History reviewed. No pertinent surgical history. Medications: Current Outpatient Medications Medication Sig medroxyPROGESTERone (DEPO-PROVERA) 400 mg/mL susp Inject 400 mg intramuscularly every 12 weeks. (Patient not taking: Reported on 06/08/2023) Uwoknhp-Arxaoeqbyafio-Lzonliax (EXCEDRIN MIGRAINE) 250-250-65 mg per tablet Take 2 tablets by mouth every 6 hours as needed (Headache). Do not exceed 8 tablets per 24 hours (Patient not taking: Reported on 05/24/2022) DEBLITANE 0.35 mg tablet (Patient not taking: Reported on 05/24/2022) No current facility-administered medications for this visit. Allergies: Patient has no known allergies. ROS: General (negative for fatigue, malaise, weight loss/gain) HEENT (negative for headache, earache, recent vision changes, sinus pain, sore throat) Respiratory (no recent shortness of breath, hemoptysis) CV (negative for chest tightness, palpitations) Musculoskeletal (see HPI) Psych (no depression, anxiety) This note was partially generated using [employer] voice recognition system, and there may be some incorrect words, spellings, and punctuation that were not noted in checking the note before saving. Irene Reinoso PA-C Patient presents with: Right Wrist - New, Injury Referred by Deon De Luna AMB ROOMING INTAKE FLOWSHEET DATA Pain Pain Level: 6 Pain Location: Wrist-Right Description: Aching, Sore, Throbbing Duration Units: Weeks Frequency: Continuous Intervention/Comfort measure: Cold, Heat, Pillow support, Splinting Patient states on 02/04/24 she was ice skating and fell. She is not sure if she tried to catch herself with that hand. Had x-ray done. She was to have a repeat x-ray done a week later and did not due to at the time no health insurance. She continued to have pain and went to Urgent care on 02/15 and new x-rays done. She was put in a splint but removed it this morning and has been wearing wrist brace given to her by the ER. Patient is left hand dominant, but does everything with her right. 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 Taking Tylenol and Ibuprofen for the pain and helps some. New x-ray done today. documented in this encounter [facility] 03-01-2024 Note HNO ID: [id number] Author: MISSY SUN MA Service: ? Author Type: Shoulder Puncher Type: Progress Notes Filed: 03/03/2024 07:27 Note Text: Patient presents with: Right Wrist - New, Injury Referred by Deon De Luna AMB ROOMING INTAKE FLOWSHEET DATA Pain Pain Level: 6 Pain Location: Wrist-Right Description: Aching, Sore, Throbbing Duration Units: Weeks Frequency: Continuous Intervention/Comfort measure: Cold, Heat, Pillow support, Splinting Patient states on 02/04/24 she was ice skating and fell. She is not sure if she tried to catch herself with that hand. Had x-ray done. She was to have a repeat x-ray done a week later and did not due to at the time no health insurance. She continued to have pain and went to Urgent care on 02/15 and new x-rays done. She was put in a splint but removed it this morning and has been wearing wrist brace given to her by the ER. Patient is left hand dominant, but does everything with her right. 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 Taking Tylenol and Ibuprofen for the pain and helps some. New x-ray done today. [facility] 03-01-2024 History of Presen t illness Narrative Radiology Service Progress Note PATIENT NAME: Gómez Gasca DATE OF SERVICE: March 01, 2024 TIME: 11:43 AM PATIENT IDENTITY VERIFICATION COMPLETED USING TWO (2) IDENTIFIERS: Name and Date of confirmed by patient verbally. FALL SCREENING: Has the patient had 2 falls in the last year or 1 fall with injury or currently using an Ambulatory Assistive Device (Walker, Cane, Wheelchair, Crutches, etc.)? Yes, Patient High Risk for Falls What interventions were put in place to prevent falls during this visit? Increased Observations by Caregivers PATIENT GENDER DATA: Female. status: : No status: NO. PATIENT RELEVANT IMPLANT DATA REVIEWED: Not Applicable PATIENT PRESENTS WITH AN IMPLANTABLE OR ATTACHED PERSONNEL SCHEDULER: No RADIOLOGY DEPARTMENT: General X-ray: Exam(s) Completed: Upper Extremity X-Ray(s): Wrist, right PERIPHERAL IV DATA: Not applicable SIGNED BY: RT Ariel(R) March 01, 2024 11:43 AM documented in this encounter [facility] 03-01-2024 Note HNO ID: [id number] Author: RUPINDER DAVIES RT(R) Service: ? Author Type: Technologist Type: Progress Notes Filed: 03/01/2024 11:44 Note Text: Radiology Service Progress Note PATIENT NAME: Gómez Gasca DATE OF SERVICE: March 01, 2024 TIME: 11:43 AM PATIENT IDENTITY VERIFICATION COMPLETED USING TWO (2) IDENTIFIERS: Name and Date of confirmed by patient verbally. FALL SCREENING: Has the patient had 2 falls in the last year or 1 fall with injury or currently using an Ambulatory Assistive Device (Walker, Cane, Wheelchair, Crutches, etc.)? Yes, Patient High Risk for Falls What interventions were put in place to prevent falls during this visit? Increased Observations by Caregivers PATIENT GENDER DATA: Female. status: : No status: NO. PATIENT RELEVANT IMPLANT DATA REVIEWED: Not Applicable PATIENT PRESENTS WITH AN IMPLANTABLE OR ATTACHED PERSONNEL SCHEDULER: No RADIOLOGY DEPARTMENT: General X-ray: Exam(s) Completed: Upper Extremity X-Ray(s): Wrist, right PERIPHERAL IV DATA: Not applicable SIGNED BY: RT Ariel(R) March 01, 2024 11:43 AM [facility] 02-24-2024 Telephone encounter Note I called and spoke with the patient. Unfortunately, Dr. Pickard will not be in [place] on 03/11/2024. Patient has scheduled a sooner appointment with Irene Reinoso PA-C on 03/01/2024. [facility] 02-24-2024 Miscellaneous Notes I called and spoke with the patient. Unfortunately, Dr. Pickard will not be in [place] on 03/11/2024. Patient has scheduled a sooner appointment with Irene Reinoso PA-C on 03/01/2024. Looks like pt is following up with Dr Pickard in [place]. Patient calling to check on status of appt. Still scheduled for 03/11. She can be reached at [phone] Magui Lawrence LPN Splint or Velcro brace for now is fine. Office when available in a week or two. Please see Express care visit and fracture to rt wrist , sent to [facility] to schedule for a hard cast, please advise the patient. documented in this encounter [facility] 02-24-2024 Telephone encounter Note Called pt to clarify if she wants to follow up with Dr Barboza for her right wrist or if she chooses to stay with Dr Pickard, which she has an appt scheduled 03/11. Asked her to My chart message me her wishes. [facility] 02-24-2024 Miscellaneous Notes Called pt to clarify if she wants to follow up with Dr Barboza for her right wrist or if she chooses to stay with Dr Pickard, which she has an appt scheduled 03/11. Asked her to My chart message me her wishes. documented in this encounter [facility] 02-24-2024 Telephone encounter Note Looks like pt is following up with Dr Pickard in [place]. [facility] 02-23-2024 Telephone encounter Note Patient calling to check on status of appt. Still scheduled for 03/11. She can be reached at [phone] Maugi Lawrence LPN [facility] 02-20-2024 Telephone encounter Note Splint or Velcro brace for now is fine. Office when available in a week or two. [facility] Work Phone: 02-19-2024 Telephone encounter Note Please see Express care visit and fracture to rt wrist , sent to [facility] to schedule for a hard cast, please advise the patient. [facility] 02-16-2024 History of Presen t illness Narrative Radiology Service Progress Note PATIENT NAME: Gómez Gasca DATE OF SERVICE: February 16, 2024 TIME: 6:10 PM PATIENT IDENTITY VERIFICATION COMPLETED USING TWO (2) IDENTIFIERS: Name and Date of confirmed by patient verbally. FALL SCREENING: Has the patient had 2 falls in the last year or 1 fall with injury or currently using an Ambulatory Assistive Device (Walker, Cane, Wheelchair, Crutches, etc.)? No PATIENT GENDER DATA: Female. status: : No status: NO. PATIENT RELEVANT IMPLANT DATA REVIEWED: Not Applicable PATIENT PRESENTS WITH AN IMPLANTABLE OR ATTACHED PERSONNEL SCHEDULER: No RADIOLOGY DEPARTMENT: General X-ray: Exam(s) Completed: Upper Extremity X-Ray(s): Wrist, right PERIPHERAL IV DATA: Not applicable SIGNED BY: RT Aissatou(R) February 16, 2024 6:10 PM documented in this encounter [facility] 02-16-2024 Note HNO ID: [id number] Author: MARIA GUADALUPE MANZANO RT(R) Service: Radiology Author Type: Technologist Type: Progress Notes Filed: 02/16/2024 18:17 Note Text: Radiology Service Progress Note PATIENT NAME: Gómez Gasca DATE OF SERVICE: February 16, 2024 TIME: 6:10 PM PATIENT IDENTITY VERIFICATION COMPLETED USING TWO (2) IDENTIFIERS: Name and Date of confirmed by patient verbally. FALL SCREENING: Has the patient had 2 falls in the last year or 1 fall with injury or currently using an Ambulatory Assistive Device (Walker, Cane, Wheelchair, Crutches, etc.)? No PATIENT GENDER DATA: Female. status: : No status: NO. PATIENT RELEVANT IMPLANT DATA REVIEWED: Not Applicable PATIENT PRESENTS WITH AN IMPLANTABLE OR ATTACHED PERSONNEL SCHEDULER: No RADIOLOGY DEPARTMENT: General X-ray: Exam(s) Completed: Upper Extremity X-Ray(s): Wrist, right PERIPHERAL IV DATA: Not applicable SIGNED BY: RT Aissatou(Rachelle) February 16, 2024 6:10 PM [facility] 02-16-2024 Note HNO ID: [id number] Author: STEW DE LUNA APRN.[employer] TE[employer] Service: ? Author Type: Nurse Practitioner Type: Progress Notes Filed: 02/16/2024 19:33 Note Text: Subjective HPI Nontoxic-appearing female presents urgent care chief complaint right wrist pain. Duration of symptoms 2 weeks. Close ice-skating when she fell on ice. Landed on outstretched wrist. [id number]. Presented to the ED in [facility]. X-ray was negative. Follows up today with persistent pain. Has been wearing a wrist splint. This is helped some. Pain is improving slightly but is still present. No weakness. No numbness or tingling. Denies any other concerns. Past medical history prescription medications allergies reviewed. .Patient presents with: Wrist Pain: right x 2 weeks after fall No past medical history on file. No past surgical history on file. ALLERGIES Patient has no known allergies. MEDICATIONS medroxyPROGESTERone (DEPO-PROVERA) 400 mg/mL susp Inject 400 mg intramuscularly every 12 weeks. (Patient not taking: Reported on 06/08/2023) Jnvzblu-Hgzdwtexiwhly-Vjrybaeu (EXCEDRIN MIGRAINE) 250-250-65 mg per tablet Take 2 tablets by mouth every 6 hours as needed (Headache). Do not exceed 8 tablets per 24 hours (Patient not taking: Reported on 05/24/2022) DEBLITANE 0.35 mg tablet (Patient not taking: Reported on 05/24/2022) No family history on file. Social History Tobacco Use Smoking status: Never Smokeless tobacco: Never Vaping Use Vaping status: current everyday user Substances: Nicotine Substance Use Topics Alcohol use: Never Drug use: Yes Types: Marijuana BP 124/78 Pulse 88 Temp 36.4 ?C (97.6 ?F) Resp 16 Wt 108.5 kg (239 lb 3.2 oz) LMP (LMP Unknown) SpO2 98% BMI 37.46 kg/m? Review of Systems Constitutional: Negative for chills, fever and malaise/fatigue. Musculoskeletal: Positive for falls and joint pain. Negative for back pain, myalgias and neck pain. Neurological: Negative for dizziness, loss of consciousness, weakness and headaches. Objective Physical Exam Constitutional: General: She is not in acute distress. Appearance: She is not toxic-appearing. HENT: Head: Normocephalic. Nose: Nose normal. Eyes: Pupils: Pupils are equal, round, and reactive to light. Cardiovascular: Rate and Rhythm: Normal rate. Pulmonary: Effort: Pulmonary effort is normal. No respiratory distress. Musculoskeletal: Right forearm: Normal. Right wrist: Tenderness, bony tenderness and snuff box tenderness present. No swelling or deformity. Normal range of motion. Normal pulse. Right hand: No swelling, tenderness or bony tenderness. Normal range of motion. Normal strength. There is no disruption of two-point discrimination. Normal capillary refill. Normal pulse. Cervical back: Normal range of motion. Comments: Neurovascular tact. No abnormal findings noted on neuroexam. Full strength. No decreased range of motion of Skin: General: Skin is warm and dry. Neurological: General: No focal deficit present. Mental Status: She is alert. ASSESSMENT/PLAN: 1. Right wrist pain - ICD9: 719.43, ICD10: M25.531 - XR WRIST INJURY 4V PA/LAT/OBL/SCAPH RIGHT - CONSULT TO ORTHOPAEDICS IMPRESSION: Possible buckle fracture along the dorsal cortex of the RIGHT distal radius. Possible fracture noted on x-ray. Patient placed in volar splint. Splint comprised of 4 inch Ortho-Glass. Neurovascular status checked pre and post splint location abnormal findings. Patient was educated on supportive therapies. Patient will follow up with primary care provider as needed. Patient was instructed to immediately proceed to emergency room for any new, worsening, or symptoms lasting longer than anticipated. The patient's clinical presentation is otherwise unremarkable at this time. Based on exam and clinical finding, the patient is stable for discharge. Plan of care was discussed with patient. Patient verbalizes understanding and agrees to plan of care. This note was generated using [employer] software. It may contain errors in wording, punctuation, or spelling. Stew De Luna APRN.[facility] 02-16-2024 History of Presen t illness Narrative Subjective HPI Nontoxic-appearing female presents urgent care chief complaint right wrist pain. Duration of symptoms 2 weeks. Close ice-skating when she fell on ice. Landed on outstretched wrist. [id number]. Presented to the ED in [facility]. X-ray was negative. Follows up today with persistent pain. Has been wearing a wrist splint. This is helped some. Pain is improving slightly but is still present. No weakness. No numbness or tingling. Denies any other concerns. Past medical history prescription medications allergies reviewed. .Patient presents with: Wrist Pain: right x 2 weeks after fall No past medical history on file. No past surgical history on file. ALLERGIES Patient has no known allergies. MEDICATIONS medroxyPROGESTERone (DEPO-PROVERA) 400 mg/mL susp Inject 400 mg intramuscularly every 12 weeks. (Patient not taking: Reported on 06/08/2023) Fxtueva-Moiudjzmbwifm-Uxrmgpwh (EXCEDRIN MIGRAINE) 250-250-65 mg per tablet Take 2 tablets by mouth every 6 hours as needed (Headache). Do not exceed 8 tablets per 24 hours (Patient not taking: Reported on 05/24/2022) DEBLITANE 0.35 mg tablet (Patient not taking: Reported on 05/24/2022) No family history on file. Social History Tobacco Use Smoking status: Never Smokeless tobacco: Never Vaping Use Vaping status: current everyday user Substances: Nicotine Substance Use Topics Alcohol use: Never Drug use: Yes Types: Marijuana BP 124/78 Pulse 88 Temp 36.4 C (97.6 F) Resp 16 Wt 108.5 kg (239 lb 3.2 oz) LMP (LMP Unknown) SpO2 98% BMI 37.46 kg/m Review of Systems Constitutional: Negative for chills, fever and malaise/fatigue. Musculoskeletal: Positive for falls and joint pain. Negative for back pain, myalgias and neck pain. Neurological: Negative for dizziness, loss of consciousness, weakness and headaches. Objective Physical Exam Constitutional: General: She is not in acute distress. Appearance: She is not toxic-appearing. HENT: Head: Normocephalic. Nose: Nose normal. Eyes: Pupils: Pupils are equal, round, and reactive to light. Cardiovascular: Rate and Rhythm: Normal rate. Pulmonary: Effort: Pulmonary effort is normal. No respiratory distress. Musculoskeletal: Right forearm: Normal. Right wrist: Tenderness, bony tenderness and snuff box tenderness present. No swelling or deformity. Normal range of motion. Normal pulse. Right hand: No swelling, tenderness or bony tenderness. Normal range of motion. Normal strength. There is no disruption of two-point discrimination. Normal capillary refill. Normal pulse. Cervical back: Normal range of motion. Comments: Neurovascular tact. No abnormal findings noted on neuroexam. Full strength. No decreased range of motion of Skin: General: Skin is warm and dry. Neurological: General: No focal deficit present. Mental Status: She is alert. ASSESSMENT/PLAN: 1. Right wrist pain - ICD9: 719.43, ICD10: M25.531 - XR WRIST INJURY 4V PA/LAT/OBL/SCAPH RIGHT - CONSULT TO ORTHOPAEDICS IMPRESSION: Possible buckle fracture along the dorsal cortex of the RIGHT distal radius. Possible fracture noted on x-ray. Patient placed in volar splint. Splint comprised of 4 inch Ortho-Glass. Neurovascular status checked pre and post splint location abnormal findings. Patient was educated on supportive therapies. Patient will follow up with primary care provider as needed. Patient was instructed to immediately proceed to emergency room for any new, worsening, or symptoms lasting longer than anticipated. The patient's clinical presentation is otherwise unremarkable at this time. Based on exam and clinical finding, the patient is stable for discharge. Plan of care was discussed with patient. Patient verbalizes understanding and agrees to plan of care. This note was generated using [employer] software. It may contain errors in wording, punctuation, or spelling. Stew De Luna APRN.[employer]URNA[employer] COMBUST[employer] TESTER documented in this encounter [facility] 06-08-2023 History of Presen t illness Narrative This note was created using [employer]. Subjective Gómez Gasca is a 23 year old female. HPI 23-year-old female presents for left ear pain. Patient states she has been having left ear pain for the past week. She states that it started as an inner ear pain, but now she has pain to touch the ear. She states that the ear feels swollen. She states that she feels like her face is getting swollen as well. No fevers. No drainage from the ear. No cough, congestion, URI symptoms. Denies swimming recently. No recent travel. No history of ear infections. No other complaint. No past medical history on file. No past surgical history on file. ALLERGIES Patient has no known allergies. MEDICATIONS amoxicillin-clavulanate potassium (AUGMENTIN) 875-125 mg per tablet Take 1 tablet by mouth two times a day for 7 days. medroxyPROGESTERone (DEPO-PROVERA) 400 mg/mL susp Inject 400 mg intramuscularly every 12 weeks. (Patient not taking: Reported on 06/08/2023) Aazwodd-Enffkxltilflm-Hoheyjhu (EXCEDRIN MIGRAINE) 250-250-65 mg per tablet Take 2 tablets by mouth every 6 hours as needed (Headache). Do not exceed 8 tablets per 24 hours (Patient not taking: Reported on 05/24/2022) DEBLITANE 0.35 mg tablet (Patient not taking: Reported on 05/24/2022) No family history on file. Social History Tobacco Use Smoking status: Never Smokeless tobacco: Never Vaping Use Vaping Use: current everyday user Substances: Nicotine Substance Use Topics Alcohol use: Never Drug use: Yes Types: Marijuana Review of Systems Constitutional: Negative for chills and fever. HENT: Positive for ear pain and facial swelling. Negative for congestion, ear discharge and sore throat. Respiratory: Negative for cough and shortness of breath. Cardiovascular: Negative for chest pain. Gastrointestinal: Negative for diarrhea and vomiting. Objective BP 124/68 Pulse 85 Temp 36.8 C (98.2 F) Resp 20 Wt 107.9 kg (237 lb 14 oz) LMP (LMP Unknown) SpO2 99% BMI 37.26 kg/m Physical Exam Vitals and nursing note reviewed. Constitutional: General: She is not in acute distress. Appearance: Normal appearance. She is not toxic-appearing. HENT: Right Ear: Tympanic membrane and ear canal normal. Left Ear: Tympanic membrane and ear canal normal. Swelling and tenderness present. No drainage. No foreign body. No mastoid tenderness. Ears: Comments: Patient has swelling and tenderness noted to left external ear. I am unable to fully visualize TM due to swelling of the external canal. No drainage. Patient does have some mild redness noted in the preauricular region. No mastoid tenderness or erythema. Nose: Nose normal. Mouth/Throat: Mouth: Mucous membranes are moist. Pharynx: No oropharyngeal exudate or posterior oropharyngeal erythema. Eyes: Conjunctiva/sclera: Conjunctivae normal. Cardiovascular: Rate and Rhythm: Normal rate and regular rhythm. Pulmonary: Effort: Pulmonary effort is normal. Breath sounds: Normal breath sounds. Neurological: Mental Status: She is alert. Assessment and Plan ASSESSMENT/PLAN: 1. Acute otitis externa of left ear, unspecified type - ICD9: 380.10, ICD10: H60.502 -Rx for Augmentin. -Advised if the redness spreads despite being on antibiotic, needs to be seen in the emergency room. -Follow-up with ENT in 2 days for recheck. She reports she will try [facility] on Friday. - CONSULT TO ENT Diagnosis and treatment plan were discussed and questions were answered to the patient's satisfaction. Pt acknowledged understanding of concepts and follow up plan. Specific signs and symptoms that would indicate the need for higher level of care were discussed in detail warranting prompt ER evaluation. AHSAN Oakley documented in this encounter [facility] 06-08-2023 Instructions Jag Nash PA - 06/08/2023 2:52 PM EDT Follow-up with ENT in 2 days for recheck. Go to ER if you have any worsening redness, swelling, warmth, fevers. documented in this encounter [facility] 06-13-2022 Hospital Discharg e instructions Patient Education 06/13/2022 18:59:58 External Ear Infection (Adult) External Ear Infection (Adult) External otitis (also called swimmer s ear ) is an infection in the ear canal. It is often caused by bacteria or fungus. It can occur a few days after water gets trapped in the ear canal (from swimming or bathing). It can also occur after cleaning too deeply in the ear canal with a cotton swab or other object. Sometimes, hair care products get into the ear canal and cause this problem. Symptoms can include pain, fever, itching, redness, drainage, or swelling of the ear canal. Temporary hearing loss may also occur. Home care Do not try to clean the ear canal. This can push pus and bacteria deeper into the canal. Use prescribed ear drops as directed. These help reduce swelling and fight the infection. If an ear wick was placed in the ear canal, apply drops right onto the end of the wick. The wick will draw the medicine into the ear canal even if it is swollen closed. A cotton ball may be loosely placed in the outer ear to absorb any drainage. You may use acetaminophen or ibuprofen to control pain, unless another medicine was prescribed. Note: If you have chronic liver or kidney disease or ever had a stomach ulcer or GI bleeding, talk to your healthcare provider before taking any of these medicines. Do not allow water to get into your ear when bathing. Also, don't swim until the infection has cleared. Prevention Keep your ears dry. This helps lower the risk of infection. Dry your ears with a towel or hair blender after getting wet. Also, use ear plugs when swimming. Do not stick any objects in the ear to remove wax. If you feel water trapped in your ear, use ear drops right away. You can get these drops over the counter at most drugstores. They work by removing water from the ear canal. Follow-up care Follow up with your healthcare provider in 1 week, or as advised. When to seek medical advice Call your healthcare provider right away if any of these occur: Ear pain becomes worse or doesn t improve after 3 days of treatment Redness or swelling of the outer ear occurs or gets worse Headache Painful or stiff neck Drowsiness or confusion Fever of 100.4 F (38 C) or higher, or as directed by your healthcare provider Seizure [id number] [employer]. [address] [place] [address]. All rights reserved. This information is not intended as a substitute for professional medical care. Always follow your healthcare professional's instructions. Follow Up Care 06/13/2022 18:38:56 With:Call Physician Referral Address:Unknown When:5-7 days Comments:Schedule an appointment fot follow up if not improving.Use Tylenol and/or Motrin for pain and fever as needed.Coninue Keflex as prviously prescribed.Use antibiotic ear drops as prescribed.Return to the ED if syptoms worsen. [facility] 06-13-2022 Note Discharge Instructions Thank you for allowing [facility] to assist you with your healthcare needs. The following is important discharge information regarding your hospital visit. Diagnosis from Today's Visit Ear pain What to Do Next Instructions from Your Care Team No qualifying data available. Post Acute Orders No qualifying data available. You Need to Schedule the Following Appointments Follow Up with Call Physician Referral When Within 5-7 days Why: Schedule an appointment fot follow up if not improving. Use Tylenol and/or Motrin for pain and fever as needed. Coninue Keflex as prviously prescribed. Use antibiotic ear drops as prescribed. Return to the ED if syptoms worsen. Allergies No Known Medication Allergies Medications Please ask your primary doctor or pharmacist before taking any other medication not listed, including over the counter drugs, herbal medications, vitamins and or supplements as they may interact with your home medications. What How Much When Instructions Last Dose New hydrocortisone/ neomycin/ polymyxin B otic (hydrocortisone/ neomycin/ polymyxin B 1%-0.35%-10,000 units/ mL otic suspension) 2 Drops Left ear Four (4) times a day Duration: 7 Days Printed Prescription Please take this list to your next doctor s visit. Bring all medications you take, including over the counter medications, herbals and other supplements with you to your doctor s visit. Patients and families are reminded to discard old lists and to update any records with all medication providers or retail pharmacies. Education Materials External Ear Infection (Adult) External otitis (also called swimmer s ear ) is an infection in the ear canal. It is often caused by bacteria or fungus. It can occur a few days after water gets trapped in the ear canal (from swimming or bathing). It can also occur after cleaning too deeply in the ear canal with a cotton swab or other object. Sometimes, hair care products get into the ear canal and cause this problem. Symptoms can include pain, fever, itching, redness, drainage, or swelling of the ear canal. Temporary hearing loss may also occur. Home care Do not try to clean the ear canal. This can push pus and bacteria deeper into the canal. Use prescribed ear drops as directed. These help reduce swelling and fight the infection. If an ear wick was placed in the ear canal, apply drops right onto the end of the wick. The wick will draw the medicine into the ear canal even if it is swollen closed. A cotton ball may be loosely placed in the outer ear to absorb any drainage. You may use acetaminophen or ibuprofen to control pain, unless another medicine was prescribed. Note: If you have chronic liver or kidney disease or ever had a stomach ulcer or GI bleeding, talk to your healthcare provider before taking any of these medicines. Do not allow water to get into your ear when bathing. Also, don't swim until the infection has cleared. Prevention Keep your ears dry. This helps lower the risk of infection. Dry your ears with a towel or hair blender after getting wet. Also, use ear plugs when swimming. Do not stick any objects in the ear to remove wax. If you feel water trapped in your ear, use ear drops right away. You can get these drops over the counter at most drugstores. They work by removing water from the ear canal. Follow-up care Follow up with your healthcare provider in 1 week, or as advised. When to seek medical advice Call your healthcare provider right away if any of these occur: Ear pain becomes worse or doesn t improve after 3 days of treatment Redness or swelling of the outer ear occurs or gets worse Headache Painful or stiff neck Drowsiness or confusion Fever of 100.4 F (38 C) or higher, or as directed by your healthcare provider Seizure [id number] [employer]. [address] [place] [address]. All rights reserved. This information is not intended as a substitute for professional medical care. Always follow your healthcare professional's instructions. Additional Information VACCINATE! IT SAVES LIVES! Members of the community who have not yet received the COVID-19 vaccine and would like to receive it can visit one of [facility] vaccine clinics. There are many vaccine clinic locations within the [facility]. For locations and available times, please visit [email or web address] It is important to note that some COVID mobile vaccine clinics are held outdoors and may be canceled in rainy or stormy conditions. To learn more about pediatric vaccinations (ages 5-11), we invite you to visit the [facility] webpage. [email or web address] To learn more about the COVID-19 vaccine, we invite you to visit the CDC website for a list of frequently asked questions. https://www.cdc.gov/coronavirus/ 2019-ncov/vaccines/faq.html [facility] Patient Portal Access Instructions: Stay connected with your healthcare team and access your personal medical information anytime with the [facility] Patient Portal. If you would like a full copy of your medical records please contact the [facility] Medical Records Department Friday through Friday between 8a.m. and 4:30p.m. Please follow the directions below to access the portal: 1.Access the email account you provided upon registration to the special care hospital.2.Look for an invitation email from [facility].3.Open the email and access the invitation link: Accept Invitation to [facility].Fill in the required patel to create your account. Sign into [email or web address] with your username and password that you created in the above steps to stay up to date. You can then view a summary of results, a summary of your visits, and the ability to download your summaries to your computer or send the information securely to a physician. Remember that your healthcare information is confidential, so carefully consider who you will allow to register on the [facility] Patient Portal for access to your information. You can also access the [facility] Patient Portal on the [employer] kenya. Simply click on Health Records under Health Data and then click on the [facility] logo. HOW TO SAFELY DISPOSE OF PRESCRIPTION MEDICATIONS Please use one of the following methods to safely dispose of your unused medications. 1.Use a drug disposal kit: the drug disposal pouch allows you to safely discard your old and unused drugs. Ask your nurse to give you one when you are discharged.2.Visit a local take-back location: Many local pharmacies and police departments have programs that collect old and unwanted prescription drugs. Call your local pharmacy or go to http://[employer].TapFunder/3I3Nj9a to find one close to you.3.Make use of household items: Use cat litter or old coffee grounds to dispose medications if other options are not available. Mix your drugs with these household products, seal them in an airtight container and throw it into the garbage. Call [facility]: [phone] to be sure your drugs can be disposed of in this way. Some medicines may require a different approach.4.Never flush your medications down the toilet. IF YOU HAVE BEEN PRESCRIBED AN OPIOIDS FOR PAIN If you have been prescribed an opioid (such as hydrocodone, oxycodone or morphine), it is critical to understand the possible side effects and risks of opioid pain medications. Even when taken as directed, opioids can have several side effects including: Tolerance, meaning you might need to take more of a medication for the same pain relief. Nausea, vomiting and/or constipation. Sleepiness, dizziness, dry mouth, confusion, depression or itching. Physical dependence, meaning you have withdrawal symptoms when a medication is stopped ? this can develop within a few days. KNOW YOUR RESPONSIBILITIES It is important to know exactly how much and how often to take the opioid pain medications you are prescribed. Never take opioids in higher amounts or more often than prescribed. Do not combine opioids with alcohol or other drugs that cause drowsiness, such as benzodiazepines, also known as benzos, including diazepam and alprazolam, muscle relaxants or sleep aids. Never sell or share prescription opioids. This is illegal. Store opioids in a secure place and out of reach of others (including children, family, friends and visitors). The last page(s) of this document has been signed and retained as a CHART COPY Signatures Patient Education Materials External Ear Infection (Adult) Medication Leaflets My discharge plan and instructions have been reviewed and explained to me and I,GÓMEZ GASCA understand my current condition and have read and understand these discharge instructions. I have received a written copy of the plan/instructions. If I have questions, I am aware that I should contact my doctor. Patient/Access Director Signature: Date/Time: Relationship to Patient: Witness Name/Signature: Date/Time: [facility] 05-24-2022 History of Presen t illness Narrative CC: Patient presents with: Cough: Congestion, bilateral ear pain, RAYN, ST x5 days HPI: Gómez Gasca is a 22 year old female who presents to the office with complaint of head congestion, cough, nonproductive, sore throat, and ear symptoms for 5 days. Symptoms are staying the same. Associated symptoms includes headache. Denies fever, nausea, vomiting , and diarrhea. Treatments tried include nothing so far. with no relief of symptoms. Sick contacts: unknown. History of asthma, frequent episodes of bronchitis, chronic bronchitis, bronchiectasis or COPD: No Smoker: No Seasonal/environmental allergies: No The ROS is otherwise negative. The patient's pmh, medications, allergies, and past visits are reviewed. PHYSICAL EXAM: BP 122/86 Pulse 88 Temp 37 C (98.6 F) Resp 20 Wt 101.2 kg (223 lb) LMP (LMP Unknown) SpO2 98% BMI 34.93 kg/m General appearance: alert, cooperative, pleasant, in no acute distress Head: Normocephalic Eyes: EOM's intact, conjunctiva pink and moist, no icterus, sclera white, non-injected Ears: Right ear: External ear/canal- Normal, TM - clear with good landmarks. Left ear: External ear/canal- Normal, TM - erythematous and bulging Oropharynx:moderate erythema, without exudates present Heart: Negative. RRR without obvious murmur, gallop, or rubs. No ectopy. Lungs: clear to auscultation, without rales or wheeze, good air exchange No past medical history on file. No past surgical history on file. ALLERGIES Patient has no known allergies. MEDICATIONS medroxyPROGESTERone (DEPO-PROVERA) 400 mg/mL susp Inject 400 mg intramuscularly every 12 weeks. Qiwyrea-Xeennkciwnust-Rmwldzbw (EXCEDRIN MIGRAINE) 250-250-65 mg per tablet Take 2 tablets by mouth every 6 hours as needed (Headache). Do not exceed 8 tablets per 24 hours (Patient not taking: Reported on 05/24/2022) DEBLITANE 0.35 mg tablet (Patient not taking: Reported on 05/24/2022) No family history on file. Social History Tobacco Use Smoking status: Never Smokeless tobacco: Never Vaping Use Vaping Use: current everyday user Substances: Nicotine Substance Use Topics Alcohol use: Never Drug use: Yes Types: Marijuana ASSESSMENT/PLAN: 1. Sore throat - ICD9: 462, ICD10: J02.9 (primary diagnosis) - STREP A MOLECULAR (POC) - neg 2. Acute otitis media, left - ICD9: 382.9, ICD10: H66.92 - AMOXICILLIN 875 MG TABLET Prescription instructions reviewed with patient as applicable. Potential red flag symptoms discussed with the patient. Reviewed appropriate action plan to take if red flag symptoms occur. Patient agreeable to treatment plan. Desirae Stewart APRN.PERCY documented in this encounter [facility] Evaluation + Plan note No data available for this section [facility] Evaluation note Diagnosis Sore throat- Primary Acute pharyngitis Acute otitis media, left Unspecified otitis media [facility] Diagnosis Acute otitis externa of left ear, unspecified type- Primary [facility] Diagnosis Right wrist pain- Primary Pain in joint, forearm Right wrist pain Pain in joint, forearm [facility] Diagnosis Right wrist pain Pain in joint, forearm [facility] Diagnosis Pain in right wrist- Primary Pain in joint, forearm [facility] Diagnosis Pain in right wrist Pain in joint, forearm [facility] Diagnosis Closed fracture of distal end of right radius, unspecified fracture morphology, initial encounter- Primary [facility] Diagnosis Acute otitis media, right- Primary Unspecified otitis media URI, acute Acute upper respiratory infections of unspecified site [facility] Diagnosis Vaginal evelyn- Primary Candidiasis of vulva and vagina [facility] Diagnosis Closed fracture of distal end of right radius with routine healing, unspecified fracture morphology, subsequent encounter- Primary [facility] Diagnosis Bacterial vaginal infection- Primary Vaginitis and vulvovaginitis, unspecified [facility] Diagnosis Irregular menstrual cycle- Primary Hirsutism Acne vulgaris Other acne Menorrhagia with irregular cycle Excessive or frequent menstruation Unintended weight gain Abnormal weight gain [facility] Diagnosis Vaginal discharge- Primary Leukorrhea, not specified as infective [facility] Diagnosis PCOS (polycystic ovarian syndrome)- Primary Polycystic ovaries Arcuate uterus Class 2 obesity without serious comorbidity with body mass index (BMI) of 37.0 to 37.9 in adult, unspecified obesity type documented in this encounter [facility] note* Diagnosis Dyslipidemia- Primary Other and unspecified hyperlipidemia Gastroesophageal reflux disease, unspecified whether esophagitis present PCOS (polycystic ovarian syndrome) Polycystic ovaries 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, unspecified Picky eater Feeding difficulties and mismanagement Class 2 severe obesity with serious comorbidity and body mass index (BMI) of 37.0 to 37.9 in adult, unspecified obesity type (HCC) documented in this encounter [facility] note* Diagnosis Dyslipidemia- Primary Other and unspecified hyperlipidemia Gastroesophageal reflux disease, unspecified whether esophagitis present PCOS (polycystic ovarian syndrome) Polycystic ovaries 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 Mild nasal congestion with postnasal drip. No fevers or chills. No eye redness, discharge or itching. No blood or discharge noted from ear. No ear tenderness. No nausea vomiting or diarrhea. No chest pain, shortness of breath or wheezing noted. No rashes or skin lesions noted. No known exposures to [place], strep, pneumonia or influenza. Umfw-tuu-exrekgu medications taken for symptoms. Nonsmoker.[facility] Work Phone: Reason for referral (narrative)* Diagnostic Procedure Only (Urgent) - Pending Review Specialty Diagnoses / Procedures Referred By Contac t Referred To Contact XR IMAGING Diagnoses Right wrist pain Procedures XR WRIST INJURY 4V PA/LAT/OBL/SCAPH RIGHT RADEX WRIST COMPLETE MINIMUM 3 VIEWS Stew De Luna APRN.FURNACE COMBUSTION TESTER [address] [place] [address] [place] [address] Referral ID Status Reason Start Date Expiration Date Visits Requested Visits Authorized [id number] Pending Review Auto-Generat ed Referral 4 03/17/2025 1 1 [facility] for referral (narrative)* Diagnostic Procedure Only (Routine) - New Request Specialty Diagnoses / Procedures Referred By Contac t Referred To Contact XR IMAGING Diagnoses Pain in right wrist Procedures XR WRIST GENERAL 3V PA/LAT/OBL RIGHT RADEX WRIST COMPLETE MINIMUM 3 VIEWS Irene Reinoso PA-C [address] [place] [address] [place] [address] Referral ID Status Reason Start Date Expiration Date Visits Requested Visits Authorized [id number] New Request Auto-Generat ed Referral 02/27/2024 03/28/2025 1 1 [facility] for visit Narrative* Diagnostic Procedure Only (Urgent) - Pending Review Specialty Diagnoses / Procedures Referred By Contac t Referred To Contact XR IMAGING Diagnoses Right wrist pain Procedures XR WRIST INJURY 4V PA/LAT/OBL/SCAPH RIGHT RADEX WRIST COMPLETE MINIMUM 3 VIEWS Stew De Luna APRN.CNP [address] [facility] [address] [place] [address] Referral ID Status Reason Start Date Expiration Date Visits Requested Visits Authorized [id number] Pending Review Auto-Generat ed Referral 4 03/17/2025 1 1 [facility] for visit Narrative* Diagnostic Procedure Only (Routine) - Closed Specialty Diagnoses / Procedures Referred By Contac t Referred To Contact XR IMAGING Diagnoses Pain in right wrist Procedures XR WRIST GENERAL 3V PA/LAT/OBL RIGHT RADEX WRIST COMPLETE MINIMUM 3 VIEWS Irene Reinoso PA-C [address] [place] [address] [place] [address] Referral ID Status Reason Start Date Expiration Date V isits Requested Visits Authorized [id number] Closed Auto-Generate d Referral 02/27/2024 03/28/2025 1 1 [facility] Summary Purpose Family History No Family History Records FoundNo Family History Records FoundNo Family History Records FoundNo Family History Records FoundNo Family History Records FoundNo Family History Records FoundNo Family History Records FoundNo Family History Records FoundNo Family History Records FoundNo Family History Records FoundNo Family History Records FoundNo Family History Records Found Advance Directives No Advanced Directives Records FoundNo Advanced Directives Records FoundNo Advanced Directives Records FoundNo Advanced Directives Records FoundNo Advanced Directives Records FoundNo Advanced Directives Records FoundNo Advanced Directives Records FoundNo Advanced Directives Records FoundNo Advanced Directives Records FoundNo Advanced Directives Records FoundNo Advanced Directives Records FoundNo Advanced Directives Records Found Reason for Referral Specialty Diagnoses / Procedures Referred By Contac t Referred To Contact Orthopedics Diagnoses Right wrist pain Procedures CONSULT TO ORTHOPAEDICS OFFICE/OUTPATIENT [facility] MDM 60 MINUTES Stew De Luna, JATINDER.FURNACE COMBUSTION TESTER [address] [place] [address] Referral ID Status Reason Start Date Expiration Date Visits Requested Visits Authorized [id number] Authorized PCP Requested Referral 02/15/2025 1 1 Specialty Diagnoses / Procedures Referred By Contac t Referred To Contact XR IMAGING Diagnoses Right wrist pain Procedures XR WRIST INJURY 4V PA/LAT/OBL/SCAPH RIGHT RADEX WRIST COMPLETE MINIMUM 3 VIEWS Stew De Luna, JATINDER.FURNACE COMBUSTION TESTER [address] [place] [address] [place] [address] Referral ID Status Reason Start Date Expiration Date Visits Requested Visits Authorized [id number] Pending Review Auto-Generat ed Referral 03/17/2025 1 1 Specialty Diagnoses / Procedures Referred By Contac t Referred To Contact Ent - Otolaryngology Diagnoses Acute otitis externa of left ear, unspecified type Procedures CONSULT TO ENT OFFICE/OUTPATIENT [facility] MDM 60 MINUTES [facility] [address] [place] [address] Referral ID Status Reason Start Date Expiration Date Visits Requested Visits Authorized [id number] Authorized PCP Requested Referral 06/08/2023 06/07/2024 1 1 Additional Source Comments INFORMATION SOURCE (unrecogn ized section and content) DATE CREATED AUTHOR 08/20/2017 [facility] DATE CREATED AUTHOR AUTHOR'S ORGANIZ ATION 08/20/2017 [facility] DATE CREATED AUTHOR AUTHOR'S ORGANIZ ATION 04/06/2021 [facility] DATE CREATED AUTHOR AUTHOR'S ORGANIZ ATION 12/20/2021 [facility] DATE CREATED AUTHOR AUTHOR'S ORGANIZ ATION 02/17/2022 [facility] DATE CREATED AUTHOR AUTHOR'S ORGANIZ ATION 02/25/2022 [facility] DATE CREATED AUTHOR AUTHOR'S ORGANIZ ATION 02/25/2022 [employer] DATE CREATED AUTHOR AUTHOR'S ORGANIZ ATION 06/17/2022 [facility] ([place]) DATE CREATED AUTHOR AUTHOR'S ORGANIZ ATION 12/06/2022 [facility] DATE CREATED AUTHOR AUTHOR'S ORGANIZ ATION 12/18/2023 [facility] DATE CREATED AUTHOR AUTHOR'S ORGANIZ ATION 02/14/2024 [facility] DATE CREATED AUTHOR AUTHOR'S ORGANIZ ATION 09/16/2024 [facility] Source Comments (unrecognize d section and content) In the event this informatio n is protected by the Federal Confidentiality of Alcohol and Drug Abuse Patient Records regulations: The Federal rules restrict any use of the information to criminally investigate or prosecute any alcohol or drug abuse patient.[facility] the event this information is protected by the Federal Confidentiality of Alcohol and Drug Abuse Patient Records regulations: The Federal rules restrict any use of the information to criminally investigate or prosecute any alcohol or drug abuse patient.[facility] the event this information is protected by the Federal Confidentiality of Alcohol and Drug Abuse Patient Records regulations: The Federal rules restrict any use of the information to criminally investigate or prosecute any alcohol or drug abuse patient.[facility] the event this information is protected by the Federal Confidentiality of Alcohol and Drug Abuse Patient Records regulations: The Federal rules restrict any use of the information to criminally investigate or prosecute any alcohol or drug abuse patient.[facility] the event this information is protected by the Federal Confidentiality of Alcohol and Drug Abuse Patient Records regulations: The Federal rules restrict any use of the information to criminally investigate or prosecute any alcohol or drug abuse patient.[facility] the event this information is protected by the Federal Confidentiality of Alcohol and Drug Abuse Patient Records regulations: The Federal rules restrict any use of the information to criminally investigate or prosecute any alcohol or drug abuse patient.[facility] the event this information is protected by the Federal Confidentiality of Alcohol and Drug Abuse Patient Records regulations: The Federal rules restrict any use of the information to criminally investigate or prosecute any alcohol or drug abuse patient.[facility] the event this information is protected by the Federal Confidentiality of Alcohol and Drug Abuse Patient Records regulations: The Federal rules restrict any use of the information to criminally investigate or prosecute any alcohol or drug abuse patient.[facility] the event this information is protected by the Federal Confidentiality of Alcohol and Drug Abuse Patient Records regulations: The Federal rules restrict any use of the information to criminally investigate or prosecute any alcohol or drug abuse patient.[facility] the event this information is protected by the Federal Confidentiality of Alcohol and Drug Abuse Patient Records regulations: The Federal rules restrict any use of the information to criminally investigate or prosecute any alcohol or drug abuse patient.[facility] the event this information is protected by the Federal Confidentiality of Alcohol and Drug Abuse Patient Records regulations: The Federal rules restrict any use of the information to criminally investigate or prosecute any alcohol or drug abuse patient.[facility] the event this information is protected by the Federal Confidentiality of Alcohol and Drug Abuse Patient Records regulations: The Federal rules restrict any use of the information to criminally investigate or prosecute any alcohol or drug abuse patient.[facility] the event this information is protected by the Federal Confidentiality of Alcohol and Drug Abuse Patient Records regulations: The Federal rules restrict any use of the information to criminally investigate or prosecute any alcohol or drug abuse patient.[facility] the event this information is protected by the Federal Confidentiality of Alcohol and Drug Abuse Patient Records regulations: The Federal rules restrict any use of the information to criminally investigate or prosecute any alcohol or drug abuse patient.[facility] the event this information is protected by the Federal Confidentiality of Alcohol and Drug Abuse Patient Records regulations: The Federal rules restrict any use of the information to criminally investigate or prosecute any alcohol or drug abuse patient.[facility] Hospital[facility] the event this information is protected by the Federal Confidentiality of Alcohol and Drug Abuse Patient Records regulations: The Federal rules restrict any use of the information to criminally investigate or prosecute any alcohol or drug abuse patient.[facility] the event this information is protected by the Federal Confidentiality of Alcohol and Drug Abuse Patient Records regulations: The Federal rules restrict any use of the information to criminally investigate or prosecute any alcohol or drug abuse patient.[facility] HospitalIn the event this information is protected by the Federal Confidentiality of Alcohol and Drug Abuse Patient Records regulations: The Federal rules restrict any use of the information to criminally investigate or prosecute any alcohol or drug abuse patient.[facility] HospitalIn the event this information is protected by the Federal Confidentiality of Alcohol and Drug Abuse Patient Records regulations: The Federal rules restrict any use of the information to criminally investigate or prosecute any alcohol or drug abuse patient.[facility] HospitalIn the event this information is protected by the Federal Confidentiality of Alcohol and Drug Abuse Patient Records regulations: The Federal rules restrict any use of the information to criminally investigate or prosecute any alcohol or drug abuse patient.[facility] HospitalIn the event this information is protected by the Federal Confidentiality of Alcohol and Drug Abuse Patient Records regulations: The Federal rules restrict any use of the information to criminally investigate or prosecute any alcohol or drug abuse patient.[facility] HospitalIn the event this information is protected by the Federal Confidentiality of Alcohol and Drug Abuse Patient Records regulations: The Federal rules restrict any use of the information to criminally investigate or prosecute any alcohol or drug abuse patient.[facility] Reason for Visit (unrecogniz ed section and content) Reason Comments Cough Congestion, bilatera l ear pain, RYAN, ST x5 days Reason Comments Ear Pain Left ear pain x 1 we ek Reason Comments Wrist Pain right x 2 weeks afte r fall Reason Comments Appointment Reason Comments New Injury Referred by Deon De Luna Specialty Diagnoses / Procedures Referred By Ivis allen Referred To Contact Orthopedics Diagnoses Right wrist pain Procedures CONSULT TO ORTHOPAEDICS OFFICE/OUTPATIENT NEW HIGH MDM 60 MINUTES Stew De Luna APRN.FURNACE COMBUSTION TESTER [address] [place] [address] Referral ID Status Reason Start Date Expiration Date V isits Requested Visits Authorized [id number] Closed PCP Requested Referral 02/16/2024 02/15/2025 1 1 Reason Comments Cough Cough, chest congest ion, RYAN, nasal congestion and ST x 1.5 days Reason Comments Results Reason Comments Vaginal Problem Reason Comments Discussion Reason Comments Vaginal Discharge Reason Comments Follow Up Reason Onset Date Comments Weight Management 07/06/2024 Reason Comments Weight Management Reason Comments Urinary Frequency Frequency, burning a nd discharge x 3 days Care Teams (unrecognized sec tion and content) Accounts Clerk Relationship Specialty Start Date End Date Babs Marie [address] [facility] [address] [place] [address] PCP - General Pediatrics 10/03/19 FOR RECORDS PERTAINING TO PATIENTS WHO ARE OR HAVE BEEN ENROLLED IN A CHEMICAL DEPENDENCY/SUBSTANCEABUSE PROGRAM, SOME INFORMATION MAY BE OMITTED. This clinical summary was aggregated from multiple sources. Caution should be exercised in using it in the provision of clinical care. This summary normalizes information from multiple sources, and as a consequence, information in this document may materially change the coding, format and clinical context of patient data. In addition, data may be omitted in some cases. CLINICAL DECISIONS SHOULD BE BASED ON THE PRIMARY CLINICAL RECORDS. [facility] [employer] [facility]. provides no warranty or guarantee of the accuracy or completeness of information in this document.
[2024-10-16 23:16] LABS: Mucous, Urine 0 SEEN /hpf (<or=2+)
[2024-10-16 23:18] LABS: Hematocrit 38.8 % (37-47); Hemoglobin 13.1 g/dL (12.0-15.0); Immature Granulocytes Count 0.050 X10^3/uL (0.0-0.0); Mean Corp Hgb Conc 33.8 g/dL (32-36); Mean Corpuscular Volume 82.7 fL (81-99); Mean Platelet Vol. 10.9 fl (6.2-12.0); NRBC Flagged by Analyzer 0 % (0-5); Platelet Count 343 K/mm3 (150-450); RBC Distribution Width CV 13.8 % (11.6-14.6); RBC Distribution Width SD 40.6 fl (35.1-43.9); Red Blood Count 4.69 M/mm3 (4.2-5.4); White Blood Count 13.2 K/mm3 (4.4-11.0)
[2024-10-16 23:20] LABS: Color, Urine Yellow (Yellow); Glucose, Dipstick Normal (Normal); Ketone-Dipstick 50 mg/dl (Negative); Leukocyte Esterase-Dipstick 100 /ul (Negative); Nitrite-Dipstick Negative (Negative); Occult Blood-Urine 10 /ul (Negative); Protein-Dipstick 30 mg/dl (Negative); Specific Gravity, Urine 1.025 (1.002-1.030); Urine Bilirubin Dipstick Negative (Negative)
[2024-10-16 23:24] LABS: Internal QC Validated? YES +Cl - CLEAR BKGD
[2024-10-16 23:27] LABS: Pregnancy, Urine Positive Negative; Record Kit Lot#,Urine Preg 962302
[2024-10-16 23:37] LABS: Red Blood Cells-Urine 0-5 SEEN /hpf (0-5); Squamous Epithelial Cells - UA 5-10 SEEN /hpf (5-10)
[2024-10-16 23:45] LABS: Anion Gap 15 (5-15); BUN 6 mg/dL (4-19); BUN/Creat Ratio 8.0 RATIO (10-20); Calcium,Total 9.8 mg/dL (7.6-11.0); Carbon Dioxide 20.8 mmol/L (21.0-32.0); Chloride 102 mmol/L (98-108); Estimated Creatinine Clearance 140.30 ml/min (50-250); Glucose 89 mg/dL (70-99); Potassium 3.3 mmol/L (3.3-5.1)
[2024-10-16 23:52] LABS: hCG Titer Quant., Serum 3337 mIU/mL (<9 non-preg)
[2024-10-17 00:39] VITALS: BP 132/70; PULSE 109; RESP 18; O2SAT 99
--- NOTE | 2024-10-17 00:45 | EDS_ITS ---
HPI HPI - Female History of Present Illness Chief Complaint: Informant: patient and spouse/S.O. Narrative Narrative: Patient is a female who has history of PCOS. She states because of PCOS her menstrual cycles are irregular. She states she will occasionally take a test to ensure that the irregularity is not due to . She states this been 2 or 3 months since her last cycle. She states that today she took a test in order to check for as a potential cause for her irregularity and she also reports that there has been cramping intermittent pain in the lower abdomen and low back. She states she took 4 home test that were positive. She denies any vaginal bleeding. However because of the home test being positive and her abdominal discomfort she presents for evaluation [facility] Medical History (Updated 10/17/24 @ 03:[address] Parviz Beaver DO) PCOS (polycystic ovarian syndrome) Home Medications ?Medication ?Instructions ?Recorded ?Last Taken ?Type norethindrone acetate 5 mg tablet See Rx Instructions .Route 11/25/23 Unknown Rx .COMPLEX #30 tabs amoxicillin 500 mg capsule 500 mg PO TID 7 days #21 ca ps 10/17/24 Unknown Rx Allergy/AdvReac Type Severity Reaction Status Date / Time No Known Allergies Allergy Verified 10/16/24 22:34 Family History no significant family his Social History Smoking Status: Current every day smoker tobacco type: cigarettes ROS ROS ED Constitutional Constitutional ED: Denies chills or fever(s) ENT ENT ED: Denies sore throat Cardiovascular Cardiovascular: Denies chest pain Respiratory/Chest Respiratory/Chest: Denies cough or dyspnea Gastrointestinal Gastrointestinal: Reports abdominal pain; Denies diarrhea, nausea or vomiting Genitourinary Genitourinary ED: Reports other Details: Negative vaginal bleeding ; Denies dysuria Musculoskeletal Musculoskeletal: Reports other Details: Positive back pain Integumentary Denies Abrasions or rash Neurologic Neurologic: Denies headache(s) Hematologic/Lymphatic Hematologic/Lymphatic: Denies easy bleeding or easy bruising EXAM Physical Exam Const Vital Signs: 10/16/24 22:35 10/17/24 00:39 10/17/24 00:53 Temperature 97.8 F 97.8 F Temperature Source Temporal Pulse Rate 109 H 109 H Respiratory Rate 18 18 18 Blood Pressure 137/94 H 132/70 H 132/70 H Blood Pressure Mean 108 90 90 Pulse Ox 99 99 99 Oxygen Delivery Method Room Air Positive well nourished and well developed General Appearance ED: well developed; Negative for pallor HEENT HEENT Narrative: Normocephalic atraumatic Eyes PERRL and EOMs intact bilaterally General Eye ED: Negative for pale conjunctiva or scleral icterus Neck supple Neck Narrative: No nuchal rigidity or meningeal signs Resp normal respiratory effort and clear to auscultation bilaterally Cardio regular rhythm Rate: tachycardic and other Other Details: Slightly tachycardic rate with regular rhythm No murmurs rubs or gallop Radial and carotid pulses are equal and symmetric GI soft to palpation, non-distended and no masses GI Narrative: Abdomen is soft and nondistended with normal active bowel sounds. There is mild pain with palpation in the lower left suprapubic and right lower quadrant. No organomegaly or fundus palpated. No voluntary guarding or rigidity. No peritoneal signs. Auscultation: normoactive bowel sounds Palpation: soft Back/Spine no CVA tenderness Extremity normal to inspection and full ROM Neuro oriented x3, CN's II-XII intact bilaterally and no sensory deficits noted Sensorium / Orientation: alert Motor Exam: strength 5/5 throughout Psych mental status grossly normal Skin no rashes or lesions noted General Skin Exam: Negative for jaundice or pallor MDM MDM MDM Narrative Medical decision making narrative: Patient arrived to the ER with a soft nonsurgical abdomen. She reports positive test at home with abdominal and back cramping. Differential diagnosis is for PCOS versus intrauterine with abdominal pain versus ectopic . With concern for ectopic based on the most likely early nature of her I did elect to perform basic labs as well as a transvaginal ultrasound. Her beta hCG value is 3337 indicating she is early in . Her transvaginal ultrasound confirms a IUP with pole and yolk sac. This is also consistent with early . Therefore at this time as transvaginal ultrasound shows an IUP in her low quantitative value correlates with the findings I do not feel need for further workup or [employer] consultation. Patient's urine sample does show +3 bacteria with minimal contamination. However as she is I will place her on amoxicillin secondary to concern for UTI. However at this time she does not have a surgical abdomen ultrasound does not show any signs of ectopic and she does not show urosepsis and therefore she can follow-up as an outpatient History & Record Review Discussion w/independent historian: Patient and Significant other Lab Data Attestation: I reviewed the patient's lab results. Labs: Laboratory Results - last 24 hr 10/16/24 10/16/24 22:45 23:11 WBC 13.2 H RBC 4.69 Hgb 13.1 Hct 38.8 MCV 82.7 MCH 27.9 MCHC 33.8 RDW Std Deviation 40.6 RDW Coeff of Azar 13.8 Plt Count 343 MPV 10.9 Immature Gran % (Auto) 0.400 Neut % (Auto) 66.0 Lymph % (Auto) 27.7 Swisher % (Auto) 5.2 Eos % (Auto) 0.3 Baso % (Auto) 0.4 Absolute Neuts (auto) 8.7 H Absolute Lymphs (auto) 3.65 Nucleated RBC % 0 Sodium 138 Potassium 3.3 Chloride 102 Carbon Dioxide 20.8 L Anion Gap 15 BUN 6 Creatinine 0.79 Estim Creat Clear Calc 140.30 Est GFR (MDRD) Non-Af 109 BUN/Creatinine Ratio 8.0 L Glucose 89 Calcium 9.8 HCG, Quant 3337 H Urine Color Yellow Urine Clarity Sl. Cloudy Urine pH 5.0 Ur Specific Center 1.025 Urine Protein 30 H Urine Glucose (UA) Normal Urine Ketones 50 H Urine Occult Blood 10 H Urine Nitrite Negative Urine Bilirubin Negative Urine Urobilinogen 1 H Ur Leukocyte Esterase 100 H Urine RBC 0-5 SEEN Urine WBC 0-5 SEEN Ur Squamous Epith Cells 5-10 SEEN Urine Bacteria 3+ Urine Mucus 0 SEEN Urine Test Positive H Radiography Diagnostic Testing: Clinical Impression(s) from Imaging Studies Obstetrics Ultrasound 10/16/24 22:54 IMPRESSION: Intrauterine with gestational sac of 0.6 cm corresponding to sonographic gestational age of 5 weeks and 2 days. CARLOS of 06/16/25. Corpus luteal cyst in the left measuring 2.1 x 1.5 x 1.7 cm. Reading Location: [facility] Discharge Plan Triage Chief Complaint: ED Provider: Parviz Beaver Dx/Rx/DC Orders Clinical Impression: Abdominal pain during in first trimester, PCOS (polycystic ovarian syndrome) Instructions: ED Abdominal Pain, Early Prescriptions: New amoxicillin 500 mg capsule 500 mg PO TID 7 Days Qty: 21 0RF No Action norethindrone acetate 5 mg tablet See Rx Instructions .ROUTE .COMPLEX Qty: 30 0RF Rx Instructions: 5 mg p.o. 3 times daily until bleeding stops, then 1 tab p.o. twice daily x 3 days, then 1 tab p.o. daily x 3 days Primary Care Provider: Care Physician,No Primary Referrals: Care Physician,No Primary [Primary Care Provider] - Activity Restrictions/Additional Instructions: Your marker was 3337. Your ultrasound shows a intrauterine at roughly 5 weeks and 2 days gestation. Please follow-up with your [employer]NAGEMENT for further evaluation and return to the ER should you have any further concerns. Literature states that there is no significant animal data or postmarketing reports of defect or chance of increased miscarriage with metformin so you can stay on it at this time unless otherwise directed by your [employer]NAG[employer]. Literature states the same for omeprazole she may continue this as well. Please return to the ER should you have any further concerns Print Language: Estonian Disposition Disposition: Home, Self Care Discharge Date/Time: 10/17/24 00:54
[2024-10-17 00:53] VITALS: BP 132/70; PULSE 109; RESP 18; TEMP 36.6; O2SAT 99
== END 2024-10-17 00:54 | disposition home or self-care (01) ==
PROVIDERS: Emergency Provider Emergency Medicine; Visit Provider Emergency Medicine
DX: O99.891 Other specified diseases and conditions complicating pregnancy (principal); O99.281 Endocrine, nutritional and metabolic diseases complicating pregnancy, first trimester; R10.9 Unspecified abdominal pain; E28.2 Polycystic ovarian syndrome; O99.331 Smoking (tobacco) complicating pregnancy, first trimester; Z3A.00 Weeks of gestation of pregnancy not specified; F17.210 Nicotine dependence, cigarettes, uncomplicated
CPT/HCPCS: 76817; 80048; 81001; 81025; 84702; 85025; 99282